=== PATIENT | male | born 1950 | race Two or more races ===

== ENCOUNTER 2022-11-24 09:21 | Outpatient (CLI) | payer MEDICARE, SELFPAY ==
[2022-11-24 10:07] VITALS: BP 159/60; PULSE 101; RESP 20; TEMP 37.3; O2SAT 94; BMI 27.4
[2022-11-24 10:33] VITALS: BP 98/50; PULSE 94; RESP 18; TEMP 37.6; O2SAT 93
[2022-11-24 11:40] VITALS: BP 132/57; PULSE 89; RESP 16; TEMP 37.8; O2SAT 100
[2022-11-24 12:33] VITALS: BP 145/78; PULSE 93; RESP 20; TEMP 36.8; O2SAT 92
[2022-11-24] MEDS: DiphenhydrAMINE 50 MG/ML Syringe 25 MG IV (12:33)
[2022-11-24] MEDS: Hydrocortisone Sod Succinate 100 MG/2 ML Vial IV (12:39)
[2022-11-24 13:12] VITALS: BP 145/78; PULSE 93; RESP 18; TEMP 36.8; O2SAT 92
[2022-11-24 13:35] VITALS: TEMP 38.8
[2022-11-24 20:39] LABS: Color, Urine- Transfusion RXN Yellow (Yellow)
[2022-11-24 20:40] LABS: Occult Blood-Urine Supernatant Negative (Negative)
[2022-11-24 21:31] LABS: TXN RXN Red Blood Cells-Urine 0-5 SEEN /hpf
== END 2022-11-24 09:22 | disposition home or self-care (01) ==
PROVIDERS: PCP Internal Medicine; Referring Provider Internal Medicine Hematology & Oncology; Visit Provider Internal Medicine Hematology & Oncology
DX: D64.81 Anemia due to antineoplastic chemotherapy (principal); T45.1X5A Adverse effect of antineoplastic and immunosuppressive drugs, initial encounter
CPT/HCPCS: 36430; 86644; 86850; 86900; 86901; 86920; 86922; P9040

== ENCOUNTER 2022-11-24 13:42 | Inpatient (IN) | payer MEDICARE, SELFPAY ==
[2022-11-24] VITALS (11 sets, daily range): BP systolic 116–136; BP diastolic 56–76; PULSE 78–92; RESP 20–32; TEMP 36.7–37.7; O2SAT 88–96; BMI 17.1; BMI 27.3
--- NOTE | 2022-11-24 14:50 | RAD_ITS ---
INDICATION: Neutropenic Fever EXAMINATION/TECHNIQUE: X-RAY - XR Chest 2 Views COMPARISON: No prior examinations are available for comparison. FINDINGS: LINES/DEVICES: None. LUNGS: Patchy infiltrate in the right lower lung and left perihilar region concerning for pneumonia. No evidence of pleural effusions. MEDIASTINUM AND CARDIOVASCULAR STRUCTURES: Normal cardiac silhouette. Tortuosity of the thoracic aorta. BONES AND SOFT TISSUES: Dextroscoliosis and degenerative changes of the thoracic spine. RAD/Chest PA and Lateral IMPRESSION: Patchy bilateral infiltrates concerning for pneumonia. Electronically Signed: Bulmaro Steinberg MD at 15:03 EDT ,
--- NOTE | 2022-11-24 15:01 | EDS_ITS ---
HPI History of Present Illness Chief Complaint: Fever Detail of Chief Complaint: For low-grade fever. Informant: patient and spouse/S.O. Onset/Context/Timing Onset: Today and Days Context: Gradual Onset Timing: Continuous Current Severity: Mild Maximum Severity: Mild Narrative Narrative: 72-year-old male history of lung CA for which she is undergoing chemotherapy and radiation. He gets once a week chemotherapy but was unable to get it his last treatment that was scheduled due to anemia. Today he received a blood transfusion. Prior to transfusion he has had a cough recently and has basally had it for months and low-grade fever around 100. He denies vomiting or diarrhea. He denies dysuria. He does not have a med port. Prior similar symptoms: Yes Recent Illness/Hospitalization: No PFSH PFSH Allergy/AdvReac Type Severity Reaction Status Date / Time acetaminophen [From Tylenol] Allergy Unknown increased Verified 11/24/22 13:44 white count Social History Smoking Status: Former smoker ROS ROS ED ROS Narrative Fever and cough of clear sputum. Review of Systems ROS Unobtainable: Denies due to encephalopathy Constitutional Constitutional ED: Reports fever(s); Denies chills Eyes Eyes: Denies blurry vision ENT ENT ED: Denies ear pain Cardiovascular Cardiovascular: Denies chest pain Respiratory/Chest Respiratory/Chest: Reports cough Gastrointestinal Gastrointestinal: Denies abdominal pain Genitourinary Genitourinary ED: Denies dysuria or hematuria Musculoskeletal Musculoskeletal: Denies arthralgias Integumentary Denies abscess Neurologic Neurologic: Denies headache(s) Psychiatric Psychiatric: Denies anxiety Endocrine Endocrinology: Denies cold intolerance Hematologic/Lymphatic Hematologic/Lymphatic: Reports anemia Allergic/Immunologic Allergic/Immunologic ED: Denies mouth swelling or tongue swelling EXAM Physical Exam Narrative Exam Narrative: 72-year-old male no acute distress. Vital signs are stable he has a temperature of 100 orally. He does not look septic or toxic. He is in no distress. at bedside. HEENT exam unremarkable. Neck nontender no lymphadenopathy. Lungs coarse breath sounds bilaterally. No rales or rhonchi. Heart regular rhythm rate about 90 no murmur. Chest wall nontender. Abdomen soft nontender. Moving all 4 extremities. Nontender no edema. Neurologically is awake alert. Answering questions following commands. Skin no rashes. Const Vital Signs: 11/24/22 13:44 11/24/22 13:55 11/24/22 13:55 Temperature 99.8 F H 100 F H Temperature Source Temporal Oral Pulse Rate 92 78 Respiratory Rate 24 H 20 H Respiratory Effort Normal Respiratory Depth Normal Respiratory Pattern Normal Blood Pressure 127/56 H 124/60 H Blood Pressure Mean 79 81 Pulse Ox 90 Oxygen Delivery Method Room Air Room Air Oxygen Flow Rate (L/min) 11/24/22 14:29 11/24/22 14:29 11/24/22 14:20 Temperature Temperature Source Pulse Rate 89 Respiratory Rate 32 H Respiratory Effort Normal Respiratory Depth Respiratory Pattern Tachypnea Blood Pressure 116/62 Blood Pressure Mean 80 Pulse Ox 93 88 Oxygen Delivery Method Nasal Cannula Room Air Oxygen Flow Rate (L/min) 3 11/24/22 14:41 11/24/22 15:04 Temperature 99 F Temperature Source Oral Pulse Rate 85 Respiratory Rate 24 H Respiratory Effort Respiratory Depth Respiratory Pattern Blood Pressure 125/76 H Blood Pressure Mean 92 Pulse Ox 92 Oxygen Delivery Method Nasal Cannula Nasal Cannula Oxygen Flow Rate (L/min) 3 3 Positive well nourished and well developed; Negative for obese, cachectic, contractures or unkempt General Appearance ED: well developed and NAD; Negative for unkempt, cachectic, contractures, cyanotic or diaphoretic Nutritional Appearance: Negative for cachectic or obese HEENT Reports moist mucous membranes; Denies dry mucous membranes Negative for trauma or tenderness Mouth ED: No dry mucous membranes Mouth: No dry mucous membranes Eyes PERRL and EOMs intact bilaterally General Eye ED: Negative for scleral icterus Neck no lymphadenopathy, supple and no JVD General: Negative for tenderness Lymph Lymphatic: Negative for other Chest Wall inspection of chest normal and palpation of chest normal Chest: Negative for other Resp normal respiratory effort and clear to auscultation bilaterally Effort and Inspection: Negative for retractions Auscultation: Negative for rales, rhonchi or wheezes Cardio regular rhythm, S1 normal heart sound, S2 normal heart sound and no murmurs GI normal to inspection, nondistended, normoactive bowel sounds, non-tender, non- distended and no masses Inspection: Negative for abdominal distention Auscultation: normoactive bowel sounds Palpation: soft; Negative for tender or guarding Bladder / Kidney Exam: other Back/Spine no CVA tenderness General Back: Negative for CVA tenderness Extremity normal to inspection General Extremety ED: Negative for edema or tenderness General Extremity: Negative for edema Neuro oriented x3 and CN's II-XII intact bilaterally Sensorium / Orientation: alert; Negative for orientation impaired, lethargic or stuporous Motor Exam: strength 5/5 throughout Psych mental status grossly normal Appearance: Negative for unkempt Attitude: No agitated Mood & Affect: Negative for depressed, anxious or tearful Skin no rashes or lesions noted, no wounds and skin turgor normal General Skin Exam: Negative for jaundice Lesions: No lesion noted Rashes: No rashes noted Trauma: Negative for abrasion Wounds: Negative for wounds noted MDM MDM MDM Narrative Medical decision making narrative: 72-year-old male undergoing treatment for lung cancer with chemotherapy and radiation. Today had a blood transfusion. Prior to that he has had a chronic cough for months. He has a prescription written for Levaquin which she will get filled today. He sees Dr. Tim Banks of oncology. He was sent in after his blood transfusion for evaluation for his fever. Of note placed on the septic protocol. Receive IV fluids and Tylenol. Repeat exam I discussed test results with patient and woman at bedside. Will be started on IV Levaquin. Explained to patient due to his age, lung cancer, being immunocompromise plus other medical history he should be admitted. I have his oncologist, Dr. Tim Banks on page. I have already spoken to the hospitalist. Patient be treated a liter normal saline. IV antibiotics being started. History & Record Review Discussion w/independent historian: Patient and Friend Lab Data Attestation: I reviewed the patient's lab results. Lab results narrative: CBC shows a white count 3.3. H&H is 7.7 and 22. He is on chemotherapy. Has had a history of anemia. Platelet counts are low he also is 64. Patient has a pancytopenia. PT/INR of 16 and 1. PTT 36. Electrolytes show sodium 131. Gap of 9. BUN 29 creatinine 0.8. Lactic acid is normal at 1.1. Liver enzymes are unremarkable. Chest x-ray portable shows bilateral lower lobe pneumonia. He also has a known history of right lower lobe lung cancer. Labs: Laboratory Results - last 24 hr 11/24/22 14:10 WBC 3.3 L RBC 2.52 L Hgb 7.7 L Hct 22.0 L MCV 87.3 MCH 30.6 MCHC 35.0 RDW Std Deviation 58.4 H RDW Coeff of Tone 20.3 H Plt Count 64 L MPV 11.2 Immature Gran % (Auto) 0.600 Neut % (Auto) 92.5 H Lymph % (Auto) 1.8 L [place] % (Auto) 5.1 Eos % (Auto) 0.0 Baso % (Auto) 0.0 Absolute Neuts (auto) 3.1 Absolute Lymphs (auto) 0.06 L Nucleated RBC % 0 Differential Comment SCANNED Diff Path Review May foll Anisocytosis 1+ PT 16.3 H INR 1.3 APTT 36.1 Sodium 131 L Potassium 3.6 Chloride 101 Carbon Dioxide 21.0 Anion Gap 9 BUN 29 H Creatinine 0.80 Estim Creat Clear Calc 55.05 Est GFR (MDRD) Af Amer 122 Est GFR (MDRD) Non-Af 101 BUN/Creatinine Ratio 36.2 H Glucose 181 H Lactic Acid 1.1 Calcium 8.4 L Total Bilirubin 5.60 H AST 40 H ALT 21 Alkaline Phosphatase 99 Total Protein 6.7 Albumin 2.8 L Globulin 3.9 Albumin/Globulin Ratio 0.7 L Radiography Chest X-Ray - ED: 1 View, Read by ED Physician, Read by Radiologist, Normal, Heart, Lungs, Mediastinum, Chronic Changes, Right Infiltrate and Left Infiltrate Diagnostic Testing: Clinical Impression(s) from Imaging Studies Chest X-Ray 11/24/22 14:50 IMPRESSION: Patchy bilateral infiltrates concerning for pneumonia. Electronically Signed: Bulmaro Steinberg MD at 15:03 EDT , Chest x-ray, portable, single view interpreted both by myself and the radiologist shows bilateral lower lobe pneumonia. He also has a known lung cancer I do not have an old chest x-ray available for comparison but I believe he is a right lower lobe known lung cancer. Discharge Plan Triage Chief Complaint: Fever Other Complaint: Cough ED Provider: John Shook Dx/Rx/DC Orders Primary Care Provider: Gera Camp Referrals: Gera Camp MD [Primary Care Provider] -
[2022-11-24 15:07] LABS: Absolute Lymphocyte Count 0.06 X10^3/uL (0.83-4.51); Absolute Neutrophil Count 3.1 X10^3/uL (2.0-7.7); Hemoglobin 7.7 g/dL (13.0-16.5); Lymphocyte # 0.06 X10^3/ul (0.83-4.51); Lymphocyte % 1.8 % (19-41); Mean Corpuscular Hgb 30.6 pg (27.0-32.0); Mean Corpuscular Volume 87.3 fL (80-94); Mean Platelet Vol. 11.2 fl (6.2-12.0); Monocyte# 0.17 X10^3/uL; Monocyte% 5.1 % (0-10); NRBC Flagged by Analyzer 0 % (0-5); Neutrophil # 3.06 X10^3/uL (2.7-7.7); Neutrophil % 92.5 % (47-70); POSITIVE COUNT YES; POSITIVE DIFFERENTIAL YES; POSITIVE MORPHOLOGY YES; Platelet Count 64 K/mm3 (150-450); RBC Distribution Width CV 20.3 % (11.6-14.6); RBC Distribution Width SD 58.4 fl (35.1-43.9); Red Blood Count 2.52 M/mm3 (4.6-6.2); White Blood Count 3.3 K/mm3 (4.4-11.0)
[2022-11-24 15:09] LABS: Lactic Acid 1.1 mmol/L (0.4-1.9)
[2022-11-24 15:18] LABS: ALB/GLOB Ratio 0.7 RATIO (0.9-2.4); AST(SGOT) 40 U/L (15-37); Alanine Aminotransfer ALT/SGPT 21 U/L (16-61); Albumin, Serum 2.8 g/dL (3.2-5.0); Alkaline Phosphatase 99 U/L (45-117); Anion Gap 9 (5-15); BUN 29 mg/dL (7-18); BUN/Creat Ratio 36.2 RATIO (10-20); Calcium,Total 8.4 mg/dL (8.5-10.1); Chloride 101 mmol/L (98-107); EST Glomerular Filtration Rate 101 mL/min (>60); Est Glom Filt Rate - Afr Amer 122 mL/min (>60); Estimated Creatinine Clearance 55.05 ml/min; Globulin 3.9 g/dL (2.2-4.2); Glucose 181 mg/dL (74-106); Potassium 3.6 mmol/L (3.5-5.1); Protein, Total 6.7 g/dL (6.4-8.2); Sodium Level 131 mmol/L (136-145)
[2022-11-24 15:22] LABS: International Normalized Ratio 1.3; Prothrombin Time (Protime)PT. 16.3 SECONDS (11.7-14.9)
[2022-11-24 15:23] LABS: Partial Thromboplast Time 36.1 Seconds (24.1-36.2)
[2022-11-24 15:29] LABS: Differential Indicated SCAN CRITERIA MET
[2022-11-24 15:42] LABS: Anisocytosis 1+; Differential Comment SCANNED
--- NOTE | 2022-11-24 16:53 | NURSING ---
HOSPITALIST PAGED DR RAHMAN PAGED
--- NOTE | 2022-11-24 17:00 | NURSING ---
DR BALDO MTZ
--- NOTE | 2022-11-24 17:08 | NURSING ---
MEDS SURG TERELETSKY BILOBAR ONEUMONIA, LUNG CA, IMMUNOCOMPRISED, CHEMO, PANCYTOPENIA
--- NOTE | 2022-11-24 17:10 | HP.PCM.HOS_ITS ---
HPI - General General Date of Admission: 11/24/22 Date of Service: 11/24/22 Chief Complaint: Shortness of breath, fever HPI Narrative LEAH KARIMI, is a 72 M who presents to the emergency room at [facility] with complaints of fever and shortness of breath which occurred today when he had a blood transfusion. 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 Patient denies is any fevers at home, he states that he has had chills over the past 2 weeks intermittently, he states he has been coughing up sputum which is clear and yellow at times. Workup in the emergency room included a CBC which showed white blood cell count of 3.3, hemoglobin was 7.7 and platelet count was 64,000. Chemistry profile was remarkable for sodium of 131, BUN of 29, glucose of 181, and the patient's calcium was 8.4, his bilirubin was 5.6, and his AST was 40. Patient's chest x- ray showed bilateral infiltrates suggestive of pneumonia. I talked with Dr. Banks by phone and he reviewed the patient's chest x-ray, he felt that the patient's right lung infiltrate was unchanged from his previous chest x-ray. Patient required 3 L via nasal cannula in the emergency room to maintain his pulse ox, patient's temperature in the ER was 99. Patient will be admitted to [facility] for pneumonia, he will be placed on IV Levaquin, Dr. Banks requested that I call the blood bank and make them aware that it could be a possible blood transfusion reaction, he asked me also to order an LDH and indirect and a direct bilirubin on the patient. Patient will be given IV fluids and aerosol treatments. [facility], [facility] Medical History (Updated 11/24/22 @ 18:[address] Cam Mcadams, ) COPD (chronic obstructive pulmonary disease) Former smoker GERD (gastroesophageal reflux disease) Home Medications albuterol sulfate 90 mcg/actuation aerosol inhaler 1 inh inhalation Q6H PRN shortness of breath 11/24/22 [History Last Taken 11/24/22] amlodipine 5 mg tablet 5 mg PO DAILY blood pressure 11/24/22 [History Last Taken 11/24/22] chlorthalidone 50 mg tablet 50 mg PO DAILY blood pressure 11/24/22 [History Last Taken 11/24/22] famotidine 20 mg tablet 20 mg PO QHS acid reflux 11/24/22 [History Last Taken 11/23/22] fluticasone 500 mcg-salmeterol 50 mcg/dose blistr powdr for inhalation 1 inh inhalation Q12H shortness of breath 11/24/22 [History Last Taken 11/24/22] levofloxacin 500 mg tablet 500 mg PO DAILY antibiotic 11/24/22 [History Last Taken Unknown] metoprolol succinate 25 mg tablet,extended release 24 hr 25 mg PO BID blood pressure 11/24/22 [History Last Taken 11/24/22] omeprazole 20 mg capsule,delayed release 20 mg PO DAILY acid reflux 11/24/22 [History Last Taken 11/24/22] potassium chloride 20 mEq tablet,extended release 20 meq PO BID supplement 11/24/22 [History Last Taken 11/24/22] Allergy/AdvReac Type Severity Reaction Status Date / Time acetaminophen [From Tylenol] Allergy Unknown increased Verified 11/24/22 13:44 white count Social History Smoking Status: Former smoker ROS Constitutional Constitutional: Reports chills and fever(s); Denies anorexia, change in weight, fatigue, malaise, night sweats or weakness Eyes Eyes: Denies blurry vision, change in vision, discharge from eye(s) or eye pain ENT HEENT: Denies dysphagia, epistaxis or headache(s) Cardiovascular Cardiovascular: Denies chest pain, claudication, dyspnea on exertion, edema, lightheadedness or palpitations Respiratory/Chest Respiratory/Chest: Reports cough and productive cough; Denies excessive phlegm production, hemoptysis, shortness of breath at rest or shortness of breath with exertion Gastrointestinal Gastrointestinal: Denies abdominal pain, coffee ground emesis, constipation, diarrhea, dyspepsia, hematemesis, hematochezia, melena, nausea or vomiting Genitourinary Genitourinary: Denies dysuria, hematuria, urinary frequency, urinary hesitancy, urinary incontinence or urinary urgency Musculoskeletal Musculoskeletal: Denies back pain, joint pain, joint stiffness, joint swelling, myalgias or neck pain Neurologic Neurologic: Denies abnormal gait, abnormal speech, dizziness, focal weakness, headache(s), loss of vision, numbness, other visual disturbances, paresthesias, syncope or tingling Psychiatric Psychiatric: Denies anxiety, cognitive impairment, depression, irritability, mood swings or suicidal ideation Endocrine Endocrinology: Denies change in body appearance, cold intolerance, excessive sweating, heat intolerance, polydipsia or polyuria Hematologic/Lymphatic Hematologic/Lymphatic: Denies none, anemia, easy bleeding, easy bruising or lymphadenopathy Allergic/Immunologic Allergic/Immunologic: Denies rhinitis, urticaria, eczemia or asthma Vital Signs Vital Signs Vital Signs: 11/24/22 13:44 11/24/22 13:55 11/24/22 13:55 Temperature 99.8 F H 100 F H Temperature Source Temporal Oral Pulse Rate 92 78 Respiratory Rate 24 H 20 H Respiratory Effort Normal Respiratory Depth Normal Respiratory Pattern Normal Blood Pressure 127/56 H 124/60 H Blood Pressure Mean 79 81 Pulse Ox 90 Oxygen Delivery Method Room Air Room Air Oxygen Flow Rate (L/min) 11/24/22 14:29 11/24/22 14:29 11/24/22 14:20 Temperature Temperature Source Pulse Rate 89 Respiratory Rate 32 H Respiratory Effort Normal Respiratory Depth Respiratory Pattern Tachypnea Blood Pressure 116/62 Blood Pressure Mean 80 Pulse Ox 93 88 Oxygen Delivery Method Nasal Cannula Room Air Oxygen Flow Rate (L/min) 3 11/24/22 14:41 11/24/22 15:04 Temperature 99 F Temperature Source Oral Pulse Rate 85 Respiratory Rate 24 H Respiratory Effort Respiratory Depth Respiratory Pattern Blood Pressure 125/76 H Blood Pressure Mean 92 Pulse Ox 92 Oxygen Delivery Method Nasal Cannula Nasal Cannula Oxygen Flow Rate (L/min) 3 3 Weight Weight: 45.3 kg Body Mass Index (BMI) 17.1 Physical Exam Const alert, oriented x3, no apparent distress and average body habitus General Appearance: cooperative, well kempt and well developed Orientation / Consciousness: awake, oriented to person, oriented to place and oriented to time HEENT normocephalic, head/scalp atraumatic, hearing grossly normal bilaterally and moist oral mucous membranes Eyes PERRL, EOMs intact bilaterally and conjunctivae normal Neck supple, no JVD, thyroid normal and no carotid bruits General: trachea midline Resp normal respiratory effort, no retractions and no use of accessory muscles Resp Narrative: Patient has inspiratory rales over both lower lung field Auscultation: rales bilateral lower; Negative for rhonchi or wheezes Cardio regular rate, regular rhythm, S1 normal heart sound, S2 normal heart sound, no murmurs, no rub and no gallops GI normal to inspection, nondistended, normoactive bowel sounds, soft to palpation, non-tender and non-distended Extremity no clubbing, cyanosis or edema Skin no rashes or lesions noted General Skin Exam: no breakdown Neuro oriented x3, CN's II-XII intact bilaterally, moves all extremities, no focal motor deficits and no sensory deficits noted Sensorium / Orientation: awake, alert, oriented to person, oriented to place and oriented to time Speech: speech normal Psych affect normal Results Lab / Micro Data 11/24/22 14:10 11/24/22 14:10 Labs: Laboratory Results - last 24 hr 11/24/22 14:10: WBC 3.3 L, RBC 2.52 L, Hgb 7.7 L, Hct 22.0 L, MCV 87.3, MCH 30.6, MCHC 35.0, RDW Std Deviation 58.4 H, RDW Coeff of Tone 20.3 H, Plt Count 64 L, MPV 11.2, Immature Gran % (Auto) 0.600, Neut % (Auto) 92.5 H, Lymph % (Auto) 1.8 L, [place] % (Auto) 5.1, Eos % (Auto) 0.0, Baso % (Auto) 0.0, Absolute Neuts (auto) 3.1, Absolute Lymphs (auto) 0.06 L, Nucleated RBC % 0, Differential Comment SCANNED, Diff Path Review August, Anisocytosis 1+, PT 16.3 H, INR 1.3, APTT 36.1, Sodium 131 L, Potassium 3.6, Chloride 101, Carbon Dioxide 21.0, Anion Gap 9, BUN 29 H, Creatinine 0.80, Estim Creat Clear Calc 55.05, Est GFR (MDRD) Af Amer 122, Est GFR (MDRD) Non-Af 101, BUN/Creatinine Ratio 36.2 H, Glucose 181 H, Lactic Acid 1.1, Calcium 8.4 L, Total Bilirubin 5.60 H, AST 40 H, ALT 21, Alkaline Phosphatase 99, Total Protein 6.7, Albumin 2.8 L, Globulin 3.9, Albumin/Globulin Ratio 0.7 L Micro: Microbiology 11/24/22 15:09 Nasal Secretion SARS-CoV-2 & FLU Antigen (Rapid) - Final Radiology Impression Chest X-Ray 11/24/22 14:50 IMPRESSION: Patchy bilateral infiltrates concerning for pneumonia. Electronically Signed: Bulmaro Steinberg MD at 15:03 EDT , Assessment & Plan Assessment/Plan (1) Hypoxia: PLAN: Plan 1. Bilateral infiltrates indicative of pneumonia-patient will be admitted to [facility], he will be placed on IV Levaquin, sputum culture will be obtained if possible, urine antigens for strep and Legionella will be ordered, patient will be placed on aerosol treatments, labs will be monitored #2 hypoxia secondary to presumed pneumonia-patient's pulse ox will be monitored, aerosol treatments will be administered #3 chronic obstructive pulmonary disease-again patient will be placed on aerosol treatments and pulse ox will be monitored #4 elevated bilirubin-according to the patient's oncologist, patient's bilirubin yesterday was 1.8, hepatitis panel was obtained as an outpatient according to oncology, the patient's hepatitis B core antibody was positive, the surface antibody was negative and the surface antigen was negative. I do not know the significance of this. Dr. Banks stated that the patient's PET scan did not show any liver involvement with his lung cancer. CMP will be rechecked tomorrow, Dr. Banks requested an LDH and bilirubin direct and indirect on the patient. #5 adenocarcinoma of the right lung-patient's last chemo was a few weeks ago, he has had 5 weeks of radiation so far and he is due to have 1 more week of radiation. Complicates care, medical course, recovery, and prognosis #6 anemia secondary to chemotherapy-CBC will be rechecked tomorrow, Dr. Banks does not feel patient needs to be transfused again at this time #7 essential hypertension-due to the patient's elevated BUN, I will hold his chlorthalidone, he will remain on his other medications for blood pressure #8 thrombocytopenia-secondary to chemotherapy, patient's CBC will be monitored #9 anemia-secondary to chemotherapy, CBC will be monitored Total clinical time spent by myself addressing the patient's medical issues, reviewing all of his data, and collaborating with patient's care team: 75-minute Charges/Coding Visit Charges Inpatient E&M: 47824 Init Hosp L3
[2022-11-24] MEDS: levoFLOXacin IV 750 MG/150 ML BAG 100 MG IV (17:24)
[2022-11-24] MEDS: 0.9% Normal Saline 1,000 ML 999 ML IV (17:25)
[2022-11-24] MEDS: 0.9% Normal Saline 1,000 ML 50 ML IV (17:25)
[2022-11-24] MEDS: Pantoprazole Sodium 40 MG Tablet PO (19:45)
[2022-11-24] MEDS: Budesonide Respules 0.5 MG/2 ML AMPUL.NEB. INHALATION (20:26)
[2022-11-24] MEDS: Ipratropium/Albuterol Sulfate 3 ML AMPUL.NEB INHALATION (20:26)
[2022-11-24 20:52] LABS: Bacteria 0 SEEN /hpf (None Seen); Mucous, Urine 0 SEEN /hpf (<or=2+); Red Blood Cells-Urine 0 SEEN /hpf (0-5); Squamous Epithelial Cells - UA 0 SEEN /hpf (0-5); White Blood Cells 0 SEEN /hpf (0-5)
[2022-11-24 20:53] LABS: Color, Urine Yellow (Yellow); Glucose, Dipstick Normal (Normal); Ketone-Dipstick Negative (Negative); Leukocyte Esterase-Dipstick 25 /ul (Negative); Nitrite-Dipstick Negative (Negative); Occult Blood-Urine 10 /ul (Negative); Protein-Dipstick 30 mg/dl (Negative); Specific Gravity, Urine 1.015 (1.002-1.030); Urine Bilirubin Dipstick Negative (Negative); Urine Clarity Clear (Clear); Urine Urobilinogen 4 mg/dl (Normal)
[2022-11-24 21:30] LABS: Bilirubin, Direct 1.17 mg/dL (0.00-0.30); LDH 255 U/L (87-241)
[2022-11-24] MEDS: Famotidine 20 MG Tablet PO (22:41)
[2022-11-24] MEDS: Metoprolol(XL)Succ 25 MG Tablet PO (22:41)
[2022-11-24] MEDS: 0.9% Normal Saline 1,000 ML 100 ML IV (22:42)
[2022-11-25] VITALS (12 sets, daily range): BP systolic 127–136; BP diastolic 60–79; PULSE 85–96; RESP 18–44; TEMP 37.2–37.6; O2SAT 83–94
[2022-11-25 06:13] LABS: Absolute Neutrophil Count 2.5 X10^3/uL (2.0-7.7); Eosinophil# 0.01 X10^3/uL; Eosinophils% 0.4 % (0-5); Hematocrit 21.2 % (40-54); Hemoglobin 7.5 g/dL (13.0-16.5); Lymphocyte % 3.6 % (19-41); Mean Corp Hgb Conc 35.4 g/dL (32-36); Mean Corpuscular Hgb 30.7 pg (27.0-32.0); Mean Corpuscular Volume 86.9 fL (80-94); Mean Platelet Vol. 10.9 fl (6.2-12.0); Monocyte# 0.15 X10^3/uL; Monocyte% 5.5 % (0-10); NRBC Flagged by Analyzer 0 % (0-5); Neutrophil # 2.45 X10^3/uL (2.7-7.7); Neutrophil % 89.4 % (47-70); POSITIVE COUNT YES; POSITIVE DIFFERENTIAL YES; POSITIVE MORPHOLOGY YES; Platelet Count 61 K/mm3 (150-450); RBC Distribution Width CV 20.8 % (11.6-14.6); RBC Distribution Width SD 58.5 fl (35.1-43.9); Red Blood Count 2.44 M/mm3 (4.6-6.2); White Blood Count 2.7 K/mm3 (4.4-11.0)
[2022-11-25 06:22] LABS: Differential Indicated SCAN CRITERIA MET
[2022-11-25 07:00] LABS: Anisocytosis 2+
[2022-11-25 07:01] LABS: Hypochromasia 1+
[2022-11-25 07:11] LABS: ALB/GLOB Ratio 0.7 RATIO (0.9-2.4); AST(SGOT) 19 U/L (15-37); Alanine Aminotransfer ALT/SGPT 17 U/L (16-61); Albumin, Serum 2.5 g/dL (3.2-5.0); Alkaline Phosphatase 92 U/L (45-117); Anion Gap 6 (5-15); BUN 23 mg/dL (7-18); BUN/Creat Ratio 32.1 RATIO (10-20); Calcium,Total 8.3 mg/dL (8.5-10.1); Chloride 103 mmol/L (98-107); Creatinine, Serum 0.72 mg/dL (0.70-1.30); EST Glomerular Filtration Rate 115 mL/min (>60); Est Glom Filt Rate - Afr Amer 139 mL/min (>60); Estimated Creatinine Clearance 57.56 ml/min; Globulin 3.7 g/dL (2.2-4.2); Glucose 130 mg/dL (74-106); Potassium 2.8 mmol/L (3.5-5.1); Protein, Total 6.2 g/dL (6.4-8.2); Sodium Level 133 mmol/L (136-145)
[2022-11-25] MEDS: Ipratropium/Albuterol Sulfate 3 ML AMPUL.NEB INHALATION ×3 (07:29→19:32)
[2022-11-25] MEDS: Budesonide Respules 0.5 MG/2 ML AMPUL.NEB. INHALATION ×2 (07:29→19:32)
[2022-11-25] MEDS: Ensure Clear 120 ML Liquid PO (08:12)
[2022-11-25] MEDS: Potassium Chloride 10mEq/100mL 10 MEQ/100 ML IV.SOLN. 100 MEQ IV BOLUS ×4 (08:12→12:46)
[2022-11-25] MEDS: 0.9% Normal Saline 1,000 ML 100 ML IV ×2 (08:13→20:36)
[2022-11-25] MEDS: Metoprolol(XL)Succ 25 MG Tablet PO ×2 (08:13→21:22)
[2022-11-25] MEDS: amLODIPine 5 MG Tablet PO (08:13)
[2022-11-25] MEDS: Pantoprazole Sodium 40 MG Tablet PO (08:13)
--- NOTE | 2022-11-25 09:01 | ECHOD_ITS ---
Reason For Study: SHORTNESS OF BREATH Procedure This was a 2D Doppler, Color Flow transthoracic echocardiogram. The study was technically difficult. Patient was scanned in sitting position during reflux assessment. Exam performed portable in patient room. Left Ventricle Normal LV size. The estimated ejection fraction is 65 %. No evidence for diastolic dysfunction. No regional wall motion abnormalities noted. Right Ventricle Normal RV size. Normal systolic function. Atria Normal left atrium. Normal right atrium. No doppler evidence for ASD. Mitral Valve There is no mitral valve stenosis. No mitral valve insufficiency. Tricuspid Valve There is no tricuspid stenosis. Unable to estimate RV systolic pressure due to inadequate jet, pulmonary artery pressure probably normal. Aortic Valve Trisinus/trileaflet aortic valve. There is no aortic stenosis. No aortic valve insufficiency. Pulmonic Valve There is no pulmonic valvular stenosis. No pulmonic valve insufficiency. Great Vessels Normal aortic root. Pericardium/Pleural No pericardial effusion. MMode/2D Measurements & Calculations LVIDd: 4.8 cm IVSd: 1.2 cm LVOT diam: 2.2 cm LVIDs: 3.6 cm LVPWd: 1.1 cm LVOT area: 3.7 cm2 RVDd: 3.5 cm FS: 25.1 % Ao root diam: 4.2 cm LAV(MOD-bp): 51.6 ml LVAd ap4: 28.1 cm2 LAV(MOD-bp) Indexed: 29.1 ml/m2 LVLd ap4: 7.8 cm LAV(MOD-sp2): 53.0 ml EDV(MOD-sp4): 84.0 ml LAV(MOD-sp4): 46.1 ml EDV(sp4-el): 86.2 ml LVAs ap4: 16.5 cm2 LVLs ap4: 6.9 cm ESV(MOD-sp4): 34.0 ml ESV(sp4-el): 33.2 ml EF(MOD-sp4): 59.5 % EF(sp4-el): 61.5 % LVAd ap2: 27.2 cm2 SV(MOD-sp4): 50.0 ml SV(MOD-sp2): 43.6 ml LVLd ap2: 8.2 cm EDV(MOD-sp2): 72.7 ml EDV(sp2-el): 76.4 ml LVAs ap2: 15.0 cm2 LVLs ap2: 6.8 cm ESV(MOD-sp2): 29.1 ml ESV(sp2-el): 28.2 ml EF(MOD-sp2): 60.0 % SV(sp4-el): 53.0 ml LA dimension(2D): 3.4 cm LA A4 area: 18.8 cm2 RA A4 area: 14.8 cm2 TAPSE: 1.6 cm Time Measurements MV dec time: 0.16 sec Doppler Measurements & Calculations MV E max chava: 132.0 cm/sec Lat Peak E' Chava: 14.9 cm/sec Med Peak E' Chava: 12.1 cm/sec MV A max chava: 107.7 cm/sec E/E' lat: 8.9 E/E' med: 10.9 MV E/A: 1.2 Ao V2 max: 154.7 cm/sec LV V1 max: 132.3 cm/sec MV dec slope: 823.9 cm/sec2 Ao max P.6 mmHg LV V1 max P.0 mmHg Ao V2 mean: 100.3 cm/sec LV V1 mean P.3 mmHg Ao mean P.7 mmHg LV V1 mean: 85.8 cm/sec Ao V2 VTI: 27.8 cm LV V1 VTI: 25.5 cm AV (velocity ratio): 0.92 JUJU(I,D): 3.4 cm2 JUJU(V,D): 3.2 cm2 SV(LVOT): 94.2 ml PA V2 max: 94.1 cm/sec PA max PG (full): 1.5 mmHg ECHO/Echo Complete Interpretation Summary The estimated ejection fraction is 65 %. No evidence for diastolic dysfunction. Ordering Physician: Alejandra Cabrera Referring Physician: Gera Camp M.D. Performed By: Leeann Cortez RDCS
--- NOTE | 2022-11-25 09:15 | RAD_ITS ---
INDICATION: pneumonia EXAMINATION/TECHNIQUE: X-RAY - XR Chest 2 Views COMPARISON: Chest radiograph previous day. Findings: Frontal and lateral views of the chest. LUNG PARENCHYMA: Significant diffuse bilateral patchy airspace disease. PLEURA: No pleural effusion. No pneumothorax. HEART/GREAT VESSELS: Cardiomediastinal silhouette is unremarkable. BONES: Osseous structures are unremarkable for age. RAD/Chest PA and Lateral IMPRESSION: Stable severe diffuse bilateral patchy airspace disease, to include pneumonia. Recommend follow-up to resolution as neoplastic process is not excluded. Electronically Signed: David Shepherd MD at 2:29 EDT ,
--- NOTE | 2022-11-25 10:10 | PN_ITS ---
Subjective Subjective Patient seen and examined. He still admits to occasional cough. He feels his breathing has improved a bit. He denies any chest pain, palpitations, dizziness, nausea, vomiting or diarrhea. Review of systems is otherwise negative. He is now requiring 5L of oxygen; was previously on 3L of oxygen. Objective Data Objective Data Vital Signs: Vital Signs Temp Pulse Resp BP Pulse Ox O2 Del Method O2 Flow Rate 99.5 F H 86 22 H 133/67 H 93 Nasal Cannula 5 11/25/22 08:10 11/25/22 08:13 11/25/22 08:10 11/25/22 08:10 11/25/22 08:10 11/25/22 08:10 11/25/22 08:10 Oxygen Flow Rate (L/min) 5 Oxygen Delivery Method Nasal Cannula Weight: 159 lb 2.78 oz Body Mass Index (BMI) 27.3 Intake & Output: Intake and Output for Last 24 Hours 11/23/22 11/24/22 11/25/22 23:59 23:59 23:59 Intake Total 2150 / 2200 1001.67 / 1001.67 Output Total 1225 / 1225 Balance 2150 / 1850 -223.33 / -223.33 Lab / Micro Data 11/25/22 05:30 11/25/22 05:30 Labs: Laboratory Results - last 24 hr 11/24/22 14:10: WBC 3.3 L, RBC 2.52 L, Hgb 7.7 L, Hct 22.0 L, MCV 87.3, MCH 30.6, MCHC 35.0, RDW Std Deviation 58.4 H, RDW Coeff of Tone 20.3 H, Plt Count 64 L, MPV 11.2, Immature Gran % (Auto) 0.600, Neut % (Auto) 92.5 H, Lymph % (Auto) 1.8 L, [place] % (Auto) 5.1, Eos % (Auto) 0.0, Baso % (Auto) 0.0, Absolute Neuts (auto) 3.1, Absolute Lymphs (auto) 0.06 L, Nucleated RBC % 0, Differential Comment SCANNED, Diff Path Review May foll, Anisocytosis 1+, PT 16.3 H, INR 1.3, APTT 36.1, Sodium 131 L, Potassium 3.6, Chloride 101, Carbon Dioxide 21.0, Anion Gap 9, BUN 29 H, Creatinine 0.80, Estim Creat Clear Calc 55.05, Est GFR (MDRD) Af Amer 122, Est GFR (MDRD) Non-Af 101, BUN/Creatinine Ratio 36.2 H, Glucose 181 H, Lactic Acid 1.1, Calcium 8.4 L, Total Bilirubin 5.60 H, AST 40 H, ALT 21, Alkaline Phosphatase 99, Total Protein 6.7, Albumin 2.8 L, Globulin 3.9, Albumin/Globulin Ratio 0.7 L 11/24/22 18:42: Total Bilirubin 4.20 H, Direct Bilirubin 1.17 H, Indirect Bilirubin 3.00 H, Lactate Dehydrogenase 255 H 11/24/22 20:20: Urine Color Yellow, Urine Clarity Clear, Urine pH 5.0, Ur Specific Ledbetter 1.015, Urine Protein 30 H, Urine Glucose (UA) Normal, Urine Ketones Negative, Urine Occult Blood 10 H, Urine Nitrite Negative, Urine Bilirubin Negative, Urine Urobilinogen 4 H, Ur Leukocyte Esterase 25 H, Urine RBC 0 SEEN, Urine WBC 0 SEEN, Ur Squamous Epith Cells 0 SEEN, Urine Bacteria 0 SEEN, Urine Mucus 0 SEEN 11/25/22 05:30: WBC 2.7 L, RBC 2.44 L, Hgb 7.5 L, Hct 21.2 L, MCV 86.9, MCH 30.7, MCHC 35.4, RDW Std Deviation 58.5 H, RDW Coeff of Tone 20.8 H, Plt Count 61 L, MPV 10.9, Immature Gran % (Auto) 1.100 H, Neut % (Auto) 89.4 H, Lymph % (Auto) 3.6 L, [place] % (Auto) 5.5, Eos % (Auto) 0.4, Baso % (Auto) 0.0, Absolute Neuts (auto) 2.5, Absolute Lymphs (auto) 0.10 L, Nucleated RBC % 0, Diff Path Review May foll, Hypochromasia 1+, Anisocytosis 2+, Sodium 133 L, Potassium 2.8 L, Chloride 103, Carbon Dioxide 24.0, Anion Gap 6, BUN 23 H, Creatinine 0.72, Estim Creat Clear Calc 57.56, Est GFR (MDRD) Af Amer 139, Est GFR (MDRD) Non-Af 115, BUN/Creatinine Ratio 32.1 H, Glucose 130 H, Calcium 8.3 L, Magnesium 2.0, Total Bilirubin 2.60 H, AST 19, ALT 17, Alkaline Phosphatase 92, Total Protein 6.2 L, Albumin 2.5 L, Globulin 3.7, Albumin/Globulin Ratio 0.7 L Micro: Microbiology 11/24/22 20:20 Urine, Clean Catch Legionella Antigen - Final 11/24/22 20:20 Urine, Clean Catch Streptococcus pneumoniae Antigen (M - Final 11/24/22 15:09 Nasal Secretion SARS-CoV-2 & FLU Antigen (Rapid) - Final Radiography Diagnostic Testing: Radiology Impression Chest X-Ray 11/24/22 14:50 IMPRESSION: Patchy bilateral infiltrates concerning for pneumonia. Electronically Signed: Bulmaro Steinberg MD at 15:03 EDT , Physical Exam Const alert, oriented x3 and no apparent distress General Appearance: cooperative HEENT normocephalic, head/scalp atraumatic, moist oral mucous membranes, oropharynx normal and gingiva normal Eyes PERRL and EOMs intact bilaterally Neck no lymphadenopathy, supple and no JVD Lymph Lymphatic: no lymphadenopathy noted and no lymphedema noted Resp Resp Narrative: diminished breath sounds bibasally, no wheezes or crackles. On 5L of oxygen by nasal canula. has increased AP diameter of chest likely due to hyperinflation Cardio regular rate, regular rhythm, S1 normal heart sound, S2 normal heart sound and no murmurs GI normal to inspection, nondistended, normoactive bowel sounds, soft to palpation, non-tender and non-distended Extremity normal capillary refill, no clubbing, cyanosis or edema and no calf tenderness Skin General Skin Exam: no breakdown Neuro CN's II-XII intact bilaterally, no focal motor deficits, no sensory deficits noted and deep tendon reflexes 2+ bilaterally Motor Exam: strength 5/5 throughout Psych thought process normal, cooperative and affect normal Assessment & Plan Assessment/Plan (1) Hypoxia: PLAN: Plan #HYpoxia likely due to community acquired pneumonia * admitted from his oncologist's office where he was getting blood transfusion. He subsequently developed fever and shortness of breath so was sent to the ED due to concerns for transfusion related reaction. * CXR showed bilateral infiltrates; right infiltrate was thought to be due to his lung cancer. * on IV levaquin * now requiring 5L. Doesnt wear oxygen at home * will check BNP and 2d echo to assess for fluid overload; BNP came back at 141. * give IV lasix 40mg daily to see if diuresis will help with hypoxia. * breathing treatment with bronchodilators * titrate oxygen to maintain sats >90% * # Right lung adenocarcinoma * Follows with oncology. Has had 5 weeks of radiation so far. Has also completed chemotherapy. * Follow-up with oncology on outpatient basis * #Hypokalemia: K is 2.8. Will replace and trend. Check magnesium. #Elevated liver enzymes * total bilirubin was 5.6 on admission. Now down to 2.6. May have been due to some hemolysed rbcs during transufsion * will trend, since it has started going down spontaneously * #COPD: Not in exacerbation. Breathing treatments bronchodilators. #Pancytopenia: * Likely due to cancer and chemotherapy. Did receive 1 unit of blood yesterday. * Hemoglobin is 7.5 today and wbc is 2.7 and platelets are 61. Platelets were 64 yesterday. * Transfuse if hemoglobin less than 7. #Benign essential hypertension. Chlorthalidone held due to elevated BUN. On amlodipine and metoprolol. DVT prophylaxis: SCDs. no anticoagulation o.a of thrombocytopenia Charges/Coding Visit Charges Inpatient E&M: 83440 Subs Hosp L3
[2022-11-25 10:24] LABS: BNP,B-Type NATRIURETIC PEPTIDE 141.3 pg/mL (0-100)
[2022-11-25] MEDS: Sodium Chloride 0.65% 1 SPRAY SPRAY.BTL 2 SPRAY NASAL (11:28)
[2022-11-25] MEDS: Furosemide 40 MG/4 ML Vial IV (11:28)
[2022-11-25] MEDS: guaiFENesin 1,200 MG Tablet 1200 MG PO ×2 (11:28→21:22)
[2022-11-25] MEDS: 0.9% Saline Lock 10 ML Syringe IV ×2 (11:29→21:22)
--- NOTE | 2022-11-25 12:59 | CASEMGMT ---
RN CM NOTE: RN CM to room to complete initial RN CM assessment. Pt resting in bed. Sister, Gaby, @ bedside. Introduced self and role of RN CM. Pt asked for RN CM to come back at a later time to complete assessment. William GARCIAN RN CM
[2022-11-25] MEDS: levoFLOXacin IV 750 MG/150 ML BAG 100 MG IV (13:50)
--- NOTE | 2022-11-25 16:14 | CASEMGMT ---
RN?CM?SYNTHETIC CHEMIST?CM?to room to meet with patient for initial transition planning/care coordination?assessment.?RN?CM?introduced self and role at [facility].? Pt voices understanding and consents to?assessment?at this time.? Pt sitting up in chair in room in no distress at this time.? Pt is A/O at this time and answers all questions appropriately.?? Care providers, pharmacy, and demographics verified/updated at this time. PCP: Dr Camp Specialists: Dr Banks-oncology. Pt sees a internet sales associate in [place], but considering switching to [place] [place] [facility] Insurance: [employer] Prescription Benefit:?Yes Living Will/HPOA:? Pt does not currently have LW/HCPOA and interested in completing. BRIDGER Pearce, made aware. LNOK: 2 sisters: Gaby and Delta. Niece, Geena. Living Arrangements: Lives alone in one-story apt @ [facility]. About 7 steps to go down to get into apt. Indep w/ADL's. Sister helps w/home mgnt tasks, assists w/laundry, going to grocery store, etc. Pt states often uses [employer] to cook meals. He has been more weak/fatiques past few weeks since starting chemo. Transportation:?Pt states drives self and states no transportation concerns at this time.?Sister also drives DME: States has the following DME:?quad cane and pulse ox. Pt states is interested in medical alert info, hospital bed, and nebulizer. He does not have a walker. Pt made aware, if he does d/c to a SNF, then DME cannot be set up/obtained until d/c from SNF. Pt voices understanding. HHC/SNF: No hx of either. Discussed options of SNF and HHC. Pt states thinks SNF would be best choice and would like a list of SNF's to review. PLAN:??SNF William GARCIAN?RN?CM
[2022-11-25] MEDS: Famotidine 20 MG Tablet PO (21:22)
[2022-11-26] VITALS (24 sets, daily range): BP systolic 103–131; BP diastolic 50–72; PULSE 70–97; RESP 18–44; TEMP 36.8–38.6; O2SAT 88–99
[2022-11-26] MEDS: Sodium Chloride 0.65% 1 SPRAY SPRAY.BTL 2 SPRAY NASAL (01:58)
[2022-11-26] MEDS: Albuterol 2.5 MG/3 ML VIAL.NEB. INHALATION ×2 (02:41→07:32)
[2022-11-26 03:11] LABS: Allen Test Positive; Base Excess -3 mmol/L (-2 to +2); Blood Gas Specimen Type ART; O2 Delivery Device Cannula; PO2 53 mmHG (75-100); SITE R Radial; SO2 91 % (95-99); Total Carbon Dioxide 21 mmol/L; pH 7.53 (7.35-7.45)
[2022-11-26] MEDS: Budesonide Respules 0.5 MG/2 ML AMPUL.NEB. INHALATION ×2 (07:32→18:39)
[2022-11-26 07:56] LABS: Absolute Lymphocyte Count 0.08 X10^3/uL (0.83-4.51); Absolute Neutrophil Count 1.7 X10^3/uL (2.0-7.7); Basophil# 0.01 X10^3/uL; Basophil% 0.5 % (0-1); Eosinophil# 0.02 X10^3/uL; Eosinophils% 1.1 % (0-5); Hematocrit 20.6 % (40-54); Hemoglobin 6.9 g/dL (13.0-16.5); Lymphocyte # 0.08 X10^3/ul (0.83-4.51); Lymphocyte % 4.3 % (19-41); Mean Corp Hgb Conc 33.5 g/dL (32-36); Mean Corpuscular Hgb 30.3 pg (27.0-32.0); Mean Corpuscular Volume 90.4 fL (80-94); Mean Platelet Vol. 11.1 fl (6.2-12.0); Monocyte% 5.3 % (0-10); NRBC Flagged by Analyzer 0 % (0-5); Neutrophil # 1.65 X10^3/uL (2.7-7.7); Neutrophil % 88.3 % (47-70); POSITIVE COUNT YES; POSITIVE DIFFERENTIAL YES; POSITIVE MORPHOLOGY YES; Platelet Count 61 K/mm3 (150-450); RBC Distribution Width CV 21.4 % (11.6-14.6); RBC Distribution Width SD 66.4 fl (35.1-43.9); Red Blood Count 2.28 M/mm3 (4.6-6.2); White Blood Count 1.9 K/mm3 (4.4-11.0)
[2022-11-26 07:59] LABS: Differential Indicated SCAN CRITERIA MET
[2022-11-26 08:19] LABS: Anion Gap 7 (5-15); BUN 21 mg/dL (7-18); BUN/Creat Ratio 29.4 RATIO (10-20); Calcium,Total 8.4 mg/dL (8.5-10.1); Chloride 102 mmol/L (98-107); Creatinine, Serum 0.71 mg/dL (0.70-1.30); EST Glomerular Filtration Rate 116 mL/min (>60); Est Glom Filt Rate - Afr Amer 140 mL/min (>60); Estimated Creatinine Clearance 57.56 ml/min; Glucose 130 mg/dL (74-106); Potassium 2.5 mmol/L (3.5-5.1); Sodium Level 134 mmol/L (136-145)
[2022-11-26] MEDS: guaiFENesin 1,200 MG Tablet 1200 MG PO ×2 (08:26→21:34)
[2022-11-26] MEDS: Metoprolol(XL)Succ 25 MG Tablet PO ×2 (08:26→21:34)
[2022-11-26] MEDS: amLODIPine 5 MG Tablet PO (08:26)
[2022-11-26] MEDS: Pantoprazole Sodium 40 MG Tablet PO (08:26)
[2022-11-26] MEDS: levoFLOXacin IV 750 MG/150 ML BAG 100 MG IV (08:27)
[2022-11-26] MEDS: 0.9% Saline Lock 10 ML Syringe IV (08:27)
[2022-11-26] MEDS: Ensure Clear 120 ML Liquid PO (08:27)
[2022-11-26 08:57] LABS: Anisocytosis 1+; Platelet Estimate MOD DEC (ADEQ)
--- NOTE | 2022-11-26 09:07 | EX.PCM.CONCC ---
Assessment & Plan Assessment/Plan (1) Hypoxia: PLAN: Plan RECOMMENDATIONS: 1. Wean FiO2 to maintain oxygen saturations at or above 90%. 2. Agree with broadening antimicrobials at this time. 3. Check MRSA screen. If positive, initiate vancomycin as well. 4. Continue bronchodilator therapy. 5. Encourage incentive spirometer use and mobilize patient as tolerated. IMPRESSIONS: 1. Acute hypoxemic respiratory failure The patient was initially admitted to the hospital after he developed a fever and shortness of breath while receiving transfusion of blood products. The patient's chest imaging demonstrated bilateral patchy pulmonary infiltrates, which could represent an underlying pneumonia versus transfusion related acute lung injury. I agree with broadening the patient's antimicrobials, given the interval worsening in his infiltrates. Sputum culture has not demonstrated any growth to date. Plan to check MRSA screen and initiate vancomycin as well if positive. Continue bronchodilators as tolerated and wean FiO2 to maintain oxygen saturations at or above 90%. Given the patient's preserved ejection fraction and limited volume that was transfused, TACO seems unlikely. Please ensure that the blood laboratory has performed appropriate testing for potential transfusion related reaction, given the patient's need for potential packed red blood cell transfusion in the near future. 2. Self-reported history of asthma/pulmonary non-small cell carcinoma Continue supportive measures as noted above along with scheduled bronchodilator therapy. 3. Anemia Continue to monitor blood counts and transfuse if hemoglobin drops below 7 g/dL. This note was generated with [employer] dictation software. It may contain incorrect words, spelling, and punctuation that were not noted in checking the note before signing. HPI Consult Data Date of Consult: 11/26/22 HPI Narrative Reason for Consultation: Pneumonia HPI Narrative: The patient is a 72-year-old male, with a history as outlined below, who presented to the emergency department on November 24 from the transfusion center after he developed a fever shortness of breath while receiving packed red blood cells. The patient is currently being followed by Dr. Banks of oncology secondary to a history of non-small cell carcinoma. The patient denied feeling ill or having any fevers prior to his blood transfusion. He does have reported history of asthma and is currently followed by a dough molder hand through [facility]. He does not utilize supplemental oxygen at his baseline. The patient does currently report the presence of a cough which has been intermittently productive of sputum. On presentation to the emergency department, the patient was noted to have a fever and tachypnea, but was otherwise hemodynamically stable. The patient was documented to be saturating 90% on room air. Initial laboratory evaluation demonstrated evidence of pancytopenia with a hemoglobin of 7.7 g/dL and platelet count of 64,000. Initial chemistry profile was notable for a sodium of 131 and BUN of 29. Lactate was within normal limits. Total bili was increased at 5.6. Urine analysis was unrevealing. Chest x-ray demonstrated bilateral patchy infiltrates. According to documentation, the blood bank was made aware of a potential blood transfusion reaction. The patient was placed on antibiotics and admitted to the hospital for further management. Surface echocardiogram demonstrated normal LV size and function with an ejection fraction of 65%. The patient was admitted to the hospital and placed on bronchodilators and Levaquin. Over the course of his hospitalization, to date, the patient's oxygenation status has slowly worsened. [facility] Medical History (Updated 11/24/22 @ 18:[address] Cam Mcadams, ) COPD (chronic obstructive pulmonary disease) Former smoker GERD (gastroesophageal reflux disease) Home Medications albuterol sulfate 90 mcg/actuation aerosol inhaler 1 inh inhalation Q6H PRN shortness of breath 11/24/22 [History Last Taken 11/24/22] amlodipine 5 mg tablet 5 mg PO DAILY blood pressure 11/24/22 [History Last Taken 11/24/22] chlorthalidone 50 mg tablet 50 mg PO DAILY blood pressure 11/24/22 [History Last Taken 11/24/22] famotidine 20 mg tablet 20 mg PO QHS acid reflux 11/24/22 [History Last Taken 11/23/22] fluticasone 500 mcg-salmeterol 50 mcg/dose blistr powdr for inhalation 1 inh inhalation Q12H shortness of breath 11/24/22 [History Last Taken 11/24/22] levofloxacin 500 mg tablet 500 mg PO DAILY antibiotic 11/24/22 [History Last Taken Unknown] metoprolol succinate 25 mg tablet,extended release 24 hr 25 mg PO BID blood pressure 11/24/22 [History Last Taken 11/24/22] omeprazole 20 mg capsule,delayed release 20 mg PO DAILY acid reflux 11/24/22 [History Last Taken 11/24/22] potassium chloride 20 mEq tablet,extended release 20 meq PO BID supplement 11/24/22 [History Last Taken 11/24/22] Allergy/AdvReac Type Severity Reaction Status Date / Time acetaminophen [From Tylenol] Allergy Unknown increased Verified 11/24/22 13:44 white count Social History Smoking Status: Former smoker ROS ROS Narrative 10 systems were reviewed with pertinent positives as noted in the HPI above. Physical Exam Const alert, oriented x3 and no apparent distress General Appearance: cooperative HEENT normocephalic, head/scalp atraumatic and moist oral mucous membranes Eyes PERRL, EOMs intact bilaterally and conjunctivae normal Neck supple General: trachea midline Chest inspection of chest normal Resp normal respiratory effort Auscultation: rales Cardio regular rate and regular rhythm GI normal to inspection, nondistended, normoactive bowel sounds Extremity no clubbing, cyanosis or edema Skin no rashes or lesions noted Neuro oriented x3, CN's II-XII intact bilaterally and moves all extremities Psych cooperative and affect normal Medical Records Data Medical Nutrition Assessment Dietitian: Malnutrition Criteria Met Start: 11/25/22 15:16 Freq: Status: Active Protocol: Document 11/25/22 15:17 RMA (Rec: 11/25/22 15:17 RMA [id number]) Nutrition Malnutrition Evidence of Malnutrition Exists Yes Malnutrition (moderate): Acute Illness/Injury Evidenced By Suboptimal Energy Intake ( Moderate),Weight Loss ( Moderate) Clinical Problem Acute Disease or Injury Related Malnutrition Etiology Moderate pro-mini malnutrition in the context of acute illness related to inadequate oral intake Signs/Symptoms as evidenced by PO meeting less than 75% estimated nutrition needs and weight loss~4% x past 1 month Status Active Problem Recommendation Dietitian Recommendations/Changes Will continue liberalized regular diet as ordered. Will continue 120mL ensure clear TID w/ medpass. Will add 120mL ensure plus high protein TID w/ meals. Adjust ONS as needed to optimize oral intake and prevent weight loss. Lab / Micro Data 11/26/22 07:47 11/26/22 07:47 Labs: Laboratory Results - last 24 hr 11/25/22 05:30: B-Natriuretic Peptide 141.3 H 11/26/22 07:47: WBC 1.9 L, RBC 2.28 L, Hgb 6.9 L, Hct 20.6 L, MCV 90.4, MCH 30.3, MCHC 33.5 D, RDW Std Deviation 66.4 H, RDW Coeff of Tone 21.4 H, Plt Count 61 L, MPV 11.1, Immature Gran % (Auto) 0.500, Neut % (Auto) 88.3 H, Lymph % (Auto) 4.3 L, [place] % (Auto) 5.3, Eos % (Auto) 1.1, Baso % (Auto) 0.5, Absolute Neuts (auto) 1.7 L, Absolute Lymphs (auto) 0.08 L, Nucleated RBC % 0, Differential Comment COMMENT, Diff Path Review May foll, Platelet Estimate MOD DEC, Anisocytosis 1+, Sodium 134 L, Potassium 2.5 L*, Chloride 102, Carbon Dioxide 25.0, Anion Gap 7, BUN 21 H, Creatinine 0.71, Estim Creat Clear Calc 57.56, Est GFR (MDRD) Af Amer 140, Est GFR (MDRD) Non-Af 116, BUN/Creatinine Ratio 29.4 H, Glucose 130 H, Calcium 8.4 L Micro: Microbiology 11/24/22 14:10 Blood Culture (Wb) - Left Hand Blood Culture - Preliminary No growth in 48 hours. 11/24/22 20:00 Sputum, Expectorated/Coughed Gram Stain - Final 11/24/22 20:00 Sputum, Expectorated/Coughed Respiratory Culture - Preliminary Appears to be normal respiratory danny. Further studies to follow. 11/24/22 20:20 Urine, Clean Catch Urine Culture - Preliminary Culture exhibits no growth. ABG Data ABG results: ABG 11/26/22 03:06 Specimen Type ART Sample Site R Radial pH 7.53 H Bicarbonate Actual 20.0 L Total CO2 21 Base Excess -3 L O2 Saturation 91 L ABG pCO2 24.0 L ABG pO2 53 L Jonatan Test Positive O2 Delivery Device Cannula Liter Flow 7.0 Radiology Impression Echocardiogram 11/25/22 09:01 Interpretation Summary The estimated ejection fraction is 65 %. No evidence for diastolic dysfunction. Ordering Physician: Alejandra Cabrera Referring Physician: Gera Camp M.D. Performed By: Leeann Cortez RDCS Chest X-Ray 11/25/22 09:15 IMPRESSION: Stable severe diffuse bilateral patchy airspace disease, to include pneumonia. Recommend follow-up to resolution as neoplastic process is not excluded. Electronically Signed: David Shepherd MD at 2:29 EDT , Charges/Coding Visit Charges Inpatient E&M: 20605 Init Hosp L3
[2022-11-26] MEDS: Potassium Chloride 10mEq/100mL 10 MEQ/100 ML IV.SOLN. 100 MEQ IV BOLUS ×4 (09:33→12:58)
--- NOTE | 2022-11-26 09:48 | PN_ITS ---
Subjective Subjective Patient seen and examined. He felt more short of breath and his oxygen requirements had increased. He denied any fever, chills, nausea, vomiting or any other symptoms. Review of systems is otherwise negative. Objective Data Objective Data Vital Signs: Vital Signs Temp Pulse Resp BP Pulse Ox O2 Del Method O2 Flow Rate 99.3 F H 80 20 H 131/68 H 95 Airvo 40 11/26/22 08:15 11/26/22 08:26 11/26/22 08:15 11/26/22 08:15 11/26/22 08:15 11/26/22 08:15 11/26/22 08:15 FiO2 69 11/26/22 08:15 Oxygen Flow Rate (L/min) 40 Oxygen Delivery Method Airvo Weight: 159 lb 2.78 oz Body Mass Index (BMI) 27.3 Intake & Output: Intake and Output for Last 24 Hours 11/24/22 11/25/22 11/26/22 23:59 23:59 23:59 Intake Total 2150 / 2200 2551.67 / 2651.67 723.34 / 723.34 Output Total 1375 / 1375 Balance 2150 / 1850 1176.67 / 1276.67 723.34 / 723.34 Medical Nutrition Assessment Dietitian: Malnutrition Criteria Met Start: 11/25/22 15:16 Freq: Status: Active Protocol: Document 11/25/22 15:17 RMA (Rec: 11/25/22 15:17 RMA [id number]) Nutrition Malnutrition Evidence of Malnutrition Exists Yes Malnutrition (moderate): Acute Illness/Injury Evidenced By Suboptimal Energy Intake ( Moderate),Weight Loss ( Moderate) Clinical Problem Acute Disease or Injury Related Malnutrition Etiology Moderate pro-mini malnutrition in the context of acute illness related to inadequate oral intake Signs/Symptoms as evidenced by PO meeting less than 75% estimated nutrition needs and weight loss~4% x past 1 month Status Active Problem Recommendation Dietitian Recommendations/Changes Will continue liberalized regular diet as ordered. Will continue 120mL ensure clear TID w/ medpass. Will add 120mL ensure plus high protein TID w/ meals. Adjust ONS as needed to optimize oral intake and prevent weight loss. Lab / Micro Data 11/26/22 07:47 11/26/22 07:47 Labs: Laboratory Results - last 24 hr 11/25/22 05:30: B-Natriuretic Peptide 141.3 H 11/26/22 07:47: WBC 1.9 L, RBC 2.28 L, Hgb 6.9 L, Hct 20.6 L, MCV 90.4, MCH 30.3, MCHC 33.5 D, RDW Std Deviation 66.4 H, RDW Coeff of Tone 21.4 H, Plt Count 61 L, MPV 11.1, Immature Gran % (Auto) 0.500, Neut % (Auto) 88.3 H, Lymph % (A uto) 4.3 L, [place] % (Auto) 5.3, Eos % (Auto) 1.1, Baso % (Auto) 0.5, Absolute Neuts (auto) 1.7 L, Absolute Lymphs (auto) 0.08 L, Nucleated RBC % 0, Differential Comment COMMENT, Diff Path Review May foll, Platelet Estimate MOD DEC, Anisocytosis 1+, Sodium 134 L, Potassium 2.5 L*, Chloride 102, Carbon Dioxide 25.0, Anion Gap 7, BUN 21 H, Creatinine 0.71, Estim Creat Clear Calc 57.56, Est GFR (MDRD) Af Amer 140, Est GFR (MDRD) Non-Af 116, BUN/Creatinine Ratio 29.4 H, Glucose 130 H, Calcium 8.4 L Micro: Microbiology 11/24/22 14:10 Blood Culture (Wb) - Left Hand Blood Culture - Preliminary No growth in 48 hours. 11/24/22 20:00 Sputum, Expectorated/Coughed Gram Stain - Final 11/24/22 20:00 Sputum, Expectorated/Coughed Respiratory Culture - Preliminary Appears to be normal respiratory danny. Further studies to follow. 11/24/22 20:20 Urine, Clean Catch Urine Culture - Preliminary Culture exhibits no growth. 11/24/22 20:20 Urine, Clean Catch Legionella Antigen - Final 11/24/22 20:20 Urine, Clean Catch Streptococcus pneumoniae Antigen (M - Final 11/24/22 15:09 Nasal Secretion SARS-CoV-2 & FLU Antigen (Rapid) - Final ABG Data ABG results: ABG 11/26/22 03:06 Specimen Type ART Sample Site R Radial pH 7.53 H Bicarbonate Actual 20.0 L Total CO2 21 Base Excess -3 L O2 Saturation 91 L ABG pCO2 24.0 L ABG pO2 53 L Jonatan Test Positive O2 Delivery Device Cannula Liter Flow 7.0 Radiography Diagnostic Testing: Radiology Impression Echocardiogram 11/25/22 09:01 Interpretation Summary The estimated ejection fraction is 65 %. No evidence for diastolic dysfunction. Ordering Physician: Alejandra Cabrera Referring Physician: Gera Camp M.D. Performed By: Leeann Cortez RDCS Chest X-Ray 11/25/22 09:15 IMPRESSION: Stable severe diffuse bilateral patchy airspace disease, to include pneumonia. Recommend follow-up to resolution as neoplastic process is not excluded. Electronically Signed: David Shepherd MD at 2:29 EDT , Physical Exam Const alert, oriented x3, no apparent distress and average body habitus General Appearance: cooperative, well kempt and well developed Orientation / Consciousness: awake, oriented to person, oriented to place and oriented to time HEENT normocephalic, head/scalp atraumatic, hearing grossly normal bilaterally, moist oral mucous membranes, oropharynx normal and gingiva normal Eyes PERRL, EOMs intact bilaterally and conjunctivae normal Neck no lymphadenopathy, supple, no JVD, thyroid normal and no carotid bruits General: trachea midline Lymph Lymphatic: no lymphadenopathy noted and no lymphedema noted Resp normal respiratory effort, no retractions and no use of accessory muscles Resp Narrative: diminished breath sounds bibasally, no wheezes or crackles. now on AirVo Auscultation: rales bilateral lower; Negative for rhonchi or wheezes Cardio regular rate, regular rhythm, S1 normal heart sound, S2 normal heart sound, no murmurs, no rub and no gallops GI normal to inspection, nondistended, normoactive bowel sounds, soft to palpation, non-tender and non-distended Extremity normal capillary refill, no clubbing, cyanosis or edema and no calf tenderness Skin no rashes or lesions noted General Skin Exam: no breakdown Neuro oriented x3, CN's II-XII intact bilaterally, moves all extremities, no focal motor deficits, no sensory deficits noted and deep tendon reflexes 2+ bilaterally Sensorium / Orientation: awake, alert, oriented to person, oriented to place and oriented to time Speech: speech normal Motor Exam: strength 5/5 throughout Psych thought process normal, cooperative and affect normal Appearance: appropriate Assessment & Plan Assessment/Plan (1) Hypoxia: PLAN: Plan #Acute hypoxic respiratory failure likely due to community acquired pneumonia * admitted from his oncologist's office where he was getting blood transfusion. He subsequently developed fever and shortness of breath so was sent to the ED due to concerns for transfusion related reaction. * CXR showed bilateral infiltrates; right infiltrate was thought to be due to his lung cancer. * now on AirVo * spoke to blood bank, and per their workup per pathologist, no evidence of a hemolytic reaction. NO clear testing done for TRALI. Zoë (direct and direct) were done and showed no evidence of hemolysis. * BNP was slightly elevated. * will broaden antibiotics to IV zosyn. * pulmonology consulted. * on IV lasix. Breathing treatment with bronchodilators * titrate oxygen to maintain sats >90% * #Pancytopenia with acute on chronic anemia * Likely due to cancer and chemotherapy. D * Hb today is 6.9; wbc is 1.9 and platelets are 61. * transfuse 1 unit of PRBC. BLood bank and pathologist reviewed previous unit transfused and saw no evidence of hemolytic reaction. NO specific tests for TRALI sent per my understanding * will premedicate with benadryl and tylenol. * # Right lung adenocarcinoma * Follows with oncology. Has had 5 weeks of radiation so far. Has also completed chemotherapy. * Follow-up with oncology on outpatient basis * #Hypokalemia: K is 2.5. Will replace and trend. #Elevated liver enzymes * total bilirubin was 5.6 on admission. trended downwards. May have been due to some hemolysed rbcs during transufsion * will trend, since it has started going down spontaneously * #COPD: Not in exacerbation. Breathing treatments bronchodilators. #Benign essential hypertension. Chlorthalidone held due to elevated BUN. On amlodipine and metoprolol. DVT prophylaxis: SCDs. no anticoagulation o.a of thrombocytopenia Charges/Coding Visit Charges Inpatient E&M: 97757 Subs Hosp L3
--- NOTE | 2022-11-26 09:50 | CASEMGMT ---
RN CM NOTE: Pt provided w/Medical Alert info per his request. William GARCIAN LYNDON CM
[2022-11-26 10:11] LABS: Pathologist Review Reviewed
[2022-11-26 10:11] LABS: Pathologist Review Reviewed
[2022-11-26 11:00] LABS: Procalcitonin 0.48 ng/mL (0.00-0.09)
--- NOTE | 2022-11-26 11:16 | CASEMGMT ---
Social Work SW met w/pt and his sister, gave him a list of halfway facilities in network w/pt's insurance, preferred geographic area and complete with quality and resource use data from [facility]. Pt had already chosen TCU, TCU can take pt and will start precert when appropriate. SW let pt and pt's sister know this information. SW then assisted pt in completing POA for healthcare and living will. Pt's sister present while completing the documents. SW gave pt original and copies, and placed a copy on the chart. SW also provided information to pt and his sister regarding transferring a car title. CIARA Escobar
--- NOTE | 2022-11-26 12:23 | CASEMGMT ---
Social work Pt completed living will and HCPOA naming niece Geena Khan. Documents on file. CLAIRE Stubbs
[2022-11-26 12:53] LABS: M R Staph aureus DNA By PCR Negative (Negative); Probe Check PASS; Specimen Processing Control PASS
[2022-11-26] MEDS: DiphenhydrAMINE 25 MG Capsule PO (14:12)
[2022-11-26] MEDS: Ipratropium/Albuterol Sulfate 3 ML AMPUL.NEB INHALATION ×2 (15:17→18:39)
[2022-11-26] MEDS: Acetaminophen 325 MG Tablet 650 MG PO (15:45)
--- NOTE | 2022-11-26 15:57 | NURSING ---
This RN administered x1 dose of oral benadryl to pt prior to giving 1 unit of PRBCs, per Dr horan. Upon getting vital signs when beginning blood admin, pt's oral temperature was 101.5. Dr Cabrera was contacted. Per Dr Cabrera, give pt x1 dose of tylenol for fever, then begin blood admin. Keep a close watch on pt. Before giving tylenol, this RN asked pt what his reaction was to tylenol, since it was listed as allergy. Pt said it makes my white blood cells go out of whack. Pt said he was acceptable to getting a one time dose of tylenol. Began blood admin at 1555. Pt aware of reactions to notify RN of. Monitoring pt
[2022-11-26] MEDS: Famotidine 20 MG Tablet PO (21:34)
[2022-11-27] VITALS (20 sets, daily range): BP systolic 102–128; BP diastolic 51–70; PULSE 76–95; RESP 18–46; TEMP 37.3–38.3; O2SAT 47–97
--- NOTE | 2022-11-27 06:03 | PCM.HOSP.N ---
Hospitalist Note Patient maintained currently on airvo, admitted with PNA, pulmonary consulted and following. RR has increased otherwise remains stable on airvo. Patient with low grade T but noted tylenol allergy. Will obtain ABG to assure not retaining/BIPAP needs.
[2022-11-27 06:40] LABS: Absolute Neutrophil Count 1.2 X10^3/uL (2.0-7.7); Eosinophil# 0.04 X10^3/uL; Eosinophils% 2.8 % (0-5); Hematocrit 21.7 % (40-54); Hemoglobin 7.3 g/dL (13.0-16.5); Mean Corp Hgb Conc 33.6 g/dL (32-36); Mean Corpuscular Hgb 29.6 pg (27.0-32.0); Mean Corpuscular Volume 87.9 fL (80-94); Mean Platelet Vol. 11.2 fl (6.2-12.0); Monocyte# 0.09 X10^3/uL; Monocyte% 6.3 % (0-10); NRBC Flagged by Analyzer 0 % (0-5); Neutrophil # 1.19 X10^3/uL (2.7-7.7); Neutrophil % 83.9 % (47-70); POSITIVE COUNT YES; POSITIVE DIFFERENTIAL YES; POSITIVE MORPHOLOGY YES; Platelet Count 65 K/mm3 (150-450); RBC Distribution Width CV 21.2 % (11.6-14.6); RBC Distribution Width SD 63.8 fl (35.1-43.9); Red Blood Count 2.47 M/mm3 (4.6-6.2); White Blood Count 1.4 K/mm3 (4.4-11.0)
[2022-11-27 06:45] LABS: Differential Indicated SCAN CRITERIA MET
[2022-11-27 07:04] LABS: Anisocytosis 2+; Hypochromasia 1+; Platelet Estimate MOD DEC (ADEQ)
[2022-11-27] MEDS: Budesonide Respules 0.5 MG/2 ML AMPUL.NEB. INHALATION ×2 (07:24→19:00)
[2022-11-27] MEDS: Ipratropium/Albuterol Sulfate 3 ML AMPUL.NEB INHALATION ×3 (07:24→19:00)
[2022-11-27 07:31] LABS: Anion Gap 6 (5-15); BUN 23 mg/dL (7-18); Calcium,Total 8.1 mg/dL (8.5-10.1); Chloride 103 mmol/L (98-107); Creatinine, Serum 0.66 mg/dL (0.70-1.30); EST Glomerular Filtration Rate 127 mL/min (>60); Est Glom Filt Rate - Afr Amer 154 mL/min (>60); Estimated Creatinine Clearance 57.56 ml/min; Glucose 119 mg/dL (74-106); Potassium 2.7 mmol/L (3.5-5.1); Sodium Level 132 mmol/L (136-145)
--- NOTE | 2022-11-27 07:39 | PCM.PN.INT ---
Assessment & Plan Assessment/Plan (1) Hypoxia: PLAN: Plan RECOMMENDATIONS: 1. Wean FiO2 to maintain oxygen saturations at or above 90%. 2. Continue empiric broad-spectrum antimicrobials. 3. Gentle diuresis today as tolerated by hemodynamics and renal function. 4. Continue bronchodilator therapy. 5. Aggressive electrolyte repletion. Check magnesium and phosphorus levels as well. 6. Encourage incentive spirometer use and mobilize patient as tolerated. IMPRESSIONS: 1. Acute hypoxemic respiratory failure The patient was initially admitted to the hospital after he developed a fever and shortness of breath while receiving transfusion of blood products. The patient's chest imaging demonstrated bilateral patchy pulmonary infiltrates, which could represent an underlying pneumonia versus transfusion related acute lung injury. I agree with continuing empiric broad-spectrum antimicrobials. Infectious workup has been unrevealing today. Continue bronchodilators as tolerated and wean FiO2 to maintain oxygen saturations at or above 90%. Given the patient's preserved ejection fraction and limited volume that was transfused, TACO seems unlikely. In light of the fact that the patient is overall net +5 L for the hospitalization, will provide gentle diuresis today. 2. Self-reported history of asthma/pulmonary non-small cell carcinoma Continue supportive measures as noted above along with scheduled bronchodilator therapy. 3. Anemia Continue to monitor blood counts and transfuse if hemoglobin drops below 7 g/dL. This note was generated with [employer] dictation software. It may contain incorrect words, spelling, and punctuation that were not noted in checking the note before signing. Subjective Subjective The patient was seen and examined at the bedside this morning. Events from the last 24 hours have been reviewed. The patient currently has a low-grade fever with a Tmax overnight of 101 ?F. He is otherwise hemodynamically stable and maintaining appropriate oxygen saturations on heated high flow with an FiO2 requirement of 60%. The patient is currently documented to be overall net +5.3 L for the hospitalization. The patient remains pancytopenic with a hemoglobin of 7.3 g/dL. Potassium is low this morning at 2.7. The patient was transfused 1 unit of packed red blood cells yesterday. Objective Data Objective Data The patient's most recent lab work, culture data and imaging studies have all been personally reviewed. Surface echocardiogram demonstrated normal LV size and function with an ejection fraction of 65%. Infectious workup has been unrevealing to date. MRSA screen was negative. Vital Signs: Vital Signs Temp Pulse Resp BP Pulse Ox O2 Del Method O2 Flow Rate 99.9 F H 76 45 H 128/60 H 95 Airvo 40 11/27/22 05:16 11/27/22 05:16 11/27/22 05:16 11/27/22 02:30 11/27/22 05:16 11/27/22 05:16 11/27/22 02:30 FiO2 60 11/27/22 05:02 Oxygen Flow Rate (L/min) 40 Oxygen Delivery Method Airvo Weight: 159 lb 2.78 oz Body Mass Index (BMI) 27.3 Intake & Output: Intake and Output for Last 24 Hours 11/25/22 11/26/22 11/27/22 23:59 23:59 23:59 Intake Total 2551.67 / 2651.67 1568.34 / 1768.34 450 / 450 Output Total 1375 / 1375 Balance 1176.67 / 1276.67 1568.34 / 1768.34 450 / 450 Medical Nutrition Assessment Dietitian: Malnutrition Criteria Met Start: 11/25/22 15:16 Freq: Status: Active Protocol: Document 11/25/22 15:17 RMA (Rec: 11/25/22 15:17 RMA [id number]) Nutrition Malnutrition Evidence of Malnutrition Exists Yes Malnutrition (moderate): Acute Illness/Injury Evidenced By Suboptimal Energy Intake ( Moderate),Weight Loss ( Moderate) Clinical Problem Acute Disease or Injury Related Malnutrition Etiology Moderate pro-mini malnutrition in the context of acute illness related to inadequate oral intake Signs/Symptoms as evidenced by PO meeting less than 75% estimated nutrition needs and weight loss~4% x past 1 month Status Active Problem Recommendation Dietitian Recommendations/Changes Will continue liberalized regular diet as ordered. Will continue 120mL ensure clear TID w/ medpass. Will add 120mL ensure plus high protein TID w/ meals. Adjust ONS as needed to optimize oral intake and prevent weight loss. Lab / Micro Data Attestation: I reviewed the patient's lab results. 11/27/22 05:35 11/27/22 05:35 Labs: Laboratory Results - last 24 hr 11/24/22 14:10: Diff Path Review Reviewed 11/25/22 05:30: Diff Path Review Reviewed 11/26/22 07:47: WBC 1.9 L, RBC 2.28 L, Hgb 6.9 L, Hct 20.6 L, MCV 90.4, MCH 30.3, MCHC 33.5 D, RDW Std Deviation 66.4 H, RDW Coeff of Tone 21.4 H, Plt Count 61 L, MPV 11.1, Immature Gran % (Auto) 0.500, Neut % (Auto) 88.3 H, Lymph % (Auto) 4.3 L, [place] % (Auto) 5.3, Eos % (Auto) 1.1, Baso % (Auto) 0.5, Absolute Neuts (auto) 1.7 L, Absolute Lymphs (auto) 0.08 L, Nucleated RBC % 0, Differential Comment COMMENT, Diff Path Review August trace, Platelet Estimate MOD DEC, Anisocytosis 1+, Sodium 134 L, Potassium 2.5 L*, Chloride 102, Carbon Dioxide 25.0, Anion Gap 7, BUN 21 H, Creatinine 0.71, Estim Creat Clear Calc 57.56, Est GFR (MDRD) Af Amer 140, Est GFR (MDRD) Non-Af 116, BUN/Creatinine Ratio 29.4 H, Glucose 130 H, Calcium 8.4 L 11/26/22 10:10: Procalcitonin 0.48 H, Blood Type A POSITIVE, Antibody Screen NEGATIVE, Crossmatch See Detail 11/26/22 10:30: MRSA (PCR) Negative 11/27/22 05:35: WBC 1.4 L*, RBC 2.47 L, Hgb 7.3 L, Hct 21.7 L, MCV 87.9, MCH 29.6, MCHC 33.6, RDW Std Deviation 63.8 H, RDW Coeff of Tone 21.2 H, Plt Count 65 L, MPV 11.2, Immature Gran % (Auto) 0.000, Neut % (Auto) 83.9 H, Lymph % (Auto) 7.0 L, Baldwin % (Auto) 6.3, Eos % (Auto) 2.8, Baso % (Auto) 0.0, Absolute Neuts (auto) 1.2 L, Absolute Lymphs (auto) 0.10 L, Nucleated RBC % 0, Diff Path Review August trace, Platelet Estimate MOD DEC, Hypochromasia 1+, Anisocytosis 2+, Sodium 132 L, Potassium 2.7 L*, Chloride 103, Carbon Dioxide 23.0, Anion Gap 6, BUN 23 H, Creatinine 0.66 L, Estim Creat Clear Calc 57.56, Est GFR (MDRD) Af Amer 154, Est GFR (MDRD) Non-Af 127, BUN/Creatinine Ratio 35.0 H, Glucose 119 H, Calcium 8.1 L Micro: Microbiology 11/24/22 20:00 Sputum, Expectorated/Coughed Gram Stain - Final 11/24/22 20:00 Sputum, Expectorated/Coughed Respiratory Culture - Final Mixed normal respiratory danny. No Streptococcus pneumoniae, beta-hemolytic Streptococcus or Staphylococcus aureus isolated. 11/24/22 20:20 Urine, Clean Catch Urine Culture - Final Culture exhibits no growth. 11/24/22 14:10 Blood Culture (Wb) - Left Hand Blood Culture - Preliminary No growth in 48 hours. 11/24/22 20:20 Urine, Clean Catch Legionella Antigen - Final 11/24/22 20:20 Urine, Clean Catch Streptococcus pneumoniae Antigen (M - Final 11/24/22 15:09 Nasal Secretion SARS-CoV-2 & FLU Antigen (Rapid) - Final Physical Exam Const alert, oriented x3 and no apparent distress General Appearance: cooperative HEENT normocephalic, head/scalp atraumatic and moist oral mucous membranes Eyes PERRL, EOMs intact bilaterally and conjunctivae normal Neck supple General: trachea midline Chest inspection of chest normal Resp Resp Narrative: Faint basilar rales. Effort and Inspection: tachypneic Cardio regular rate and regular rhythm GI normal to inspection, nondistended, normoactive bowel sounds Extremity no clubbing, cyanosis or edema Skin no rashes or lesions noted Neuro oriented x3, CN's II-XII intact bilaterally and moves all extremities Psych cooperative and affect normal Charges/Coding Visit Charges Inpatient E&M: 91159 Subs Hosp L3
[2022-11-27 08:10] LABS: Magnesium 2.2 mg/dL (1.6-2.6); Phosphorus 2.4 mg/dL (2.5-4.9)
[2022-11-27] MEDS: Potassium Chloride Oral Tablet 20 MEQ 40 MEQ PO (08:20)
[2022-11-27] MEDS: 0.9% Saline Lock 10 ML Syringe IV ×2 (08:21→09:26)
[2022-11-27] MEDS: Furosemide 40 MG/4 ML Vial IV (08:21)
[2022-11-27] MEDS: amLODIPine 5 MG Tablet PO (08:21)
[2022-11-27] MEDS: Ensure Plus High Protein 120 ML LIQUID PO ×2 (08:21→17:10)
[2022-11-27] MEDS: guaiFENesin 1,200 MG Tablet 1200 MG PO ×2 (08:21→22:49)
[2022-11-27] MEDS: Metoprolol(XL)Succ 25 MG Tablet PO ×2 (08:21→22:49)
[2022-11-27] MEDS: Pantoprazole Sodium 40 MG Tablet PO (08:21)
--- NOTE | 2022-11-27 09:06 | PN_ITS ---
Subjective Subjective Patient seen and examined. He still remains short of breath and remains on airvo. He denies any chest pain, palpitations, dizzinss, nausea, vomiting or any other symptoms. Review of systems is otherwise negative. Potassium remains low at 2.7 today. Objective Data Objective Data Vital Signs: Vital Signs Temp Pulse Resp BP Pulse Ox O2 Del Method O2 Flow Rate 99.4 F H 78 42 H 119/67 97 Airvo 40 11/27/22 08:00 11/27/22 08:21 11/27/22 08:00 11/27/22 08:00 11/27/22 08:11 11/27/22 08:11 11/27/22 08:11 FiO2 59 11/27/22 08:11 Oxygen Flow Rate (L/min) 40 Oxygen Delivery Method Airvo Weight: 159 lb 2.78 oz Body Mass Index (BMI) 27.3 Intake & Output: Intake and Output for Last 24 Hours 11/25/22 11/26/22 11/27/22 23:59 23:59 23:59 Intake Total 2551.67 / 2651.67 1568.34 / 1768.34 450 / 450 Output Total 1375 / 1375 Balance 1176.67 / 1276.67 1568.34 / 1768.34 450 / 450 Medical Nutrition Assessment Dietitian: Malnutrition Criteria Met Start: 11/25/22 15:16 Freq: Status: Active Protocol: Document 11/25/22 15:17 RMA (Rec: 11/25/22 15:17 RMA [id number]) Nutrition Malnutrition Evidence of Malnutrition Exists Yes Malnutrition (moderate): Acute Illness/Injury Evidenced By Suboptimal Energy Intake ( Moderate),Weight Loss ( Moderate) Clinical Problem Acute Disease or Injury Related Malnutrition Etiology Moderate pro-mini malnutrition in the context of acute illness related to inadequate oral intake Signs/Symptoms as evidenced by PO meeting less than 75% estimated nutrition needs and weight loss~4% x past 1 month Status Active Problem Recommendation Dietitian Recommendations/Changes Will continue liberalized regular diet as ordered. Will continue 120mL ensure clear TID w/ medpass. Will add 120mL ensure plus high protein TID w/ meals. Adjust ONS as needed to optimize oral intake and prevent weight loss. Lab / Micro Data 11/27/22 05:35 11/27/22 05:35 Labs: Laboratory Results - last 24 hr 11/24/22 14:10: Diff Path Review Reviewed 11/25/22 05:30: Diff Path Review Reviewed 11/26/22 10:10: Procalcitonin 0.48 H, Blood Type A POSITIVE, Antibody Screen NEGATIVE, Crossmatch See Detail 11/26/22 10:30: MRSA (PCR) Negative 11/27/22 05:35: WBC 1.4 L*, RBC 2.47 L, Hgb 7.3 L, Hct 21.7 L, MCV 87.9, MCH 29.6, MCHC 33.6, RDW Std Deviation 63.8 H, RDW Coeff of Tone 21.2 H, Plt Count 65 L, MPV 11.2, Immature Gran % (Auto) 0.000, Neut % (Auto) 83.9 H, Lymph % (Auto) 7.0 L, [place] % (Auto) 6.3, Eos % (Auto) 2.8, Baso % (Auto) 0.0, Absolute Neuts (auto) 1.2 L, Absolute Lymphs (auto) 0.10 L, Nucleated RBC % 0, Diff Path Review May foll, Platelet Estimate MOD DEC, Hypochromasia 1+, Anisocytosis 2+, Sodium 132 L, Potassium 2.7 L*, Chloride 103, Carbon Dioxide 23.0, Anion Gap 6, BUN 23 H, Creatinine 0.66 L, Estim Creat Clear Calc 57.56, Est GFR (MDRD) Af Amer 154, Est GFR (MDRD) Non-Af 127, BUN/Creatinine Ratio 35.0 H, Glucose 119 H, Calcium 8.1 L, Phosphorus 2.4 L, Magnesium 2.2 Micro: Microbiology 11/24/22 16:20 Blood Culture (Wb) - Other Blood Culture - Preliminary No growth in 48 hours. 11/24/22 20:00 Sputum, Expectorated/Coughed Gram Stain - Final 11/24/22 20:00 Sputum, Expectorated/Coughed Respiratory Culture - Final Mixed normal respiratory danny. No Streptococcus pneumoniae, beta-hemolytic Streptococcus or Staphylococcus aureus isolated. 11/24/22 20:20 Urine, Clean Catch Urine Culture - Final Culture exhibits no growth. 11/24/22 14:10 Blood Culture (Wb) - Left Hand Blood Culture - Preliminary No growth in 48 hours. 11/24/22 20:20 Urine, Clean Catch Legionella Antigen - Final 11/24/22 20:20 Urine, Clean Catch Streptococcus pneumoniae Antigen (M - Final 11/24/22 15:09 Nasal Secretion SARS-CoV-2 & FLU Antigen (Rapid) - Final Physical Exam Const alert, oriented x3, no apparent distress and average body habitus General Appearance: cooperative, well kempt and well developed Orientation / Consciousness: awake, oriented to person, oriented to place and oriented to time HEENT normocephalic, head/scalp atraumatic, hearing grossly normal bilaterally, moist oral mucous membranes, oropharynx normal and gingiva normal Eyes PERRL, EOMs intact bilaterally and conjunctivae normal Neck no lymphadenopathy, supple, no JVD, thyroid normal and no carotid bruits General: trachea midline Lymph Lymphatic: no lymphadenopathy noted and no lymphedema noted Resp no retractions and no use of accessory muscles Resp Narrative: diminished breath sounds bibasally, no wheezes or crackles. remains on AirVo. tachypneic Auscultation: rales bilateral lower; Negative for rhonchi or wheezes Cardio regular rate, regular rhythm, S1 normal heart sound, S2 normal heart sound, no murmurs, no rub and no gallops GI normal to inspection, nondistended, normoactive bowel sounds, soft to palpation, non-tender and non-distended Extremity normal capillary refill, no clubbing, cyanosis or edema and no calf tenderness Skin no rashes or lesions noted General Skin Exam: no breakdown Neuro oriented x3, CN's II-XII intact bilaterally, moves all extremities, no focal motor deficits, no sensory deficits noted and deep tendon reflexes 2+ bilaterally Sensorium / Orientation: awake, alert, oriented to person, oriented to place and oriented to time Speech: speech normal Motor Exam: strength 5/5 throughout Psych thought process normal, cooperative and affect normal Appearance: appropriate Assessment & Plan Assessment/Plan (1) Hypoxia: PLAN: Plan #Acute hypoxic respiratory failure likely due to community acquired pneumonia * admitted from his oncologist's office where he was getting blood transfusion. He subsequently developed fever and shortness of breath so was sent to the ED due to concerns for transfusion related reaction. * CXR showed bilateral infiltrates; right infiltrate was thought to be due to his lung cancer. * remains on AirVo * spoke to blood bank, and per their workup per pathologist, no evidence of a hemolytic reaction. NO clear testing done for TRALI. Zoë (direct and direct) were done and showed no evidence of hemolysis. * BNP was slightly elevated. * antibiotics broadened to IV zosyn. Pulmonology on board * continue IV lasix to diurese. * MRSA screen negative so vancomycin not added on * titrate oxygen to maintain sats >90% * * * #Pancytopenia with acute on chronic anemia * Likely due to cancer and chemotherapy. D * Hb today is 7.3 today; wbc is 1.4 today and platelets are 65. * received a unit of blood yesterday * will speak to oncologist about starting granix in light of wbc continuing to fall, being 1.4 today. Absolute neutrophil count is 1.2 * * # Right lung adenocarcinoma * Follows with oncology. Has had 5 weeks of radiation so far. Has also completed chemotherapy. * Follow-up with oncology on outpatient basis * #Hypokalemia: K is 2.7. Will replace aggressively and trend. Magnesium is 2.2. #Elevated liver enzymes * total bilirubin was 5.6 on admission. trended downwards. May have been due to some hemolysed rbcs during transufsion * will monitor * #COPD: Breathing treatments bronchodilators. #Benign essential hypertension. Chlorthalidone held due to elevated BUN. On amlodipine and metoprolol. DVT prophylaxis: SCDs. no anticoagulation o.a of thrombocytopenia Charges/Coding Visit Charges Inpatient E&M: 46304 Subs Hosp L3
[2022-11-27] MEDS: Potassium Chloride 10mEq/100mL 10 MEQ/100 ML IV.SOLN. 100 MEQ IV BOLUS ×4 (09:19→12:36)
[2022-11-27 14:11] LABS: Pathologist Review Reviewed
[2022-11-27 14:12] LABS: Pathologist Review Reviewed
[2022-11-27] MEDS: Famotidine 20 MG Tablet PO (22:49)
[2022-11-28] VITALS (17 sets, daily range): BP systolic 104–133; BP diastolic 55–68; PULSE 72–88; RESP 20–45; TEMP 36.7–37.7; O2SAT 91–96
[2022-11-28 05:47] LABS: Absolute Neutrophil Count 0.8 X10^3/uL (2.0-7.7); Basophil# 0.01 X10^3/uL; Basophil% 0.9 % (0-1); Eosinophil# 0.05 X10^3/uL; Eosinophils% 4.5 % (0-5); Hematocrit 20.8 % (40-54); Hemoglobin 7.1 g/dL (13.0-16.5); Mean Corp Hgb Conc 34.1 g/dL (32-36); Mean Corpuscular Hgb 30.1 pg (27.0-32.0); Mean Corpuscular Volume 88.1 fL (80-94); Mean Platelet Vol. 10.8 fl (6.2-12.0); Monocyte# 0.11 X10^3/uL; Monocyte% 9.9 % (0-10); NRBC Flagged by Analyzer 0 % (0-5); Neutrophil # 0.83 X10^3/uL (2.7-7.7); Neutrophil % 74.8 % (47-70); POSITIVE COUNT YES; POSITIVE DIFFERENTIAL YES; POSITIVE MORPHOLOGY YES; Platelet Count 74 K/mm3 (150-450); RBC Distribution Width CV 20.9 % (11.6-14.6); RBC Distribution Width SD 64.1 fl (35.1-43.9); Red Blood Count 2.36 M/mm3 (4.6-6.2)
[2022-11-28 06:06] LABS: Differential Indicated SCAN CRITERIA MET; White Blood Count 1.1 K/mm3 (4.4-11.0)
[2022-11-28] MEDS: Budesonide Respules 0.5 MG/2 ML AMPUL.NEB. INHALATION ×2 (06:54→19:18)
[2022-11-28] MEDS: Ipratropium/Albuterol Sulfate 3 ML AMPUL.NEB INHALATION ×3 (06:54→19:19)
[2022-11-28 07:01] LABS: Anion Gap 7 (5-15); BUN 23 mg/dL (7-18); BUN/Creat Ratio 38.8 RATIO (10-20); Chloride 103 mmol/L (98-107); Creatinine, Serum 0.59 mg/dL (0.70-1.30); EST Glomerular Filtration Rate 143 mL/min (>60); Est Glom Filt Rate - Afr Amer 173 mL/min (>60); Estimated Creatinine Clearance 57.56 ml/min; Glucose 114 mg/dL (74-106); Potassium 2.7 mmol/L (3.5-5.1); Sodium Level 134 mmol/L (136-145)
[2022-11-28 07:04] LABS: Anisocytosis 2+; Differential Comment SCANNED; Platelet Estimate MOD DEC (ADEQ)
[2022-11-28] MEDS: Potassium Chloride 10mEq/100mL 10 MEQ/100 ML IV.SOLN. 100 MEQ IV BOLUS ×2 (08:13→09:55)
[2022-11-28] MEDS: 0.9% Saline Lock 10 ML Syringe IV (08:13)
[2022-11-28] MEDS: Potassium Chloride Oral Tablet 20 MEQ 40 MEQ PO (08:21)
[2022-11-28] MEDS: Pantoprazole Sodium 40 MG Tablet PO (10:00)
[2022-11-28] MEDS: amLODIPine 5 MG Tablet PO (10:00)
[2022-11-28] MEDS: guaiFENesin 1,200 MG Tablet 1200 MG PO ×2 (10:00→22:42)
--- NOTE | 2022-11-28 10:20 | PCM.PROGNOTE ---
Subjective Subjective Patient seen and examined. He still remains on AirVo. He denies any cough, chest pain, palpitations, dizziness, nausea, vomiting or any other symptoms. Review of systems is otherwise negative. Objective Data Objective Data Vital Signs: Vital Signs Temp Pulse Resp BP Pulse Ox O2 Del Method O2 Flow Rate 98.1 F 74 28 H 104/55 L 93 Airvo 40 11/28/22 08:24 11/28/22 08:24 11/28/22 08:24 11/28/22 08:24 11/28/22 08:24 11/28/22 08:32 11/28/22 08:32 FiO2 50 11/28/22 08:32 Oxygen Flow Rate (L/min) 40 Oxygen Delivery Method Airvo Weight: 159 lb 2.78 oz Body Mass Index (BMI) 27.3 Intake & Output: Intake and Output for Last 24 Hours 11/26/22 11/27/22 11/28/22 23:59 23:59 23:59 Intake Total 1568.34 / 1768.34 950 / 1150 550 / 550 Output Total 600 / 750 350 / 350 Balance 1568.34 / 1768.34 350 / 400 200 / 200 Medical Nutrition Assessment Dietitian: Malnutrition Criteria Met Start: 11/25/22 15:16 Freq: Status: Active Protocol: Document 11/25/22 15:17 RMA (Rec: 11/25/22 15:17 RMA [id number]) Nutrition Malnutrition Evidence of Malnutrition Exists Yes Malnutrition (moderate): Acute Illness/Injury Evidenced By Suboptimal Energy Intake ( Moderate),Weight Loss ( Moderate) Clinical Problem Acute Disease or Injury Related Malnutrition Etiology Moderate pro-mini malnutrition in the context of acute illness related to inadequate oral intake Signs/Symptoms as evidenced by PO meeting less than 75% estimated nutrition needs and weight loss~4% x past 1 month Status Active Problem Recommendation Dietitian Recommendations/Changes Will continue liberalized regular diet as ordered. Will continue 120mL ensure clear TID w/ medpass. Will add 120mL ensure plus high protein TID w/ meals. Adjust ONS as needed to optimize oral intake and prevent weight loss. Lab / Micro Data 11/28/22 05:00 11/28/22 05:00 Labs: Laboratory Results - last 24 hr 11/26/22 07:47: Diff Path Review Reviewed 11/27/22 05:35: Diff Path Review Reviewed 11/28/22 05:00: WBC 1.1 L*, RBC 2.36 L, Hgb 7.1 L, Hct 20.8 L, MCV 88.1, MCH 30.1, MCHC 34.1, RDW Std Deviation 64.1 H, RDW Coeff of Tone 20.9 H, Plt Count 74 L, MPV 10.8, Immature Gran % (Auto) 0.900, Neut % (Auto) 74.8 H, Lymph % (Auto) 9.0 L, [place] % (Auto) 9.9, Eos % (Auto) 4.5, Baso % (Auto) 0.9, Absolute Neuts (auto) 0.8 L, Absolute Lymphs (auto) 0.10 L, Nucleated RBC % 0, Differential Comment SCANNED, Diff Path Review August foll, Platelet Estimate MOD DEC, Anisocytosis 2+, Sodium 134 L, Potassium 2.7 L*, Chloride 103, Carbon Dioxide 24.0, Anion Gap 7, BUN 23 H, Creatinine 0.59 L, Estim Creat Clear Calc 57.56, Est GFR (MDRD) Af Amer 173, Est GFR (MDRD) Non-Af 143, BUN/Creatinine Ratio 38.8 H, Glucose 114 H, Calcium 8.0 L Micro: Microbiology 11/24/22 16:20 Blood Culture (Wb) - Other Blood Culture - Preliminary No growth in 48 hours. 11/24/22 20:00 Sputum, Expectorated/Coughed Gram Stain - Final 11/24/22 20:00 Sputum, Expectorated/Coughed Respiratory Culture - Final Mixed normal respiratory danny. No Streptococcus pneumoniae, beta-hemolytic Streptococcus or Staphylococcus aureus isolated. 11/24/22 20:20 Urine, Clean Catch Urine Culture - Final Culture exhibits no growth. 11/24/22 14:10 Blood Culture (Wb) - Left Hand Blood Culture - Preliminary No growth in 48 hours. 11/24/22 20:20 Urine, Clean Catch Legionella Antigen - Final 11/24/22 20:20 Urine, Clean Catch Streptococcus pneumoniae Antigen (M - Final 11/24/22 15:09 Nasal Secretion SARS-CoV-2 & FLU Antigen (Rapid) - Final Physical Exam Const alert, oriented x3, no apparent distress and average body habitus Constitutional Narrative: frail General Appearance: cooperative, well kempt and well developed Orientation / Consciousness: awake, oriented to person, oriented to place and oriented to time HEENT normocephalic, head/scalp atraumatic, hearing grossly normal bilaterally, moist oral mucous membranes, oropharynx normal and gingiva normal Eyes PERRL, EOMs intact bilaterally and conjunctivae normal Neck no lymphadenopathy, supple, no JVD, thyroid normal and no carotid bruits General: trachea midline Lymph Lymphatic: no lymphadenopathy noted and no lymphedema noted Resp normal respiratory effort, no retractions and no use of accessory muscles Resp Narrative: diminished breath sounds bibasally, no wheezes or crackles. remains on AirVo. Auscultation: rales bilateral lower; Negative for rhonchi or wheezes Cardio regular rate, regular rhythm, S1 normal heart sound, S2 normal heart sound, no murmurs, no rub and no gallops GI normal to inspection, nondistended, normoactive bowel sounds, soft to palpation, non-tender and non-distended Extremity normal capillary refill, no clubbing, cyanosis or edema and no calf tenderness Skin no rashes or lesions noted General Skin Exam: no breakdown Neuro oriented x3, CN's II-XII intact bilaterally, moves all extremities, no focal motor deficits, no sensory deficits noted and deep tendon reflexes 2+ bilaterally Sensorium / Orientation: awake, alert, oriented to person, oriented to place and oriented to time Speech: speech normal Motor Exam: strength 5/5 throughout Psych thought process normal, cooperative and affect normal Appearance: appropriate Assessment & Plan Assessment/Plan (1) Hypoxia: PLAN: Plan #Acute hypoxic respiratory failure likely due to community acquired pneumonia admitted from his oncologist's office where he was getting blood transfusion. He subsequently developed fever and shortness of breath so was sent to the ED due to concerns for transfusion related reaction. CXR showed bilateral infiltrates; right infiltrate was thought to be due to his lung cancer. remains on AirVo spoke to blood bank, and per their workup per pathologist, no evidence of a hemolytic reaction. NO clear testing done for TRALI. Zoë (direct and direct) were done and showed no evidence of hemolysis. BNP was slightly elevated. antibiotics broadened to IV zosyn. Pulmonology on board continue IV lasix to diurese. MRSA screen negative so vancomycin not added on titrate oxygen to maintain sats >90% still remains on AirVo TRALI was also a consideration, especially since he still cant be weaned off oxygen. #Pancytopenia with acute on chronic anemia Likely due to cancer and chemotherapy. D Hb today is 7.1 today; wbc is 1.1 today and platelets are 74. is s/p transfusion of 1 unit of PRBC during this admission abdolute neutrophil count is 1000. discussed with Dr Bass, the oncologist covering for Dr Banks today, to hold off on starting granix unless absolute neutrophil count falls to <500 # Right lung adenocarcinoma Follows with oncology. Has had 5 weeks of radiation so far. Has also completed chemotherapy. Follow-up with oncology on outpatient basis #Hypokalemia: K is still 2.7. Will replace aggressively and trend. #Elevated liver enzymes total bilirubin was 5.6 on admission. trended downwards. May have been due to some hemolysed rbcs during transufsion will monitor #COPD: Breathing treatments bronchodilators. #Benign essential hypertension. Chlorthalidone held due to elevated BUN. On amlodipine and metoprolol. DVT prophylaxis: SCDs. no anticoagulation o.a of thrombocytopenia Charges/Coding Visit Charges Inpatient E&M: 65982 Subs Hosp L2
[2022-11-28] MEDS: Metoprolol(XL)Succ 25 MG Tablet PO ×2 (11:29→22:41)
[2022-11-28] MEDS: Potassium Chloride 10mEq/100mL 10 MEQ/100 ML IV.SOLN. 75 MEQ IV BOLUS ×2 (12:01→13:27)
[2022-11-28] MEDS: Famotidine 20 MG Tablet PO (22:41)
[2022-11-29] VITALS (19 sets, daily range): BP systolic 110–133; BP diastolic 52–66; PULSE 70–88; RESP 21–40; TEMP 36.4–37.2; O2SAT 85–94
[2022-11-29 05:33] LABS: Absolute Lymphocyte Count 0.12 X10^3/uL (0.83-4.51); Absolute Neutrophil Count 0.7 X10^3/uL (2.0-7.7); Basophil# 0.01 X10^3/uL; Eosinophil# 0.03 X10^3/uL; Eosinophils% 2.9 % (0-5); Hematocrit 21.1 % (40-54); Lymphocyte # 0.12 X10^3/ul (0.83-4.51); Lymphocyte % 11.7 % (19-41); Mean Corp Hgb Conc 33.2 g/dL (32-36); Mean Corpuscular Hgb 29.8 pg (27.0-32.0); Mean Corpuscular Volume 89.8 fL (80-94); Mean Platelet Vol. 11.8 fl (6.2-12.0); Monocyte# 0.14 X10^3/uL; Monocyte% 13.6 % (0-10); NRBC Flagged by Analyzer 0 % (0-5); Neutrophil # 0.72 X10^3/uL (2.7-7.7); Neutrophil % 69.8 % (47-70); POSITIVE COUNT YES; POSITIVE DIFFERENTIAL YES; POSITIVE MORPHOLOGY YES; Platelet Count 92 K/mm3 (150-450); RBC Distribution Width CV 20.9 % (11.6-14.6); RBC Distribution Width SD 66.5 fl (35.1-43.9); Red Blood Count 2.35 M/mm3 (4.6-6.2)
[2022-11-29 06:02] LABS: Anion Gap 6 (5-15); BUN 20 mg/dL (7-18); BUN/Creat Ratio 34.7 RATIO (10-20); Calcium,Total 8.2 mg/dL (8.5-10.1); Chloride 105 mmol/L (98-107); Creatinine, Serum 0.58 mg/dL (0.70-1.30); EST Glomerular Filtration Rate 148 mL/min (>60); Est Glom Filt Rate - Afr Amer 179 mL/min (>60); Estimated Creatinine Clearance 57.56 ml/min; Glucose 108 mg/dL (74-106); Potassium 3.3 mmol/L (3.5-5.1); Sodium Level 134 mmol/L (136-145)
--- NOTE | 2022-11-29 06:08 | PCM.PN.INT ---
Assessment & Plan Assessment/Plan (1) Hypoxia: PLAN: Plan RECOMMENDATIONS: 1. Wean FiO2 to maintain oxygen saturations at or above 90%. Attempt to transition to conventional nasal cannula oxygen today. 2. Continue empiric broad-spectrum antimicrobials. 3. Challenge with diuretics once again today. 4. Continue bronchodilator therapy. 5. Aggressive electrolyte repletion. 6. Encourage incentive spirometer use and mobilize patient as tolerated. IMPRESSIONS: 1. Acute hypoxemic respiratory failure The patient was initially admitted to the hospital after he developed a fever and shortness of breath while receiving transfusion of blood products. The patient's chest imaging demonstrated bilateral patchy pulmonary infiltrates, which could represent an underlying pneumonia versus transfusion related acute lung injury. I agree with continuing empiric broad-spectrum antimicrobials. Infectious workup has been unrevealing to date. Continue bronchodilators as tolerated and wean FiO2 to maintain oxygen saturations at or above 90%. Given the patient's preserved ejection fraction and limited volume that was transfused, TACO seems unlikely. In light of the fact that the patient is overall net positive for the hospitalization, will again challenge with diuretics today. 2. Self-reported history of asthma/pulmonary non-small cell carcinoma Continue supportive measures as noted above along with scheduled bronchodilator therapy. 3. Anemia Continue to monitor blood counts and transfuse if hemoglobin drops below 7 g/dL. This note was generated with [employer] dictation software. It may contain incorrect words, spelling, and punctuation that were not noted in checking the note before signing. Subjective Subjective The patient was seen and examined at the bedside this morning. Events from the last 24 hours have been reviewed. The patient is currently afebrile, hemodynamically stable and maintaining appropriate oxygen saturations on heated high flow oxygen with an FiO2 requirement of 50%. The patient is documented to be overall net +6.2 L for the hospitalization. He does report that he feels as if he is slowly getting better. Morning labs are pending. Objective Data Objective Data The patient's most recent lab work, culture data and imaging studies have all been personally reviewed. Surface echocardiogram demonstrated normal LV size and function with an ejection fraction of 65%. Infectious workup has been unrevealing to date. MRSA screen was negative. Vital Signs: Vital Signs Temp Pulse Resp BP Pulse Ox O2 Del Method O2 Flow Rate 98.5 F 72 40 H 122/66 H 93 Airvo 40 11/29/22 04:05 11/29/22 04:05 11/29/22 04:05 11/29/22 04:05 11/29/22 04:05 11/29/22 04:05 11/29/22 04:05 FiO2 50 11/29/22 04:05 Oxygen Flow Rate (L/min) 40 Oxygen Delivery Method Airvo Weight: 159 lb 2.78 oz Body Mass Index (BMI) 27.3 Intake & Output: Intake and Output for Last 24 Hours 11/27/22 11/28/22 11/29/22 23:59 23:59 23:59 Intake Total 950 / 1150 2150 / 2150 50 / 50 Output Total 600 / 750 1205 / 1205 Balance 350 / 400 945 / 945 50 / 50 Medical Nutrition Assessment Dietitian: Malnutrition Criteria Met Start: 11/25/22 15:16 Freq: Status: Active Protocol: Document 11/25/22 15:17 RMA (Rec: 11/25/22 15:17 RMA [id number]) Nutrition Malnutrition Evidence of Malnutrition Exists Yes Malnutrition (moderate): Acute Illness/Injury Evidenced By Suboptimal Energy Intake ( Moderate),Weight Loss ( Moderate) Clinical Problem Acute Disease or Injury Related Malnutrition Etiology Moderate pro-mini malnutrition in the context of acute illness related to inadequate oral intake Signs/Symptoms as evidenced by PO meeting less than 75% estimated nutrition needs and weight loss~4% x past 1 month Status Active Problem Recommendation Dietitian Recommendations/Changes Will continue liberalized regular diet as ordered. Will continue 120mL ensure clear TID w/ medpass. Will add 120mL ensure plus high protein TID w/ meals. Adjust ONS as needed to optimize oral intake and prevent weight loss. Lab / Micro Data Attestation: I reviewed the patient's lab results. 11/28/22 05:00 11/29/22 04:56 Labs: Laboratory Results - last 24 hr 11/28/22 05:00: Differential Comment SCANNED, Diff Path Review May foll, Platelet Estimate MOD DEC, Anisocytosis 2+, Sodium 134 L, Potassium 2.7 L*, Chloride 103, Carbon Dioxide 24.0, Anion Gap 7, BUN 23 H, Creatinine 0.59 L, Estim Creat Clear Calc 57.56, Est GFR (MDRD) Af Amer 173, Est GFR (MDRD) Non-Af 143, BUN/Creatinine Ratio 38.8 H, Glucose 114 H, Calcium 8.0 L 11/29/22 04:56: Sodium 134 L, Potassium 3.3 L, Chloride 105, Carbon Dioxide 23.0, Anion Gap 6, BUN 20 H, Creatinine 0.58 L, Estim Creat Clear Calc 57.56, Est GFR (MDRD) Af Amer 179, Est GFR (MDRD) Non-Af 148, BUN/Creatinine Ratio 34.7 H, Glucose 108 H, Calcium 8.2 L Micro: Microbiology 11/24/22 16:20 Blood Culture (Wb) - Other Blood Culture - Preliminary No growth in 48 hours. 11/24/22 20:00 Sputum, Expectorated/Coughed Gram Stain - Final 11/24/22 20:00 Sputum, Expectorated/Coughed Respiratory Culture - Final Mixed normal respiratory danny. No Streptococcus pneumoniae, beta-hemolytic Streptococcus or Staphylococcus aureus isolated. 11/24/22 20:20 Urine, Clean Catch Urine Culture - Final Culture exhibits no growth. 11/24/22 14:10 Blood Culture (Wb) - Left Hand Blood Culture - Preliminary No growth in 48 hours. 11/24/22 20:20 Urine, Clean Catch Legionella Antigen - Final 11/24/22 20:20 Urine, Clean Catch Streptococcus pneumoniae Antigen (M - Final 11/24/22 15:09 Nasal Secretion SARS-CoV-2 & FLU Antigen (Rapid) - Final Physical Exam Const alert, oriented x3 and no apparent distress Constitutional Narrative: Sitting in bedside recliner. General Appearance: cooperative HEENT normocephalic, head/scalp atraumatic and moist oral mucous membranes Eyes PERRL, EOMs intact bilaterally and conjunctivae normal Neck supple General: trachea midline Chest inspection of chest normal Resp Resp Narrative: Faint basilar rales. Effort and Inspection: tachypneic Cardio regular rate and regular rhythm GI normal to inspection, nondistended, normoactive bowel sounds Extremity no clubbing, cyanosis or edema Skin no rashes or lesions noted Neuro oriented x3, CN's II-XII intact bilaterally and moves all extremities Psych cooperative and affect normal Charges/Coding Visit Charges Inpatient E&M: 55493 Subs Hosp L2
[2022-11-29 06:44] LABS: Differential Indicated SCAN CRITERIA MET
[2022-11-29 06:58] LABS: Anisocytosis 2+; Platelet Estimate MOD DEC (ADEQ)
[2022-11-29 06:59] LABS: Hypochromasia 1+
[2022-11-29] MEDS: Ipratropium/Albuterol Sulfate 3 ML AMPUL.NEB INHALATION ×3 (07:09→18:54)
[2022-11-29] MEDS: Budesonide Respules 0.5 MG/2 ML AMPUL.NEB. INHALATION ×2 (07:09→18:54)
[2022-11-29] MEDS: Furosemide 40 MG/4 ML Vial IV (09:35)
[2022-11-29] MEDS: Metoprolol(XL)Succ 25 MG Tablet PO (09:46)
[2022-11-29] MEDS: Pantoprazole Sodium 40 MG Tablet PO (09:46)
[2022-11-29] MEDS: amLODIPine 5 MG Tablet PO (09:46)
[2022-11-29] MEDS: guaiFENesin 1,200 MG Tablet 1200 MG PO ×2 (09:46→22:40)
[2022-11-29 10:18] LABS: Hemoglobin 7.7 g/dL (13.0-16.5)
--- NOTE | 2022-11-29 10:52 | PN_ITS ---
Subjective Subjective Patient seen and examined. He has no complaints. He had an uneventful night and review of systems is otherwise negative. He has remained hemodynamically stable and is on 6L of oxygen. Objective Data Objective Data Vital Signs: Vital Signs Temp Pulse Resp BP Pulse Ox O2 Del Method O2 Flow Rate 97.9 F 83 32 H 112/66 92 Nasal Cannula 6 11/29/22 09:29 11/29/22 09:46 11/29/22 09:29 11/29/22 09:46 11/29/22 09:29 11/29/22 09:30 11/29/22 09:30 FiO2 50 11/29/22 04:05 Oxygen Flow Rate (L/min) 6 Oxygen Delivery Method Nasal Cannula Weight: 159 lb 2.78 oz Body Mass Index (BMI) 27.3 Intake & Output: Intake and Output for Last 24 Hours 11/27/22 11/28/22 11/29/22 23:59 23:59 23:59 Intake Total 950 / 1150 2150 / 2150 300 / 300 Output Total 600 / 750 1205 / 1205 225 / 225 Balance 350 / 400 945 / 945 75 / 75 Medical Nutrition Assessment Dietitian: Malnutrition Criteria Met Start: 11/25/22 15:16 Freq: Status: Active Protocol: Document 11/25/22 15:17 RMA (Rec: 11/25/22 15:17 RMA [id number]) Nutrition Malnutrition Evidence of Malnutrition Exists Yes Malnutrition (moderate): Acute Illness/Injury Evidenced By Suboptimal Energy Intake ( Moderate),Weight Loss ( Moderate) Clinical Problem Acute Disease or Injury Related Malnutrition Etiology Moderate pro-mini malnutrition in the context of acute illness related to inadequate oral intake Signs/Symptoms as evidenced by PO meeting less than 75% estimated nutrition needs and weight loss~4% x past 1 month Status Active Problem Recommendation Dietitian Recommendations/Changes Will continue liberalized regular diet as ordered. Will continue 120mL ensure clear TID w/ medpass. Will add 120mL ensure plus high protein TID w/ meals. Adjust ONS as needed to optimize oral intake and prevent weight loss. Lab / Micro Data 11/29/22 10:08 11/29/22 04:56 Labs: Laboratory Results - last 24 hr 11/29/22 04:56: WBC 1.0 L*, RBC 2.35 L, Hgb 7.0 L, Hct 21.1 L, MCV 89.8, MCH 29.8, MCHC 33.2, RDW Std Deviation 66.5 H, RDW Coeff of Tone 20.9 H, Plt Count 92 L, MPV 11.8, Immature Gran % (Auto) 1.000 H, Neut % (Auto) 69.8, Lymph % (Auto) 11.7 L, [place] % (Auto) 13.6 H, Eos % (Auto) 2.9, Baso % (Auto) 1.0, Absolute Neuts (auto) 0.7 L, Absolute Lymphs (auto) 0.12 L, Nucleated RBC % 0, Diff Path Review August, Platelet Estimate MOD DEC, Hypochromasia 1+, Anisocytosis 2+, Sodium 134 L, Potassium 3.3 L, Chloride 105, Carbon Dioxide 23.0, Anion Gap 6, BUN 20 H, Creatinine 0.58 L, Estim Creat Clear Calc 57.56, Est GFR (MDRD) Af Amer 179, Est GFR (MDRD) Non-Af 148, BUN/Creatinine Ratio 34.7 H, Glucose 108 H, Calcium 8.2 L 11/29/22 10:08: Hgb 7.7 L, Hct 24.0 L Micro: Microbiology 11/24/22 16:20 Blood Culture (Wb) - Other Blood Culture - Preliminary No growth in 48 hours. 11/24/22 20:00 Sputum, Expectorated/Coughed Gram Stain - Final 11/24/22 20:00 Sputum, Expectorated/Coughed Respiratory Culture - Final Mixed normal respiratory danny. No Streptococcus pneumoniae, beta-hemolytic Streptococcus or Staphylococcus aureus isolated. 11/24/22 20:20 Urine, Clean Catch Urine Culture - Final Culture exhibits no growth. 11/24/22 14:10 Blood Culture (Wb) - Left Hand Blood Culture - Preliminary No growth in 48 hours. 11/24/22 20:20 Urine, Clean Catch Legionella Antigen - Final 11/24/22 20:20 Urine, Clean Catch Streptococcus pneumoniae Antigen (M - Final 11/24/22 15:09 Nasal Secretion SARS-CoV-2 & FLU Antigen (Rapid) - Final Physical Exam Const alert, oriented x3, no apparent distress and average body habitus Constitutional Narrative: frail General Appearance: cooperative, well kempt and well developed Orientation / Consciousness: awake, oriented to person, oriented to place and oriented to time HEENT normocephalic, head/scalp atraumatic, hearing grossly normal bilaterally, moist oral mucous membranes, oropharynx normal and gingiva normal Eyes PERRL, EOMs intact bilaterally and conjunctivae normal Neck no lymphadenopathy, supple, no JVD, thyroid normal and no carotid bruits General: trachea midline Lymph Lymphatic: no lymphadenopathy noted and no lymphedema noted Resp normal respiratory effort, no retractions and no use of accessory muscles Resp Narrative: diminished breath sounds bibasally, no wheezes or crackles. now on 6L of oxygen by nasal canula Auscultation: rales bilateral lower; Negative for rhonchi or wheezes Cardio regular rate, regular rhythm, S1 normal heart sound, S2 normal heart sound, no murmurs, no rub and no gallops GI normal to inspection, nondistended, normoactive bowel sounds, soft to palpation, non-tender and non-distended Extremity normal capillary refill, no clubbing, cyanosis or edema and no calf tenderness Skin no rashes or lesions noted General Skin Exam: no breakdown Neuro oriented x3, CN's II-XII intact bilaterally, moves all extremities, no focal motor deficits, no sensory deficits noted and deep tendon reflexes 2+ bilaterally Sensorium / Orientation: awake, alert, oriented to person, oriented to place and oriented to time Speech: speech normal Motor Exam: strength 5/5 throughout Psych thought process normal, cooperative and affect normal Appearance: appropriate Assessment & Plan Assessment/Plan (1) Hypoxia: PLAN: Plan #Acute hypoxic respiratory failure likely due to community acquired pneumonia * admitted from his oncologist's office where he was getting blood transfusion. He subsequently developed fever and shortness of breath so was sent to the ED due to concerns for transfusion related reaction. * CXR showed bilateral infiltrates; right infiltrate was thought to be due to his lung cancer. * remains on AirVo * spoke to blood bank, and per their workup per pathologist, no evidence of a hemolytic reaction. NO clear testing done for TRALI. Zoë (direct and direc t) were done and showed no evidence of hemolysis. * BNP was slightly elevated. * antibiotics broadened to IV zosyn. Pulmonology on board * continue IV lasix to diurese. * MRSA screen negative so vancomycin not added on * titrate oxygen to maintain sats >90% * now down to 6L of oxygen. continue to wean down oxygen as tolerated. * TRALI was also a consideration, especially since he still cant be weaned off oxygen. * #Pancytopenia with acute on chronic anemia * Likely due to cancer and chemotherapy. * Hb today was 7; on recheck was 7.7. Wbc is 1, but absolute neutrophil count is 700. Platelets are 92. * is s/p transfusion of 1 unit of PRBC during this admission * abdolute neutrophil count is 1000. * per hematology, to give granix only if absolute neutrophil count is <500 * # Right lung adenocarcinoma * Follows with oncology. Has had 5 weeks of radiation so far. Has also completed chemotherapy. * Follow-up with oncology on outpatient basis * #Hypokalemia: K is still 3.3. Will replace aggressively and trend. #Elevated liver enzymes * improved and trended down. Will monitor * #COPD: Breathing treatments bronchodilators. #Benign essential hypertension. Chlorthalidone held due to elevated BUN. On amlodipine and metoprolol. Resume chlorthalidone DVT prophylaxis: SCDs. no anticoagulation o.a of thrombocytopenia Charges/Coding Visit Charges Inpatient E&M: 70799 Subs Hosp L2
[2022-11-29] MEDS: Famotidine 20 MG Tablet PO (22:40)
[2022-11-30] VITALS (17 sets, daily range): BP systolic 112–125; BP diastolic 67–76; PULSE 77–90; RESP 17–38; TEMP 36.3–37.5; O2SAT 92–97
[2022-11-30 07:11] LABS: Absolute Neutrophil Count 0.9 X10^3/uL (2.0-7.7); Eosinophil# 0.05 X10^3/uL; Eosinophils% 3.9 % (0-5); Hematocrit 21.6 % (40-54); Hemoglobin 7.2 g/dL (13.0-16.5); Lymphocyte % 15.5 % (19-41); Mean Corp Hgb Conc 33.3 g/dL (32-36); Mean Corpuscular Hgb 30.1 pg (27.0-32.0); Mean Corpuscular Volume 90.4 fL (80-94); Mean Platelet Vol. 11.5 fl (6.2-12.0); Monocyte# 0.14 X10^3/uL; Monocyte% 10.9 % (0-10); NRBC Flagged by Analyzer 0 % (0-5); Neutrophil # 0.89 X10^3/uL (2.7-7.7); Neutrophil % 68.9 % (47-70); POSITIVE COUNT YES; POSITIVE DIFFERENTIAL YES; POSITIVE MORPHOLOGY YES; Platelet Count 137 K/mm3 (150-450); RBC Distribution Width CV 20.6 % (11.6-14.6); Red Blood Count 2.39 M/mm3 (4.6-6.2)
[2022-11-30 07:15] LABS: Differential Indicated SCAN CRITERIA MET; White Blood Count 1.3 K/mm3 (4.4-11.0)
[2022-11-30 07:31] LABS: Anion Gap 9 (5-15); BUN 22 mg/dL (7-18); Calcium,Total 8.4 mg/dL (8.5-10.1); Chloride 103 mmol/L (98-107); Creatinine, Serum 0.56 mg/dL (0.70-1.30); EST Glomerular Filtration Rate 152 mL/min (>60); Est Glom Filt Rate - Afr Amer 184 mL/min (>60); Estimated Creatinine Clearance 57.56 ml/min; Glucose 111 mg/dL (74-106); Potassium 3.2 mmol/L (3.5-5.1); Sodium Level 136 mmol/L (136-145)
[2022-11-30] MEDS: Ipratropium/Albuterol Sulfate 3 ML AMPUL.NEB INHALATION ×3 (07:37→21:03)
[2022-11-30] MEDS: Budesonide Respules 0.5 MG/2 ML AMPUL.NEB. INHALATION ×2 (07:37→21:03)
[2022-11-30 07:44] LABS: Anisocytosis 1+
--- NOTE | 2022-11-30 10:17 | PCM.PN.INT ---
Assessment & Plan Assessment/Plan (1) Hypoxia: PLAN: Plan RECOMMENDATIONS: 1. Wean supplemental oxygen to maintain saturations at or above 90%. 2. Continue empiric broad-spectrum antimicrobials. 3. Challenge with diuretics once again today. 4. Continue bronchodilator therapy. 5. Aggressive electrolyte repletion. 6. Encourage incentive spirometer use and mobilize patient as tolerated. IMPRESSIONS: 1. Acute hypoxemic respiratory failure The patient was initially admitted to the hospital after he developed a fever and shortness of breath while receiving transfusion of blood products. The patient's chest imaging demonstrated bilateral patchy pulmonary infiltrates, which could represent an underlying pneumonia versus transfusion related acute lung injury. I agree with continuing empiric broad-spectrum antimicrobials. Infectious workup has been unrevealing to date. Continue bronchodilators as tolerated and wean FiO2 to maintain oxygen saturations at or above 90%. Given the patient's preserved ejection fraction and limited volume that was transfused, TACO seems unlikely. In light of the fact that the patient is overall net positive for the hospitalization, will again challenge with diuretics today. 2. Self-reported history of asthma/pulmonary non-small cell carcinoma Continue supportive measures as noted above along with scheduled bronchodilator therapy. 3. Anemia Continue to monitor blood counts and transfuse if hemoglobin drops below 7 g/dL. This note was generated with [employer] dictation software. It may contain incorrect words, spelling, and punctuation that were not noted in checking the note before signing. Subjective Subjective The patient was seen and examined at the bedside this morning. Events from the last 24 hours have been reviewed. The patient is currently afebrile, hemodynamically stable and maintaining appropriate oxygen saturations on 6 L/min via nasal cannula. The patient is documented to be overall net +6.2 L for the hospitalization. The patient remains pancytopenic. Potassium is low at 3.2 with a creatinine of 0.56. He appears to be slowly improving from an oxygenation perspective. Objective Data Objective Data The patient's most recent lab work, culture data and imaging studies have all been personally reviewed. Surface echocardiogram demonstrated normal LV size and function with an ejection fraction of 65%. Infectious workup has been unrevealing to date. MRSA screen was negative. Vital Signs: Vital Signs Temp Pulse Resp BP Pulse Ox O2 Del Method O2 Flow Rate 98.2 F 78 30 H 117/67 92 Nasal Cannula 6 11/30/22 08:00 11/30/22 08:00 11/30/22 08:00 11/30/22 08:00 11/30/22 10:02 11/30/22 10:02 11/30/22 10:02 FiO2 45 11/30/22 05:11 Oxygen Flow Rate (L/min) 6 Oxygen Delivery Method Nasal Cannula Weight: 159 lb 2.78 oz Body Mass Index (BMI) 27.3 Intake & Output: Intake and Output for Last 24 Hours 11/28/22 11/29/22 11/30/22 23:59 23:59 23:59 Intake Total 2150 / 2150 1500 / 1500 150 / 150 Output Total 1205 / 1205 1425 / 1425 150 / 150 Balance 945 / 945 75 / 75 0 / 0 Medical Nutrition Assessment Dietitian: Malnutrition Criteria Met Start: 11/25/22 15:16 Freq: Status: Active Protocol: Document 11/25/22 15:17 RMA (Rec: 11/25/22 15:17 RMA [id number]) Nutrition Malnutrition Evidence of Malnutrition Exists Yes Malnutrition (moderate): Acute Illness/Injury Evidenced By Suboptimal Energy Intake ( Moderate),Weight Loss ( Moderate) Clinical Problem Acute Disease or Injury Related Malnutrition Etiology Moderate pro-mini malnutrition in the context of acute illness related to inadequate oral intake Signs/Symptoms as evidenced by PO meeting less than 75% estimated nutrition needs and weight loss~4% x past 1 month Status Active Problem Recommendation Dietitian Recommendations/Changes Will continue liberalized regular diet as ordered. Will continue 120mL ensure clear TID w/ medpass. Will add 120mL ensure plus high protein TID w/ meals. Adjust ONS as needed to optimize oral intake and prevent weight loss. Lab / Micro Data Attestation: I reviewed the patient's lab results. 11/30/22 06:21 11/30/22 06:21 Labs: Laboratory Results - last 24 hr 11/29/22 10:08: Hgb 7.7 L, Hct 24.0 L 11/30/22 06:21: WBC 1.3 L*, RBC 2.39 L, Hgb 7.2 L, Hct 21.6 L, MCV 90.4, MCH 30.1, MCHC 33.3, RDW Std Deviation 66.0 H, RDW Coeff of Tone 20.6 H, Plt Count 137 L, MPV 11.5, Immature Gran % (Auto) 0.800, Neut % (Auto) 68.9, Lymph % (Auto) 15.5 L, [place] % (Auto) 10.9 H, Eos % (Auto) 3.9, Baso % (Auto) 0.0, Absolute Neuts (auto) 0.9 L, Absolute Lymphs (auto) 0.20 L, Nucleated RBC % 0, Diff Path Review May , Anisocytosis 1+, Sodium 136, Potassium 3.2 L, Chloride 103, Carbon Dioxide 24.0, Anion Gap 9, BUN 22 H, Creatinine 0.56 L, Estim Creat Clear Calc 57.56, Est GFR (MDRD) Af Amer 184, Est GFR (MDRD) Non-Af 152, BUN/Creatinine Ratio 39.0 H, Glucose 111 H, Calcium 8.4 L Micro: Microbiology 11/24/22 16:20 Blood Culture (Wb) - Other Blood Culture - Final No growth in 5 days. 11/24/22 14:10 Blood Culture (Wb) - Left Hand Blood Culture - Final No growth in 5 days. 11/24/22 20:00 Sputum, Expectorated/Coughed Gram Stain - Final 11/24/22 20:00 Sputum, Expectorated/Coughed Respiratory Culture - Final Mixed normal respiratory danny. No Streptococcus pneumoniae, beta-hemolytic Streptococcus or Staphylococcus aureus isolated. 11/24/22 20:20 Urine, Clean Catch Urine Culture - Final Culture exhibits no growth. 11/24/22 20:20 Urine, Clean Catch Legionella Antigen - Final 11/24/22 20:20 Urine, Clean Catch Streptococcus pneumoniae Antigen (M - Final 11/24/22 15:09 Nasal Secretion SARS-CoV-2 & FLU Antigen (Rapid) - Final Physical Exam Const alert, oriented x3 and no apparent distress Constitutional Narrative: Sitting in bedside recliner. is present at the bedside. General Appearance: cooperative HEENT normocephalic, head/scalp atraumatic and moist oral mucous membranes Eyes PERRL, EOMs intact bilaterally and conjunctivae normal Neck supple General: trachea midline Chest inspection of chest normal Resp Resp Narrative: Faint basilar rales. Effort and Inspection: tachypneic Cardio regular rate and regular rhythm GI normal to inspection, nondistended, normoactive bowel sounds Extremity no clubbing, cyanosis or edema Skin no rashes or lesions noted Neuro oriented x3, CN's II-XII intact bilaterally and moves all extremities Psych cooperative and affect normal Charges/Coding Visit Charges Inpatient E&M: 02793 Subs Hosp L2
[2022-11-30] MEDS: Chlorthalidone 50 MG Tablet PO (10:32)
[2022-11-30] MEDS: Furosemide 40 MG/4 ML Vial IV ×2 (10:32→17:13)
[2022-11-30] MEDS: Metoprolol(XL)Succ 25 MG Tablet PO ×2 (10:33→23:00)
[2022-11-30] MEDS: Pantoprazole Sodium 40 MG Tablet PO (10:33)
[2022-11-30] MEDS: amLODIPine 5 MG Tablet PO (10:33)
[2022-11-30] MEDS: guaiFENesin 1,200 MG Tablet 1200 MG PO ×2 (10:33→23:00)
[2022-11-30] MEDS: Potassium Chloride Oral Tablet 20 MEQ 40 MEQ PO ×2 (10:44→17:13)
[2022-11-30 12:27] LABS: Pathologist Review Reviewed
[2022-11-30 12:41] LABS: Pathologist Review Reviewed
--- NOTE | 2022-11-30 12:43 | CASEMGMT ---
Social Work SW notified that patient is off Airvo and on six liters o2 and can be precerted for TCU. TCU notified and reports patient must be off airvo for 24 hours prior to precert being started. Brandee Soto MANAGER CARE, [employer] SET UP OPERATOR
--- NOTE | 2022-11-30 16:05 | PN.HOSP_ITS ---
Reason for Visit Reason for Visit: Diagnoses Hypoxemia (11/24/22) Subjective Subjective Patient was seen and examined today, he is currently on 6 L of nasal cannula at rest, patient's white blood cell count (total) was 1300 today, patient's hemogl obin was 7.2. Platelet count was 137. I briefly talked with his oncologist by phone today concerning his absolute neutrophil count of 900, he did not recommend giving Granix at this time unless his white count continued to be low tomorrow. We also discussed giving the patient a unit of blood but because of a possible recent transfusion reaction, we have decided not to transfuse the patient at this time. We are currently awaiting approval for the patient to go to TCU for inpatient rehab services. Patient denies any fevers or chills to this examiner, he does not complain of any shortness of breath at rest. Objective Data Objective Data Vital Signs: Vital Signs Temp Pulse Resp BP Pulse Ox O2 Del Method O2 Flow Rate 97.3 F L 82 20 H 116/68 94 Nasal Cannula 6 11/30/22 14:47 11/30/22 14:47 11/30/22 14:47 11/30/22 14:47 11/30/22 14:47 11/30/22 15:06 11/30/22 15:06 FiO2 45 11/30/22 05:11 Oxygen Flow Rate (L/min) 6 Oxygen Delivery Method Nasal Cannula Weight: 72.2 kg Body Mass Index (BMI) 27.3 Intake & Output: Intake and Output for Last 24 Hours 11/28/22 11/29/22 11/30/22 23:59 23:59 23:59 Intake Total 2150 / 2150 1500 / 1500 450 / 450 Output Total 1205 / 1205 1425 / 1425 150 / 150 Balance 945 / 945 75 / 75 300 / 300 Medical Nutrition Assessment Dietitian: Malnutrition Criteria Met Start: 11/25/22 15:16 Freq: Status: Active Protocol: Document 11/30/22 15:03 JASMYN (Rec: 11/30/22 15:04 [email or web address] [id number]) Nutrition Malnutrition Evidence of Malnutrition Exists Yes Malnutrition (moderate): Acute Illness/Injury Evidenced By Suboptimal Energy Intake ( Moderate),Weight Loss ( Moderate) Clinical Problem Acute Disease or Injury Related Malnutrition Etiology Moderate pro-mini malnutrition in the context of acute illness related to inadequate oral intake Signs/Symptoms as evidenced by PO meeting less than 75% estimated nutrition needs and weight loss~4% x past 1 month Status Active Problem Recommendation Dietitian Recommendations/Changes Will continue liberalized regular diet as ordered. Will continue 120mL ensure plus high protein TID w/ medpass. Adjust ONS as needed to optimize oral intake and prevent weight loss. Lab / Micro Data 11/30/22 06:21 11/30/22 06:21 Labs: Laboratory Results - last 24 hr 11/28/22 05:00: Diff Path Review Reviewed 11/29/22 04:56: Diff Path Review Reviewed 11/30/22 06:21: WBC 1.3 L*, RBC 2.39 L, Hgb 7.2 L, Hct 21.6 L, MCV 90.4, MCH 30.1, MCHC 33.3, RDW Std Deviation 66.0 H, RDW Coeff of Tone 20.6 H, Plt Count 137 L, MPV 11.5, Immature Gran % (Auto) 0.800, Neut % (Auto) 68.9, Lymph % (Auto) 15.5 L, [place] % (Auto) 10.9 H, Eos % (Auto) 3.9, Baso % (Auto) 0.0, Absolute Neuts (auto) 0.9 L, Absolute Lymphs (auto) 0.20 L, Nucleated RBC % 0, Diff Path Review May foll, Anisocytosis 1+, Sodium 136, Potassium 3.2 L, Chloride 103, Carbon Dioxide 24.0, Anion Gap 9, BUN 22 H, Creatinine 0.56 L, Estim Creat Clear Calc 57.56, Est GFR (MDRD) Af Amer 184, Est GFR (MDRD) Non-Af 152, BUN/Creatinine Ratio 39.0 H, Glucose 111 H, Calcium 8.4 L Micro: Microbiology 11/24/22 16:20 Blood Culture (Wb) - Other Blood Culture - Final No growth in 5 days. 11/24/22 14:10 Blood Culture (Wb) - Left Hand Blood Culture - Final No growth in 5 days. 11/24/22 20:00 Sputum, Expectorated/Coughed Gram Stain - Final 11/24/22 20:00 Sputum, Expectorated/Coughed Respiratory Culture - Final Mixed normal respiratory danny. No Streptococcus pneumoniae, beta-hemolytic Streptococcus or Staphylococcus aureus isolated. 11/24/22 20:20 Urine, Clean Catch Urine Culture - Final Culture exhibits no growth. 11/24/22 20:20 Urine, Clean Catch Legionella Antigen - Final 11/24/22 20:20 Urine, Clean Catch Streptococcus pneumoniae Antigen (M - Fi nal 11/24/22 15:09 Nasal Secretion SARS-CoV-2 & FLU Antigen (Rapid) - Final Physical Exam Const alert, oriented x3, no apparent distress and average body habitus General Appearance: cooperative, well kempt and well developed Orientation / Consciousness: awake, oriented to person, oriented to place and oriented to time HEENT normocephalic, head/scalp atraumatic and moist oral mucous membranes Eyes PERRL, EOMs intact bilaterally and conjunctivae normal Neck supple, no JVD, thyroid normal and no carotid bruits General: trachea midline Resp normal respiratory effort, no retractions and no use of accessory muscles Resp Narrative: Decreased breath sounds bilaterally Auscultation: Negative for rales, rhonchi or wheezes Cardio regular rate, regular rhythm, S1 normal heart sound, S2 normal heart sound, no murmurs, no rub and no gallops GI normal to inspection, nondistended, normoactive bowel sounds, soft to palpation, non-tender and non-distended Extremity no clubbing, cyanosis or edema Skin no rashes or lesions noted General Skin Exam: no breakdown Neuro oriented x3, CN's II-XII intact bilaterally, moves all extremities, no focal motor deficits and no sensory deficits noted Sensorium / Orientation: awake, alert, oriented to person, oriented to place and oriented to time Speech: speech normal Psych affect normal Assessment & Plan Assessment/Plan (1) Hypoxia: PLAN: Plan 1. Acute hypoxic respiratory failure secondary to suspected pneumonia-continue present treatment, pulmonary medicine is participating in his care #2 adenocarcinoma of the lung, complicates care, medical course, recovery, and prognosis #3 leukopenia secondary to chemotherapy-patient's absolute white blood cell count today was 900, labs will be rechecked tomorrow #4 anemia secondary to chemotherapy-patient's hemoglobin today was 7.2, hemoglobin will be monitored #5 hypokalemia-patient will be given oral potassium today, BMP will be rechecked #6 adenocarcinoma of the right lung-complicates care, medical course, recovery, and prognosis #7 chronic obstructive pulmonary disease #8 thrombocytopenia secondary to chemotherapy-patient's CBC will be monitored Total clinical time spent by myself addressing the patient's medical issues, reviewing all of his data, and collaborating with patient's care team: 35 minutes Charges/Coding Visit Charges Inpatient E&M: 61434 Subs Hosp L2
--- NOTE | 2022-11-30 21:03 | CPS ---
Pt requested just to wear the 6 LPM nasal cannula instead of the AirVo for tonight.
[2022-11-30] MEDS: Famotidine 20 MG Tablet PO (23:00)
[2022-12-01] VITALS (13 sets, daily range): BP systolic 105–119; BP diastolic 58–67; PULSE 73–86; RESP 18–34; TEMP 36.3–36.8; O2SAT 92–97
[2022-12-01 06:44] LABS: Absolute Lymphocyte Count 0.28 X10^3/uL (0.83-4.51); Basophil# 0.01 X10^3/uL; Basophil% 0.7 % (0-1); Eosinophil# 0.07 X10^3/uL; Eosinophils% 4.6 % (0-5); Hematocrit 22.8 % (40-54); Hemoglobin 7.6 g/dL (13.0-16.5); Lymphocyte # 0.28 X10^3/ul (0.83-4.51); Lymphocyte % 18.3 % (19-41); Mean Corp Hgb Conc 33.3 g/dL (32-36); Mean Corpuscular Hgb 29.8 pg (27.0-32.0); Mean Corpuscular Volume 89.4 fL (80-94); Mean Platelet Vol. 10.8 fl (6.2-12.0); Monocyte# 0.16 X10^3/uL; Monocyte% 10.5 % (0-10); NRBC Flagged by Analyzer 0 % (0-5); Neutrophil % 65.2 % (47-70); POSITIVE DIFFERENTIAL YES; POSITIVE MORPHOLOGY YES; Platelet Count 158 K/mm3 (150-450); RBC Distribution Width CV 20.6 % (11.6-14.6); RBC Distribution Width SD 65.5 fl (35.1-43.9); Red Blood Count 2.55 M/mm3 (4.6-6.2)
[2022-12-01 06:53] LABS: Differential Indicated SCAN CRITERIA MET; White Blood Count 1.5 K/mm3 (4.4-11.0)
[2022-12-01] MEDS: Ipratropium/Albuterol Sulfate 3 ML AMPUL.NEB INHALATION ×3 (07:07→19:22)
[2022-12-01] MEDS: Budesonide Respules 0.5 MG/2 ML AMPUL.NEB. INHALATION ×2 (07:07→19:22)
[2022-12-01 07:13] LABS: Anisocytosis 1+; Differential Comment SCANNED
[2022-12-01 07:18] LABS: Anion Gap 8 (5-15); BUN 25 mg/dL (7-18); BUN/Creat Ratio 32.9 RATIO (10-20); Calcium,Total 8.8 mg/dL (8.5-10.1); Chloride 104 mmol/L (98-107); Creatinine, Serum 0.76 mg/dL (0.70-1.30); EST Glomerular Filtration Rate 108 mL/min (>60); Est Glom Filt Rate - Afr Amer 130 mL/min (>60); Estimated Creatinine Clearance 57.56 ml/min; Glucose 120 mg/dL (74-106); Potassium 3.2 mmol/L (3.5-5.1); Sodium Level 137 mmol/L (136-145)
[2022-12-01] MEDS: Chlorthalidone 50 MG Tablet PO (08:28)
[2022-12-01] MEDS: amLODIPine 5 MG Tablet PO (08:28)
[2022-12-01] MEDS: Metoprolol(XL)Succ 25 MG Tablet PO ×2 (08:28→22:04)
[2022-12-01] MEDS: guaiFENesin 1,200 MG Tablet 1200 MG PO ×2 (08:28→22:04)
[2022-12-01] MEDS: Potassium Chloride Oral Tablet 20 MEQ 60 MEQ PO (08:28)
[2022-12-01] MEDS: Pantoprazole Sodium 40 MG Tablet PO (08:29)
--- NOTE | 2022-12-01 13:05 | CT_ITS ---
STUDY: CTA CHEST REASON FOR EXAM: Male, 72 years old. Hypoxia, R/O PE. RIGHT ADENOCARCINOMA OF RIGHT LUNG RADIATION DOSAGE (If Supplied By Facility): CTDIvol = ( 8.89 ) mGy, DLP = ( 292.33 ) mGycm TECHNIQUE: The examination was performed with the intravenous administration of IV 100mL Isovue-370. Post-processing of the angiographic images was performed, with multiplanar reformation and 3D reconstruction. Individualized dose optimization techniques were used for this CT. COMPARISON: Comparison is made with prior chest radiograph dated November 25, 2022. FINDINGS: Normal enhancement of the main pulmonary artery and right and left pulmonary arteries. Normal enhancement of the bilateral peripheral pulmonary arteries. There is no demonstrated pulmonary embolism. There is atherosclerotic calcification of the aortic arch with tortuosity. There is no demonstrated aortic dissection. There are calcifications of the coronary arteries. Normal mediastinum. Normal hilar regions. Normal visualized trachea and bronchi. Hyperinflation. Emphysematous changes. Infiltration in the right lower lobe as well as in the posterior aspect of the right middle lobe. Focal infiltrate also seen in the left upper lobe. There is a 3.1 cm x 2.5 cm irregular nodule in the peripheral lateral aspect of the left upper lobe. Small bilateral pleural effusions. Normal chest wall structures. There are degenerative changes of thoracic spine. Heterogeneous sclerosis of the lower cervical and upper thoracic vertebrae. Normal visualized upper abdomen. CT/CTA Chest W/WO Contrast IMPRESSION: No evidence of pulmonary embolism. Right lower lobe and right middle lobe infiltrates as well as left upper lobe. There is evidence of a 3.17 x 2.5 cm irregular nodule in the peripheral lateral aspect of the left upper lobe. Small bilateral pleural effusions. Heterogeneous appearance of the vertebrae of the lower cervical and upper thoracic vertebrae. Electronically Signed: Fidel Morales MD at 14:30 EDT ,
[2022-12-01 13:12] LABS: Pathologist Review Reviewed
--- NOTE | 2022-12-01 15:43 | PN.HOSP_ITS ---
Reason for Visit Reason for Visit: Diagnoses Hypoxemia (11/24/22) Subjective Subjective Patient was seen and examined today, initially today he was on 6 L via nasal cannula, TCU declined to go ahead with his [id number] felt that the patient was not medically stable at this time and would reevaluate him tomorrow. In the meantime this afternoon, patient's oxygen requirement is at 4 L. I repeated the patient's CT scan of his chest with contrast to rule out any possibility of PE, there is no PE noted, he had some diffuse infiltrates noted however. I talked briefly with pulmonary medicine about his care. Patient has no complaints of any shortness of breath at rest at this time, he denies any fevers or chills. Objective Data Objective Data Vital Signs: Vital Signs Temp Pulse Resp BP Pulse Ox O2 Del Method O2 Flow Rate 97.9 F 78 20 H 114/58 L 93 Nasal Cannula 4 12/01/22 14:22 12/01/22 14:22 12/01/22 14:22 12/01/22 14:22 12/01/22 14:22 12/01/22 14:22 12/01/22 14:22 FiO2 45 11/30/22 05:11 Oxygen Flow Rate (L/min) 4 Oxygen Delivery Method Nasal Cannula Weight: 72.2 kg Body Mass Index (BMI) 27.3 Intake & Output: Intake and Output for Last 24 Hours 11/29/22 11/30/22 12/01/22 23:59 23:59 23:59 Intake Total 1500 / 1500 800 / 1100 900 / 900 Output Total 1425 / 1425 1450 / 2300 1600 / 1600 Balance 75 / 75 -650 / -1200 -700 / -700 Medical Nutrition Assessment Dietitian: Malnutrition Criteria Met Start: 11/25/22 15:16 Freq: Status: Active Protocol: Document 11/30/22 15:03 JASMYN (Rec: 11/30/22 15:04 [id number]) Nutrition Malnutrition Evidence of Malnutrition Exists Yes Malnutrition (moderate): Acute Illness/Injury Evidenced By Suboptimal Energy Intake ( Moderate),Weight Loss ( Moderate) Clinical Problem Acute Disease or Injury Related Malnutrition Etiology Moderate pro-mini malnutrition in the context of acute illness related to inadequate oral intake Signs/Symptoms as evidenced by PO meeting less than 75% estimated nutrition needs and weight loss~4% x past 1 month Status Active Problem Recommendation Dietitian Recommendations/Changes Will continue liberalized regular diet as ordered. Will continue 120mL ensure plus high protein TID w/ medpass. Adjust ONS as needed to optimize oral intake and prevent weight loss. Lab / Micro Data 12/01/22 06:20 12/01/22 06:20 Labs: Laboratory Results - last 24 hr 11/30/22 06:21: Diff Path Review Reviewed 12/01/22 06:20: WBC 1.5 L*, RBC 2.55 L, Hgb 7.6 L, Hct 22.8 L, MCV 89.4, MCH 29.8, MCHC 33.3, RDW Std Deviation 65.5 H, RDW Coeff of Tone 20.6 H, Plt Count 158, MPV 10.8, Immature Gran % (Auto) 0.700, Neut % (Auto) 65.2, Lymph % (Auto) 18.3 L, [place] % (Auto) 10.5 H, Eos % (Auto) 4.6, Baso % (Auto) 0.7, Absolute Neuts (auto) 1.0 L, Absolute Lymphs (auto) 0.28 L, Nucleated RBC % 0, Differential Comment SCANNED, Diff Path Review May foll, Anisocytosis 1+, Sodium 137, Potassium 3.2 L, Chloride 104, Carbon Dioxide 25.0, Anion Gap 8, BUN 25 H, Creatinine 0.76, Estim Creat Clear Calc 57.56, Est GFR (MDRD) Af Amer 130, Est GFR (MDRD) Non-Af 108, BUN/Creatinine Ratio 32.9 H, Glucose 120 H, Calcium 8.8 Micro: Microbiology 11/24/22 16:20 Blood Culture (Wb) - Other Blood Culture - Final No growth in 5 days. 11/24/22 14:10 Blood Culture (Wb) - Left Hand Blood Culture - Final No growth in 5 days. 11/24/22 20:00 Sputum, Expectorated/Coughed Gram Stain - Final 11/24/22 20:00 Sputum, Expectorated/Coughed Respiratory Culture - Final Mixed normal respiratory danny. No Streptococcus pneumoniae, beta-hemolytic Streptococcus or Staphylococcus aureus isolated. 11/24/22 20:20 Urine, Clean Catch Urine Culture - Final Culture exhibits no growth. 11/24/22 20:20 Urine, Clean Catch Legionella Antigen - Final 11/24/22 20:20 Urine, Clean Catch Streptococcus pneumoniae Antigen (M - Final 11/24/22 15:09 Nasal Secretion SARS-CoV-2 & FLU Antigen (Rapid) - Final Radiography Diagnostic Testing: Radiology Impression Chest CTA 12/01/22 13:05 IMPRESSION: No evidence of pulmonary embolism. Right lower lobe and right middle lobe infiltrates as well as left upper lobe. There is evidence of a 3.17 x 2.5 cm irregular nodule in the peripheral lateral aspect of the left upper lobe. Small bilateral pleural effusions. Heterogeneous appearance of the vertebrae of the lower cervical and upper thoracic vertebrae. Electronically Signed: Fidel Morales MD at 14:30 EDT , Physical Exam Narrative alert, oriented x3, no apparent distress and average body habitus General Appearance: cooperative, well kempt and well developed Orientation / Consciousness: awake, oriented to person, oriented to place and oriented to time HEENT normocephalic, head/scalp atraumatic and moist oral mucous membranes Eyes PERRL, EOMs intact bilaterally and conjunctivae normal Neck supple, no JVD, thyroid normal and no carotid bruits General: trachea midline Resp normal respiratory effort, no retractions and no use of accessory muscles Resp Narrative: Decreased breath sounds bilaterally Auscultation: Negative for rales, rhonchi or wheezes Cardio regular rate, regular rhythm, S1 normal heart sound, S2 normal heart sound, no murmurs, no rub and no gallops GI normal to inspection, nondistended, normoactive bowel sounds, soft to palpation, non-tender and non-distended Extremity no clubbing, cyanosis or edema Skin no rashes or lesions noted General Skin Exam: no breakdown Neuro oriented x3, CN's II-XII intact bilaterally, moves all extremities, no focal motor deficits and no sensory deficits noted Sensorium / Orientation: awake, alert, oriented to person, oriented to place and oriented to time Speech: speech normal Psych affect normal Assessment & Plan Assessment/Plan (1) Hypoxia: PLAN: Plan 1. Acute hypoxic respiratory failure secondary to suspected pneumonia versus lung injury from blood transfusion-continue present treatment, pulmonary medicine is participating in his care, patient's oxygen requirement this afternoon has improved. #2 adenocarcinoma of the lung, complicates care, medical course, recovery, and prognosis #3 leukopenia secondary to chemotherapy-patient's absolute white blood cell count today was 1000, labs will be rechecked tomorrow #4 anemia secondary to chemotherapy-patient's hemoglobin today was 7.6, hemoglobin will be monitored #5 hypokalemia-patient will be given oral potassium today, BMP will be rechecked #6 chronic obstructive pulmonary disease-complicates care, medical course, recovery, and prognosis #7 thrombocytopenia secondary to chemotherapy-patient's CBC will be monitored #8 acute moderate protein and caloric malnutrition as evidenced by p.o. intake m eeting less than 75% of estimated nutritional needs and weight loss of approximately 4% over the past month-liberalized regular diet will be continued, 120 cc of Ensure plus high-protein 3 times daily with med Pass is being given to the patient, nutritional services is participating in his care. Total clinical time spent by myself addressing the patient's medical issues, reviewing all of his data, and collaborating with patient's care team: 35 minutes Charges/Coding Visit Charges Inpatient E&M: 26375 Subs Hosp L2
[2022-12-01] MEDS: Famotidine 20 MG Tablet PO (22:04)
[2022-12-02] VITALS (9 sets, daily range): BP systolic 107–131; BP diastolic 64–79; PULSE 74–80; RESP 16–20; TEMP 36.3–36.8; O2SAT 93–96
[2022-12-02] MEDS: Ipratropium/Albuterol Sulfate 3 ML AMPUL.NEB INHALATION ×2 (06:57→13:31)
[2022-12-02] MEDS: Budesonide Respules 0.5 MG/2 ML AMPUL.NEB. INHALATION (06:57)
[2022-12-02 06:59] LABS: Absolute Lymphocyte Count 0.26 X10^3/uL (0.83-4.51); Absolute Neutrophil Count 1.1 X10^3/uL (2.0-7.7); Basophil# 0.02 X10^3/uL; Basophil% 1.2 % (0-1); Eosinophil# 0.09 X10^3/uL; Eosinophils% 5.2 % (0-5); Hematocrit 23.9 % (40-54); Hemoglobin 7.8 g/dL (13.0-16.5); Lymphocyte # 0.26 X10^3/ul (0.83-4.51); Mean Corp Hgb Conc 32.6 g/dL (32-36); Mean Corpuscular Hgb 29.7 pg (27.0-32.0); Mean Corpuscular Volume 90.9 fL (80-94); Mean Platelet Vol. 11.1 fl (6.2-12.0); Monocyte# 0.18 X10^3/uL; Monocyte% 10.4 % (0-10); NRBC Flagged by Analyzer 0 % (0-5); Neutrophil # 1.14 X10^3/uL (2.7-7.7); Neutrophil % 65.9 % (47-70); POSITIVE DIFFERENTIAL YES; POSITIVE MORPHOLOGY YES; Platelet Count 195 K/mm3 (150-450); RBC Distribution Width CV 20.9 % (11.6-14.6); RBC Distribution Width SD 67.2 fl (35.1-43.9); Red Blood Count 2.63 M/mm3 (4.6-6.2); White Blood Count 1.7 K/mm3 (4.4-11.0)
[2022-12-02 07:00] LABS: Differential Indicated SCAN CRITERIA MET
[2022-12-02 07:15] LABS: Differential Comment SCANNED
[2022-12-02 07:16] LABS: Anisocytosis 1+; Microcytosis 1+
[2022-12-02 07:32] LABS: Anion Gap 6 (5-15); BUN 19 mg/dL (7-18); BUN/Creat Ratio 28.6 RATIO (10-20); Calcium,Total 8.7 mg/dL (8.5-10.1); Chloride 105 mmol/L (98-107); Creatinine, Serum 0.66 mg/dL (0.70-1.30); EST Glomerular Filtration Rate 126 mL/min (>60); Est Glom Filt Rate - Afr Amer 152 mL/min (>60); Estimated Creatinine Clearance 57.56 ml/min; Glucose 112 mg/dL (74-106); Potassium 3.6 mmol/L (3.5-5.1); Sodium Level 136 mmol/L (136-145)
--- NOTE | 2022-12-02 07:42 | PCM.PN.INT ---
Assessment & Plan Assessment/Plan (1) Hypoxia: PLAN: Plan RECOMMENDATIONS: 1. Wean supplemental oxygen to maintain saturations at or above 90%. 2. Continue empiric broad-spectrum antimicrobials. Plan to complete 7 days of therapy. 3. Continue bronchodilator therapy. 4. Encourage incentive spirometer use and mobilize patient as tolerated. IMPRESSIONS: 1. Acute hypoxemic respiratory failure The patient was initially admitted to the hospital after he developed a fever and shortness of breath while receiving transfusion of blood products. The patient's chest imaging demonstrated bilateral patchy pulmonary infiltrates, which could represent an underlying pneumonia versus transfusion related acute lung injury. I agree with continuing empiric broad-spectrum antimicrobials to complete 7 days of therapy. Infectious workup has been unrevealing to date. Continue bronchodilators as tolerated and wean FiO2 to maintain oxygen saturations at or above 90%. Given the patient's preserved ejection fraction and limited volume that was transfused, TACO seems unlikely. The patient appears to be slowly improving from a clinical perspective. 2. Self-reported history of asthma/pulmonary non-small cell carcinoma Continue supportive measures as noted above along with scheduled bronchodilator therapy. 3. Anemia Continue to monitor blood counts and transfuse if hemoglobin drops below 7 g/dL. This note was generated with [employer] dictation software. It may contain incorrect words, spelling, and punctuation that were not noted in checking the note before signing. Subjective Subjective The patient was seen and examined at the bedside this morning. Events from the last 24 hours have been reviewed. The patient is currently afebrile, hemodynamically stable and maintaining appropriate oxygen saturations on 4 L/min via nasal cannula. The patient remains pancytopenic. Chemistry profile was unremarkable. Objective Data Objective Data The patient's most recent lab work, culture data and imaging studies have all been personally reviewed. Surface echocardiogram demonstrated normal LV size and function with an ejection fraction of 65%. Infectious workup has been unrevealing to date. MRSA screen was negative. CTA chest showed no evidence for pulmonary embolism, but did demonstrate multilobar infiltrates along with a nodule in the left upper lobe and small bilateral pleural effusions. Vital Signs: Vital Signs Temp Pulse Resp BP Pulse Ox O2 Del Method O2 Flow Rate 97.3 F L 75 16 131/70 H 93 Nasal Cannula 4 12/02/22 03:28 12/02/22 06:58 12/02/22 06:58 12/02/22 03:28 12/02/22 06:58 12/02/22 06:58 12/02/22 06:58 FiO2 45 11/30/22 05:11 Oxygen Flow Rate (L/min) 4 Oxygen Delivery Method Nasal Cannula Weight: 159 lb 2.78 oz Body Mass Index (BMI) 27.3 Intake & Output: Intake and Output for Last 24 Hours 11/30/22 12/01/22 12/02/22 23:59 23:59 23:59 Intake Total 800 / 1100 1200 / 1200 550 / 550 Output Total 1450 / 2300 2450 / 2450 700 / 700 Balance -650 / -1200 -1250 / -1250 -150 / -150 Medical Nutrition Assessment Dietitian: Malnutrition Criteria Met Start: 11/25/22 15:16 Freq: Status: Active Protocol: Document 11/30/22 15:03 JASMYN (Rec: 11/30/22 15:04 SLA [id number]) Nutrition Malnutrition Evidence of Malnutrition Exists Yes Malnutrition (moderate): Acute Illness/Injury Evidenced By Suboptimal Energy Intake ( Moderate),Weight Loss ( Moderate) Clinical Problem Acute Disease or Injury Related Malnutrition Etiology Moderate pro-mini malnutrition in the context of acute illness related to inadequate oral intake Signs/Symptoms as evidenced by PO meeting less than 75% estimated nutrition needs and weight loss~4% x past 1 month Status Active Problem Recommendation Dietitian Recommendations/Changes Will continue liberalized regular diet as ordered. Will continue 120mL ensure plus high protein TID w/ medpass. Adjust ONS as needed to optimize oral intake and prevent weight loss. Lab / Micro Data Attestation: I reviewed the patient's lab results. 12/02/22 06:05 12/02/22 06:05 Labs: Laboratory Results - last 24 hr 11/30/22 06:21: Diff Path Review Reviewed 12/02/22 06:05: WBC 1.7 L, RBC 2.63 L, Hgb 7.8 L, Hct 23.9 L, MCV 90.9, MCH 29.7, MCHC 32.6, RDW Std Deviation 67.2 H, RDW Coeff of Tone 20.9 H, Plt Count 195, MPV 11.1, Immature Gran % (Auto) 2.300 H, Neut % (Auto) 65.9, Lymph % (Auto) 15.0 L, [place] % (Auto) 10.4 H, Eos % (Auto) 5.2 H, Baso % (Auto) 1.2 H, Absolute Neuts (auto) 1.1 L, Absolute Lymphs (auto) 0.26 L, Nucleated RBC % 0, Differential Comment SCANNED, Diff Path Review May foll, Anisocytosis 1+, Microcytosis 1+, Sodium 136, Potassium 3.6, Chloride 105, Carbon Dioxide 25.0, Anion Gap 6, BUN 19 H, Creatinine 0.66 L, Estim Creat Clear Calc 57.56, Est GFR (MDRD) Af Amer 152, Est GFR (MDRD) Non-Af 126, BUN/Creatinine Ratio 28.6 H, Glucose 112 H, Calcium 8.7 Micro: Microbiology 11/24/22 16:20 Blood Culture (Wb) - Other Blood Culture - Final No growth in 5 days. 11/24/22 14:10 Blood Culture (Wb) - Left Hand Blood Culture - Final No growth in 5 days. 11/24/22 20:00 Sputum, Expectorated/Coughed Gram Stain - Final 11/24/22 20:00 Sputum, Expectorated/Coughed Respiratory Culture - Final Mixed normal respiratory danny. No Streptococcus pneumoniae, beta-hemolytic Streptococcus or Staphylococcus aureus isolated. 11/24/22 20:20 Urine, Clean Catch Urine Culture - Final Culture exhibits no growth. 11/24/22 20:20 Urine, Clean Catch Legionella Antigen - Final 11/24/22 20:20 Urine, Clean Catch Streptococcus pneumoniae Antigen (M - Final 11/24/22 15:09 Nasal Secretion SARS-CoV-2 & FLU Antigen (Rapid) - Final Radiography Diagnostic Testing: Radiology Impression Chest CTA 12/01/22 13:05 IMPRESSION: No evidence of pulmonary embolism. Right lower lobe and right middle lobe infiltrates as well as left upper lobe. There is evidence of a 3.17 x 2.5 cm irregular nodule in the peripheral lateral aspect of the left upper lobe. Small bilateral pleural effusions. Heterogeneous appearance of the vertebrae of the lower cervical and upper thoracic vertebrae. Electronically Signed: Fidel Morales MD at 14:30 EDT , Physical Exam Const alert, oriented x3 and no apparent distress Constitutional Narrative: Sitting in bedside recliner. General Appearance: cooperative HEENT normocephalic, head/scalp atraumatic and moist oral mucous membranes Eyes PERRL, EOMs intact bilaterally and conjunctivae normal Neck supple General: trachea midline Chest inspection of chest normal Resp normal respiratory effort Auscultation: Negative for rales, rhonchi or wheezes Cardio regular rate and regular rhythm GI normal to inspection, nondistended, normoactive bowel sounds Extremity no clubbing, cyanosis or edema Skin no rashes or lesions noted Neuro oriented x3, CN's II-XII intact bilaterally and moves all extremities Psych cooperative and affect normal Charges/Coding Visit Charges Inpatient E&M: 98278 Subs Hosp L2
[2022-12-02] MEDS: guaiFENesin 1,200 MG Tablet 1200 MG PO (09:54)
[2022-12-02] MEDS: Pantoprazole Sodium 40 MG Tablet PO (09:54)
[2022-12-02] MEDS: Chlorthalidone 50 MG Tablet PO (09:54)
[2022-12-02] MEDS: Metoprolol(XL)Succ 25 MG Tablet PO (09:54)
[2022-12-02] MEDS: amLODIPine 5 MG Tablet PO (09:54)
--- NOTE | 2022-12-02 10:13 | CASEMGMT ---
Social Work As per Merlene in TCU, precert was started. SW let her know to call lars Marroquin/[employer], once precert attained as pt is ready to go today. SW let pt know as well. SW will continue to follow. CIARA Escobar
[2022-12-02 12:28] LABS: Pathologist Review Reviewed
[2022-12-02 12:33] LABS: Pathologist Review Reviewed
[2022-12-02] MEDS: 0.9% Saline Lock 10 ML Syringe IV (14:32)
--- NOTE | 2022-12-02 15:14 | TREXTCAR_ITS ---
Diet Diet Order/Speech Therapy: 11/24/22 18:43 Diet: Regular - General Food consistency:: Regular Liquid Consistency:: Regular/Thin Type of Dietary Supplement:: Ensure Plus High Protein Diet Comments: 120mL ensure plus high protein TID w/ meals Routine Orders/Code Status O2 Liters per Minute: 2 O2 Frequency: Continuous Keep PO Greater than or Equal to (%): 90 Therapies Weight Bearing: Full weight bearing Physical Therapy: Eval and Treat Occupational Therapy: Eval and Treat Problem/Diagnosis (1) Hypoxia: Status: Acute Code(s): R09.02 - Hypoxemia Plan 1. Acute hypoxic respiratory failure secondary to suspected pneumonia versus lung injury from blood transfusion-continue present treatment, pulmonary medicine is participating in his care, patient's oxygen requirement this afternoon has improved. #2 adenocarcinoma of the lung, complicates care, medical course, recovery, and prognosis #3 leukopenia secondary to chemotherapy-patient's absolute white blood cell count today was 1000, labs will be rechecked tomorrow #4 anemia secondary to chemotherapy-patient's hemoglobin today was 7.6, hemoglobin will be monitored #5 hypokalemia-patient will be given oral potassium today, BMP will be rechecked #6 chronic obstructive pulmonary disease-complicates care, medical course, recovery, and prognosis #7 thrombocytopenia secondary to chemotherapy-patient's CBC will be monitored #8 acute moderate protein and caloric malnutrition as evidenced by p.o. intake meeting less than 75% of estimated nutritional needs and weight loss of approximately 4% over the past month-liberalized regular diet will be continued, 120 cc of Ensure plus high-protein 3 times daily with med Pass is being given to the patient, nutritional services is participating in his care. Total clinical time spent by myself addressing the patient's medical issues, reviewing all of his data, and collaborating with patient's care team: 35 minutes Allergies/Procedures Done in Hospital Allergies acetaminophen [From Tylenol] Allergy (Unknown, Verified 11/24/22 13:44) increased white count Procedures: None Type of Care/Length of Stay Estimated LOS: Convalescent Care Less Than 30 days Type of Care Needed: Skilled Rehab Potential: Good Prognosis: Good Additional Orders/Day of Discharge H&P will serve as current which was dated: 11/24/22 Day of Discharge: 12/02/22 Dietary and Speech Recommendations Dietitian Recommendations/Changes: Will continue liberalized regular diet as ordered. Will continue 120mL ensure plus high protein TID w/ medpass. Adjust ONS as needed to optimize oral intake and prevent weight loss. Discharge Plan Admission Admit Date/Time: 11/24/22 17:34 Primary Reason for Your Visit: hypoxia Attending Provider: Cam Mcadams Primary Care Provider: Gera Camp Consulting Providers: Cam Mcadams; Ck Mcbride; Darrell Webb; Nitin Matos; Mason Orourke; Rajwinder Lee NP; Alejandra Cabrera Discharge Orders/Prescriptions Prescriptions: New ipratropium-albuterol 0.5 mg-3 mg(2.5 mg base)/3 mL Solution For Nebulization 3 ml inhalation Q6HWA.RT Qty: 0 0RF albuterol sulfate 2.5 mg /3 mL (0.083 %) Solution For Nebulization 2.5 mg inhalation Q2H PRN PRN (Reason: Shortness of Breath/Wheezing) Qty: 0 0RF pantoprazole 40 mg Tablet,Delayed Release (Dr/Ec) 40 mg PO DAILY Qty: 0 0RF budesonide 0.5 mg/2 mL Suspension For Nebulization 0.5 mg inhalation BID.RT Qty: 0 0RF [place] Nasal 0.65 % Aerosol,Pratts 2 spray NASAL TID PRN PRN (Reason: NASAL DRYNESS) Qty: 0 0RF Mucus Relief ER 1,200 mg Tablet Extended Release 12hr 1,200 mg PO BID Qty: 0 0RF Ensure Plus High Protein 0.08 gram-1.5 kcal/mL Liquid 120 ml PO TIDCM Qty: 0 0RF Continued amlodipine 5 mg tablet 5 mg PO DAILY chlorthalidone 50 mg tablet 50 mg PO DAILY metoprolol succinate 25 mg tablet extended release 24 hr 25 mg PO BID famotidine 20 mg tablet 20 mg PO QHS potassium chloride 20 mEq tablet extended release 20 meq PO BID Discontinued albuterol sulfate 90 mcg/actuation HFA aerosol inhaler 1 inh INHALATION Q6H PRN (Reason: shortness of breath) fluticasone propion-salmeterol 500-50 mcg/dose blister with device 1 inh INHALATION Q12H omeprazole 20 mg capsule,delayed release(DR/EC) 20 mg PO DAILY levofloxacin 500 mg tablet 500 mg PO DAILY Rx Instructions: take one tablet by mouth once daily for 7 days. new rx filled 11-24-22 but has not been started. Referrals / Follow Up: Gera Camp MD [Primary Care Provider] - Disposition Disposition (needs filled in before D/C Order can be placed): [facility]
--- NOTE | 2022-12-02 15:29 | DS.PCM_ITS ---
Providers Date of Admission: 11/24/22 Date of Discharge: 12/02/22 Primary Care Physician: Dr. Gera Camp MD Consultations 11/26/22 07:27 Consult: Instrumentation Chemist / Pulmonary Medicine Routine Consulting Provider: Pulmonary Medicine pedro Strange Reason for Consult: acute hypoxic respiratory failure EMERGENT Consult: No MD Notified: Yes Date Notified: 11/26/22 Time Notified: 07:27 Method of Notification: Text Reason For Visit: PNEUMONIA, HYPOXIA Diagnosis Discharge Diagnosis (1) Hypoxia: Status: Acute Code(s): R09.02 - Hypoxemia Plan 1. Acute hypoxic respiratory failure secondary to suspected pneumonia versus lung injury from blood transfusion-continue present treatment, pulmonary medicine is participating in his care, patient's oxygen requirement this afternoon has improved. #2 adenocarcinoma of the lung, complicates care, medical course, recovery, and prognosis #3 leukopenia secondary to chemotherapy-patient's absolute white blood cell c ount today was 1000, labs will be rechecked tomorrow #4 anemia secondary to chemotherapy-patient's hemoglobin today was 7.6, hemoglobin will be monitored #5 hypokalemia-patient will be given oral potassium today, BMP will be rechecked #6 chronic obstructive pulmonary disease-complicates care, medical course, recovery, and prognosis #7 thrombocytopenia secondary to chemotherapy-patient's CBC will be monitored #8 acute moderate protein and caloric malnutrition as evidenced by p.o. intake meeting less than 75% of estimated nutritional needs and weight loss of approximately 4% over the past month-liberalized regular diet will be continued, 120 cc of Ensure plus high-protein 3 times daily with med Pass is being given to the patient, nutritional services is participating in his care. Total clinical time spent by myself addressing the patient's medical issues, reviewing all of his data, and collaborating with patient's care team: 35 minutes Medications at Discharge Home Medications amlodipine 5 mg tablet 5 mg PO DAILY blood pressure 11/24/22 chlorthalidone 50 mg tablet 50 mg PO DAILY blood pressure 11/24/22 famotidine 20 mg tablet 20 mg PO QHS acid reflux 11/24/22 metoprolol succinate 25 mg tablet,extended release 24 hr 25 mg PO BID blood pressure 11/24/22 potassium chloride 20 mEq tablet,extended release 20 meq PO BID supplement 11/24/22 albuterol sulfate 2.5 mg/3 mL (0.083 %) solution for nebulization 2.5 mg (3 mL) inhalation Q2H PRN PRN Shortness of Breath/Wheezing #0 mL 12/02/22 budesonide 0.5 mg/2 mL suspension for nebulization 0.5 mg (2 mL) inhalation BID.RT SOB #0 mL 12/02/22 food supplemt, lactose-reduced 0.08 gram-1.5 kcal/mL oral liquid (Ensure Plus High Protein) 120 ml PO TIDCM Supplement #0 mL 12/02/22 guaifenesin 1,200 mg tablet, extended release 12 hr (Mucus Relief ER) 1,200 mg PO BID Mucus Relief #0 tabs 12/02/22 ipratropium 0.5 mg-albuterol 3 mg (2.5 mg base)/3 mL nebulization soln 3 ml inhalation Q6HWA.RT SOB #0 mL 12/02/22 pantoprazole 40 mg tablet,delayed release 40 mg PO DAILY GERD #0 tabs 12/02/22 sodium chloride 0.65 % nasal spray aerosol (Deep Sea Nasal) 2 spray NASAL TID PRN PRN NASAL DRYNESS #0 mL 12/02/22 Hospital Course Operations None Procedures 2-D Echocardiogram Summary of Care Provided Minutes Spent on Discharge: 31 Hospital Course: This 72-year-old white male was seen in the emergency room at [facility] with a chief complaint of shortness of breath and temperature elevation which was noted to take place after he received a blood transfusion for anemia. Work-up in the emergency room included a CBC which showed a white blood cell count of 3.3, hemoglobin was 7.7 platelet count 64,000. Patient's chest x-ray showed bilateral infiltrates suggestive of pneumonia, patient required 3 L of oxygen via nasal cannula in the emergency room to maintain his pulse ox above 90 %. Patient was admitted to [place] [address] for pneumonia and placed on IV antibiotics, he was seen in consultation by pulmonary medicine, it was theorized that the patient may have had a reaction to his blood transfusion which caused an inflammatory response. Supportive care was given to the patient he was maintained on IV antibiotics and his CBC was monitored. Patient improved slowly during his hospital stay he was seen in consultation by PT and OT, it was felt beneficial if the patient would go to an extended care facility for short-term rehab services and the patient agreed to this. On 12/02/2022, patient was seen and examined: On examination he appeared in good health and spirits. Vital signs as documented. Skin warm and dry and without overt rashes. Neck without JVD, neck was supple, trachea midline, thyroid was normal. Lungs clear bilaterally, normal air movement was noted. Heart exam notable for regular rhythm, normal sounds and absence of murmurs, rubs or gallops. Abdomen unremarkable and without evidence of organomegaly, masses, or abdominal aortic enlargement. Bowel sounds are present, abdomen is not distended. Extremities nonedematous, no cyanosis was noted, no clubbing was noted. Neuro: Cranial nerves II through XII are grossly intact, no focal motor deficits were noted, sensation to light touch and pinprick intact, motor exam 5/5 throughout. Psych: Patient is alert and oriented x3, he does not appear anxious or depressed, he does not appear agitated. Patient was felt to be stable for discharge to an extended care facility for inpatient skilled services on 12/02/2022, I talked with his oncologist prior to the patient's discharge, patient's oxygen requirement improved prior to his discharge to the extended care facility. Medical Records Data Medical Nutrition Assessment Dietitian: Malnutrition Criteria Met Start: 11/25/22 15:16 Freq: Status: Active Protocol: Document 11/30/22 15:03 JASMYN (Rec: 11/30/22 15:04 [facility] [id number]) Nutrition Malnutrition Evidence of Malnutrition Exists Yes Malnutrition (moderate): Acute Illness/Injury Evidenced By Suboptimal Energy Intake ( Moderate),Weight Loss ( Moderate) Clinical Problem Acute Disease or Injury Related Malnutrition Etiology Moderate pro-mini malnutrition in the context of acute illness related to inadequate oral intake Signs/Symptoms as evidenced by PO meeting less than 75% estimated nutrition needs and weight loss~4% x past 1 month Status Active Problem Recommendation Dietitian Recommendations/Changes Will continue liberalized regular diet as ordered. Will continue 120mL ensure plus high protein TID w/ medpass. Adjust ONS as needed to optimize oral intake and prevent weight loss. Weight / BMI Weight Weight: 72.2 kg Body Mass Index (BMI) 27.3 ABG / Lab / Microbiology Data 12/02/22 06:05 12/02/22 06:05 Laboratory: Laboratory Results - last 24 hr 12/01/22 06:20: Diff Path Review Reviewed 12/02/22 06:05: WBC 1.7 L, RBC 2.63 L, Hgb 7.8 L, Hct 23.9 L, MCV 90.9, MCH 29.7, MCHC 32.6, RDW Std Deviation 67.2 H, RDW Coeff of Tone 20.9 H, Plt Count 195, MPV 11.1, Immature Gran % (Auto) 2.300 H, Neut % (Auto) 65.9, Lymph % (Auto) 15.0 L, Andrews % (Auto) 10.4 H, Eos % (Auto) 5.2 H, Baso % (Auto) 1.2 H, Absolute Neuts (auto) 1.1 L, Absolute Lymphs (auto) 0.26 L, Nucleated RBC % 0, Differential Comment SCANNED, Diff Path Review Reviewed, Anisocytosis 1+, Micro cytosis 1+, Sodium 136, Potassium 3.6, Chloride 105, Carbon Dioxide 25.0, Anion Gap 6, BUN 19 H, Creatinine 0.66 L, Estim Creat Clear Calc 57.56, Est GFR (MDRD) Af Amer 152, Est GFR (MDRD) Non-Af 126, BUN/Creatinine Ratio 28.6 H, Glucose 112 H, Calcium 8.7 Microbiology: Microbiology 11/24/22 16:20 Blood Culture (Wb) - Other Blood Culture - Final No growth in 5 days. 11/24/22 14:10 Blood Culture (Wb) - Left Hand Blood Culture - Final No growth in 5 days. 11/24/22 20:00 Sputum, Expectorated/Coughed Gram Stain - Final 11/24/22 20:00 Sputum, Expectorated/Coughed Respiratory Culture - Final Mixed normal respiratory danny. No Streptococcus pneumoniae, beta-hemolytic Streptococcus or Staphylococcus aureus isolated. 11/24/22 20:20 Urine, Clean Catch Urine Culture - Final Culture exhibits no growth. 11/24/22 20:20 Urine, Clean Catch Legionella Antigen - Final 11/24/22 20:20 Urine, Clean Catch Streptococcus pneumoniae Antigen (M - Final 11/24/22 15:09 Nasal Secretion SARS-CoV-2 & FLU Antigen (Rapid) - Final Meaningful Use Info Meaningful Use Diagnoses (Choose all that apply): None applicable Discharge Plan Admission Admit Date/Time: 11/24/22 17:34 Primary Reason for Your Visit: hypoxia Attending Provider: Cam Mcadams Primary Care Provider: Gera Camp Consulting Providers: Cam Mcadams; Ck Mcbride; Darrell Webb; Nitin Matos; Mason Orourke; Rajwinder Lee NP; Alejandra Cabrera Discharge Orders/Prescriptions Prescriptions: New ipratropium-albuterol 0.5 mg-3 mg(2.5 mg base)/3 mL Solution For Nebulization 3 ml inhalation Q6HWA.RT Qty: 0 0RF albuterol sulfate 2.5 mg /3 mL (0.083 %) Solution For Nebulization 2.5 mg inhalation Q2H PRN PRN (Reason: Shortness of Breath/Wheezing) Qty: 0 0RF pantoprazole 40 mg Tablet,Delayed Release (Dr/Ec) 40 mg PO DAILY Qty: 0 0RF budesonide 0.5 mg/2 mL Suspension For Nebulization 0.5 mg inhalation BID.RT Qty: 0 0RF Deep Sea Nasal 0.65 % Aerosol,[place] 2 spray NASAL TID PRN PRN (Reason: NASAL DRYNESS) Qty: 0 0RF Mucus Relief ER 1,200 mg Tablet Extended Release 12hr 1,200 mg PO BID Qty: 0 0RF Ensure Plus High Protein 0.08 gram-1.5 kcal/mL Liquid 120 ml PO TIDCM Qty: 0 0RF Continued amlodipine 5 mg tablet 5 mg PO DAILY chlorthalidone 50 mg tablet 50 mg PO DAILY metoprolol succinate 25 mg tablet extended release 24 hr 25 mg PO BID famotidine 20 mg tablet 20 mg PO QHS potassium chloride 20 mEq tablet extended release 20 meq PO BID Discontinued albuterol sulfate 90 mcg/actuation HFA aerosol inhaler 1 inh INHALATION Q6H PRN (Reason: shortness of breath) fluticasone propion-salmeterol 500-50 mcg/dose blister with device 1 inh INHALATION Q12H omeprazole 20 mg capsule,delayed release(DR/EC) 20 mg PO DAILY levofloxacin 500 mg tablet 500 mg PO DAILY Rx Instructions: take one tablet by mouth once daily for 7 days. new rx filled 11-24-22 but has not been started. Referrals / Follow Up: Gera Camp MD [Primary Care Provider] - Disposition Disposition (needs filled in before D/C Order can be placed): [facility] Charges/Coding Visit Charges Inpatient E&M: 92287 Disch Hosp >30min
--- NOTE | 2022-12-02 15:36 | CASEMGMT ---
Discharge Planning Auth has been received by TCU. Patient and updated. Cara Virk, Discharge Planning Asst.
--- NOTE | 2022-12-02 16:43 | PHA.DC_ITS ---
Pharmacy [facility] Reconciliation Pharmacy Service has performed discharge medication reconciliation for this patient. The patient's discharge medication list was reviewed for discrepancies and discrepancies were resolved. Medications at Discharge Home Medications amlodipine 5 mg tablet 5 mg PO DAILY blood pressure 11/24/22 chlorthalidone 50 mg tablet 50 mg PO DAILY blood pressure 11/24/22 famotidine 20 mg tablet 20 mg PO QHS acid reflux 11/24/22 metoprolol succinate 25 mg tablet,extended release 24 hr 25 mg PO BID blood pressure 11/24/22 potassium chloride 20 mEq tablet,extended release 20 meq PO BID supplement 11/24/22 albuterol sulfate 2.5 mg/3 mL (0.083 %) solution for nebulization 2.5 mg (3 mL) inhalation Q2H PRN PRN Shortness of Breath/Wheezing #0 mL 12/02/22 budesonide 0.5 mg/2 mL suspension for nebulization 0.5 mg (2 mL) inhalation BID.RT #0 mL 12/02/22 food supplemt, lactose-reduced 0.08 gram-1.5 kcal/mL oral liquid (Ensure Plus High Protein) 120 ml PO TIDCM #0 mL 12/02/22 guaifenesin 1,200 mg tablet, extended release 12 hr (Mucus Relief ER) 1,200 mg PO BID #0 tabs 12/02/22 ipratropium 0.5 mg-albuterol 3 mg (2.5 mg base)/3 mL nebulization soln 3 ml inhalation Q6HWA.RT #0 mL 12/02/22 pantoprazole 40 mg tablet,delayed release 40 mg PO DAILY #0 tabs 12/02/22 sodium chloride 0.65 % nasal spray aerosol (Deep Sea Nasal) 2 spray NASAL TID PRN PRN NASAL DRYNESS #0 mL 12/02/22
== END 2022-12-02 18:02 | disposition skilled nursing facility (03) | DRG 193 ==
LOC: ED 15:18 → MS3 17:45
PROVIDERS: Internal Medicine Critical Care Medicine; Student in an Organized Health Care Education/Training Program; Admitting Provider Internal Medicine; Emergency Provider Emergency Medicine; PCP Internal Medicine; Visit Provider Internal Medicine
DX: J18.9 Pneumonia, unspecified organism (principal); D61.810 Antineoplastic chemotherapy induced pancytopenia; J96.01 Acute respiratory failure with hypoxia; E44.0 Moderate protein-calorie malnutrition; J44.0 Chronic obstructive pulmonary disease with (acute) lower respiratory infection; C34.91 Malignant neoplasm of unspecified part of right bronchus or lung; D63.0 Anemia in neoplastic disease; B95.5 Unspecified streptococcus as the cause of diseases classified elsewhere; D69.59 Other secondary thrombocytopenia; I10 Essential (primary) hypertension; D64.81 Anemia due to antineoplastic chemotherapy; E87.6 Hypokalemia; Z87.891 Personal history of nicotine dependence; Z79.51 Long term (current) use of inhaled steroids; T45.1X5A Adverse effect of antineoplastic and immunosuppressive drugs, initial encounter; T50.995A Adverse effect of other drugs, medicaments and biological substances, initial encounter; Z68.27 Body mass index [BMI] 27.0-27.9, adult
CPT/HCPCS: 36415; 36430; 36600; 71046; 71275; 80048; 80053; 81001; 82247; 82248; 82803; 83605; 83615; 83735; 83880; 84100; 84145; 85014; 85018; 85025; 85610; 85730; 86644; 86850; 86900; 86901; 86920; 86922; 87040; 87070; 87086; 87205; 87428; 87449; 87641; 93306; 94640; 94660; 94762; 97110; 97162; 97166; 97530; 97535; 99252; 99284; J7030; J7040; P9016; P9040; Q9967; A4216; G0463; J1940

== ENCOUNTER 2022-12-02 18:00 | Inpatient (IN) | payer MEDICARE, SELFPAY ==
[2022-12-02 18:45] VITALS: BP 113/63; PULSE 81; RESP 16; TEMP 36.6; O2SAT 96
[2022-12-02 19:48] VITALS: BMI 24.5
[2022-12-02 20:10] VITALS: BMI 24.5
--- NOTE | 2022-12-02 21:10 | HP.PCM_ITS ---
HPI - General General Date of Admission: 12/02/22 Date of Service: 12/03/22 Chief Complaint: Here for rehabilitation. HPI Narrative 11/24/2022 LEAH KARIMI, is a 72 Male who presents to [facility] Emergency Department with fever. Lung cancer, on chemotherapy, radiation. Chemotherapy once weekly, unable last week due to anemia. Blood transfusion today, cough prior to transfusion, had cough for months. Fever 100. IV fluids, Tylenol given. Chest X-ray shows bilateral pneumonia, Levaquin IV given. Hemoglobin 7.7. 11/24/2022 Admit to Hospital. Levaquin IV for bilateral pneumonia. Aerosols for COPD exacerbation. Monitor elevated liver enzymes. Dr. Banks recommended no further transfusion. Hold chlorthalidone for low blood pressure. 11/25/2022 Echo EF 65%. 11/25/2022 Occasional cough, breathing improved. Oxygen 5 liters, previously 3 liters. Lasix 40mg IV given for BNP 141. Replace potassium 2.8, check magnesium. Hemoglobin 7.5, Transfuse if less than 7.0. 11/26/2022 More short of breath, oxygen requirements increased, now on Airvo. Zosyn IV for bilateral pneumonia. Lasix IV for congestive heart failure. Hemoglobin 6.7, Transfuse 1 unit PRBC. Replace potassium 2.5. 11/27/2022 Short of breath on Airvo, K 2.7. MRSA screen negative. Ask Dr. Banks about granis for WBC 1.4. Aggressively replace K 2.7, Magnesium 2.2. 11/28/2022 Airvo, consider Trilogy. Hold granix unless ANC < 500. Liver enzymes trending down. 11/29/2022 Oxygen 6 liters. 11/30/2022 Oxygen 6 liters. Hematology recommended monitoring ANC 500. Hemoglobin 7.5. 12/01/2022 Oxygen 6 liters down to [address] chest negative pulmonary embolism, but diffuse infiltrates. Hemoglobin 7.6. 12/02/2022 Admit to TCU with debility, here for rehabilitation, strengthening, prior to discharge home with sister. [facility] Medical History (Updated 12/02/22 @ 21:[address] Alex Nation MD) COPD (chronic obstructive pulmonary disease) Former smoker GERD (gastroesophageal reflux disease) Home Medications amlodipine 5 mg tablet 5 mg PO DAILY blood pressure 08/08/23 [History Last Taken 12/02/22 09:55] chlorthalidone 50 mg tablet 50 mg PO DAILY blood pressure 11/24/22 [History Last Taken 12/02/22 10:00] famotidine 20 mg tablet 20 mg PO QHS acid reflux 11/24/22 [History Last Taken 12/01/22 22:04] metoprolol succinate 25 mg tablet,extended release 24 hr 25 mg PO BID blood pressure 11/24/22 [History Last Taken 12/02/22 09:55] potassium chloride 20 mEq tablet,extended release 20 meq PO BID supplement 11/24/22 [History Last Taken 11/24/22] albuterol sulfate 2.5 mg/3 mL (0.083 %) solution for nebulization 2.5 mg (3 mL) inhalation Q2H PRN PRN Shortness of Breath/Wheezing #0 mL 12/02/22 [Rx Last Taken 11/26/22] budesonide 0.5 mg/2 mL suspension for nebulization 0.5 mg (2 mL) inhalation BID.RT SOB #0 mL 12/02/22 [Rx Last Taken 12/02/22 07:00] food supplemt, lactose-reduced 0.08 gram-1.5 kcal/mL oral liquid (Ensure Plus High Protein) 120 ml PO TIDCM Supplement #0 mL 12/02/22 [Rx Last Taken 12/02/22 17:10] guaifenesin 1,200 mg tablet, extended release 12 hr (Mucus Relief ER) 1,200 mg PO BID Mucus Relief #0 tabs 12/02/22 [Rx Last Taken 12/02/22 09:55] ipratropium 0.5 mg-albuterol 3 mg (2.5 mg base)/3 mL nebulization soln 3 ml inha lation Q6HWA.RT SOB #0 mL 12/02/22 [Rx Last Taken 12/02/22 13:35] pantoprazole 40 mg tablet,delayed release 40 mg PO DAILY GERD #0 tabs 12/02/22 [Rx Last Taken 12/02/22 09:55] sodium chloride 0.65 % nasal spray aerosol (Deep Sea Nasal) 2 spray NASAL TID PRN PRN NASAL DRYNESS #0 mL 12/02/22 [Rx Last Taken 11/26/22] Allergy/AdvReac Type Severity Reaction Status Date / Time acetaminophen [From Tylenol] Allergy Unknown increased Verified 11/24/22 13:44 white count Family History (Updated 12/02/22 @ 21:[address] Alex Nation MD) Father Cancer Mother Cancer Social History (Updated 12/02/22 @ 21:[address] Alex Nation MD) household members: other details: Sister. Smoking Status: Former smoker alcohol intake: never substance use type: does not use ROS Constitutional Constitutional: Reports weakness; Denies chills, fever(s) or weight gain ENT HEENT: Denies headache(s), nasal congestion or nasal discharge Cardiovascular Cardiovascular: Denies chest pain or palpitations Respiratory/Chest Respiratory/Chest: Denies cough, excessive phlegm production or shortness of breath with exertion Gastrointestinal Gastrointestinal: Denies abdominal pain, nausea or vomiting Genitourinary Genitourinary: Denies dysuria Musculoskeletal Musculoskeletal: Denies joint pain or joint swelling Integumentary Integumentary: Denies rash or wounds Neurologic Neurologic: Denies focal weakness, numbness or tingling Psychiatric Psychiatric: Denies anxiety, auditory hallucinations, depression, homicidal ideation or suicidal ideation Vital Signs Vital Signs Vital Signs: 12/02/22 18:45 Temperature 97.9 F Temperature Source Temporal Pulse Rate 81 Respiratory Rate 16 Blood Pressure 113/63 Blood Pressure Mean 79 Blood Pressure Source Monitor Blood Pressure Position Sitting Blood Pressure Location Right Arm Pulse Ox 96 Oxygen Delivery Method Nasal Cannula Weight Weight: 69.144 kg Body Mass Index (BMI) 24.5 Physical Exam Const alert General Appearance: cooperative HEENT normocephalic Eyes PERRL and EOMs intact bilaterally Neck supple, no JVD and no carotid bruits Resp normal respiratory effort, normal air movement and clear to auscultation bilaterally Cardio regular rate and regular rhythm GI normal to inspection, nondistended, normoactive bowel sounds, non-tender and non-distended Extremity normal capillary refill General Extremity: Negative for edema Skin no rashes or lesions noted General Skin Exam: no breakdown Psych affect normal Appearance: appropriate Results Lab / Micro Data 12/03/22 05:19 12/03/22 05:19 Assessment & Plan Assessment/Plan (1) Debility: (2) Fever: (3) Bilateral pneumonia: (4) Acute encephalopathy: (5) Acute respiratory failure with hypoxia: (6) Anemia: (7) Acute heart failure with preserved ejection fraction: (8) Hypokalemia: (9) Pancytopenia: (10) Lung cancer: (11) Hypertension: PLAN: Plan 72 year old male with past medical history significant for lung cancer, hospitalized for acute respiratory failure with hypoxia secondary to bilateral pneumonia, complicated by encephalopathy, anemia, acute heart failure with preserved ejection fraction, hypokalemia, pancytopenia, admitted to TCU with debility, here for rehabilitation, strengthening, prior to discharge home with sister. * Debility - PT/OT. * Pain - Tylenol 1000mg q6h prn pain (1-10). * Bowel - senna/colace 1 tablet bid, Magnesium citrate 300ml po daily prn. * Adult immunization - Administer pneumonia vaccine, covid19 vaccine, flu vaccine as appropriate. * DVT prophylaxis - Hold, anemia. * COPD - Budesonide 0.5m neb bid, Duoneb 3ml q6hwa, Albuterol 2.5mg q2h prn. * Hypertension - Metoprolol succinate 25mg bid, Chlorthalidone 50mg daily, Amlodipine 5mg daily. * Nutrition - Ensure Plus 120ml tidcm. * GERD - Pantoprazole 40mg daily, Famotidine 20mg qhs. * Congestion - Mucinex 1200mg bid. * Hypokalemia - K 3.4, increase KCL 20meq tidcm, monitor. * Dry nares - Sodium chloride 2 sprays nasal tid prn.
[2022-12-02 22:00] VITALS: PULSE 76; RESP 16; O2SAT 96
[2022-12-02] MEDS: Senna/Docusate Sodium 1 Tablet PO (22:20)
[2022-12-02] MEDS: Famotidine 20 MG Tablet PO (22:21)
[2022-12-02] MEDS: Sodium Chloride 0.65% 1 SPRAY SPRAY.BTL 2 SPRAY NASAL (22:21)
[2022-12-03] VITALS (8 sets, daily range): BP systolic 95–125; BP diastolic 61–67; PULSE 77–88; RESP 16–28; TEMP 35.9; O2SAT 95–98
--- NOTE | 2022-12-03 05:37 | NURSING ---
Sp02 92% RA sitting on the side of his bed. After walking to the BR and back to his bed Sp02 was 91% on RA. No SOB noted. Pt voices I feel good.
[2022-12-03] MEDS: guaiFENesin 1,200 MG Tablet 1200 MG PO ×2 (05:41→17:02)
[2022-12-03] MEDS: Senna/Docusate Sodium 1 Tablet PO ×2 (05:41→17:02)
[2022-12-03] MEDS: Pantoprazole Sodium 40 MG Tablet PO (05:41)
[2022-12-03] MEDS: Metoprolol(XL)Succ 25 MG Tablet PO (05:41)
[2022-12-03] MEDS: amLODIPine 5 MG Tablet PO (05:41)
[2022-12-03] MEDS: Chlorthalidone 50 MG Tablet PO (05:41)
[2022-12-03 05:55] LABS: Absolute Lymphocyte Count 0.37 X10^3/uL (0.83-4.51); Absolute Neutrophil Count 1.3 X10^3/uL (2.0-7.7); Basophil# 0.01 X10^3/uL; Basophil% 0.5 % (0-1); Eosinophil# 0.08 X10^3/uL; Eosinophils% 3.8 % (0-5); Hematocrit 22.8 % (40-54); Hemoglobin 7.3 g/dL (13.0-16.5); Lymphocyte # 0.37 X10^3/ul (0.83-4.51); Lymphocyte % 17.6 % (19-41); Mean Corpuscular Hgb 29.3 pg (27.0-32.0); Mean Corpuscular Volume 91.6 fL (80-94); Mean Platelet Vol. 10.9 fl (6.2-12.0); Monocyte# 0.26 X10^3/uL; Monocyte% 12.4 % (0-10); NRBC Flagged by Analyzer 0 % (0-5); Neutrophil # 1.34 X10^3/uL (2.7-7.7); Neutrophil % 63.8 % (47-70); POSITIVE DIFFERENTIAL YES; POSITIVE MORPHOLOGY YES; Platelet Count 233 K/mm3 (150-450); RBC Distribution Width CV 20.2 % (11.6-14.6); RBC Distribution Width SD 65.4 fl (35.1-43.9); Red Blood Count 2.49 M/mm3 (4.6-6.2); White Blood Count 2.1 K/mm3 (4.4-11.0)
[2022-12-03 05:57] LABS: Differential Indicated SCAN CRITERIA MET
[2022-12-03 06:20] LABS: Anion Gap 7 (5-15); BUN 18 mg/dL (7-18); BUN/Creat Ratio 27.1 RATIO (10-20); Calcium,Total 8.6 mg/dL (8.5-10.1); Chloride 103 mmol/L (98-107); Creatinine, Serum 0.66 mg/dL (0.70-1.30); EST Glomerular Filtration Rate 126 mL/min (>60); Est Glom Filt Rate - Afr Amer 152 mL/min (>60); Estimated Creatinine Clearance 62.03 ml/min; Glucose 107 mg/dL (74-106); Potassium 3.4 mmol/L (3.5-5.1); Sodium Level 136 mmol/L (136-145)
[2022-12-03 06:33] LABS: Anisocytosis 1+; Differential Comment SCANNED
[2022-12-03] MEDS: Budesonide Respules 0.5 MG/2 ML AMPUL.NEB. INHALATION ×2 (07:48→19:23)
[2022-12-03] MEDS: Ipratropium/Albuterol Sulfate 3 ML AMPUL.NEB INHALATION ×2 (07:48→19:23)
[2022-12-03] MEDS: Ensure Plus High Protein 120 ML LIQUID PO ×3 (08:08→17:02)
--- NOTE | 2022-12-03 11:06 | PHA.CONS_ITS ---
TCU RX Drug Regimen Review Subjective/Objective Subjective/Objective: Subjective: 72 YOM admitted to TCU 12/02/22 s/p hospitalization for bilateral pneumonia. Admitted to TCU for rehabilitation prior to discharge home where he resides with his sister. Objective: Allergies acetaminophen [From Tylenol] Allergy (Unknown, Verified 11/24/22 13:44) increased white count Current Medications Generic Name Dose Route Start Last Admin Trade Name Freq PRN Reason Stop Dose Admin Albuterol Sulfate 2.5 mg 12/02/22 19:11 Albuterol 2.5 Mg/3 Ml Vial.Neb. INHALATION Q2H PRN PRN Shortness of Breath/Wheezing Albuterol/Ipratropium 3 ml 12/02/22 19:15 12/03/22 07:48 Ipratropium/Albuterol Sulfate 3 Ml Ampul.Neb INHALATION 3 ml Q6HWA.RT JH Administration Amlodipine Besylate 5 mg 12/03/22 06:00 12/03/22 05:41 Amlodipine 5 Mg Tablet PO 5 mg DAILY JH Administration Budesonide 0.5 mg 12/02/22 19:15 12/03/22 07:48 Budesonide Respules 0.5 Mg/2 Ml Ampul.Neb. INHALATION 0.5 mg BID.RT JH Administration Chlorthalidone 50 mg 12/03/22 06:00 12/03/22 05:41 Chlorthalidone 50 Mg Tablet PO 50 mg DAILY JH Administration Famotidine 20 mg 12/02/22 22:00 12/02/22 22:21 Famotidine 20 Mg Tablet PO 20 mg QHS JH Administration Guaifenesin 1,200 mg 12/03/22 06:00 12/03/22 05:41 Guaifenesin 1,200 Mg Tablet PO 1,200 mg BID JH Administration Magnesium Citrate 300 ml 12/02/22 21:25 Magnesium Citrate 300 Ml PO DAILY PRN Constipation Metoprolol Succinate 25 mg 12/03/22 06:00 12/03/22 05:41 Metoprolol(Xl)Succ 25 Mg Tablet PO 25 mg BID JH Administration Nutritional Formula (Lactose Free) 120 ml 12/03/22 07:45 12/03/22 08:08 Ensure Plus High Protein 120 Ml Liquid PO 120 ml TIDCM JH Administration Pantoprazole Sodium 40 mg 12/03/22 06:00 12/03/22 05:41 Pantoprazole Sodium 40 Mg Tablet PO 40 mg DAILY JH Administration Potassium Chloride 20 meq 12/03/22 12:45 Potassium Chloride Oral Tablet 20 Meq PO TIDCM JH Senna/Docusate Sodium 1 tablet 12/02/22 21:30 12/03/22 05:41 Senna/Docusate Sodium 1 Tablet PO 1 tablet BID JH Administration Sodium Chloride 2 spray 12/02/22 19:11 12/02/22 22:21 Sodium Chloride 0.65% 1 [place].Btl NASAL 2 spray TID PRN PRN Administration NASAL DRYNESS Sodium Chloride 10 - 40 ml 12/02/22 20:24 0.9% Saline Lock 10 Ml Syringe IV UD PRN SALINE FLUSH Tuberculin PPD 0.1 ml 12/10/22 10:00 Tuberculin,Purif.Prot.Deriv. 50 Tu/Ml Vial ID 12/10/22 10:01 X1 ONE Problem List (Updated 12/02/22 @ 21:[address] Alex Nation MD) Hypertension (Chronic) Lung cancer (Acute) Pancytopenia (Acute) Hypokalemia (Acute) Acute heart failure with preserved ejection fraction (Acute) Anemia (Acute) Acute respiratory failure with hypoxia (Acute) Acute encephalopathy (Acute) Bilateral pneumonia (Acute) Fever (Acute) Debility (Acute) Vital Signs Temp Pulse Resp BP Pulse Ox O2 Del Method O2 Flow Rate 97.9 F 81 16 125/61 H 98 Nasal Cannula 2 12/02/22 18:45 12/03/22 05:41 12/02/22 22:00 12/03/22 05:41 12/03/22 09:47 12/02/22 22:00 12/03/22 09:56 Oxygen Flow Rate (L/min) 2 Oxygen Delivery Method Nasal Cannula Weight: 69.144 kg Body Mass Index (BMI) 24.5 Sodium 136 mmol/L (136-145) 12/03/22 05:19 Potassium 3.4 mmol/L (3.5-5.1) L 12/03/22 05:19 Chloride 103 mmol/L (98-107) 12/03/22 05:19 Carbon Dioxide 26.0 mmol/L (21.0-32.0) 12/03/22 05:19 Anion Gap 7 (5-15) 12/03/22 05:19 BUN 18 mg/dL (7-18) 12/03/22 05:19 Creatinine 0.66 mg/dL (0.70-1.30) L 12/03/22 05:19 Est GFR (MDRD) Af Amer 152 mL/min (>60) 12/03/22 05:19 Est GFR (MDRD) Non-Af 126 mL/min (>60) 12/03/22 05:19 BUN/Creatinine Ratio 27.1 RATIO (10-20) H 12/03/22 05:19 Glucose 107 mg/dL (74-106) H 12/03/22 05:19 Assessment/Plan: 1. Pain- No medication for pain on the resident?s chart currently; the resident does not appear to be in pain during this time. Please consider adding medication for pain if needed.? 2. Bowl- Senna/docusate 1 tablet po bid and magnesium citrate 300 mL po daily as needed for constipation. The resident has not had any prn usage of magnesium citrate; no BM has been recorded since his TCU admission. Continue to monitor for s/s of constipation.? 3. COPD-Budesonide 0.5 mg nebulized bid, Duoneb 3 mL nebulized q6hwa, and albuterol 2.5 mg nebulized q2h prn for wheezing/shortness of breath. The resident has not had any prn usage of nebulized albuterol. Continue to monitor PFTs and for s/s of wheezing/shortness of breath.? 4. Hypertension-? Metoprolol succinate 25 mg po bid, chlorthalidone 50 mg po daily, and amlodipine 5 mg po daily. Continue to monitor BP (126/62 on 12/03), HR (81 bpm on 12/03), renal function (SCr 62 mL/min on 12/03), serum sodium levels (136 on 12/03), and for lower extremity swelling.??? 5. GERD- Pantoprazole 40 mg po daily and famotidine 20 mg po qhs. Continue to monitor for s/s of delirium and mental status changes (Beer?s Criteria for famotidine), as well as bone mineral density and diarrhea (Beer?s Criteria for pantoprazole), SCr (last 0.66 on 12/03).? Please encourage non-pharmacologic therapies to help minimize GERD exacerbations as well, thank you. 6. Congestion- Mucinex 1,200 mg po bid. Continue to monitor the resident?s fluid intake to ensure maximum efficacy.? 7. Hypokalemia- Potassium chloride 20mEq tidcm.? Continue to monitor serum potassium levels (3.4 on 12/03). 8. Dry nares- Sodium chloride 2 sprays nasally tid prn for nasal dryness. This medication was administered 1 time yesterday, 12/02. Please continue to monitor for nasal dryness and prn usage of this medication.?? Assessment/Plan for indications treated with psychotropic medications: The patient is not currently on any psychotropic medications at this time. Medical chart and medication regimen reviewed. The following medication irregularities or issues were identified: 1. Pain- No medication for pain on the resident?s chart currently; the resident does not appear to be in pain during this time. Please consider adding medication for pain if needed.? 2. Patient is on both a PPI (Protonix) and H2RA (Pepcid) for GERD therapy. This could be considered a therapeutic duplication. Please evaluate patient to see if patient is appropriate for single agent therapy, thank you. Date Date of Note:: 12/03/22
[2022-12-03] MEDS: Tuberculin,Purif.prot.deriv. 50 TU/ML Vial 0.1 ML ID (12:27)
[2022-12-03] MEDS: Potassium Chloride Oral Tablet 20 MEQ PO ×2 (12:27→17:02)
[2022-12-03 14:38] LABS: Pathologist Review Reviewed
[2022-12-03] MEDS: Famotidine 20 MG Tablet PO (20:46)
[2022-12-04] VITALS (10 sets, daily range): BP systolic 100–114; BP diastolic 48–66; PULSE 70–88; RESP 14–28; TEMP 36.2–36.6; O2SAT 93–98
[2022-12-04] MEDS: Metoprolol(XL)Succ 25 MG Tablet PO ×2 (05:52→17:57)
[2022-12-04] MEDS: Chlorthalidone 50 MG Tablet PO (05:53)
[2022-12-04] MEDS: amLODIPine 5 MG Tablet PO (05:53)
[2022-12-04] MEDS: Senna/Docusate Sodium 1 Tablet PO ×2 (05:53→17:57)
[2022-12-04] MEDS: Pantoprazole Sodium 40 MG Tablet PO (05:53)
[2022-12-04] MEDS: guaiFENesin 1,200 MG Tablet 1200 MG PO ×2 (05:53→17:56)
[2022-12-04 06:00] LABS: Absolute Neutrophil Count 1.3 X10^3/uL (2.0-7.7); Basophil# 0.01 X10^3/uL; Basophil% 0.4 % (0-1); Eosinophil# 0.08 X10^3/uL; Eosinophils% 3.6 % (0-5); Hematocrit 21.1 % (40-54); Hemoglobin 6.8 g/dL (13.0-16.5); Lymphocyte % 22.3 % (19-41); Mean Corp Hgb Conc 32.2 g/dL (32-36); Mean Corpuscular Hgb 29.7 pg (27.0-32.0); Mean Corpuscular Volume 92.1 fL (80-94); Mean Platelet Vol. 10.4 fl (6.2-12.0); Monocyte# 0.36 X10^3/uL; Monocyte% 16.1 % (0-10); NRBC Flagged by Analyzer 0.9 % (0-5); Neutrophil # 1.25 X10^3/uL (2.7-7.7); Neutrophil % 55.8 % (47-70); POSITIVE DIFFERENTIAL YES; POSITIVE MORPHOLOGY YES; Platelet Count 251 K/mm3 (150-450); RBC Distribution Width CV 20.8 % (11.6-14.6); RBC Distribution Width SD 66.2 fl (35.1-43.9); Red Blood Count 2.29 M/mm3 (4.6-6.2); White Blood Count 2.2 K/mm3 (4.4-11.0)
[2022-12-04 06:04] LABS: Differential Indicated SCAN CRITERIA MET
[2022-12-04 06:23] LABS: Anion Gap 7 (5-15); BUN 25 mg/dL (7-18); BUN/Creat Ratio 34.5 RATIO (10-20); Calcium,Total 8.6 mg/dL (8.5-10.1); Chloride 103 mmol/L (98-107); Creatinine, Serum 0.72 mg/dL (0.70-1.30); EST Glomerular Filtration Rate 114 mL/min (>60); Est Glom Filt Rate - Afr Amer 137 mL/min (>60); Estimated Creatinine Clearance 62.03 ml/min; Glucose 113 mg/dL (74-106); Potassium 3.4 mmol/L (3.5-5.1); Sodium Level 136 mmol/L (136-145)
[2022-12-04 06:57] LABS: Anisocytosis 1+; Differential Comment SCANNED
[2022-12-04] MEDS: Budesonide Respules 0.5 MG/2 ML AMPUL.NEB. INHALATION ×2 (06:59→19:45)
[2022-12-04] MEDS: Ipratropium/Albuterol Sulfate 3 ML AMPUL.NEB INHALATION ×2 (06:59→19:45)
[2022-12-04] MEDS: Ensure Plus High Protein 120 ML LIQUID PO ×2 (08:20→17:57)
[2022-12-04] MEDS: Potassium Chloride Oral Tablet 20 MEQ 40 MEQ PO ×2 (08:20→17:57)
--- NOTE | 2022-12-04 08:30 | NURSING ---
Call from infusion center that they are full and will be unable to take patient today for transfusion. Updated nursing bonding supervisor Isai, he asked to be called back when type and cross results in.
--- NOTE | 2022-12-04 10:11 | NURSING ---
Chairperson Anesthesiology Note; Activity Asset: Reina Abdi is independent in his choice of daily activities. He has a tablet he will use, watches tv, reads and will work on word search puzzles. He will have visit from family and friends and welcomes visits from the continuity coordinator. At this time he prefers to stay in his room due to medical reason. Staff will continue to visit with him in his room and remind him of daily activities and respect his right to say no.
--- NOTE | 2022-12-04 10:35 | NURSING ---
pt off unit to get blood transfusion at this time
[2022-12-04 12:34] LABS: Pathologist Review Reviewed
--- NOTE | 2022-12-04 17:19 | CASEMGMT ---
Social Work SW met with pt and complete psychosocial assessment. SW discussed code status and MOLST with pt and assisted pt in completing MOLST. Form placed in physicians folder. Pt wishes DNRCCA with no intubation. SW educated pt to [employer] benefit and that NRD is 12/04 and continued stay is not guaranteed. Pt's goal is to return home alone and back to independence. requested Palliative referral. ORder entered and referral made to [facility] Palliative ia email. SW to continue to follow for DC planning. CLAIRE Francis
[2022-12-04] MEDS: Famotidine 20 MG Tablet PO (20:48)
[2022-12-05] VITALS (7 sets, daily range): BP systolic 107–115; BP diastolic 53–68; PULSE 72–86; RESP 16–18; TEMP 36.4; O2SAT 92–96
[2022-12-05] MEDS: guaiFENesin 1,200 MG Tablet 1200 MG PO ×2 (05:43→17:13)
[2022-12-05] MEDS: Chlorthalidone 50 MG Tablet PO (05:43)
[2022-12-05] MEDS: Senna/Docusate Sodium 1 Tablet PO (05:43)
[2022-12-05] MEDS: amLODIPine 5 MG Tablet PO (05:44)
[2022-12-05] MEDS: Metoprolol(XL)Succ 25 MG Tablet PO ×2 (05:44→17:13)
[2022-12-05] MEDS: Pantoprazole Sodium 40 MG Tablet PO (05:44)
[2022-12-05] MEDS: Ipratropium/Albuterol Sulfate 3 ML AMPUL.NEB INHALATION ×3 (07:21→20:08)
[2022-12-05] MEDS: Budesonide Respules 0.5 MG/2 ML AMPUL.NEB. INHALATION ×2 (07:21→20:09)
[2022-12-05] MEDS: Ensure Plus High Protein 120 ML LIQUID PO ×3 (07:47→17:17)
[2022-12-05] MEDS: Potassium Chloride Oral Tablet 20 MEQ 40 MEQ PO ×2 (07:48→17:13)
[2022-12-05 15:01] LABS: Hematocrit 25.8 % (40-54); Hemoglobin 8.3 g/dL (13.0-16.5)
[2022-12-05] MEDS: Famotidine 20 MG Tablet PO (21:47)
[2022-12-06] VITALS (10 sets, daily range): BP systolic 103–115; BP diastolic 57–67; PULSE 70–84; RESP 16–24; TEMP 36.6–37.3; O2SAT 92–95
--- NOTE | 2022-12-06 02:45 | NURSING ---
MEMORIAL DESIGNER reports pt c/o pain w/ inspiration and shortness of breath. Upon arrival to room, O2 is off. Sitting in recliner w/ BLE dependent. In no acute distress. Reports pain that hurts to rt lateral chest that radiates to the right, anterior, lower chest. Declines experiencing this type of pain in the past. Skin pink/pale, warm, and dry. O2 reapplied per this nurse and pt recovered to 92%. Vitals obtained and recorded. Upper lobes clear/diminished b/l posterior. When this nurse asked pt to take a deep breath to auscultate bases, he reported he was having difficulty. Intermittent dry cough noted. Cardiopulmonary called to administer a breathing treatment. A warm blanket was applied to the rt lateral chest. Pt reports relief when splinting his chest, prior to the recommendation of this nurse when he starts to cough. Will continue to monitor.
[2022-12-06] MEDS: Albuterol 2.5 MG/3 ML VIAL.NEB. INHALATION (03:10)
[2022-12-06 06:07] LABS: Anion Gap 8 (5-15); BUN 24 mg/dL (7-18); BUN/Creat Ratio 33.1 RATIO (10-20); Calcium,Total 8.9 mg/dL (8.5-10.1); Chloride 103 mmol/L (98-107); Creatinine, Serum 0.72 mg/dL (0.70-1.30); EST Glomerular Filtration Rate 114 mL/min (>60); Est Glom Filt Rate - Afr Amer 137 mL/min (>60); Estimated Creatinine Clearance 62.03 ml/min; Glucose 125 mg/dL (74-106); Potassium 3.8 mmol/L (3.5-5.1); Sodium Level 133 mmol/L (136-145)
[2022-12-06] MEDS: guaiFENesin 1,200 MG Tablet 1200 MG PO ×2 (06:36→16:57)
[2022-12-06] MEDS: Pantoprazole Sodium 40 MG Tablet PO (06:37)
[2022-12-06] MEDS: Metoprolol(XL)Succ 25 MG Tablet PO ×2 (06:37→16:59)
--- NOTE | 2022-12-06 06:41 | NURSING ---
Debora held at this time d/t low BP this am. Will report to oncoming nurse and continue to monitor.
[2022-12-06] MEDS: Budesonide Respules 0.5 MG/2 ML AMPUL.NEB. INHALATION ×2 (07:25→19:50)
[2022-12-06] MEDS: Ipratropium/Albuterol Sulfate 3 ML AMPUL.NEB INHALATION ×3 (07:25→19:50)
[2022-12-06] MEDS: Sodium Chloride 0.65% 1 SPRAY SPRAY.BTL 2 SPRAY NASAL (08:22)
[2022-12-06] MEDS: Ensure Plus High Protein 120 ML LIQUID PO ×3 (08:23→16:57)
[2022-12-06] MEDS: Potassium Chloride Oral Tablet 20 MEQ 40 MEQ PO ×2 (08:24→16:57)
[2022-12-06] MEDS: Famotidine 20 MG Tablet PO (20:39)
--- NOTE | 2022-12-06 21:22 | RAD_ITS ---
STUDY: X-RAY CHEST REASON FOR EXAM: Male, 72 years old. Right sided chest pain, cough TECHNIQUE: PA and lateral views of the chest. COMPARISON: 11/25/2022 FINDINGS: Decrease in the alveolar opacities in both lungs consistent with improving bilateral pneumonia. There is no demonstrated pleural abnormality. Normal size heart. Normal mediastinum and minna. Normal visualized pulmonary arteries. There is atherosclerotic tortuosity of the aortic arch and descending thoracic aorta. Normal visualized thoracic spine. Normal visualized ribs, clavicles, and shoulders. There is no demonstrated abnormality of the visualized soft tissue structures of the upper abdomen. RAD/Chest PA and Lateral IMPRESSION: Improved bilateral pneumonia. Electronically Signed: Heriberto Melgar MD at 21:46 EDT ,
[2022-12-07] VITALS (9 sets, daily range): BP systolic 89–117; BP diastolic 47–66; PULSE 57–80; RESP 18–21; TEMP 35.8; O2SAT 93–97
[2022-12-07] MEDS: Ibuprofen 200 MG Tablet PO (00:48)
[2022-12-07] MEDS: guaiFENesin 1,200 MG Tablet 1200 MG PO ×2 (06:30→16:50)
[2022-12-07] MEDS: Pantoprazole Sodium 40 MG Tablet PO (06:31)
--- NOTE | 2022-12-07 06:38 | NURSING ---
Chlorthalidone, Metoprolol, and Amlodipine held at this time d/t low bp. Will continue to monitor.
[2022-12-07] MEDS: Ipratropium/Albuterol Sulfate 3 ML AMPUL.NEB INHALATION ×2 (07:50→12:53)
[2022-12-07] MEDS: Budesonide Respules 0.5 MG/2 ML AMPUL.NEB. INHALATION (07:55)
[2022-12-07] MEDS: Ensure Plus High Protein 120 ML LIQUID PO ×3 (08:28→16:52)
[2022-12-07] MEDS: Potassium Chloride Oral Tablet 20 MEQ 40 MEQ PO ×2 (08:29→16:50)
[2022-12-07] MEDS: Metoprolol(XL)Succ 25 MG Tablet PO ×2 (08:32→16:50)
[2022-12-07] MEDS: Famotidine 20 MG Tablet PO (21:54)
[2022-12-08] VITALS (7 sets, daily range): BP systolic 105–114; BP diastolic 57–65; PULSE 69–81; RESP 16–36; TEMP 36.6–37.2; O2SAT 93–96; BMI 25.0
[2022-12-08] MEDS: Metoprolol(XL)Succ 25 MG Tablet PO ×2 (06:13→17:18)
[2022-12-08] MEDS: Pantoprazole Sodium 40 MG Tablet PO (06:14)
[2022-12-08] MEDS: guaiFENesin 1,200 MG Tablet 1200 MG PO ×2 (06:14→17:18)
[2022-12-08] MEDS: Budesonide Respules 0.5 MG/2 ML AMPUL.NEB. INHALATION ×2 (07:25→19:39)
[2022-12-08] MEDS: Ipratropium/Albuterol Sulfate 3 ML AMPUL.NEB INHALATION ×3 (07:25→19:35)
[2022-12-08] MEDS: Ensure Plus High Protein 120 ML LIQUID PO ×3 (08:01→17:18)
[2022-12-08] MEDS: Potassium Chloride Oral Tablet 20 MEQ 40 MEQ PO ×2 (08:01→17:18)
--- NOTE | 2022-12-08 17:29 | CASEMGMT ---
Social Work Pt to meet with Palliative Medicine on Saturday 12/09 at 4pm for consultation. CLAIRE Stubbs
[2022-12-08] MEDS: Famotidine 20 MG Tablet PO (22:33)
[2022-12-09] VITALS (8 sets, daily range): BP systolic 110–117; BP diastolic 59–76; PULSE 72–83; RESP 16–28; TEMP 36.2; O2SAT 93–97
[2022-12-09] MEDS: Pantoprazole Sodium 40 MG Tablet PO (05:16)
[2022-12-09] MEDS: guaiFENesin 1,200 MG Tablet 1200 MG PO ×2 (05:16→16:52)
[2022-12-09] MEDS: Metoprolol(XL)Succ 25 MG Tablet PO ×2 (05:16→16:52)
[2022-12-09] MEDS: Menthol/Lanolin/Calamine/Znox 113 GM Tube 1 APPLIC TOPICAL ×2 (05:16→16:52)
[2022-12-09] MEDS: Budesonide Respules 0.5 MG/2 ML AMPUL.NEB. INHALATION ×2 (07:40→19:36)
[2022-12-09] MEDS: Ipratropium/Albuterol Sulfate 3 ML AMPUL.NEB INHALATION ×3 (07:40→19:36)
[2022-12-09] MEDS: Potassium Chloride Oral Tablet 20 MEQ 40 MEQ PO ×2 (07:51→16:52)
[2022-12-09] MEDS: Ensure Plus High Protein 120 ML LIQUID PO ×3 (07:51→16:52)
--- NOTE | 2022-12-09 10:45 | NURSING ---
Offered covid vaccine, education about vaccine provided. Patient refuses at this time.
--- NOTE | 2022-12-09 10:56 | CASEMGMT ---
Social Work BIMS (04/02) and PHQ-9 (05/15) completed for MDS assessment. Isa Jackson MSW MATHEMATICIAN RESEARCH
--- NOTE | 2022-12-09 13:43 | CASEMGMT ---
Social Work IDT met with patient and for care plan meeting. Discussed patient's progress in PT/OT/SN. Educated to [facility] insurance with NRD 12/11, EDC 12/16, continued stay is not guaranteed with each review. Pt has new O2. SW inquired about DME needs at DC. Pt requesting nebulizer, hospital bed, and elevated toilet seat. SW to coordinate needs at DC. Isa Jackson, CUPOLA TAPPER BAND SINGER
[2022-12-09] MEDS: Famotidine 20 MG Tablet PO (21:06)
[2022-12-10 05:40] LABS: Absolute Lymphocyte Count 0.48 X10^3/uL (0.83-4.51); Basophil# 0.04 X10^3/uL; Basophil% 1.3 % (0-1); Eosinophil# 0.11 X10^3/uL; Eosinophils% 3.4 % (0-5); Hematocrit 27.5 % (40-54); Hemoglobin 8.1 g/dL (13.0-16.5); Lymphocyte # 0.48 X10^3/ul (0.83-4.51); Mean Corp Hgb Conc 29.5 g/dL (32-36); Mean Corpuscular Hgb 29.3 pg (27.0-32.0); Mean Corpuscular Volume 99.6 fL (80-94); Mean Platelet Vol. 9.7 fl (6.2-12.0); Monocyte% 15.7 % (0-10); NRBC Flagged by Analyzer 0 % (0-5); Neutrophil # 1.99 X10^3/uL (2.7-7.7); Neutrophil % 62.4 % (47-70); POSITIVE DIFFERENTIAL YES; POSITIVE MORPHOLOGY YES; Platelet Count 274 K/mm3 (150-450); RBC Distribution Width CV 22.3 % (11.6-14.6); RBC Distribution Width SD 77.4 fl (35.1-43.9); Red Blood Count 2.76 M/mm3 (4.6-6.2); White Blood Count 3.2 K/mm3 (4.4-11.0)
[2022-12-10 05:50] LABS: Differential Indicated SCAN CRITERIA MET
[2022-12-10 06:02] LABS: Anion Gap 5 (5-15); BUN 18 mg/dL (7-18); BUN/Creat Ratio 25.1 RATIO (10-20); Calcium,Total 8.6 mg/dL (8.5-10.1); Chloride 106 mmol/L (98-107); Creatinine, Serum 0.72 mg/dL (0.70-1.30); EST Glomerular Filtration Rate 115 mL/min (>60); Est Glom Filt Rate - Afr Amer 139 mL/min (>60); Estimated Creatinine Clearance 62.03 ml/min; Glucose 111 mg/dL (74-106); Potassium 4.6 mmol/L (3.5-5.1); Sodium Level 134 mmol/L (136-145)
[2022-12-10 06:09] LABS: Anisocytosis 2+; Macrocytosis 1+
[2022-12-10 06:21] VITALS: BP 106/63; PULSE 74
[2022-12-10] MEDS: guaiFENesin 1,200 MG Tablet 1200 MG PO ×2 (06:21→17:32)
[2022-12-10] MEDS: Pantoprazole Sodium 40 MG Tablet PO (06:21)
[2022-12-10] MEDS: Metoprolol(XL)Succ 25 MG Tablet PO ×2 (06:21→17:33)
[2022-12-10] MEDS: Menthol/Lanolin/Calamine/Znox 113 GM Tube 1 APPLIC TOPICAL ×2 (06:22→17:32)
[2022-12-10] MEDS: Potassium Chloride Oral Tablet 20 MEQ 40 MEQ PO ×2 (07:55→17:32)
[2022-12-10] MEDS: Ensure Plus High Protein 120 ML LIQUID PO ×2 (07:56→17:34)
[2022-12-10] MEDS: Budesonide Respules 0.5 MG/2 ML AMPUL.NEB. INHALATION (08:27)
[2022-12-10] MEDS: Ipratropium/Albuterol Sulfate 3 ML AMPUL.NEB INHALATION (08:27)
[2022-12-10 08:28] VITALS: PULSE 82; RESP 20; O2SAT 95
[2022-12-10] MEDS: Tuberculin,Purif.prot.deriv. 50 TU/ML Vial 0.1 ML ID (11:07)
[2022-12-10 14:54] LABS: Pathologist Review Reviewed
[2022-12-10 15:22] VITALS: BP 102/55; PULSE 75; RESP 18; TEMP 36.1; O2SAT 94
[2022-12-10 17:33] VITALS: BP 109/54; PULSE 74
[2022-12-10 22:00] VITALS: PULSE 73; RESP 16
--- NOTE | 2022-12-10 22:00 | NURSING ---
Patient reports bumping elbow on chair skin tear observed to right elbow, skin flap intact 0.5cm L x 0.4cm W x 0.1 D, small amount red drainage observed to site. Dressing applied per order. A&Ox3. No c/o pain. No distress observed or reported. Call light in reach.
[2022-12-10] MEDS: 0.9% Saline Lock 10 ML Syringe IV (22:25)
[2022-12-10] MEDS: Famotidine 20 MG Tablet PO (22:42)
[2022-12-11] MEDS: Menthol/Lanolin/Calamine/Znox 113 GM Tube 1 APPLIC TOPICAL ×2 (06:18→17:36)
[2022-12-11] MEDS: Sodium Chloride 0.65% 1 SPRAY SPRAY.BTL 2 SPRAY NASAL (06:19)
[2022-12-11 06:20] VITALS: BP 100/61; PULSE 68
[2022-12-11] MEDS: Metoprolol(XL)Succ 25 MG Tablet PO ×2 (06:20→18:03)
[2022-12-11] MEDS: guaiFENesin 1,200 MG Tablet 1200 MG PO ×2 (06:20→17:35)
[2022-12-11] MEDS: Pantoprazole Sodium 40 MG Tablet PO (06:20)
[2022-12-11 07:27] VITALS: PULSE 81; RESP 20; O2SAT 92
[2022-12-11] MEDS: Ipratropium/Albuterol Sulfate 3 ML AMPUL.NEB INHALATION ×3 (07:27→19:50)
[2022-12-11] MEDS: Budesonide Respules 0.5 MG/2 ML AMPUL.NEB. INHALATION ×2 (07:27→19:50)
[2022-12-11] MEDS: Potassium Chloride Oral Tablet 20 MEQ 40 MEQ PO ×2 (08:18→17:35)
--- NOTE | 2022-12-11 08:42 | NURSING ---
Component Prep Operator Note; MDS for 12/09/2022 Complete
--- NOTE | 2022-12-11 12:43 | CASEMGMT ---
Addendum entered by Isa Jackson 12/11/22 15:52: Received call from [employer] stating pt is OON and order was forwarded to [facility] [employer] [place]. BRIDGER resent order via [employer]Port to [facility] and will send physical order and O2 testing the following business day. Original Note: Social Work Insurance issued LCD 12/13, DC 12/14. BRIDGER prepared script for hospital bed, O2, nebulizer and 3-in-1 commode. However, MD is out of the office and unable to sign script until following business day. BRIDGER emailed Shelbie at [facility] [place] inquire about [place] order prior to signature, but was denied. BRIDGER collaborated with SW Atomic Fuel Assembler and recommended contacting PCP. SW phoned nurse at PCP office and nurse denied stating PCP needs to see pt in the office prior. BRIDGER requested verbal order to [facility] until signature can be obtained. Car Guy Nationar can accept a verbal order, but cannot bill the insurance until the physical order is obtained. BRIDGER expressed understanding. BRIDGER sent secure Backline message to Dr. Nation updating on DC and DME request for verbal order. agreed to place call as pt needs the DME for a safe DC home. BRIDGER added worklist intervention for nursing to complete home O2 testing and scheduled for 12/13 at 0900. BRIDGER spoke with pt to update on LCD; educated to appeal rights, and confirmed DME needs. BRIDGER educated to DME circumstances and prepared pt, he may not be able to DC 12/14, if DME cannot be delivered. Pt expressed understanding and appreciative of this worker's efforts. BRIDGER offered HHC vs OP therapy. Pt prefers HHC. Offered skilled HHC list with quality and resource data via CarePort Guide. [facility] Sister can transport. SW phoned referral to [facility] for PT/OT/SN. Plan: DC home alone 12/14, pending successful delivery with DME: hospital bed, O2, nebulizer, 3-in-1 commode; [facility] PT/OT/SN Isa Jackson, GERI ROMANW
[2022-12-11 13:30] VITALS: PULSE 86; RESP 20
[2022-12-11 16:00] VITALS: BP 131/73; PULSE 75; RESP 16; TEMP 35.8; O2SAT 95
[2022-12-11] MEDS: Ensure Plus High Protein 120 ML LIQUID PO (17:36)
[2022-12-11 18:03] VITALS: BP 130/76; PULSE 80
[2022-12-11 19:50] VITALS: PULSE 88; RESP 34
[2022-12-11] MEDS: Famotidine 20 MG Tablet PO (20:47)
[2022-12-12] VITALS (7 sets, daily range): BP systolic 116–133; BP diastolic 65–73; PULSE 72–82; RESP 14–18; TEMP 36.6; O2SAT 2–97
[2022-12-12] MEDS: Sodium Chloride 0.65% 1 SPRAY SPRAY.BTL 2 SPRAY NASAL (05:00)
[2022-12-12] MEDS: guaiFENesin 1,200 MG Tablet 1200 MG PO ×2 (05:01→17:07)
[2022-12-12] MEDS: Metoprolol(XL)Succ 25 MG Tablet PO ×2 (05:01→17:07)
[2022-12-12] MEDS: Pantoprazole Sodium 40 MG Tablet PO (05:01)
[2022-12-12] MEDS: Menthol/Lanolin/Calamine/Znox 113 GM Tube 1 APPLIC TOPICAL ×2 (05:03→17:07)
[2022-12-12] MEDS: Budesonide Respules 0.5 MG/2 ML AMPUL.NEB. INHALATION ×2 (06:30→19:20)
[2022-12-12] MEDS: Ipratropium/Albuterol Sulfate 3 ML AMPUL.NEB INHALATION ×3 (06:30→19:20)
[2022-12-12 07:07] LABS: Hematocrit 25.6 % (40-54)
--- NOTE | 2022-12-12 08:58 | DS.PCM_ITS ---
Providers Date of Admission: 12/02/22 Primary Care Physician: Dr. Gera Camp MD Reason For Visit: PNEUMONIA, HYPOXIA Diagnosis Discharge Diagnosis (1) Debility: Status: Acute Code(s): R53.81 - Other malaise (2) Fever: Status: Acute Code(s): R50.9 - Fever, unspecified (3) Bilateral pneumonia: Status: Acute Code(s): J18.9 - Pneumonia, unspecified organism (4) Acute encephalopathy: Status: Acute Code(s): G93.40 - Encephalopathy, unspecified (5) Acute respiratory failure with hypoxia: Status: Acute Code(s): J96.01 - Acute respiratory failure with hypoxia (6) Anemia: Status: Acute Code(s): D64.9 - Anemia, unspecified (7) Acute heart failure with preserved ejection fraction: Status: Acute Code(s): I50.31 - Acute diastolic (congestive) heart failure (8) Hypokalemia: Status: Acute Code(s): E87.6 - Hypokalemia (9) Pancytopenia: Status: Acute Code(s): D61.818 - Other pancytopenia (10) Lung cancer: Status: Acute Code(s): C34.90 - Malignant neoplasm of unspecified part of unspecified bronchus or lung (11) Hypertension: Status: Chronic Code(s): I10 - Essential (primary) hypertension Plan 72 year old male with past medical history significant for lung cancer, hospit alized for acute respiratory failure with hypoxia secondary to bilateral pneumonia, complicated by encephalopathy, anemia, acute heart failure with preserved ejection fraction, hypokalemia, pancytopenia, admitted to TCU with debility, here for rehabilitation, strengthening, prior to discharge home with sister. * Debility - PT/OT. * Pain - Tylenol 1000mg q6h prn pain (1-10). * Bowel - senna/colace 1 tablet bid, Magnesium citrate 300ml po daily prn. * Adult immunization - Administer pneumonia vaccine, covid19 vaccine, flu vaccine as appropriate. * DVT prophylaxis - Hold, anemia. * COPD - Budesonide 0.5m neb bid, Duoneb 3ml q6hwa, Albuterol 2.5mg q2h prn. * Hypertension - Metoprolol succinate 25mg bid, Chlorthalidone 50mg daily, Amlodipine 5mg daily. * Nutrition - Ensure Plus 120ml tidcm. * GERD - Pantoprazole 40mg daily, Famotidine 20mg qhs. * Congestion - Mucinex 1200mg bid. * Hypokalemia - K 3.4, increase KCL 20meq tidcm, monitor. * Dry nares - Sodium chloride 2 sprays nasal tid prn. Medications at Discharge Home Medications famotidine 20 mg tablet 20 mg PO QHS acid reflux 11/24/22 guaifenesin 1,200 mg tablet, extended release 12 hr (Mucus Relief ER) 1,200 mg PO BID Mucus Relief #0 tabs 12/02/22 albuterol sulfate 2.5 mg/3 mL (0.083 %) solution for nebulization 2.5 mg (3 mL) inhalation Q2H PRN PRN Shortness of Breath/Wheezing 30 days #360 mL 12/12/22 budesonide 0.5 mg/2 mL suspension for nebulization 0.5 mg (2 mL) inhalation BID.RT 30 days #120 mL 12/12/22 ipratropium 0.5 mg-albuterol 3 mg (2.5 mg base)/3 mL nebulization soln 3 ml inhalation Q6HWA.RT 30 days #360 mL 12/12/22 metoprolol succinate 25 mg tablet,extended release 24 hr 25 mg PO BID 30 days #60 tabs 12/12/22 pantoprazole 40 mg tablet,delayed release 40 mg PO DAILY 30 days #30 tabs 12/12/22 potassium chloride 20 mEq tablet,extended release(part/cryst) (Klor-Con M) 40 meq (2 x 20 mEq) PO BIDCM 30 days #120 tabs 12/12/22 sodium chloride 0.65 % nasal spray aerosol (Deep Sea Nasal) 2 spray NASAL TID PRN PRN NASAL DRYNESS #0 mL 12/12/22 Hospital Course Operations None Procedures None Summary of Care Provided Minutes Spent on Discharge: 35 Hospital Course: 72 year old male with past medical history significant for lung cancer, hospitalized for acute respiratory failure with hypoxia secondary to bilateral pneumonia, complicated by encephalopathy, anemia, acute heart failure with preserved ejection fraction, hypokalemia, pancytopenia, admitted to TCU with debility, here for rehabilitation, strengthening, prior to discharge home. Discharge home alone 12/14/2022, [facility] PT/OT/SN, Hospital Bed, Oxygen, nebulizer, 3-in-1 commode. Physical Exam Const alert General Appearance: cooperative HEENT normocephalic Eyes PERRL and EOMs intact bilaterally Neck supple, no JVD and no carotid bruits Resp normal respiratory effort, normal air movement and clear to auscultation bilaterally Cardio regular rate and regular rhythm GI normal to inspection, nondistended, normoactive bowel sounds, non-tender and non -distended Extremity normal capillary refill General Extremity: Negative for edema Skin no rashes or lesions noted General Skin Exam: no breakdown Psych affect normal Appearance: appropriate Medical Records Data Medical Nutrition Assessment Dietitian: Malnutrition Criteria Met Start: 12/04/22 17:17 Freq: Status: Active Protocol: Document 12/09/22 14:34 JASMYN (Rec: 12/09/22 14:34 JASMYN [id number]) Nutrition Malnutrition Evidence of Malnutrition Exists Yes Malnutrition (severe): Acute Illness/Injury Clinical Problem Acute Disease or Injury Related Malnutrition Etiology related to cancer and radiation tx causing res to have inadequate energy intake Signs/Symptoms as evidenced by 4.3% wt loss and <50% of est nutritional needs 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 Problem Recommendation Dietitian Recommendations/Changes Continue regular diet as ordered - provide sauces and gravies on the side to help res moisten foods Will continue 8 oz chocolate ensure plus high protein w/ breakfast per res request Continue ONS (EPHP) at medpass 3x/day Weight / BMI Weight Weight: 70.449 kg Body Mass Index (BMI) 25.0 ABG / Lab / Microbiology Data 12/12/22 06:20 12/10/22 05:16 Laboratory: Laboratory Results - last 24 hr 12/12/22 06:20: Hgb 8.0 L, Hct 25.6 L Microbiology: Microbiology 12/06/22 21:20 Mucosa - Nasopharyngeal Respiratory Panel (PCR) - Final 12/06/22 21:22 Nasal Secretion SARS-CoV-2 Antigen (Rapid) - Final D/C Instructions Discharge Diet: No restrictions Discharge Activity: Return to Normal Activity, May Shower and Use Walker Weight Bearing Status: Weight bearing as tolerated Call your doctor if you observe: Fever of 101 or Higher, Inability to urinate, Inability to have a bowel movement, Shortness of breath, Dizziness, Fainting spells, Swelling in the ankles, Chest pain and Uncontrolled pain Additional Instructions: Discharge home alone 12/14/2022, [facility] PT/OT/SN, Hospital Bed, Oxygen, nebulizer, 3-in-1 commode. Meaningful Use Info Meaningful Use Diagnoses (Choose all that apply): None applicable Discharge Plan Admission Admit Date/Time: 12/02/22 18:00 Primary Reason for Your Visit: Debility. Attending Provider: Alex Nation Chi Primary Care Provider: Gera Camp Instructions Additional Instructions / Restrictions: Discharge home alone 12/14/2022, [facility] PT/OT/SN, Hospital Bed, Oxygen, nebulizer, 3-in-1 commode. Discharge Orders/Prescriptions Prescriptions: New ipratropium-albuterol 0.5 mg-3 mg(2.5 mg base)/3 mL Solution For Nebulization 3 ml inhalation Q6HWA.RT 30 Days Qty: 360 0RF albuterol sulfate 2.5 mg /3 mL (0.083 %) Solution For Nebulization 2.5 mg inhalation Q2H PRN PRN (Reason: Shortness of Breath/Wheezing) 30 Days Qty: 360 0RF potassium chloride [Klor-Con M20] 20 mEq Tablet,Er Particles/Crystals 40 meq PO BIDCM 30 Days Qty: 120 0RF pantoprazole 40 mg Tablet,Delayed Release (Dr/Ec) 40 mg PO DAILY 30 Days Qty: 30 0RF budesonide 0.5 mg/2 mL Suspension For Nebulization 0.5 mg inhalation BID.RT 30 Days Qty: 120 0RF metoprolol succinate 25 mg Tablet Extended Release 24 Hr 25 mg PO BID 30 Days Qty: 60 0RF Deep Sea Nasal 0.65 % Aerosol,[place] 2 spray NASAL TID PRN PRN (Reason: NASAL DRYNESS) Qty: 0 0RF Continued famotidine 20 mg tablet 20 mg PO QHS Mucus Relief ER 1,200 mg Tablet Extended Release 12hr 1,200 mg PO BID Qty: 0 0RF Discontinued amlodipine 5 mg tablet 5 mg PO DAILY chlorthalidone 50 mg tablet 50 mg PO DAILY metoprolol succinate 25 mg tablet extended release 24 hr 25 mg PO BID potassium chloride 20 mEq tablet extended release 20 meq PO BID ipratropium-albuterol 0.5 mg-3 mg(2.5 mg base)/3 mL Solution For Nebulization 3 ml inhalation Q6HWA.RT Qty: 0 0RF albuterol sulfate 2.5 mg /3 mL (0.083 %) Solution For Nebulization 2.5 mg inhalation Q2H PRN PRN (Reason: Shortness of Breath/Wheezing) Qty: 0 0RF pantoprazole 40 mg Tablet,Delayed Release (Dr/Ec) 40 mg PO DAILY Qty: 0 0RF budesonide 0.5 mg/2 mL Suspension For Nebulization 0.5 mg inhalation BID.RT Qty: 0 0RF Deep Sea Nasal 0.65 % Aerosol,[place] 2 spray NASAL TID PRN PRN (Reason: NASAL DRYNESS) Qty: 0 0RF Ensure Plus High Protein 0.08 gram-1.5 kcal/mL Liquid 120 ml PO TIDCM Qty: 0 0RF Referrals / Follow Up: Gera Camp MD [Primary Care Provider] - Disposition Disposition (needs filled in before D/C Order can be placed): Home Health Service
[2022-12-12] MEDS: Potassium Chloride Oral Tablet 20 MEQ 40 MEQ PO ×2 (09:02→17:07)
[2022-12-12] MEDS: Ensure Plus High Protein 120 ML LIQUID PO ×2 (09:02→17:07)
[2022-12-12] MEDS: Famotidine 20 MG Tablet PO (20:43)
[2022-12-12] MEDS: 0.9% Saline Lock 10 ML Syringe IV (20:43)
[2022-12-13] VITALS (7 sets, daily range): BP systolic 129–131; BP diastolic 61–69; PULSE 72–80; RESP 14–20; TEMP 36.2; O2SAT 87–95
[2022-12-13] MEDS: Ipratropium/Albuterol Sulfate 3 ML AMPUL.NEB INHALATION (06:55)
[2022-12-13] MEDS: Budesonide Respules 0.5 MG/2 ML AMPUL.NEB. INHALATION (06:55)
[2022-12-13] MEDS: Pantoprazole Sodium 40 MG Tablet PO (07:10)
[2022-12-13] MEDS: guaiFENesin 1,200 MG Tablet 1200 MG PO ×2 (07:10→17:40)
[2022-12-13] MEDS: Metoprolol(XL)Succ 25 MG Tablet PO ×2 (07:13→17:40)
[2022-12-13] MEDS: Menthol/Lanolin/Calamine/Znox 113 GM Tube 1 APPLIC TOPICAL ×2 (07:13→17:40)
[2022-12-13] MEDS: Sodium Chloride 0.65% 1 SPRAY SPRAY.BTL 2 SPRAY NASAL (07:16)
[2022-12-13] MEDS: Potassium Chloride Oral Tablet 20 MEQ 40 MEQ PO ×2 (08:34→17:40)
[2022-12-13] MEDS: Ensure Plus High Protein 120 ML LIQUID PO ×3 (08:38→17:40)
[2022-12-13] MEDS: 0.9% Saline Lock 10 ML Syringe IV (10:25)
[2022-12-13] MEDS: Famotidine 20 MG Tablet PO (20:56)
[2022-12-14] MEDS: Sodium Chloride 0.65% 1 SPRAY SPRAY.BTL 2 SPRAY NASAL (06:43)
[2022-12-14 06:44] VITALS: BP 128/64; PULSE 78
[2022-12-14] MEDS: Pantoprazole Sodium 40 MG Tablet PO (06:44)
[2022-12-14] MEDS: Metoprolol(XL)Succ 25 MG Tablet PO (06:44)
[2022-12-14] MEDS: guaiFENesin 1,200 MG Tablet 1200 MG PO (06:44)
[2022-12-14] MEDS: Ipratropium/Albuterol Sulfate 3 ML AMPUL.NEB INHALATION (07:30)
[2022-12-14] MEDS: Budesonide Respules 0.5 MG/2 ML AMPUL.NEB. INHALATION (07:30)
[2022-12-14 07:47] VITALS: PULSE 75; RESP 18; O2SAT 94
[2022-12-14] MEDS: Potassium Chloride Oral Tablet 20 MEQ 40 MEQ PO ×2 (08:34→17:17)
[2022-12-14] MEDS: Ensure Plus High Protein 120 ML LIQUID PO ×3 (08:34→17:17)
[2022-12-14 08:37] VITALS: BP 118/73; PULSE 84; RESP 18; TEMP 36.1; O2SAT 98
--- NOTE | 2022-12-14 09:20 | MDS.RN ---
Information for the mds was obtained from review of the clinical record, interview of resident, staff, and direct observation of resident's care.
--- NOTE | 2022-12-14 09:52 | CASEMGMT ---
Addendum entered by Isa Jackson 12/14/22 14:29: After several phone numbers contacted, BRIDGER spoke with Shilpi at the [facility] location. Shilpi is able to deliver the order to the pt this evening. Shilpi left a VM with the sister to coordinate delivery. BRIDGER transferred Shilpi to pt's room phone to assist with coordination and review insurance coverage of 80/20. BRIDGER faxed O2 testing and script to correct location. Addendum entered by Isa Jackson 12/14/22 12:06: No correspondence recevied from [facility] via [email or web address] yet. BRIDGER phoned [facility] but they are out of the office during lunch hours 12-1p. Will retry after hours. Original Note: Social Work SW sent physical script and O2 testing to [facility] via [email or web address], requesting confirmation of acceptance and delivery of DME to timely DC pt. BRIDGER spoke with pt to extensively answer questions on DME and HHC. GERI Bullard
--- NOTE | 2022-12-14 10:19 | CASEMGMT ---
Social Work BIMS () and PHQ-9 () completed for MDS assessment. Isa Jackson MSW MACHINE OPERATOR FARMWORKER
[2022-12-14 13:06] VITALS: PULSE 79; RESP 18
[2022-12-14 18:39] VITALS: BP 111/73; PULSE 96; RESP 18; TEMP 36.1; O2SAT 93
== END 2022-12-14 19:36 | disposition home health service (06) | DRG 193 ==
PROVIDERS: Admitting Provider Family Medicine Geriatric Medicine; PCP Internal Medicine; Visit Provider Family Medicine Geriatric Medicine
DX: J18.9 Pneumonia, unspecified organism (principal); J96.01 Acute respiratory failure with hypoxia; I50.31 Acute diastolic (congestive) heart failure; C34.90 Malignant neoplasm of unspecified part of unspecified bronchus or lung; J44.0 Chronic obstructive pulmonary disease with (acute) lower respiratory infection; I11.0 Hypertensive heart disease with heart failure; E87.6 Hypokalemia; K21.9 Gastro-esophageal reflux disease without esophagitis; Z79.51 Long term (current) use of inhaled steroids; Z87.891 Personal history of nicotine dependence; Z79.899 Other long term (current) drug therapy
CPT/HCPCS: 36415; 71046; 80048; 85014; 85018; 85025; 86850; 86900; 86901; 86920; 86922; 87633; 87811; 94640; 94762; 97110; 97116; 97162; 97166; 97530; 97535; 97802; P9016; A4216

== ENCOUNTER 2022-12-04 10:40 | Outpatient (CLI) | payer MEDICARE, SELFPAY ==
[2022-12-04 11:08] VITALS: BP 127/69; PULSE 80; RESP 18; TEMP 36.5; O2SAT 95
[2022-12-04] MEDS: Acetaminophen 500 MG Tablet 1000 MG PO (11:20)
[2022-12-04] MEDS: DiphenhydrAMINE 25 MG Capsule PO (11:20)
--- NOTE | 2022-12-04 11:57 | NURSING ---
Blood product on TAR is under TCU visit number. See documentation for blood admistration under visit number #[id number]
[2022-12-04] MEDS: 0.9% Saline Lock 10 ML Syringe IV (14:12)
[2022-12-04] MEDS: Furosemide 20 MG/2 ML VIAL IV (14:12)
== END 2022-12-04 14:20 | disposition home or self-care (01) ==
LOC: ICUOUT 10:50 → ICU 10:51
PROVIDERS: PCP Internal Medicine; Referring Provider Family Medicine Geriatric Medicine; Visit Provider Family Medicine Geriatric Medicine
DX: D61.818 Other pancytopenia (principal)
CPT/HCPCS: 96374; J7040; A4216; J1940

== ENCOUNTER 2022-12-14 20:41 | Inpatient (IN) | payer MEDICARE, SELFPAY ==
[2022-12-14] VITALS (10 sets, daily range): BP systolic 103–125; BP diastolic 67–72; PULSE 91–100; RESP 26–46; TEMP 36.1–36.2; O2SAT 89–99; BMI 26.4
--- NOTE | 2022-12-14 22:10 | EX.ED.DYSGE1 ---
HPI History of Present Illness Chief Complaint: Shortness of Breath Informant: patient and spouse/S.O. Narrative Narrative: Patient presents via EMS secondary to shortness of breath. Patient was just hospitalized for 4 weeks secondary to double pneumonia and anemia. He was discharged in the TCU earlier today. Patient states he just was not able to breathe at home. EMS reported his O2 sat at 78% on his normal 4 L. Patient is on a nonrebreather at this time. His respiratory rate is increased around 40, but he appears comfortable and is conversational. His O2 sats are in the low to mid 90s on a nonrebreather. Patient states that prior to this hospitalization he did not require home oxygen. He does have a history of lung cancer and was on chemotherapy up to the point of his admission. [facility] Medical History (Updated 12/14/22 @ 22:[address] Naa Beal MD) Acute heart failure with preserved ejection fraction COPD (chronic obstructive pulmonary disease) Former smoker GERD (gastroesophageal reflux disease) Hypertension Lung cancer Home Medications famotidine 20 mg tablet 20 mg PO QHS acid reflux 11/24/22 [History Last Taken 12/01/22 22:04] guaifenesin 1,200 mg tablet, extended release 12 hr (Mucus Relief ER) 1,200 mg PO BID Mucus Relief #0 tabs 12/02/22 [Rx Last Taken 12/02/22 09:55] albuterol sulfate 2.5 mg/3 mL (0.083 %) solution for nebulization 2.5 mg (3 mL) inhalation Q2H PRN PRN Shortness of Breath/Wheezing 30 days #360 mL 12/12/22 [Rx Last Taken Unknown] budesonide 0.5 mg/2 mL suspension for nebulization 0.5 mg (2 mL) inhalation BID.RT 30 days #120 mL 12/12/22 [Rx Last Taken Unknown] ipratropium 0.5 mg-albuterol 3 mg (2.5 mg base)/3 mL nebulization soln 3 ml inhalation Q6HWA.RT 30 days #360 mL 12/12/22 [Rx Last Taken Unknown] metoprolol succinate 25 mg tablet,extended release 24 hr 25 mg PO BID 30 days #60 tabs 12/12/22 [Rx Last Taken Unknown] pantoprazole 40 mg tablet,delayed release 40 mg PO DAILY 30 days #30 tabs 12/12/22 [Rx Last Taken Unknown] potassium chloride 20 mEq tablet,extended release(part/cryst) (Klor-Con M) 40 meq (2 x 20 mEq) PO BIDCM 30 days #120 tabs 12/12/22 [Rx Last Taken Unknown] sodium chloride 0.65 % nasal spray aerosol (Deep Sea Nasal) 2 spray NASAL TID PRN PRN NASAL DRYNESS #0 mL 12/12/22 [Rx Last Taken Unknown] amlodipine 5 mg tablet 5 mg PO DAILY heart 12/14/22 [History Last Taken Unknown] Allergy/AdvReac Type Severity Reaction Status Date / Time acetaminophen [From Tylenol] Allergy Unknown increased Verified 12/14/22 20:42 white count Family History Father Cancer Mother Cancer Social History household members: other details: Sister. Smoking Status: Former smoker alcohol intake: never substance use type: does not use ROS ROS ED Constitutional Constitutional ED: Denies chills or fever(s) Eyes Eyes: Denies change in vision or discharge from eye(s) ENT ENT ED: Denies discharge from eye(s), rhinorrhea or sore throat Cardiovascular Cardiovascular: Denies chest pain or palpitations Respiratory/Chest Respiratory/Chest: Reports dyspnea; Denies cough Gastrointestinal Gastrointestinal: Denies abdominal pain, nausea or vomiting Genitourinary Genitourinary ED: Denies dysuria Musculoskeletal Musculoskeletal: Denies back pain or extremity pain Integumentary Denies Abrasions or rash Neurologic Neurologic: Reports weakness; Denies headache(s) Psychiatric Psychiatric: Denies anxiety or depression Allergic/Immunologic Allergic/Immunologic ED: Denies lip swelling or urticaria EXAM Physical Exam Const Vital Signs: 12/14/22 20:42 12/14/22 20:46 12/14/22 20:48 Temperature 97.1 F L 97 F L Temperature Source Temporal Temporal Pulse Rate 98 Respiratory Rate 26 H Respiratory Effort Short of Breath Blood Pressure 110/68 Blood Pressure Mean 82 Pulse Ox 89 Oxygen Delivery Method Non-Rebreather Non-Rebreather Oxygen Flow Rate (L/min) 15 15 12/14/22 20:50 12/14/22 20:45 12/14/22 21:22 Temperature 97 F L Temperature Source Temporal Pulse Rate 100 95 Respiratory Rate 46 H 41 H Respiratory Effort Blood Pressure 110/68 109/67 Blood Pressure Mean 82 81 Pulse Ox 95 92 94 Oxygen Delivery Method Non-Rebreather Non-Rebreather Non-Rebreather Oxygen Flow Rate (L/min) 15 Positive well nourished and well developed General Appearance ED: well developed HEENT Reports normocephalic and head/scalp atraumatic Eyes PERRL and EOMs intact bilaterally Neck supple Chest Wall inspection of chest normal and palpation of chest normal Resp Resp Narrative: Tachypnea. Slight decreased breath sounds bilateral bases. Cardio regular rate and regular rhythm GI normal to inspection, nondistended, normoactive bowel sounds Palpation: soft Extremity normal to inspection Neuro oriented x3 and no sensory deficits noted Sensorium / Orientation: alert Motor Exam: strength 5/5 throughout Psych mental status grossly normal Skin no rashes or lesions noted MDM MDM MDM Narrative Medical decision making narrative: Patient placed on property assessment monitor. EKG obtained to evaluate for cardiac arrhythmia/ischemia. Labwork obtained to evaluate for leukocytosis, anemia, and electrolyte derangement. Chest x-ray obtained to evaluate for acute lung pathology, cardiac size, or mediastinal abnormality. Discharge Plan Triage Chief Complaint: Shortness of Breath ED Provider: Naa Beal Dx/Rx/DC Orders Prescriptions: No Action famotidine 20 mg tablet 20 mg PO QHS Mucus Relief ER 1,200 mg Tablet Extended Release 12hr 1,200 mg PO BID Qty: 0 0RF ipratropium-albuterol 0.5 mg-3 mg(2.5 mg base)/3 mL Solution For Nebulization 3 ml inhalation Q6HWA.RT 30 Days Qty: 360 0RF albuterol sulfate 2.5 mg /3 mL (0.083 %) Solution For Nebulization 2.5 mg inhalation Q2H PRN PRN (Reason: Shortness of Breath/Wheezing) 30 Days Qty: 360 0RF potassium chloride [Klor-Con M20] 20 mEq Tablet,Er Particles/Crystals 40 meq PO BIDCM 30 Days Qty: 120 0RF pantoprazole 40 mg Tablet,Delayed Release (Dr/Ec) 40 mg PO DAILY 30 Days Qty: 30 0RF budesonide 0.5 mg/2 mL Suspension For Nebulization 0.5 mg inhalation BID.RT 30 Days Qty: 120 0RF metoprolol succinate 25 mg Tablet Extended Release 24 Hr 25 mg PO BID 30 Days Qty: 60 0RF Deep Sea Nasal 0.65 % Aerosol,[place] 2 spray NASAL TID PRN PRN (Reason: NASAL DRYNESS) Qty: 0 0RF amlodipine 5 mg tablet 5 mg PO DAILY Primary Care Provider: Gera Camp Referrals: Gera Camp MD [Primary Care Provider] -
--- NOTE | 2022-12-14 22:24 | EKG12_ITS ---
Test Reason : Dysrhythmia Blood Pressure : / mmHG Vent. Rate : 092 BPM Atrial Rate : 092 BPM P-R Int : 166 ms QRS Dur : 086 ms QT Int : 354 ms P-R-T Axes : 045 031 040 degrees QTc Int : 437 ms Normal sinus rhythm Normal ECG Confirmed by ALDO HOWARD, TULIO ([id number]), associate editor JENNY HAGER ([id number]) on 01/07/2023 2:24:49 PM Referred By: Confirmed By:KRUPA CARLSON MD
[2022-12-14 22:28] LABS: Absolute Lymphocyte Count 1.41 X10^3/uL (0.83-4.51); Absolute Neutrophil Count 4.9 X10^3/uL (2.0-7.7); Basophil# 0.07 X10^3/uL; Basophil% 0.9 % (0-1); Differential Indicated SCAN CRITERIA MET; Eosinophil# 0.17 X10^3/uL; Eosinophils% 2.3 % (0-5); Hematocrit 33.3 % (40-54); Lymphocyte # 1.41 X10^3/ul (0.83-4.51); Lymphocyte % 18.9 % (19-41); Mean Corpuscular Hgb 28.9 pg (27.0-32.0); Mean Corpuscular Volume 96.2 fL (80-94); Mean Platelet Vol. 10.2 fl (6.2-12.0); Monocyte# 0.74 X10^3/uL; Monocyte% 9.9 % (0-10); NRBC Flagged by Analyzer 0.3 % (0-5); Neutrophil # 4.94 X10^3/uL (2.7-7.7); Neutrophil % 66.1 % (47-70); POSITIVE MORPHOLOGY YES; Platelet Count 395 K/mm3 (150-450); RBC Distribution Width CV 23.2 % (11.6-14.6); RBC Distribution Width SD 75.6 fl (35.1-43.9); Red Blood Count 3.46 M/mm3 (4.6-6.2); White Blood Count 7.5 K/mm3 (4.4-11.0)
[2022-12-14 22:43] LABS: Anion Gap 10 (5-15); BUN 27 mg/dL (7-18); BUN/Creat Ratio 29.3 RATIO (10-20); Calcium,Total 9.7 mg/dL (8.5-10.1); Chloride 105 mmol/L (98-107); Creatinine, Serum 0.92 mg/dL (0.70-1.30); EST Glomerular Filtration Rate 86 mL/min (>60); Est Glom Filt Rate - Afr Amer 104 mL/min (>60); Estimated Creatinine Clearance 67.42 ml/min; Glucose 163 mg/dL (74-106); Sodium Level 135 mmol/L (136-145)
[2022-12-14 22:55] LABS: Differential Comment SCANNED
--- NOTE | 2022-12-14 22:55 | RAD_ITS ---
INDICATION: sob EXAMINATION/TECHNIQUE: X-RAY - XR Chest 1 View COMPARISON: 12/06/2022 and 12/01/2022 FINDINGS: LINES/DEVICES: None. LUNGS: Patchy airspace opacities in right middle lobe and right lower lobe appear improved when compared to the previous study. Ill-defined cavitary lesion left upper lobe may represent a neoplastic process or lung abscess. MEDIASTINUM AND CARDIOVASCULAR STRUCTURES: Cardiac silhouette not enlarged. Central airways and mediastinal contour are unremarkable. BONES AND SOFT TISSUES: Unremarkable. RAD/Chest 1 View (Portable) IMPRESSION: Resolving right middle lobe and right lower lobe pneumonia. Persistent Ill-defined cavitary lesion in the left upper lobe may represent a neoplastic process or lung abscess. CT scan follow-up is recommended in one to 2 months for better characterization. Electronically Signed: Yoly Davey MD at 23:32 EDT ,
[2022-12-14] MEDS: Ipratropium/Albuterol Sulfate 3 ML AMPUL.NEB INHALATION (23:01)
--- NOTE | 2022-12-14 23:20 | CT_ITS ---
We are attempting to reach an attending provider to discuss findings. An addendum with communication details will be sent when the communication is complete. STUDY: CTA CHEST REASON FOR EXAM: Male, 72 years old. hypoxia RADIATION DOSAGE (If Supplied By Facility): CTDIvol = ( 13.66 ) mGy, DLP = ( 502.85 ) mGycm TECHNIQUE: The examination was performed with the intravenous administration of IV 100mL Isovue-370. Post-processing of the angiographic images was performed, with multiplanar reformation and 3D reconstruction. Individualized dose optimization techniques were used for this CT. COMPARISON: 12/01/2022 FINDINGS: Multiple moderate size bilateral lobar and segmental pulmonary emboli with evidence of right heart strain. Normal thoracic aorta and visualized great vessels. There is no demonstrated aortic dissection. Normal mediastinum. Normal hilar regions. Normal visualized trachea and bronchi. Ill-defined airspace opacities in the right middle lobe and right lower lobe and a nodular opacity in the left upper lobe are smaller when compared to the previous study suggesting resolving bilateral pneumonia. Normal pleura. Normal chest wall structures. There are degenerative changes of thoracic spine. Normal visualized upper abdomen. CT/CTA Chest W/WO Contrast IMPRESSION: Multiple moderate size bilateral lobar and segmental pulmonary emboli with evidence of right heart strain. Ill-defined airspace opacities in the right middle lobe and right lower lobe and a nodular opacity in the left upper lobe are smaller when compared to the previous study suggesting resolving bilateral pneumonia. Electronically Signed: Yoly Davey MD at 0:40 EDT ,
[2022-12-15] VITALS (34 sets, daily range): BP systolic 98–158; BP diastolic 60–113; PULSE 80–370; RESP 16–40; TEMP 36–36.8; O2SAT 89–99; BMI 26.9
[2022-12-15 01:00] LABS: International Normalized Ratio 1.2; Prothrombin Time (Protime)PT. 14.9 SECONDS (11.7-14.9)
[2022-12-15] MEDS: HEPARIN/D5w 25,000 UNITS 25,000 UNITS/250 ML IV.SOLN. 9 UNITS CONT INF (01:08)
[2022-12-15] MEDS: Heparin Injection (Vial) 5,000 UNIT/ML VIAL 4000 UNIT IV (01:09)
[2022-12-15 01:14] LABS: Troponin-I HS 850 pg/mL (3.0-78.0)
--- NOTE | 2022-12-15 01:19 | PCM.HP.STD ---
HPI - General General Date of Admission: 12/15/22 Date of Service: 12/15/22 Chief Complaint: Shortness of breath HPI Narrative LEAH KARIMI, is a 72 M with a significant history of lung cancer status post radiation; and hypertension who was discharged from the transitional care unit at the hospital returning back to the emergency department on same day with sudden onset difficulty breathing. Of note patient was admitted to hospital from December 04 to 06 December for bilateral pneumonia. During the admission his hemoglobin was 6.8. Patient was eventually discharged to the transitional care unit. At the hospital he was started on oxygen. He was eventually discharged home on oxygen. He was on 4 L nasal cannula oxygen. Patient while on 4 L nasal cannula oxygen was found to have oxygen saturation of 78% when paramedics arrived. He was placed on rebreather mask and brought to emergency department. On presenting to emergency department is oxygen saturation on rubidomycin was between 90 to 93%. His respiratory rate was 40. Chest x-ray showed resolving pneumonia. CTA showed bilateral multiple moderate PEs. At the emergency department patient was transitioned to high flow oxygen initially at 15 L. Of note patient reported that his last chemotherapy was about a week ago. Chemotherapy was stopped because of low blood counts. [facility] Medical History Acute heart failure with preserved ejection fraction COPD (chronic obstructive pulmonary disease) Former smoker GERD (gastroesophageal reflux disease) Hypertension Lung cancer Home Medications famotidine 20 mg tablet 20 mg PO QHS acid reflux 11/24/22 [History Last Taken 12/01/22 22:04] guaifenesin 1,200 mg tablet, extended release 12 hr (Mucus Relief ER) 1,200 mg PO BID Mucus Relief #0 tabs 12/02/22 [Rx Last Taken 12/02/22 09:55] albuterol sulfate 2.5 mg/3 mL (0.083 %) solution for nebulization 2.5 mg (3 mL) inhalation Q2H PRN PRN Shortness of Breath/Wheezing 30 days #360 mL 12/12/22 [Rx Last Taken Unknown] budesonide 0.5 mg/2 mL suspension for nebulization 0.5 mg (2 mL) inhalation BID.RT 30 days #120 mL 12/12/22 [Rx Last Taken Unknown] ipratropium 0.5 mg-albuterol 3 mg (2.5 mg base)/3 mL nebulization soln 3 ml inhalation Q6HWA.RT 30 days #360 mL 12/12/22 [Rx Last Taken Unknown] metoprolol succinate 25 mg tablet,extended release 24 hr 25 mg PO BID 30 days #60 tabs 12/12/22 [Rx Last Taken Unknown] pantoprazole 40 mg tablet,delayed release 40 mg PO DAILY 30 days #30 tabs 12/12/22 [Rx Last Taken Unknown] potassium chloride 20 mEq tablet,extended release(part/cryst) (Klor-Con M) 40 meq (2 x 20 mEq) PO BIDCM 30 days #120 tabs 12/12/22 [Rx Last Taken Unknown] sodium chloride 0.65 % nasal spray aerosol (Deep Sea Nasal) 2 spray NASAL TID PRN PRN NASAL DRYNESS #0 mL 12/12/22 [Rx Last Taken Unknown] amlodipine 5 mg tablet 5 mg PO DAILY heart 12/14/22 [History Last Taken Unknown] Allergy/AdvReac Type Severity Reaction Status Date / Time acetaminophen [From Tylenol] Allergy Unknown increased Verified 12/14/22 20:42 white count Family History Father Cancer Mother Cancer Surgical History History of tonsillectomy Social History household members: other details: Sister. Smoking Status: Former smoker alcohol intake: never substance use type: does not use ROS ROS Narrative Pertinent positives and pertinent negatives as noted in HPI. All other systems were reviewed and are negative Vital Signs Vital Signs Vital Signs: 12/14/22 20:42 12/14/22 20:46 12/14/22 20:48 Temperature 97.1 F L 97 F L Temperature Source Temporal Temporal Pulse Rate 98 Respiratory Rate 26 H Respiratory Effort Short of Breath Respiratory Pattern Blood Pressure 110/68 Blood Pressure Mean 82 Pulse Ox 89 Oxygen Delivery Method Non-Rebreather Non-Rebreather Oxygen Flow Rate (L/min) 15 15 12/14/22 20:50 12/14/22 20:45 12/14/22 21:22 Temperature 97 F L Temperature Source Temporal Pulse Rate 100 95 Respiratory Rate 46 H 41 H Respiratory Effort Respiratory Pattern Blood Pressure 110/68 109/67 Blood Pressure Mean 82 81 Pulse Ox 95 92 94 Oxygen Delivery Method Non-Rebreather Non-Rebreather Non-Rebreather Oxygen Flow Rate (L/min) 15 12/14/22 22:13 12/14/22 22:13 12/14/22 22:40 Temperature 97 F L Temperature Source Temporal Pulse Rate 91 91 Respiratory Rate 35 H 35 H Respiratory Effort Respiratory Pattern Blood Pressure 103/67 103/67 Blood Pressure Mean 79 79 Pulse Ox 99 99 92 Oxygen Delivery Method Non-Rebreather Non-Rebreather High Flow Oxygen Flow Rate (L/min) 15 12/14/22 23:11 12/14/22 23:01 12/15/22 00:00 Temperature Temperature Source Pulse Rate 91 94 91 Respiratory Rate 40 H 38 H 24 H Respiratory Effort Respiratory Pattern Tachypnea Blood Pressure 125/72 H 127/79 H Blood Pressure Mean 89 95 Pulse Ox 95 93 Oxygen Delivery Method High Flow High Flow Oxygen Flow Rate (L/min) 12/15/22 01:03 12/15/22 01:03 Temperature 97.9 F Temperature Source Temporal Pulse Rate 89 89 Respiratory Rate 26 H 26 H Respiratory Effort Respiratory Pattern Blood Pressure 127/79 H 127/79 H Blood Pressure Mean 95 95 Pulse Ox 95 95 Oxygen Delivery Method High Flow High Flow Oxygen Flow Rate (L/min) 10 Weight Weight: 74.7 kg Body Mass Index (BMI) 26.4 Physical Exam Narrative Physical exam: General: Well-nourished, well-developed. Head: Normocephalic, atraumatic, no tenderness Eyes: Vision is grossly intact. EOMI ENT, no trauma, moist mucous membranes, no rhinorrhea Neck: Nontender, No thyromegaly. CVS: Regular rate and rhythm. S1-S2 present. No murmur, gallop or rub. Respiratory : Using mine boss muscles of respiration. Conversational dyspnea. Tachypnea; diminished breath sounds. Abdomen: Soft, nontender, nondistended, normal bowel sounds, no masses : Deferred Back: Nontender, no CVA tenderness, no midline spinal tenderness, deformities, step-offs Extremities: Nontender full range of motion, no trauma Skin: Normal color, no trauma, abrasions Neuro: Alert, oriented, cranial nerves II through XII grossly intact. Psychiatry: Normal mood. Normal affect. Not depressed. Not anxious. Results Lab / Micro Data 12/15/22 03:00 12/15/22 03:00 Labs: Laboratory Results - last 24 hr 12/14/22 22:20: WBC 7.5, RBC 3.46 L, Hgb 10.0 L, Hct 33.3 L, MCV 96.2 H, MCH 28.9, MCHC 30.0 L, RDW Std Deviation 75.6 H, RDW Coeff of Tone 23.2 H, Plt Count 395, MPV 10.2, Immature Gran % (Auto) 1.900 H, Neut % (Auto) 66.1, Lymph % (Auto) 18.9 L, [place] % (Auto) 9.9, Eos % (Auto) 2.3, Baso % (Auto) 0.9, Absolute Neuts (auto) 4.9, Absolute Lymphs (auto) 1.41, Nucleated RBC % 0.3, Differential Comment SCANNED, Sodium 135 L, Potassium 5.0, Chloride 105, Carbon Dioxide 20.0 L, Anion Gap 10, BUN 27 H, Creatinine 0.92, Estim Creat Clear Calc 67.42, Est GFR (MDRD) Af Amer 104, Est GFR (MDRD) Non-Af 86, BUN/Creatinine Ratio 29.3 H, Glucose 163 H, Calcium 9.7, Troponin I High Sens 850 H* Micro: Microbiology 12/14/22 22:20 Nasal Secretion SARS-CoV-2 & FLU Antigen (Rapid) - Final Radiology Impression Chest X-Ray 12/14/22 22:55 IMPRESSION: Resolving right middle lobe and right lower lobe pneumonia. Persistent Ill-defined cavitary lesion in the left upper lobe may represent a neoplastic process or lung abscess. CT scan follow-up is recommended in one to 2 months for better characterization. Electronically Signed: Yoly Davey MD at 23:32 EDT , Chest CTA 12/14/22 23:20 IMPRESSION: Multiple moderate size bilateral lobar and segmental pulmonary emboli with evidence of right heart strain. Ill-defined airspace opacities in the right middle lobe and right lower lobe and a nodular opacity in the left upper lobe are smaller when compared to the previous study suggesting resolving bilateral pneumonia. Electronically Signed: Yoly Davey MD at 0:40 EDT , ADDENDUM: 12/15/22 0052 IMPRESSION: Multiple moderate size bilateral lobar and segmental pulmonary emboli with evidence of right heart strain. Ill-defined airspace opacities in the right middle lobe and right lower lobe and a nodular opacity in the left upper lobe are smaller when compared to the previous study suggesting resolving bilateral pneumonia. N.B. : The above Results were Read Back by Yoly Davey MD to Dr. Naa Beal MD, and understanding confirmed on 12/15/2022 00:45:51 (ET). Electronically Signed: Yoly Davey MD at 0:40 EDT , Assessment & Plan Assessment/Plan (1) Elevated troponin: (2) Pulmonary emboli: QUALIFIERS: Acute cor pulmonale presence: with acute cor pulmonale Chronicity: acute Pulmonary embolism type: other Qualified Code(s): I26.09 - Other pulmonary embolism with acute cor pulmonale PLAN: Plan Acute pulmonary emboli with cor pulmonale Chest x-ray with resolving pneumonia; persistent cavitary lesion. Impression of chest CTA by radiology: Multiple moderate size bilateral lobar and segmental pulmonary emboli with evidence of right heart strain. Ill-defined airspace opacities in the right middle lobe and right lower lobe and a nodular opacity in the left upper lobe are smaller when compared to the previous study suggesting resolving bilateral pneumonia. Chest CT was independently interpreted and I agree with radiology interpretation. Patient was started on heparin drip at emergency department and continued. We will admit patient to the intensive care unit. Consult electrical journeyman. Continue high flow oxygen; titrate as necessary. Elevated troponin Likely secondary to right heart strain. Initial high sensitive troponin was 850. Trend. DVT prophylaxis: Not indicated as patient has acute VTE for which she has been started on heparin drip. Time spent in the patient's overall evaluation,decision-making process, review of diagnostic data, adjustment of management, discussion with other providers, nursing nursing and ancillary staff involved in patient's care documentation, 70 minutes. Charges/Coding Visit Charges Inpatient E&M: 72317 Init Hosp L3
[2022-12-15 03:09] LABS: Absolute Neutrophil Count 3.1 X10^3/uL (2.0-7.7); Basophil# 0.03 X10^3/uL; Basophil% 0.6 % (0-1); Eosinophil# 0.08 X10^3/uL; Eosinophils% 1.6 % (0-5); Hematocrit 28.6 % (40-54); Hemoglobin 8.7 g/dL (13.0-16.5); Lymphocyte % 20.2 % (19-41); Mean Corp Hgb Conc 30.4 g/dL (32-36); Mean Corpuscular Hgb 28.5 pg (27.0-32.0); Mean Corpuscular Volume 93.8 fL (80-94); Mean Platelet Vol. 9.9 fl (6.2-12.0); Monocyte# 0.58 X10^3/uL; Monocyte% 11.7 % (0-10); NRBC Flagged by Analyzer 0 % (0-5); Neutrophil # 3.14 X10^3/uL (2.7-7.7); Neutrophil % 63.7 % (47-70); POSITIVE MORPHOLOGY YES; Platelet Count 290 K/mm3 (150-450); RBC Distribution Width CV 22.9 % (11.6-14.6); RBC Distribution Width SD 73.4 fl (35.1-43.9); Red Blood Count 3.05 M/mm3 (4.6-6.2); White Blood Count 4.9 K/mm3 (4.4-11.0)
[2022-12-15 03:15] LABS: Differential Indicated SCAN CRITERIA MET
[2022-12-15 03:27] LABS: Anion Gap 4 (5-15); BUN 21 mg/dL (7-18); BUN/Creat Ratio 28.5 RATIO (10-20); Calcium,Total 8.9 mg/dL (8.5-10.1); Chloride 108 mmol/L (98-107); Creatinine, Serum 0.74 mg/dL (0.70-1.30); EST Glomerular Filtration Rate 111 mL/min (>60); Est Glom Filt Rate - Afr Amer 135 mL/min (>60); Estimated Creatinine Clearance 55.32 ml/min; Glucose 131 mg/dL (74-106); Potassium 4.5 mmol/L (3.5-5.1); Sodium Level 137 mmol/L (136-145)
[2022-12-15 03:35] LABS: Troponin-I HS 734 pg/mL (3.0-78.0)
[2022-12-15 03:46] LABS: Anisocytosis 2+
--- NOTE | 2022-12-15 03:58 | NURSING ---
Critical Troponin called to unit of 734, level is down from last drawing
--- NOTE | 2022-12-15 05:55 | ECHOCS_ITS ---
Reason For Study: Emboli Procedure This was a limited 2D transthoracic echocardiogram. The study was technically difficult. Contrast injection was performed. Patient unable to lay in proper positioning due to SOB, Echo done with patient sitting upright. Exam performed portable in ICU/CCU. Left Ventricle Normal LV size. The estimated ejection fraction is 65 %. Unable to assess diastolic dysfunction. No regional wall motion abnormalities noted. Right Ventricle Normal RV size. Normal systolic function. Atria Normal left atrium. Normal right atrium. No doppler evidence for ASD. Mitral Valve There is no mitral valve stenosis. No mitral valve insufficiency. Tricuspid Valve There is no tricuspid stenosis. Unable to estimate RV systolic pressure due to inadequate jet, pulmonary artery pressure probably normal. Aortic Valve Trisinus/trileaflet aortic valve. There is no aortic stenosis. No aortic valve insufficiency. Pulmonic Valve There is no pulmonic valvular stenosis. No pulmonic valve insufficiency. Great Vessels Normal aortic root. Pericardium/Pleural No pericardial effusion. Medication Diluted definity 2.5ml given slow IV push to enhance endocardial definition. Performed a rapid injection of agitated mix of 9 cc saline and 1cc air to assess for atrial septal defect. MMode/2D Measurements & Calculations LVIDd: 3.5 cm IVSd: 1.3 cm LVIDs: 2.6 cm LVPWd: 1.1 cm LVAd ap4: 28.9 cm2 RVDd: 4.0 cm FS: 26.7 % LVLd ap4: 8.0 cm EDV(MOD-sp4): 83.8 ml EDV(sp4-el): 88.4 ml LVAs ap4: 15.1 cm2 LVLs ap4: 6.5 cm ESV(MOD-sp4): 29.5 ml ESV(sp4-el): 29.6 ml EF(MOD-sp4): 64.8 % EF(sp4-el): 66.5 % SV(MOD-sp4): 54.3 ml SV(sp4-el): 58.7 ml RA A4 area: 14.9 cm2 ECHO/Echo Complete W/ Contrast Interpretation Summary The estimated ejection fraction is 65 %. Unable to assess diastolic dysfunction. Ordering Physician: Grupo Velasquez Performed By: Lloyd Ojeda RCS
[2022-12-15 06:41] LABS: Partial Thromboplast Time 60.6 Seconds (24.1-36.2)
[2022-12-15 07:06] LABS: Troponin-I HS 635 pg/mL (3.0-78.0)
--- NOTE | 2022-12-15 07:56 | EX.PCM.CONCC ---
Assessment & Plan Assessment/Plan (1) Acute respiratory failure with hypoxia: (2) COPD (chronic obstructive pulmonary disease): (3) Pulmonary emboli: QUALIFIERS: Pulmonary embolism type: other Chronicity: acute Acute cor pulmonale presence: with acute cor pulmonale Qualified Code(s): I26.09 - Other pulmonary embolism with acute cor pulmonale (4) Elevated troponin: PLAN: Plan RECOMMENDATIONS: 1. Continue heparin drip 2. Therapeutic substitution for baseline medications 3. Okay to discontinue troponin trend 4. Discussed with oncology on 10A inhibitor versus Lovenox at discharge IMPRESSIONS: 1. Acute hypoxic respiratory failure secondary to submassive PE with cor pulmonale Patient with multiple PEs noted on CTA of the chest with evidence of right heart strain radiographically and with an elevated troponin. Patient appears to be tolerating heparin drip well with oxygen requirements have remained stable. We will continue with therapeutic anticoagulation. May need to discuss with oncology on transition to Lovenox versus a 10 a inhibitor given patient's history of non-small cell lung cancer. Encourage incentive spirometer. Likely okay to transfer from the intensive care unit in 24 hours if patient continues to be stable to improved 2. Elevated troponin Clinical suspicion for supply/demand mismatch secondary to problem #1. Patient's troponins have trended down since admission. Patient did have a recent echocardiogram showing preserved ejection fraction. Clinical suspicion is this is unchanged despite elevated troponins. Patient likely does not require a repeat echocardiogram from my perspective as he already has signs of right heart strain. 3. Debility/recent pneumonia/advanced age/non-small cell lung cancer/chemotherapy related pancytopenia Complicates care, management, recovery and prognosis. PT/OT to evaluate the patient and work with ambulation. No indication for transfusion at this time. HPI Consult Data Date of Consult: 12/15/22 HPI Narrative Reason for Consultation: Hypoxia/PE HPI Narrative: LEAH KARIMI is a 72 M, with past medical history listed below, who presents to [facility] on 12/14/2022 secondary to progressive shortness of breath and hypoxia. Patient was admitted to the TCU and discharged earlier in the day on supplemental oxygen. Patient reportedly did not use oxygen prior to being admitted to the hospital with double pneumonia and anemia. Patient was discharged from the TCU on 4 L/min, but was found to be 78%. Patient does have a history of lung cancer and was on chemotherapy previously. EMS placed patient on nonrebreather and transferred to the ER for further evaluation. In the ER, patient was noted to be tachypneic at over 40 breaths/min and requiring a nonrebreather to maintain saturations. Patient was afebrile and tachycardic. Chest x-ray was relatively improvement, but a CTA of the chest was obtained showing multiple pulmonary emboli. The patient was placed on heparin and admitted to the intensive care unit for further evaluation. Since being in the intensive care unit, patient has been placed on 10 L/min to maintain saturations. Patient subjectively feels slightly improved compared to previous. Patient does have dyspnea with minimal exertion, but is not reporting any cough. Patient does have a history of COPD and lung cancer. Patient did not require supplemental oxygen prior to his hospitalization for double pneumonia. Patient was being treated for lung cancer with his last chemotherapy about a week ago. Patient's chemotherapy was reportedly stopped secondary to blood counts. Reviewed electronic medical record from previous admission at [facility]. Patient reportedly sees a respiratory technician at the [facility]. Patient has had recent echo showing preserved ejection fraction. Review of systems otherwise negative from a constitutional, HEENT, respiratory, cardiovascular, GI, genitourinary, musculoskeletal, skin, neurologic, psychiatric and hematologic system unless stated above. [facility] Medical History Acute heart failure with preserved ejection fraction COPD (chronic obstructive pulmonary disease) Former smoker GERD (gastroesophageal reflux disease) Hypertension Lung cancer Home Medications famotidine 20 mg tablet 20 mg PO QHS acid reflux 11/24/22 [History Last Taken 12/01/22 22:04] guaifenesin 1,200 mg tablet, extended release 12 hr (Mucus Relief ER) 1,200 mg PO BID Mucus Relief #0 tabs 12/02/22 [Rx Last Taken 12/02/22 09:55] albuterol sulfate 2.5 mg/3 mL (0.083 %) solution for nebulization 2.5 mg (3 mL) inhalation Q2H PRN PRN Shortness of Breath/Wheezing 30 days #360 mL 12/12/22 [Rx Last Taken Unknown] budesonide 0.5 mg/2 mL suspension for nebulization 0.5 mg (2 mL) inhalation BID.RT 30 days #120 mL 12/12/22 [Rx Last Taken Unknown] ipratropium 0.5 mg-albuterol 3 mg (2.5 mg base)/3 mL nebulization soln 3 ml inhalation Q6HWA.RT 30 days #360 mL 12/12/22 [Rx Last Taken Unknown] metoprolol succinate 25 mg tablet,extended release 24 hr 25 mg PO BID 30 days #60 tabs 12/12/22 [Rx Last Taken Unknown] pantoprazole 40 mg tablet,delayed release 40 mg PO DAILY 30 days #30 tabs 12/12/22 [Rx Last Taken Unknown] potassium chloride 20 mEq tablet,extended release(part/cryst) (Klor-Con M) 40 meq (2 x 20 mEq) PO BIDCM 30 days #120 tabs 12/12/22 [Rx Last Taken Unknown] sodium chloride 0.65 % nasal spray aerosol (Deep Sea Nasal) 2 spray NASAL TID PRN PRN NASAL DRYNESS #0 mL 12/12/22 [Rx Last Taken Unknown] amlodipine 5 mg tablet 5 mg PO DAILY heart 12/14/22 [History Last Taken Unknown] Allergy/AdvReac Type Severity Reaction Status Date / Time acetaminophen [From Tylenol] Allergy Unknown increased Verified 12/14/22 20:42 white count Family History Father Cancer Mother Cancer Surgical History History of tonsillectomy Social History household members: other details: Sister. Smoking Status: Former smoker alcohol intake: never substance use type: does not use Physical Exam Const alert, oriented x3 and no apparent distress General Appearance: cooperative HEENT normocephalic, head/scalp atraumatic and moist oral mucous membranes Eyes PERRL, EOMs intact bilaterally and conjunctivae normal Neck supple General: trachea midline Chest inspection of chest normal Resp normal respiratory effort Auscultation: Negative for rales, rhonchi or wheezes Cardio regular rhythm, S1 normal heart sound, S2 normal heart sound, no murmurs and no rub Rate: tachycardic GI normal to inspection, nondistended, normoactive bowel sounds Extremity no clubbing, cyanosis or edema Skin no rashes or lesions noted Neuro oriented x3, CN's II-XII intact bilaterally and moves all extremities Psych cooperative and affect normal Lab / Micro Data 12/15/22 03:00 12/15/22 03:00 Labs: Laboratory Results - last 24 hr 12/14/22 22:20: WBC 7.5, RBC 3.46 L, Hgb 10.0 L, Hct 33.3 L, MCV 96.2 H, MCH 28.9, MCHC 30.0 L, RDW Std Deviation 75.6 H, RDW Coeff of Tone 23.2 H, Plt Count 395, MPV 10.2, Immature Gran % (Auto) 1.900 H, Neut % (Auto) 66.1, Lymph % (Auto) 18.9 L, [place] % (Auto) 9.9, Eos % (Auto) 2.3, Baso % (Auto) 0.9, Absolute Neuts (auto) 4.9, Absolute Lymphs (auto) 1.41, Nucleated RBC % 0.3, Differential Comment SCANNED, PT 14.9, INR 1.2, APTT 35.0, Sodium 135 L, Potassium 5.0, Chloride 105, Carbon Dioxide 20.0 L, Anion Gap 10, BUN 27 H, Creatinine 0.92, Estim Creat Clear Calc 67.42, Est GFR (MDRD) Af Amer 104, Est GFR (MDRD) Non-Af 86, BUN/Creatinine Ratio 29.3 H, Glucose 163 H, Calcium 9.7, Troponin I High Sens 850 H* 12/15/22 03:00: WBC 4.9, RBC 3.05 L, Hgb 8.7 L, Hct 28.6 L, MCV 93.8, MCH 28.5, MCHC 30.4 L, RDW Std Deviation 73.4 H, RDW Coeff of Tone 22.9 H, Plt Count 290, MPV 9.9, Immature Gran % (Auto) 2.200 H, Neut % (Auto) 63.7, Lymph % (Auto) 20.2, [place] % (Auto) 11.7 H, Eos % (Auto) 1.6, Baso % (Auto) 0.6, Absolute Neuts (auto) 3.1, Absolute Lymphs (auto) 1.00, Nucleated RBC % 0, Anisocytosis 2+, Sodium 137, Potassium 4.5, Chloride 108 H, Carbon Dioxide 25.0, Anion Gap 4 L, BUN 21 H, Creatinine 0.74, Estim Creat Clear Calc 55.32, Est GFR (MDRD) Af Amer 135, Est GFR (MDRD) Non-Af 111, BUN/Creatinine Ratio 28.5 H, Glucose 131 H, Calcium 8.9, Troponin I High Sens 734 H* 12/15/22 06:17: APTT 60.6 H, Troponin I High Sens 635 H* Micro: Microbiology 12/14/22 22:20 Nasal Secretion SARS-CoV-2 & FLU Antigen (Rapid) - Final Radiology Impression Chest X-Ray 12/14/22 22:55 IMPRESSION: Resolving right middle lobe and right lower lobe pneumonia. Persistent Ill-defined cavitary lesion in the left upper lobe may represent a neoplastic process or lung abscess. CT scan follow-up is recommended in one to 2 months for better characterization. Electronically Signed: Yoly Davey MD at 23:32 EDT , Chest CTA 12/14/22 23:20 IMPRESSION: Multiple moderate size bilateral lobar and segmental pulmonary emboli with evidence of right heart strain. Ill-defined airspace opacities in the right middle lobe and right lower lobe and a nodular opacity in the left upper lobe are smaller when compared to the previous study suggesting resolving bilateral pneumonia. Electronically Signed: Yoly Davey MD at 0:40 EDT , ADDENDUM: 12/15/22 0052 IMPRESSION: Multiple moderate size bilateral lobar and segmental pulmonary emboli with evidence of right heart strain. Ill-defined airspace opacities in the right middle lobe and right lower lobe and a nodular opacity in the left upper lobe are smaller when compared to the previous study suggesting resolving bilateral pneumonia. N.B. : The above Results were Read Back by Yoly Davey MD to Dr. Naa Beal MD, and understanding confirmed on 12/15/2022 00:45:51 (ET). Electronically Signed: Yoly Davey MD at 0:40 EDT , Charges/Coding Visit Charges Inpatient E&M: 59764 Init Hosp L3
[2022-12-15] MEDS: Metoprolol(XL)Succ 25 MG Tablet PO ×2 (09:45→21:48)
[2022-12-15] MEDS: guaiFENesin 1,200 MG Tablet 1200 MG PO ×2 (09:46→21:48)
[2022-12-15] MEDS: amLODIPine 5 MG Tablet PO (09:46)
[2022-12-15 12:31] LABS: Partial Thromboplast Time 39.5 Seconds (24.1-36.2)
[2022-12-15] MEDS: Heparin Injection (Vial) 5,000 UNIT/ML VIAL IV (12:57)
--- NOTE | 2022-12-15 18:08 | PN.HOSP_ITS ---
Reason for Visit Reason for Visit: Diagnoses Other pulmonary embolism with acute cor pulmonale (12/15/22) Chronic obstructive pulmonary disease, unspecified (12/15/22) Acute respiratory failure with hypoxia (12/15/22) Other specified abnormalities of plasma proteins (12/15/22) Subjective Subjective Patient was seen and examined today, he is currently on 8 L via nasal cannula, patient's echocardiogram today showed no evidence of thrombus. Objective Data Objective Data Vital Signs: Vital Signs Temp Pulse Resp BP Pulse Ox O2 Del Method O2 Flow Rate 96.8 F L 82 28 H 98/60 92 High Flow 8 12/15/22 16:00 12/15/22 17:00 12/15/22 17:00 12/15/22 17:00 12/15/22 17:00 12/15/22 17:00 12/15/22 17:00 Oxygen Flow Rate (L/min) 8 Oxygen Delivery Method High Flow Weight: 68.8 kg Body Mass Index (BMI) 26.9 Intake & Output: Intake and Output for Last 24 Hours 12/13/22 12/14/22 12/15/22 23:59 23:59 23:59 Intake Total 106.50 / 106.50 Output Total 1075 / 1075 Balance -968.50 / -968.50 Medical Nutrition Assessment Dietitian: Malnutrition Criteria Met Start: 12/15/22 14:20 Freq: Status: Active Protocol: Document 12/15/22 14:20 RMA (Rec: 12/15/22 14:20 RMA [id number]) Nutrition Malnutrition Evidence of Malnutrition Exists Yes Malnutrition (severe): Acute Illness/Injury Evidenced By Suboptimal Energy Intake ( Severe),Weight Loss (Severe) Clinical Problem Acute Disease or Injury Related Malnutrition Etiology 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 Will add 120mL ensure plus high protein 4 times per day w / medpass. Will add magic cup BID w/ lunch and dinner meals. Lab / Micro Data 12/15/22 03:00 12/15/22 03:00 Labs: Laboratory Results - last 24 hr 12/14/22 22:20: WBC 7.5, RBC 3.46 L, Hgb 10.0 L, Hct 33.3 L, MCV 96.2 H, MCH 28.9, MCHC 30.0 L, RDW Std Deviation 75.6 H, RDW Coeff of Tone 23.2 H, Plt Count 395, MPV 10.2, Immature Gran % (Auto) 1.900 H, Neut % (Auto) 66.1, Lymph % (Auto) 18.9 L, [place] % (Auto) 9.9, Eos % (Auto) 2.3, Baso % (Auto) 0.9, Absolute Neuts (auto) 4.9, Absolute Lymphs (auto) 1.41, Nucleated RBC % 0.3, Differential Comment SCANNED, PT 14.9, INR 1.2, APTT 35.0, Sodium 135 L, Potassium 5.0, Chloride 105, Carbon Dioxide 20.0 L, Anion Gap 10, BUN 27 H, Creatinine 0.92, Estim Creat Clear Calc 67.42, Est GFR (MDRD) Af Amer 104, Est GFR (MDRD) Non-Af 86, BUN/Creatinine Ratio 29.3 H, Glucose 163 H, Calcium 9.7, Troponin I High Sens 850 H* 12/15/22 03:00: WBC 4.9, RBC 3.05 L, Hgb 8.7 L, Hct 28.6 L, MCV 93.8, MCH 28.5, MCHC 30.4 L, RDW Std Deviation 73.4 H, RDW Coeff of Tone 22.9 H, Plt Count 290, MPV 9.9, Immature Gran % (Auto) 2.200 H, Neut % (Auto) 63.7, Lymph % (Auto) 20.2, [place] % (Auto) 11.7 H, Eos % (Auto) 1.6, Baso % (Auto) 0.6, Absolute Neuts (auto) 3.1, Absolute Lymphs (auto) 1.00, Nucleated RBC % 0, Anisocytosis 2+, Sodium 137, Potassium 4.5, Chloride 108 H, Carbon Dioxide 25.0, Anion Gap 4 L, BUN 21 H, Creatinine 0.74, Estim Creat Clear Calc 55.32, Est GFR (MDRD) Af Amer 135, Est GFR (MDRD) Non-Af 111, BUN/Creatinine Ratio 28.5 H, Glucose 131 H, Calcium 8.9, Troponin I High Sens 734 H* 12/15/22 06:17: APTT 60.6 H, Troponin I High Sens 635 H* 12/15/22 12:05: APTT 39.5 H Micro: Microbiology 12/14/22 22:20 Nasal Secretion SARS-CoV-2 & FLU Antigen (Rapid) - Final Radiography Diagnostic Testing: Radiology Impression Chest X-Ray 12/14/22 22:55 IMPRESSION: Resolving right middle lobe and right lower lobe pneumonia. Persistent Ill-defined cavitary lesion in the left upper lobe may represent a neoplastic process or lung abscess. CT scan follow-up is recommended in one to 2 months for better characterization. Electronically Signed: Yoly Davey MD at 23:32 EDT , Chest CTA 12/14/22 23:20 IMPRESSION: Multiple moderate size bilateral lobar and segmental pulmonary emboli with evidence of right heart strain. Ill-defined airspace opacities in the right middle lobe and right lower lobe and a nodular opacity in the left upper lobe are smaller when compared to the previous study suggesting resolving bilateral pneumonia. Electronically Signed: Yoly Davey MD at 0:40 EDT , ADDENDUM: 12/15/22 0052 IMPRESSION: Multiple moderate size bilateral lobar and segmental pulmonary emboli with evidence of right heart strain. Ill-defined airspace opacities in the right middle lobe and right lower lobe and a nodular opacity in the left upper lobe are smaller when compared to the previous study suggesting resolving bilateral pneumonia. N.B. : The above Results were Read Back by Yoly Davey MD to Dr. Naa Beal MD, and understanding confirmed on 12/15/2022 00:45:51 (ET). Electronically Signed: Yoly Davey MD at 0:40 EDT , Echocardiogram 12/15/22 05:55 Interpretation Summary The estimated ejection fraction is 65 %. Unable to assess diastolic dysfunction. Ordering Physician: Grupo Velasquez Performed By: Lloyd Ojeda RCS Physical Exam Const alert, oriented x3, no apparent distress and average body habitus General Appearance: cooperative, well kempt and well developed Orientation / Consciousness: awake, oriented to person, oriented to place and oriented to time HEENT normocephalic, head/scalp atraumatic and moist oral mucous membranes Eyes PERRL, EOMs intact bilaterally and conjunctivae normal Neck supple, no JVD, thyroid normal and no carotid bruits General: trachea midline Resp normal respiratory effort, no retractions, no use of accessory muscles and clear to auscultation bilaterally Auscultation: Negative for rales, rhonchi or wheezes Cardio regular rate, regular rhythm, S1 normal heart sound, S2 normal heart sound, no murmurs, no rub and no gallops GI normal to inspection, nondistended, normoactive bowel sounds, soft to palpation, non-tender and non-distended Extremity no clubbing, cyanosis or edema Skin no rashes or lesions noted General Skin Exam: no breakdown Neuro oriented x3, CN's II-XII intact bilaterally, moves all extremities, no focal motor deficits and no sensory deficits noted Sensorium / Orientation: awake, alert, oriented to person, oriented to place and oriented to time Speech: speech normal Psych affect normal Assessment & Plan Assessment/Plan (1) Pulmonary emboli: QUALIFIERS: Pulmonary embolism type: other Chronicity: acute Acute cor pulmonale presence: with acute cor pulmonale Qualified Code(s): I26.09 - Other pulmonary embolism with acute cor pulmonale PLAN: Plan 1. Bilateral pulmonary emboli secondary to lung cancer-patient will remain on heparin for now, I discussed his care with pulmonary medicine today, he will be transitioned tomorrow over to [facility]. #2 elevated troponin-secondary to extensive pulmonary emboli, I do not feel the patient has had a non-STEMI #3 chronic obstructive pulmonary disease-patient is receiving albuterol aerosols as needed, monitor, evaluate, assess, and treat #4 adenocarcinoma of the lung-complicates care, medical course, recovery, and prognosis #5 acute on chronic hypoxic respiratory failure secondary to #1-patient's oxygen will be monitored, oxygen will be weaned if possible, monitor, evaluate, assess, and treat Total clinical time spent by myself addressing the patient's medical issues, reviewing all of his data, and collaborating with patient's care team: 35 [email or web address] omar
[2022-12-15 19:06] LABS: Partial Thromboplast Time 50.3 Seconds (24.1-36.2)
[2022-12-15] MEDS: Famotidine 20 MG Tablet PO (21:48)
[2022-12-16] VITALS (21 sets, daily range): BP systolic 94–126; BP diastolic 55–105; PULSE 77–93; RESP 18–39; TEMP 36.3–36.8; O2SAT 90–100; BMI 26.6
[2022-12-16] MEDS: HEPARIN/D5w 25,000 UNITS 25,000 UNITS/250 ML IV.SOLN. 12 UNITS CONT INF (00:38)
[2022-12-16 01:26] LABS: Partial Thromboplast Time 82.3 Seconds (24.1-36.2)
[2022-12-16 04:02] LABS: Absolute Lymphocyte Count 0.88 X10^3/uL (0.83-4.51); Absolute Neutrophil Count 3.8 X10^3/uL (2.0-7.7); Basophil# 0.03 X10^3/uL; Basophil% 0.5 % (0-1); Eosinophil# 0.11 X10^3/uL; Hematocrit 28.1 % (40-54); Hemoglobin 8.4 g/dL (13.0-16.5); Lymphocyte # 0.88 X10^3/ul (0.83-4.51); Mean Corp Hgb Conc 29.9 g/dL (32-36); Mean Corpuscular Hgb 28.1 pg (27.0-32.0); Mean Platelet Vol. 9.6 fl (6.2-12.0); Monocyte# 0.65 X10^3/uL; Monocyte% 11.8 % (0-10); NRBC Flagged by Analyzer 0 % (0-5); Neutrophil # 3.77 X10^3/uL (2.7-7.7); Neutrophil % 68.4 % (47-70); POSITIVE MORPHOLOGY YES; Platelet Count 267 K/mm3 (150-450); RBC Distribution Width CV 22.8 % (11.6-14.6); RBC Distribution Width SD 74.5 fl (35.1-43.9); Red Blood Count 2.99 M/mm3 (4.6-6.2); White Blood Count 5.5 K/mm3 (4.4-11.0)
[2022-12-16 04:15] LABS: Differential Indicated SCAN CRITERIA MET
[2022-12-16 04:33] LABS: ALB/GLOB Ratio 0.6 RATIO (0.9-2.4); AST(SGOT) 21 U/L (15-37); Alanine Aminotransfer ALT/SGPT 21 U/L (16-61); Albumin, Serum 2.7 g/dL (3.2-5.0); Alkaline Phosphatase 89 U/L (45-117); Anion Gap 7 (5-15); BUN 21 mg/dL (7-18); Calcium,Total 8.7 mg/dL (8.5-10.1); Chloride 109 mmol/L (98-107); Creatinine, Serum 0.78 mg/dL (0.70-1.30); EST Glomerular Filtration Rate 105 mL/min (>60); Est Glom Filt Rate - Afr Amer 127 mL/min (>60); Estimated Creatinine Clearance 55.32 ml/min; Globulin 4.2 g/dL (2.2-4.2); Glucose 112 mg/dL (74-106); Protein, Total 6.9 g/dL (6.4-8.2); Sodium Level 139 mmol/L (136-145)
[2022-12-16 05:06] LABS: Anisocytosis 1+; Differential Comment SCANNED; Hypochromasia RARE; Macrocytosis 1+; Polychromasia RARE
--- NOTE | 2022-12-16 07:14 | PCM.PN.INT ---
Assessment & Plan Assessment/Plan (1) Acute respiratory failure with hypoxia: (2) COPD (chronic obstructive pulmonary disease): (3) Pulmonary emboli: QUALIFIERS: Acute cor pulmonale presence: with acute cor pulmonale Chronicity: acute Pulmonary embolism type: other Qualified Code(s): I26.09 - Other pulmonary embolism with acute cor pulmonale (4) Elevated troponin: PLAN: Plan RECOMMENDATIONS: 1. Okay to transition from heparin to Eliquis from my perspective. 2. Wean supplemental oxygen to maintain saturations at or above 90%. 3. As needed bronchodilators. 4. Encourage incentive spirometer use and mobilize patient as tolerated. 5. Follow-up with primary vacuum pan operator at [facility] after discharge. 6. We will sign off from a critical care perspective. IMPRESSIONS: 1. Acute hypoxic respiratory failure secondary to bilateral pulmonary emboli The patient presented to the hospital with multiple bilateral pulmonary emboli and radiographic evidence of right heart strain. The patient was placed on a heparin infusion. Subsequent echocardiogram demonstrated normal RV size and function. The patient has remained hemodynamically stable. Plan to continue to wean supplemental oxygen to maintain saturations at or above 90%. The patient does have a history of active non-small cell carcinoma. It would be reasonable to attempt to transition him to Eliquis, if feasible. If the Eliquis is too expensive, Lovenox can be considered. This was discussed with oncology. The patient should follow-up with his primary pulmonary provider at [facility] after discharge. 2. Elevated troponin Clinical suspicion for supply/demand mismatch secondary to problem #1. The patient's troponins have trended down since admission. Echocardiogram revealed preserved ejection fraction. 3. Debility/recent pneumonia/advanced age/non-small cell lung cancer/chemotherapy related pancytopenia Complicates care, management, recovery and prognosis. PT/OT to evaluate the patient and work with ambulation. No indication for transfusion at this time. This note was generated with [employer] dictation software. It may contain incorrect words, spelling, and punctuation that were not noted in checking the note before signing. Subjective Subjective The patient was seen and examined at the bedside this morning. Events from the last 24 hours have been reviewed. The patient is currently afebrile, hemodynamically stable and maintaining appropriate oxygen saturations on 6 L/min via nasal cannula. The patient remains on a continuous heparin infusion. Morning lab values are stable. The patient voiced concerns over the potential cost related to prescriptions for Eliquis. Objective Data Objective Data The patient's most recent lab work, culture data and imaging studies have all been personally reviewed. Surface echocardiogram demonstrated normal LV size and function with an ejection fraction of 65%. The RV was noted to be normal in size with normal RV systolic function. Vital Signs: Vital Signs Temp Pulse Resp BP Pulse Ox O2 Del Method O2 Flow Rate 98.3 F 82 23 H 126/105 H 96 High Flow 8 12/16/22 00:00 12/16/22 07:00 12/16/22 07:00 12/16/22 07:00 12/16/22 07:00 12/16/22 07:00 12/16/22 07:00 Oxygen Flow Rate (L/min) 8 Oxygen Delivery Method High Flow Weight: 150 lb 2.157 oz Body Mass Index (BMI) 26.6 Intake & Output: Intake and Output for Last 24 Hours 12/14/22 12/15/22 12/16/22 23:59 23:59 23:59 Intake Total 615.80 / 615.80 156.8 / 156.8 Output Total 1275 / 1275 200 / 200 Balance -659.20 / -659.20 -43.2 / -43.2 Medical Nutrition Assessment Dietitian: Malnutrition Criteria Met Start: 12/15/22 14:20 Freq: Status: Active Protocol: Document 12/15/22 14:20 RMA (Rec: 12/15/22 14:20 RMA [id number]) Nutrition Malnutrition Evidence of Malnutrition Exists Yes Malnutrition (severe): Acute Illness/Injury Evidenced By Suboptimal Energy Intake ( Severe),Weight Loss (Severe) Clinical Problem Acute Disease or Injury Related Malnutrition Etiology 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 Will add 120mL ensure plus high protein 4 times per day w / medpass. Will add magic cup BID w/ lunch and dinner meals. Lab / Micro Data Attestation: I reviewed the patient's lab results. 12/16/22 03:56 12/16/22 03:56 Labs: Laboratory Results - last 24 hr 12/15/22 12:05: APTT 39.5 H 12/15/22 18:50: APTT 50.3 H 12/16/22 01:10: APTT 82.3 H 12/16/22 03:56: WBC 5.5, RBC 2.99 L, Hgb 8.4 L, Hct 28.1 L, MCV 94.0, MCH 28.1, MCHC 29.9 L, RDW Std Deviation 74.5 H, RDW Coeff of Tone 22.8 H, Plt Count 267, MPV 9.6, Immature Gran % (Auto) 1.300 H, Neut % (Auto) 68.4, Lymph % (Auto) 16.0 L, [place] % (Auto) 11.8 H, Eos % (Auto) 2.0, Baso % (Auto) 0.5, Absolute Neuts (auto) 3.8, Absolute Lymphs (auto) 0.88, Nucleated RBC % 0, Differential Comment SCANNED, Polychromasia RARE, Hypochromasia RARE, Anisocytosis 1+, Macrocytosis 1+, Sodium 139, Potassium 4.0, Chloride 109 H, Carbon Dioxide 23.0, Anion Gap 7, BUN 21 H, Creatinine 0.78, Estim Creat Clear Calc 55.32, Est GFR (MDRD) Af Amer 127, Est GFR (MDRD) Non-Af 105, BUN/Creatinine Ratio 27.0 H, Glucose 112 H, Calcium 8.7, Total Bilirubin 1.10 H, AST 21, ALT 21, Alkaline Phosphatase 89, Total Protein 6.9, Albumin 2.7 L, Globulin 4.2, Albumin/Globulin Ratio 0.6 L Micro: Microbiology 12/14/22 22:20 Nasal Secretion SARS-CoV-2 & FLU Antigen (Rapid) - Final Radiography Diagnostic Testing: Radiology Impression Echocardiogram 12/15/22 05:55 Interpretation Summary The estimated ejection fraction is 65 %. Unable to assess diastolic dysfunction. Ordering Physician: Grupo Velasquez Performed By: Lloyd Ojeda RCS Physical Exam Const alert and no apparent distress Constitutional Narrative: Sitting in bedside recliner. General Appearance: cooperative HEENT normocephalic and head/scalp atraumatic Eyes PERRL, EOMs intact bilaterally and conjunctivae normal Neck supple General: trachea midline Chest inspection of chest normal Resp normal respiratory effort Auscultation: Negative for rales, rhonchi or wheezes Cardio regular rate and regular rhythm GI normal to inspection, nondistended, normoactive bowel sounds Extremity no clubbing, cyanosis or edema Skin no rashes or lesions noted Neuro oriented x3, CN's II-XII intact bilaterally and moves all extremities Psych cooperative and affect normal Charges/Coding Visit Charges Inpatient E&M: 62466 Subs Hosp L2
[2022-12-16 08:36] LABS: Partial Thromboplast Time 91.4 Seconds (24.1-36.2)
[2022-12-16] MEDS: amLODIPine 5 MG Tablet PO (09:17)
[2022-12-16] MEDS: guaiFENesin 1,200 MG Tablet 1200 MG PO ×2 (09:17→21:05)
[2022-12-16] MEDS: Metoprolol(XL)Succ 25 MG Tablet PO ×2 (09:17→21:05)
[2022-12-16] MEDS: HYDROcodone Bitartrate/Apap 5/325 Tablet PO ×2 (11:02→22:16)
--- NOTE | 2022-12-16 11:13 | CASEMGMT ---
Patient was setup with [facility] when discharged from TCU. RN CM called [facility] with new referral for C, awaiting acceptance. CM will continue to follow this patient and plan for a safe discharge.
[2022-12-16 15:58] LABS: Partial Thromboplast Time 43.5 Seconds (24.1-36.2)
--- NOTE | 2022-12-16 17:37 | PCM.PN.HOSP ---
Reason for Visit Reason for Visit: Diagnoses Other pulmonary embolism with acute cor pulmonale (12/15/22) Chronic obstructive pulmonary disease, unspecified (12/15/22) Acute respiratory failure with hypoxia (12/15/22) Other specified abnormalities of plasma proteins (12/15/22) Subjective Subjective Patient was seen and examined, he is currently on 6 L of oxygen. Patient has no complaints of shortness of breath at rest. I talked briefly with pulmonary medicine about his care. Objective Data Objective Data Vital Signs: Vital Signs Temp Pulse Resp BP Pulse Ox O2 Del Method O2 Flow Rate 97.8 F 77 18 107/66 96 High Flow 6 12/16/22 15:00 12/16/22 15:00 12/16/22 15:00 12/16/22 15:00 12/16/22 15:00 12/16/22 15:00 12/16/22 15:00 Oxygen Flow Rate (L/min) 6 Oxygen Delivery Method High Flow Weight: 68.1 kg Body Mass Index (BMI) 26.6 Intake & Output: Intake and Output for Last 24 Hours 12/14/22 12/15/22 12/16/22 23:59 23:59 23:59 Intake Total 615.80 / 615.80 296.8 / 296.8 Output Total 1275 / 1275 200 / 200 Balance -659.20 / -659.20 96.8 / 96.8 Medical Nutrition Assessment Dietitian: Malnutrition Criteria Met Start: 12/15/22 14:20 Freq: Status: Active Protocol: Document 12/15/22 14:20 RMA (Rec: 12/15/22 14:20 RMA [id number]) Nutrition Malnutrition Evidence of Malnutrition Exists Yes Malnutrition (severe): Acute Illness/Injury Evidenced By Suboptimal Energy Intake ( Severe),Weight Loss (Severe) Clinical Problem Acute Disease or Injury Related Malnutrition Etiology 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 Will add 120mL ensure plus high protein 4 times per day w / medpass. Will add magic cup BID w/ lunch and dinner meals. Lab / Micro Data 12/16/22 03:56 12/16/22 03:56 Labs: Laboratory Results - last 24 hr 12/15/22 18:50: APTT 50.3 H 12/16/22 01:10: APTT 82.3 H 12/16/22 03:56: WBC 5.5, RBC 2.99 L, Hgb 8.4 L, Hct 28.1 L, MCV 94.0, MCH 28.1, MCHC 29.9 L, RDW Std Deviation 74.5 H, RDW Coeff of Tone 22.8 H, Plt Count 267, MPV 9.6, Immature Gran % (Auto) 1.300 H, Neut % (Auto) 68.4, Lymph % (Auto) 16.0 L, [place] % (Auto) 11.8 H, Eos % (Auto) 2.0, Baso % (Auto) 0.5, Absolute Neuts (auto) 3.8, Absolute Lymphs (auto) 0.88, Nucleated RBC % 0, Differential Comment SCANNED, Polychromasia RARE, Hypochromasia RARE, Anisocytosis 1+, Macrocytosis 1+, Sodium 139, Potassium 4.0, Chloride 109 H, Carbon Dioxide 23.0, Anion Gap 7, BUN 21 H, Creatinine 0.78, Estim Creat Clear Calc 55.32, Est GFR (MDRD) Af Amer 127, Est GFR (MDRD) Non-Af 105, BUN/Creatinine Ratio 27.0 H, Glucose 112 H, Calcium 8.7, Total Bilirubin 1.10 H, AST 21, ALT 21, Alkaline Phosphatase 89, Total Protein 6.9, Albumin 2.7 L, Globulin 4.2, Albumin/Globulin Ratio 0.6 L 12/16/22 08:05: APTT 91.4 H* 12/16/22 15:15: APTT 43.5 H Micro: Microbiology 12/14/22 22:20 Nasal Secretion SARS-CoV-2 & FLU Antigen (Rapid) - Final Physical Exam Narrative alert, oriented x3, no apparent distress and average body habitus General Appearance: cooperative, well kempt and well developed Orientation / Consciousness: awake, oriented to person, oriented to place and oriented to time HEENT normocephalic, head/scalp atraumatic and moist oral mucous membranes Eyes PERRL, EOMs intact bilaterally and conjunctivae normal Neck supple, no JVD, thyroid normal and no carotid bruits General: trachea midline Resp normal respiratory effort, no retractions, no use of accessory muscles and clear to auscultation bilaterally Auscultation: Negative for rales, rhonchi or wheezes Cardio regular rate, regular rhythm, S1 normal heart sound, S2 normal heart sound, no murmurs, no rub and no gallops GI normal to inspection, nondistended, normoactive bowel sounds, soft to palpation, non-tender and non-distended Extremity no clubbing, cyanosis or edema Skin no rashes or lesions noted General Skin Exam: no breakdown Neuro oriented x3, CN's II-XII intact bilaterally, moves all extremities, no focal motor deficits and no sensory deficits noted Sensorium / Orientation: awake, alert, oriented to person, oriented to place and oriented to time Speech: speech normal Psych affect normal Assessment & Plan Assessment/Plan (1) Pulmonary emboli: QUALIFIERS: Pulmonary embolism type: other Chronicity: acute Acute cor pulmonale presence: with acute cor pulmonale Qualified Code(s): I26.09 - Other pulmonary embolism with acute cor pulmonale PLAN: Plan 1. Bilateral pulmonary emboli secondary to lung cancer-patient will remain on heparin for now, I discussed his care with pulmonary medicine today, he will be transitioned tomorrow over to Eliquis tomorrow. I checked with his outside pharmacy and he will pay $47 for the initial prescription for Eliquis. I feel the patient is stable for discharge to PCU at this time. #2 elevated troponin-secondary to extensive pulmonary emboli, I do not feel the patient has had a non-STEMI #3 chronic obstructive pulmonary disease-patient is receiving albuterol aerosols as needed, monitor, evaluate, assess, and treat #4 adenocarcinoma of the lung-complicates care, medical course, recovery, and prognosis #5 acute on chronic hypoxic respiratory failure secondary to #1-patient's oxygen will be monitored, oxygen will be weaned if possible, monitor, evaluate, assess, and treat Total clinical time spent by myself addressing the patient's medical issues, reviewing all of his data, and collaborating with patient's care team: 35 minutes Charges/Coding Visit Charges Inpatient E&M: 27912 Subs Hosp L2
[2022-12-16] MEDS: Famotidine 20 MG Tablet PO (21:05)
[2022-12-16] MEDS: 0.9% Saline Lock 10 ML Syringe IV (21:31)
[2022-12-16 22:35] LABS: Partial Thromboplast Time 47.5 Seconds (24.1-36.2)
[2022-12-17] VITALS (21 sets, daily range): BP systolic 95–139; BP diastolic 57–77; PULSE 74–101; RESP 12–40; TEMP 36.2–36.8; O2SAT 88–98; BMI 26.9
[2022-12-17] MEDS: HEPARIN/D5w 25,000 UNITS 25,000 UNITS/250 ML IV.SOLN. 12 UNITS CONT INF (01:40)
[2022-12-17 04:51] LABS: Partial Thromboplast Time 67.7 Seconds (24.1-36.2)
[2022-12-17] MEDS: HYDROcodone Bitartrate/Apap 5/325 Tablet PO ×2 (08:08→19:52)
--- NOTE | 2022-12-17 09:57 | CASEMGMT ---
LYNDON BOLAND NOTE: Per Rehana @ [facility], they are able to accept pt. SOC slated for tomorrow 12/18. If pt does not discharge today, SOC will be changed to another day. William WILLSON RN CM
[2022-12-17] MEDS: guaiFENesin 1,200 MG Tablet 1200 MG PO ×2 (10:52→19:49)
[2022-12-17] MEDS: APIXABAN 5 MG TABLET 10 MG PO ×2 (10:52→19:48)
--- NOTE | 2022-12-17 14:35 | CASEMGMT ---
Per physician patient is agreeable to [facility] TCU. Patient declined list for any other facilities. SW called [facility] in TCU and made a referral. Plan: d/c to [facility] TCU pending TCU acceptance and insurance approval. Geena BUCHANAN
--- NOTE | 2022-12-17 18:27 | PN.HOSP_ITS ---
Reason for Visit Reason for Visit: Diagnoses Other pulmonary embolism with acute cor pulmonale (12/15/22) Chronic obstructive pulmonary disease, unspecified (12/15/22) Acute respiratory failure with hypoxia (12/15/22) Other specified abnormalities of plasma proteins (12/15/22) Subjective Subjective Patient was seen and examined today, I decided to discontinue his heparin and place him on Eliquis. Patient still requiring high flow oxygen 6 L at rest via nasal cannula to maintain his pulse ox. I talked with him briefly about going to an extended care facility due to debility, he is not against this and we will try to get him into an extended care facility for rehab services. Objective Data Objective Data Vital Signs: Vital Signs Temp Pulse Resp BP Pulse Ox O2 Del Method O2 Flow Rate 97.8 F 96 24 H 127/65 H 94 Nasal Cannula 6 12/17/22 16:00 12/17/22 16:00 12/17/22 16:00 12/17/22 16:00 12/17/22 16:00 12/17/22 16:00 12/17/22 16:30 Oxygen Flow Rate (L/min) 6 Oxygen Delivery Method Nasal Cannula Weight: 69.1 kg Body Mass Index (BMI) 26.9 Intake & Output: Intake and Output for Last 24 Hours 12/15/22 12/16/22 12/17/22 23:59 23:59 23:59 Intake Total 615.80 / 615.80 587.2 / 587.2 237.8 / 237.8 Output Total 1275 / 1275 450 / 450 Balance -659.20 / -659.20 137.2 / 137.2 237.8 / 237.8 Medical Nutrition Assessment Dietitian: Malnutrition Criteria Met Start: 12/15/22 14:20 Freq: Status: Active Protocol: Document 12/15/22 14:20 RMA (Rec: 12/15/22 14:20 RMA [id number]) Nutrition Malnutrition Evidence of Malnutrition Exists Yes Malnutrition (severe): Acute Illness/Injury Evidenced By Suboptimal Energy Intake ( Severe),Weight Loss (Severe) Clinical Problem Acute Disease or Injury Related Malnutrition Etiology 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 Will add 120mL ensure plus high protein 4 times per day w / medpass. Will add magic cup BID w/ lunch and dinner meals. Lab / Micro Data 12/16/22 03:56 12/16/22 03:56 Labs: Laboratory Results - last 24 hr 12/16/22 22:05: APTT 47.5 H 12/17/22 04:33: APTT 67.7 H Micro: Microbiology 12/15/22 00:15 Blood Culture (Wb) - Anticubital Left Blood Culture - Preliminary No growth in 48 hours. 12/14/22 22:20 Blood Culture (Wb) - Anticubital Left Blood Culture - Preliminary No growth in 48 hours. 12/14/22 22:20 Nasal Secretion SARS-CoV-2 & FLU Antigen (Rapid) - Final Physical Exam Narrative alert, oriented x3, no apparent distress and average body habitus General Appearance: cooperative, well kempt and well developed Orientation / Consciousness: awake, oriented to person, oriented to place and oriented to time HEENT normocephalic, head/scalp atraumatic and moist oral mucous membranes Eyes PERRL, EOMs intact bilaterally and conjunctivae normal Neck supple, no JVD, thyroid normal and no carotid bruits General: trachea midline Resp normal respiratory effort, no retractions, no use of accessory muscles and clear to auscultation bilaterally Auscultation: Negative for rales, rhonchi or wheezes Cardio regular rate, regular rhythm, S1 normal heart sound, S2 normal heart sound, no murmurs, no rub and no gallops GI normal to inspection, nondistended, normoactive bowel sounds, soft to palpation, non-tender and non-distended Extremity no clubbing, cyanosis or edema Skin no rashes or lesions noted General Skin Exam: no breakdown Neuro oriented x3, CN's II-XII intact bilaterally, moves all extremities, no focal motor deficits and no sensory deficits noted Sensorium / Orientation: awake, alert, oriented to person, oriented to place and oriented to time Speech: speech normal Psych affect normal Assessment & Plan Assessment/Plan (1) Pulmonary emboli: QUALIFIERS: Pulmonary embolism type: other Chronicity: acute Acute cor pulmonale presence: with acute cor pulmonale Qualified Code(s): I26.09 - Other pulmonary embolism with acute cor pulmonale PLAN: Plan 1. Bilateral pulmonary emboli secondary to lung cancer-patient is now on Eliquis #2 elevated troponin-secondary to extensive pulmonary emboli, I do not feel the patient has had a non-STEMI #3 chronic obstructive pulmonary disease-patient is receiving albuterol aerosols as needed, monitor, evaluate, assess, and treat #4 adenocarcinoma of the lung-complicates care, medical course, recovery, and prognosis #5 acute on chronic hypoxic respiratory failure secondary to #1-patient's oxygen will be monitored, oxygen will be weaned if possible, monitor, evaluate, assess, and treat #6 severe acute protein and caloric malnutrition-as evidenced by 9% weight loss x3 weeks and p.o. intake meeting less than 50% of estimated nutritional needs- 120 mL of Ensure Plus high-protein 4 times a day has been added to the patient's diet, Magic cup twice daily with lunch and dinner meals, nutritional services is participating in the patient's care. Total clinical time spent by myself addressing the patient's medical issues, rev iewing all of his data, and collaborating with patient's care team: 35 minutes Charges/Coding Visit Charges Inpatient E&M: 21456 Subs Hosp L2
--- NOTE | 2022-12-17 18:48 | RAD_ITS ---
STUDY: X-RAY CHEST REASON FOR EXAM: Male, 72 years old. hypoxia TECHNIQUE: Single AP portable view of the chest. COMPARISON: 12/14/2022 FINDINGS: No change in the alveolar opacities in the lower right lung and upper left lung consistent with pneumonia. There is no demonstrated pleural abnormality. Normal size heart. Normal mediastinum and minna. Normal visualized pulmonary arteries. There is atherosclerotic tortuosity of the aortic arch and descending thoracic aorta. Normal visualized thoracic spine. Normal visualized ribs, clavicles, and shoulders. There is no demonstrated abnormality of the visualized soft tissue structures of the upper abdomen. RAD/Chest 1 View (Portable) IMPRESSION: No change in bilateral pneumonia. Electronically Signed: Heriberto Melgar MD at 19:05 EDT ,
--- NOTE | 2022-12-17 18:57 | NURSING ---
Reviewed charting with Leela Reed RN
[2022-12-17] MEDS: Famotidine 20 MG Tablet PO (19:49)
[2022-12-17] MEDS: Metoprolol(XL)Succ 25 MG Tablet PO (19:49)
[2022-12-18] VITALS (19 sets, daily range): BP systolic 105–123; BP diastolic 58–88; PULSE 83–91; RESP 14–35; TEMP 36.2–37.3; O2SAT 10–99; BMI 26.9
[2022-12-18 08:46] LABS: Absolute Lymphocyte Count 0.75 X10^3/uL (0.83-4.51); Absolute Neutrophil Count 7.3 X10^3/uL (2.0-7.7); Basophil# 0.05 X10^3/uL; Basophil% 0.6 % (0-1); Eosinophil# 0.01 X10^3/uL; Eosinophils% 0.1 % (0-5); Hematocrit 27.8 % (40-54); Hemoglobin 8.6 g/dL (13.0-16.5); Lymphocyte # 0.75 X10^3/ul (0.83-4.51); Lymphocyte % 8.3 % (19-41); Mean Corp Hgb Conc 30.9 g/dL (32-36); Mean Corpuscular Hgb 29.1 pg (27.0-32.0); Mean Corpuscular Volume 93.9 fL (80-94); Monocyte# 0.84 X10^3/uL; Monocyte% 9.3 % (0-10); NRBC Flagged by Analyzer 0 % (0-5); Neutrophil # 7.31 X10^3/uL (2.7-7.7); POSITIVE MORPHOLOGY YES; Platelet Count 270 K/mm3 (150-450); RBC Distribution Width CV 22.6 % (11.6-14.6); RBC Distribution Width SD 75.6 fl (35.1-43.9); Red Blood Count 2.96 M/mm3 (4.6-6.2)
[2022-12-18 08:49] LABS: Differential Indicated SCAN CRITERIA MET
--- NOTE | 2022-12-18 09:15 | CASEMGMT ---
Social Work Pt is on 12LPM of O2, it is anticipated pt will be here through the weekend. SW to follow up next week, and precert will be started for pt to go to TCU when ready. CIARA Escobar
[2022-12-18 09:30] LABS: Anisocytosis 2+
--- NOTE | 2022-12-18 09:33 | CASEMGMT ---
Social Work Power of coat tailor for healthcare scanned into [employer], pt's niece Geena Khan is pt's healthcare POA. Living will provision initialed in POA for healthcare document. CIARA Escobar
[2022-12-18] MEDS: APIXABAN 5 MG TABLET 10 MG PO ×2 (10:03→21:34)
[2022-12-18] MEDS: amLODIPine 5 MG Tablet PO (10:04)
[2022-12-18] MEDS: Metoprolol(XL)Succ 25 MG Tablet PO (10:04)
[2022-12-18] MEDS: guaiFENesin 1,200 MG Tablet 1200 MG PO ×2 (10:04→21:34)
[2022-12-18] MEDS: Furosemide 20 MG/2 ML VIAL IV ×2 (10:04→14:03)
[2022-12-18] MEDS: 0.9% Saline Lock 10 ML Syringe IV ×2 (10:05→14:03)
[2022-12-18] MEDS: Ensure Plus High Protein 120 ML LIQUID PO (10:11)
[2022-12-18] MEDS: Ipratropium/Albuterol Sulfate 3 ML AMPUL.NEB INHALATION ×2 (14:02→19:36)
--- NOTE | 2022-12-18 17:04 | PN.HOSP_ITS ---
Reason for Visit Reason for Visit: Diagnoses Other pulmonary embolism with acute cor pulmonale (12/15/22) Chronic obstructive pulmonary disease, unspecified (12/15/22) Acute respiratory failure with hypoxia (12/15/22) Other specified abnormalities of plasma proteins (12/15/22) Subjective Subjective Patient was seen and examined today, he is still requiring high flow oxygen at this time, I have elected to give him Lasix today to attempt to improve his oxygenation if he could be fluid overloaded. I talked briefly with pulmonary medicine about his care. Objective Data Objective Data Vital Signs: Vital Signs Temp Pulse Resp BP Pulse Ox O2 Del Method O2 Flow Rate 98.1 F 86 24 H 123/69 H 99 High Flow 10 12/18/22 14:00 12/18/22 14:02 12/18/22 14:02 12/18/22 14:00 12/18/22 14:00 12/18/22 14:10 12/18/22 14:10 FiO2 30 12/17/22 19:30 Oxygen Flow Rate (L/min) 10 Oxygen Delivery Method High Flow Weight: 69 kg Body Mass Index (BMI) 26.9 Intake & Output: Intake and Output for Last 24 Hours 12/16/22 12/17/22 12/18/22 23:59 23:59 23:59 Intake Total 587.2 / 587.2 237.8 / 237.8 120 / 120 Output Total 450 / 450 200 / 200 400 / 400 Balance 137.2 / 137.2 37.8 / 37.8 -280 / -280 Medical Nutrition Assessment Dietitian: Malnutrition Criteria Met Start: 12/15/22 14:20 Freq: Status: Active Protocol: Document 12/15/22 14:20 RMA (Rec: 12/15/22 14:20 RMA [id number]) Nutrition Malnutrition Evidence of Malnutrition Exists Yes Malnutrition (severe): Acute Illness/Injury Evidenced By Suboptimal Energy Intake ( Severe),Weight Loss (Severe) Clinical Problem Acute Disease or Injury Related Malnutrition Etiology 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 Will add 120mL ensure plus high protein 4 times per day w / medpass. Will add magic cup BID w/ lunch and dinner meals. Lab / Micro Data 12/18/22 08:25 12/16/22 03:56 Labs: Laboratory Results - last 24 hr 12/18/22 08:25: WBC 9.0, RBC 2.96 L, Hgb 8.6 L, Hct 27.8 L, MCV 93.9, MCH 29.1, MCHC 30.9 L, RDW Std Deviation 75.6 H, RDW Coeff of Tone 22.6 H, Plt Count 270, MPV 10.0, Immature Gran % (Auto) 0.700, Neut % (Auto) 81.0 H, Lymph % (Auto) 8.3 L, [place] % (Auto) 9.3, Eos % (Auto) 0.1, Baso % (Auto) 0.6, Absolute Neuts (auto) 7.3, Absolute Lymphs (auto) 0.75 L, Nucleated RBC % 0, Anisocytosis 2+ Micro: Microbiology 12/15/22 00:15 Blood Culture (Wb) - Anticubital Left Blood Culture - Preliminary No growth in 48 hours. 12/14/22 22:20 Blood Culture (Wb) - Anticubital Left Blood Culture - Preliminary No growth in 48 hours. 12/14/22 22:20 Nasal Secretion SARS-CoV-2 & FLU Antigen (Rapid) - Final Radiography Diagnostic Testing: Radiology Impression Chest X-Ray 12/17/22 18:48 IMPRESSION: No change in bilateral pneumonia. Electronically Signed: Heriberto Melgar MD at 19:05 EDT , Physical Exam Narrative alert, oriented x3, no apparent distress and average body habitus General Appearance: cooperative, well kempt and well developed Orientation / Consciousness: awake, oriented to person, oriented to place and oriented to time HEENT normocephalic, head/scalp atraumatic and moist oral mucous membranes Eyes PERRL, EOMs intact bilaterally and conjunctivae normal Neck supple, no JVD, thyroid normal and no carotid bruits General: trachea midline Resp normal respiratory effort, no retractions, no use of accessory muscles and clear to auscultation bilaterally Auscultation: Negative for rales, rhonchi or wheezes Cardio regular rate, regular rhythm, S1 normal heart sound, S2 normal heart sound, no murmurs, no rub and no gallops GI normal to inspection, nondistended, normoactive bowel sounds, soft to palpation, non-tender and non-distended Extremity no clubbing, cyanosis or edema Skin no rashes or lesions noted General Skin Exam: no breakdown Neuro oriented x3, CN's II-XII intact bilaterally, moves all extremities, no focal motor deficits and no sensory deficits noted Sensorium / Orientation: awake, alert, oriented to person, oriented to place and oriented to time Speech: speech normal Psych affect normal Assessment & Plan Assessment/Plan (1) Pulmonary emboli: QUALIFIERS: Pulmonary embolism type: other Chronicity: acute Acute cor pulmonale presence: with acute cor pulmonale Qualified Code(s): I26.09 - Other pulmonary embolism with acute cor pulmonale PLAN: Plan 1. Bilateral pulmonary emboli secondary to lung cancer-patient is now on Eliquis #2 elevated troponin-secondary to extensive pulmonary emboli, I do not feel the patient has had a non-STEMI #3 chronic obstructive pulmonary disease-patient is receiving albuterol aerosols as needed, monitor, evaluate, assess, and treat #4 adenocarcinoma of the lung-complicates care, medical course, recovery, and prognosis #5 acute on chronic hypoxic respiratory failure secondary to #1-patient's oxygen will be monitored, oxygen will be weaned if possible, monitor, evaluate, assess, and treat. I have elected to give the patient Lasix today in an attempt to improve his oxygenation in case he is fluid overloaded. #6 severe acute protein and caloric malnutrition-as evidenced by 9% weight loss x3 weeks and p.o. intake meeting less than 50% of estimated nutritional needs- 120 mL of Ensure Plus high-protein 4 times a day has been added to the patient's diet, Magic cup twice daily with lunch and dinner meals, nutritional services is participating in the patient's care. Total clinical time spent by myself addressing the patient's medical issues, reviewing all of his data, and collaborating with patient's care team: 35 [email or web address] omar Charges/Coding Visit Charges Inpatient E&M: 18947 Subs Hosp L2
[2022-12-18] MEDS: Famotidine 20 MG Tablet PO (21:33)
--- NOTE | 2022-12-18 23:54 | CPS ---
pt did not want bipap at this time
[2022-12-19] VITALS (21 sets, daily range): BP systolic 83–117; BP diastolic 54–74; PULSE 77–93; RESP 20–36; TEMP 36.6–37.1; O2SAT 89–100; BMI 25.8
[2022-12-19] MEDS: Ipratropium/Albuterol Sulfate 3 ML AMPUL.NEB INHALATION ×4 (01:23→19:34)
[2022-12-19] MEDS: HYDROcodone Bitartrate/Apap 5/325 Tablet PO (01:28)
[2022-12-19] MEDS: APIXABAN 5 MG TABLET 10 MG PO ×2 (10:57→21:09)
[2022-12-19] MEDS: guaiFENesin 1,200 MG Tablet 1200 MG PO ×2 (10:57→21:08)
[2022-12-19] MEDS: Ensure Plus High Protein 120 ML LIQUID PO (18:36)
--- NOTE | 2022-12-19 19:24 | PN.HOSP_ITS ---
Reason for Visit Reason for Visit: Diagnoses Other pulmonary embolism with acute cor pulmonale (12/15/22) Chronic obstructive pulmonary disease, unspecified (12/15/22) Acute respiratory failure with hypoxia (12/15/22) Other specified abnormalities of plasma proteins (12/15/22) Subjective Subjective Patient was seen and examined today, he does complain of nonproductive cough, at the present time he is on 5 L of oxygen via nasal cannula. Objective Data Objective Data Vital Signs: Vital Signs Temp Pulse Resp BP Pulse Ox O2 Del Method O2 Flow Rate 98.8 F 82 21 H 114/74 95 High Flow 8 12/19/22 15:00 12/19/22 15:00 12/19/22 15:00 12/19/22 15:00 12/19/22 15:13 12/19/22 15:07 12/19/22 15:13 FiO2 30 12/17/22 19:30 Oxygen Flow Rate (L/min) 8 Oxygen Delivery Method High Flow Weight: 66.1 kg Body Mass Index (BMI) 25.8 Intake & Output: Intake and Output for Last 24 Hours 12/17/22 12/18/22 12/19/22 23:59 23:59 23:59 Intake Total 237.8 / 237.8 360 / 360 480 / 480 Output Total 200 / 200 1350 / 1350 550 / 550 Balance 37.8 / 37.8 -990 / -990 -70 / -70 Medical Nutrition Assessment Dietitian: Malnutrition Criteria Met Start: 12/15/22 14:20 Freq: Status: Active Protocol: Document 12/15/22 14:20 RMA (Rec: 12/15/22 14:20 RMA [id number]) Nutrition Malnutrition Evidence of Malnutrition Exists Yes Malnutrition (severe): Acute Illness/Injury Evidenced By Suboptimal Energy Intake ( Severe),Weight Loss (Severe) Clinical Problem Acute Disease or Injury Related Malnutrition Etiology 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 Will add 120mL ensure plus high protein 4 times per day w / medpass. Will add magic cup BID w/ lunch and dinner meals. Lab / Micro Data 12/18/22 08:25 12/16/22 03:56 Micro: Microbiology 12/15/22 00:15 Blood Culture (Wb) - Anticubital Left Blood Culture - Preliminary No growth in 48 hours. 12/14/22 22:20 Blood Culture (Wb) - Anticubital Left Blood Culture - Preliminary No growth in 48 hours. 12/14/22 22:20 Nasal Secretion SARS-CoV-2 & FLU Antigen (Rapid) - Final Physical Exam Narrative alert, oriented x3, no apparent distress and average body habitus General Appearance: cooperative, well kempt and well developed Orientation / Consciousness: awake, oriented to person, oriented to place and oriented to time HEENT normocephalic, head/scalp atraumatic and moist oral mucous membranes Eyes PERRL, EOMs intact bilaterally and conjunctivae normal Neck supple, no JVD, thyroid normal and no carotid bruits General: trachea midline Resp normal respiratory effort, no retractions, no use of accessory muscles and clear to auscultation bilaterally Auscultation: Negative for rales, rhonchi or wheezes Cardio regular rate, regular rhythm, S1 normal heart sound, S2 normal heart sound, no murmurs, no rub and no gallops GI normal to inspection, nondistended, normoactive bowel sounds, soft to palpation, non-tender and non-distended Extremity no clubbing, cyanosis or edema Skin no rashes or lesions noted General Skin Exam: no breakdown Neuro oriented x3, CN's II-XII intact bilaterally, moves all extremities, no focal motor deficits and no sensory deficits noted Sensorium / Orientation: awake, alert, oriented to person, oriented to place and oriented to time Speech: speech normal Psych affect normal Assessment & Plan Assessment/Plan (1) Pulmonary emboli: QUALIFIERS: Pulmonary embolism type: other Chronicity: acute Acute cor pulmonale presence: with acute cor pulmonale Qualified Code(s): I26.09 - Other pulmonary embolism with acute cor pulmonale PLAN: Plan 1. Bilateral pulmonary emboli secondary to lung cancer-patient is now on Eliqu is #2 elevated troponin-secondary to extensive pulmonary emboli, I do not feel the patient has had a non-STEMI #3 chronic obstructive pulmonary disease-patient is receiving albuterol aerosols as needed, monitor, evaluate, assess, and treat #4 adenocarcinoma of the lung-complicates care, medical course, recovery, and prognosis #5 acute on chronic hypoxic respiratory failure secondary to #1-patient's oxygen will be monitored, oxygen will be weaned if possible, monitor, evaluate, assess, and treat. I have elected to give the patient Lasix today in an attempt to improve his oxygenation in case he is fluid overloaded. #6 severe acute protein and caloric malnutrition-as evidenced by 9% weight loss x3 weeks and p.o. intake meeting less than 50% of estimated nutritional needs- 120 mL of Ensure Plus high-protein 4 times a day has been added to the patient's diet, Magic cup twice daily with lunch and dinner meals, nutritional services is participating in the patient's care. #7 acute debility-patient is being seen by PT and OT, we will need temporary placement in a assisted facility, approval will not be obtained until early next week. Total clinical time spent by myself addressing the patient's medical issues, reviewing all of his data, and collaborating with patient's care team: 25 minutes Charges/Coding Visit Charges Inpatient E&M: [id number] [facility] Hosp L1
[2022-12-19] MEDS: Famotidine 20 MG Tablet PO (21:08)
[2022-12-20] VITALS (14 sets, daily range): BP systolic 103–119; BP diastolic 61–78; PULSE 76–84; RESP 19–32; TEMP 36.4–36.9; O2SAT 93–100
[2022-12-20] MEDS: Ipratropium/Albuterol Sulfate 3 ML AMPUL.NEB INHALATION ×3 (07:20→19:31)
[2022-12-20] MEDS: APIXABAN 5 MG TABLET 10 MG PO ×2 (10:31→22:18)
[2022-12-20] MEDS: Ensure Plus High Protein 120 ML LIQUID PO (10:31)
[2022-12-20] MEDS: guaiFENesin 1,200 MG Tablet 1200 MG PO ×2 (10:31→22:17)
--- NOTE | 2022-12-20 16:04 | PCM.PN.HOSP ---
Reason for Visit Reason for Visit: Diagnoses Other pulmonary embolism with acute cor pulmonale (12/15/22) Chronic obstructive pulmonary disease, unspecified (12/15/22) Acute respiratory failure with hypoxia (12/15/22) Other specified abnormalities of plasma proteins (12/15/22) Subjective Subjective Patient was seen and examined today, he remains on high flow oxygen at 7 L/min. He does not complain of any shortness of breath or chest discomfort. Objective Data Objective Data Vital Signs: Vital Signs Temp Pulse Resp BP Pulse Ox O2 Del Method O2 Flow Rate 98.3 F 84 27 H 103/61 99 High Flow 7 12/20/22 15:15 12/20/22 15:15 12/20/22 15:15 12/20/22 15:15 12/20/22 15:15 12/20/22 15:15 12/20/22 15:15 FiO2 30 12/17/22 19:30 Oxygen Flow Rate (L/min) 7 Oxygen Delivery Method High Flow Weight: 66.1 kg Body Mass Index (BMI) 25.8 Intake & Output: Intake and Output for Last 24 Hours 12/18/22 12/19/22 12/20/22 23:59 23:59 23:59 Intake Total 360 / 360 540 / 540 360 / 360 Output Total 1350 / 1350 650 / 650 300 / 300 Balance -990 / -990 -110 / -110 60 / 60 Medical Nutrition Assessment Dietitian: Malnutrition Criteria Met Start: 12/15/22 14:20 Freq: Status: Active Protocol: Document 12/15/22 14:20 RMA (Rec: 12/15/22 14:20 RMA [id number]) Nutrition Malnutrition Evidence of Malnutrition Exists Yes Malnutrition (severe): Acute Illness/Injury Evidenced By Suboptimal Energy Intake ( Severe),Weight Loss (Severe) Clinical Problem Acute Disease or Injury Related Malnutrition Etiology 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 Will add 120mL ensure plus high protein 4 times per day w / medpass. Will add magic cup BID w/ lunch and dinner meals. Lab / Micro Data 12/18/22 08:25 12/16/22 03:56 Micro: Microbiology 12/15/22 00:15 Blood Culture (Wb) - Anticubital Left Blood Culture - Final No growth in 5 days. 12/14/22 22:20 Blood Culture (Wb) - Anticubital Left Blood Culture - Final No growth in 5 days. 12/14/22 22:20 Nasal Secretion SARS-CoV-2 & FLU Antigen (Rapid) - Final Physical Exam Narrative alert, oriented x3, no apparent distress and average body habitus General Appearance: cooperative, well kempt and well developed Orientation / Consciousness: awake, oriented to person, oriented to place and oriented to time HEENT normocephalic, head/scalp atraumatic and moist oral mucous membranes Eyes PERRL, EOMs intact bilaterally and conjunctivae normal Neck supple, no JVD, thyroid normal and no carotid bruits General: trachea midline Resp normal respiratory effort, no retractions, no use of accessory muscles and clear to auscultation bilaterally Auscultation: Negative for rales, rhonchi or wheezes Cardio regular rate, regular rhythm, S1 normal heart sound, S2 normal heart sound, no murmurs, no rub and no gallops GI normal to inspection, nondistended, normoactive bowel sounds, soft to palpation, non-tender and non-distended Extremity no clubbing, cyanosis or edema Skin no rashes or lesions noted General Skin Exam: no breakdown Neuro oriented x3, CN's II-XII intact bilaterally, moves all extremities, no focal motor deficits and no sensory deficits noted Sensorium / Orientation: awake, alert, oriented to person, oriented to place and oriented to time Speech: speech normal Psych affect normal Assessment & Plan Assessment/Plan (1) Pulmonary emboli: QUALIFIERS: Pulmonary embolism type: other Chronicity: acute Acute cor pulmonale presence: with acute cor pulmonale Qualified Code(s): I26.09 - Other pulmonary embolism with acute cor pulmonale PLAN: Plan 1. Bilateral pulmonary emboli secondary to lung cancer-patient is now on Eliquis #2 elevated troponin-secondary to extensive pulmonary emboli, I do not feel the patient has had a non-STEMI #3 chronic obstructive pulmonary disease-patient is receiving albuterol aerosols as needed, monitor, evaluate, assess, and treat #4 adenocarcinoma of the lung-complicates care, medical course, recovery, and prognosis #5 acute on chronic hypoxic respiratory failure secondary to #1-patient's oxygen will be monitored, oxygen will be weaned if possible, monitor, evaluate, assess, and treat. Patient is on aerosol treatments at this time, I will add budesonide aerosols. Starting tomorrow morning, I will place the patient on Lasix 40 mg daily to see if this will improve his oxygenation. #6 severe acute protein and caloric malnutrition-as evidenced by 9% weight loss x3 weeks and p.o. intake meeting less than 50% of estimated nutritional needs-120 mL of Ensure Plus high-protein 4 times a day has been added to the patient's diet, Magic cup twice daily with lunch and dinner meals, nutritional services is participating in the patient's care. #7 acute debility-patient is being seen by PT and OT, we will need temporary placement in a long term facility, approval will not be obtained until early this next week. Total clinical time spent by myself addressing the patient's medical issues, reviewing all of his data, and collaborating with patient's care team: 35 minutes Charges/Coding Visit Charges Inpatient E&M: 42865 Subs Hosp L2
[2022-12-20] MEDS: guaiFENesin Dm 10 ML UDC PO (17:51)
[2022-12-20] MEDS: Budesonide Respules 0.5 MG/2 ML AMPUL.NEB. INHALATION (19:31)
[2022-12-20] MEDS: Metoprolol(XL)Succ 25 MG Tablet PO (22:17)
[2022-12-20] MEDS: Famotidine 20 MG Tablet PO (22:18)
[2022-12-21] VITALS (14 sets, daily range): BP systolic 109–131; BP diastolic 68–95; PULSE 67–82; RESP 19–33; TEMP 36.4–36.6; O2SAT 86–100; BMI 25.9
[2022-12-21] MEDS: guaiFENesin Dm 10 ML UDC PO (00:28)
[2022-12-21] MEDS: Ipratropium/Albuterol Sulfate 3 ML AMPUL.NEB INHALATION ×3 (07:42→19:02)
[2022-12-21] MEDS: Budesonide Respules 0.5 MG/2 ML AMPUL.NEB. INHALATION ×2 (07:42→19:02)
[2022-12-21] MEDS: APIXABAN 5 MG TABLET 10 MG PO ×2 (09:36→22:05)
[2022-12-21] MEDS: Menthol/Lanolin/Calamine/Znox 113 GM Tube 1 APPLIC TOPICAL ×2 (09:36→22:04)
[2022-12-21] MEDS: 0.9% Saline Lock 10 ML Syringe IV (09:37)
[2022-12-21] MEDS: guaiFENesin 1,200 MG Tablet 1200 MG PO ×2 (09:37→22:05)
[2022-12-21] MEDS: Metoprolol(XL)Succ 25 MG Tablet PO ×2 (09:37→22:06)
[2022-12-21] MEDS: amLODIPine 5 MG Tablet PO (09:37)
[2022-12-21] MEDS: Furosemide 40 MG Tablet PO (09:37)
[2022-12-21] MEDS: Potassium Chloride Oral Tablet 20 MEQ PO (10:47)
[2022-12-21] MEDS: Ensure Plus High Protein 120 ML LIQUID PO (12:19)
--- NOTE | 2022-12-21 18:22 | PN.HOSP_ITS ---
Reason for Visit Reason for Visit: Diagnoses Other pulmonary embolism with acute cor pulmonale (12/15/22) Chronic obstructive pulmonary disease, unspecified (12/15/22) Acute respiratory failure with hypoxia (12/15/22) Other specified abnormalities of plasma proteins (12/15/22) Subjective Subjective Patient was seen and examined today, he is currently on 6 L of oxygen via nasal cannula at this time. Patient seems mildly confused at times during my visit today and did not have his oxygen in his nose. Objective Data Objective Data Vital Signs: Vital Signs Temp Pulse Resp BP Pulse Ox O2 Del Method O2 Flow Rate 97.5 F L 77 21 H 113/77 98 Nasal Cannula 6 12/21/22 15:48 12/21/22 15:48 12/21/22 15:48 12/21/22 15:48 12/21/22 15:48 12/21/22 15:48 12/21/22 15:48 FiO2 30 12/17/22 19:30 Oxygen Flow Rate (L/min) 6 Oxygen Delivery Method Nasal Cannula Weight: 66.451 kg Body Mass Index (BMI) 25.9 Intake & Output: Intake and Output for Last 24 Hours 12/19/22 12/20/22 12/21/22 23:59 23:59 23:59 Intake Total 540 / 540 600 / 600 730 / 730 Output Total 650 / 650 950 / 950 350 / 350 Balance -110 / -110 -350 / -350 380 / 380 Medical Nutrition Assessment Dietitian: Malnutrition Criteria Met Start: 12/15/22 14:20 Freq: Status: Active Protocol: Document 12/15/22 14:20 RMA (Rec: 12/15/22 14:20 RMA [id number]) Nutrition Malnutrition Evidence of Malnutrition Exists Yes Malnutrition (severe): Acute Illness/Injury Evidenced By Suboptimal Energy Intake ( Severe),Weight Loss (Severe) Clinical Problem Acute Disease or Injury Related Malnutrition Etiology 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 Will add 120mL ensure plus high protein 4 times per day w / medpass. Will add magic cup BID w/ lunch and dinner meals. Lab / Micro Data 12/18/22 08:25 12/16/22 03:56 Micro: Microbiology 12/15/22 00:15 Blood Culture (Wb) - Anticubital Left Blood Culture - Final No growth in 5 days. 12/14/22 22:20 Blood Culture (Wb) - Anticubital Left Blood Culture - Final No growth in 5 days. 12/14/22 22:20 Nasal Secretion SARS-CoV-2 & FLU Antigen (Rapid) - Final Physical Exam Narrative alert, oriented x3, no apparent distress and average body habitus, patient appears frail General Appearance: cooperative, well kempt and well developed Orientation / Consciousness: awake, oriented to person, oriented to place and oriented to time HEENT normocephalic, head/scalp atraumatic and moist oral mucous membranes Eyes PERRL, EOMs intact bilaterally and conjunctivae normal Neck supple, no JVD, thyroid normal and no carotid bruits General: trachea midline Resp normal respiratory effort, no retractions, no use of accessory muscles and clear to auscultation bilaterally Auscultation: Negative for rales, rhonchi or wheezes Cardio regular rate, regular rhythm, S1 normal heart sound, S2 normal heart sound, no murmurs, no rub and no gallops GI normal to inspection, nondistended, normoactive bowel sounds, soft to palpation, non-tender and non-distended Extremity no clubbing, cyanosis or edema Skin no rashes or lesions noted General Skin Exam: no breakdown Neuro oriented x3, CN's II-XII intact bilaterally, moves all extremities, no focal motor deficits and no sensory deficits noted Sensorium / Orientation: awake, alert, oriented to person, oriented to place and oriented to time Speech: speech normal Psych affect normal Assessment & Plan Assessment/Plan (1) Pulmonary emboli: QUALIFIERS: Pulmonary embolism type: other Chronicity: acute Acute cor pulmonale presence: with acute cor pulmonale Qualified Code(s): I26.09 - Other pulmonary embolism with acute cor pulmonale PLAN: Plan 1. Bilateral pulmonary emboli secondary to lung cancer-patient is now on Eliquis #2 elevated troponin-secondary to extensive pulmonary emboli, I do not feel the patient has had a non-STEMI #3 chronic obstructive pulmonary disease-patient is receiving albuterol aerosols as needed, monitor, evaluate, assess, and treat #4 adenocarcinoma of the lung-complicates care, medical course, recovery, and prognosis #5 acute on chronic hypoxic respiratory failure secondary to #1-patient's oxygen will be monitored, oxygen will be weaned if possible, monitor, evaluate, assess, and treat. Patient is on aerosol treatments with DuoNeb, budesonide aerosols, and p.o. Lasix in an attempt to improve his oxygenation. #6 severe acute protein and caloric malnutrition-as evidenced by 9% weight loss x3 weeks and p.o. intake meeting less than 50% of estimated nutritional needs- 120 mL of Ensure Plus high-protein 4 times a day has been added to the patient's diet, Magic cup twice daily with lunch and dinner meals, nutritional services is participating in the patient's care. #7 acute debility-patient is being seen by PT and OT, we will need temporary placement in a senior living facility, approval will not be obtained until early this next week. Total clinical time spent by myself addressing the patient's medical issues, reviewing all of his data, and collaborating with patient's care team: 35 minutes Charges/Coding Visit Charges Inpatient E&M: 45897 Subs Hosp L2
--- NOTE | 2022-12-21 20:12 | CPS ---
Pt refused PAP therapy
[2022-12-21] MEDS: Famotidine 20 MG Tablet PO (22:13)
[2022-12-22] VITALS (10 sets, daily range): BP systolic 93–110; BP diastolic 58–70; PULSE 70–80; RESP 16–28; TEMP 36.1–37; O2SAT 94–99; BMI 26.4
[2022-12-22] MEDS: Ipratropium/Albuterol Sulfate 3 ML AMPUL.NEB INHALATION ×3 (00:01→13:05)
[2022-12-22 07:02] LABS: Absolute Neutrophil Count 2.7 X10^3/uL (2.0-7.7); Basophil# 0.05 X10^3/uL; Basophil% 1.3 % (0-1); Eosinophil# 0.17 X10^3/uL; Eosinophils% 4.3 % (0-5); Hematocrit 24.9 % (40-54); Hemoglobin 7.5 g/dL (13.0-16.5); Lymphocyte % 12.5 % (19-41); Mean Corp Hgb Conc 30.1 g/dL (32-36); Mean Corpuscular Hgb 27.4 pg (27.0-32.0); Mean Corpuscular Volume 90.9 fL (80-94); Mean Platelet Vol. 10.2 fl (6.2-12.0); Monocyte# 0.54 X10^3/uL; Monocyte% 13.5 % (0-10); NRBC Flagged by Analyzer 0 % (0-5); Neutrophil % 67.4 % (47-70); POSITIVE DIFFERENTIAL YES; POSITIVE MORPHOLOGY YES; Platelet Count 238 K/mm3 (150-450); RBC Distribution Width CV 20.3 % (11.6-14.6); RBC Distribution Width SD 66.2 fl (35.1-43.9); Red Blood Count 2.74 M/mm3 (4.6-6.2)
[2022-12-22 07:04] LABS: Differential Indicated SCAN CRITERIA MET
[2022-12-22] MEDS: Budesonide Respules 0.5 MG/2 ML AMPUL.NEB. INHALATION (07:19)
[2022-12-22 07:49] LABS: Anion Gap 8 (5-15); BUN 24 mg/dL (7-18); BUN/Creat Ratio 35.9 RATIO (10-20); Chloride 104 mmol/L (98-107); Creatinine, Serum 0.67 mg/dL (0.70-1.30); EST Glomerular Filtration Rate 125 mL/min (>60); Est Glom Filt Rate - Afr Amer 151 mL/min (>60); Estimated Creatinine Clearance 55.32 ml/min; Glucose 117 mg/dL (74-106); Potassium 3.4 mmol/L (3.5-5.1); Sodium Level 132 mmol/L (136-145)
[2022-12-22 07:52] LABS: Anisocytosis 1+
[2022-12-22] MEDS: APIXABAN 5 MG TABLET 10 MG PO (08:38)
[2022-12-22] MEDS: Furosemide 40 MG Tablet PO (08:38)
[2022-12-22] MEDS: Menthol/Lanolin/Calamine/Znox 113 GM Tube 1 APPLIC TOPICAL (08:38)
[2022-12-22] MEDS: guaiFENesin 1,200 MG Tablet 1200 MG PO (08:38)
[2022-12-22] MEDS: Potassium Chloride Oral Tablet 20 MEQ PO (08:38)
--- NOTE | 2022-12-22 11:27 | CASEMGMT ---
Social Work Discharge Planning Update Spoke with Merlene in [facility]. Precert is being started with insurance. PLAN: [facility] pending precertification. -ELEANOR Medellin
--- NOTE | 2022-12-22 14:48 | PCM.TXEXTCAR ---
Diet Diet Order/Speech Therapy: 12/15/22 14:21 Diet: Regular - No Added Salt Food consistency:: Regular Liquid Consistency:: Regular/Thin Type of Dietary Supplement:: Ensure Pudding w/ L and D Diet Comments: [id number] meat; gravy is ok; no turkey; likes eggs Routine Orders/Code Status Routine Lab Work: CBC (on 12/24/22) and BMP (on 12/24/22) Code Status: Full Code Wound(s) L elbow: Wound Type: Skin Tear R buttock cheek: Wound Type: Pressure Injury R elbow: Wound Type: Skin Tear Therapies Weight Bearing: Full weight bearing Physical Therapy: Eval and Treat Occupational Therapy: Eval and Treat Problem/Diagnosis (1) Pulmonary emboli: Status: Acute Code(s): I26.99 - Other pulmonary embolism without acute cor pulmonale (2) Lung cancer: Status: Acute Code(s): C34.90 - Malignant neoplasm of unspecified part of unspecified bronchus or lung Plan 1. Bilateral pulmonary emboli secondary to lung cancer-patient is now on Eliquis #2 elevated troponin-secondary to extensive pulmonary emboli, I do not feel the patient has had a non-STEMI #3 chronic obstructive pulmonary disease-patient is receiving albuterol aerosols as needed, monitor, evaluate, assess, and treat #4 adenocarcinoma of the lung-complicates care, medical course, recovery, and prognosis #5 acute on chronic hypoxic respiratory failure secondary to #1-patient's oxygen will be monitored, oxygen will be weaned if possible, monitor, evaluate, assess, and treat. Patient is on aerosol treatments with DuoNeb, budesonide aerosols, and p.o. Lasix in an attempt to improve his oxygenation. #6 severe acute protein and caloric malnutrition-as evidenced by 9% weight loss x3 weeks and p.o. intake meeting less than 50% of estimated nutritional needs-120 mL of Ensure Plus high-protein 4 times a day has been added to the patient's diet, Magic cup twice daily with lunch and dinner meals, nutritional services is participating in the patient's care. #7 acute debility-patient is being seen by PT and OT, we will need [facility], approval will not be obtained until early this next week. #8 Anemia-chronic in nature, Hb 7.5 today, recheck CBC in 48 hrs Total clinical time spent by myself addressing the patient's medical issues, reviewing all of his data, and collaborating with patient's care team: 35 minutes Allergies/Procedures Done in Hospital Allergies acetaminophen [From Tylenol] Allergy (Unknown, Verified 12/14/22 20:42) increased white count Procedures: 2-D Echocardiogram Type of Care/Length of Stay Estimated LOS: Convalescent Care Less Than 30 days Type of Care Needed: Skilled Rehab Potential: Good Prognosis: Good Additional Orders/Day of Discharge H&P will serve as current which was dated: 12/14/22 Day of Discharge: 12/22/22 Dietary and Speech Recommendations Dietitian Recommendations/Changes: Continue liberalize regular/no added salt diet and encourage PO at meals. Will change magic cup BID w/ lunch and dinner meals to ensure pudding per pt request. Pt refusing 120mL ensure plus 4 times per day w/ medpass--will d/c per pt request. Pt requesting [id number] meats and gravy is ok if needed. Discharge Plan Admission Admit Date/Time: 12/15/22 01:03 Primary Reason for Your Visit: PE, respiratory failure Attending Provider: Cam Mcadams Primary Care Provider: Gera Camp Consulting Providers: [employer] Velasquez; Ck Mcbride Discharge Orders/Prescriptions Prescriptions: New furosemide 40 mg Tablet 40 mg PO DAILY Qty: 0 0RF hydrocodone-acetaminophen 5-325 mg Tablet 1 tab PO Q6H PRN PRN (Reason: Pain Score 1-10) 2 Days Qty: 6 0RF Eliquis 5 mg Tablet 10 mg PO BID Qty: 1 0RF Rx Instructions: two twice a day for a total of 6 pills, then one twice a day starting 12/24/22 sennosides-docusate sodium [Stool Softener-Stimulant Laxat] 8.6-50 mg Tablet 2 tab PO BID PRN PRN (Reason: Constipation) Qty: 0 0RF melatonin 3 mg Tablet 3 mg PO QHS PRN PRN (Reason: Insomnia) Qty: 0 0RF potassium chloride [Klor-Con M20] 20 mEq Tablet,Er Particles/Crystals 20 meq PO BID Qty: 0 0RF Deep Sea Nasal 0.65 % Aerosol,[place] 1 spray NASAL Q4H PRN PRN (Reason: NASAL DRYNESS) Qty: 0 0RF Continued Mucus Relief ER 1,200 mg Tablet Extended Release 12hr 1,200 mg PO BID Qty: 0 0RF ipratropium-albuterol 0.5 mg-3 mg(2.5 mg base)/3 mL Solution For Nebulization 3 ml inhalation Q6HWA.RT 30 Days Qty: 360 0RF albuterol sulfate 2.5 mg /3 mL (0.083 %) Solution For Nebulization 2.5 mg inhalation Q2H PRN PRN (Reason: Shortness of Breath/Wheezing) 30 Days Qty: 360 0RF pantoprazole 40 mg Tablet,Delayed Release (Dr/Ec) 40 mg PO DAILY 30 Days Qty: 30 0RF budesonide 0.5 mg/2 mL Suspension For Nebulization 0.5 mg inhalation BID.RT 30 Days Qty: 120 0RF metoprolol succinate 25 mg Tablet Extended Release 24 Hr 25 mg PO BID 30 Days Qty: 60 0RF Deep Sea Nasal 0.65 % Aerosol,[place] 2 spray NASAL TID PRN PRN (Reason: NASAL DRYNESS) Qty: 0 0RF amlodipine 5 mg tablet 5 mg PO DAILY Discontinued famotidine 20 mg tablet 20 mg PO QHS potassium chloride [Klor-Con M20] 20 mEq Tablet,Er Particles/Crystals 40 meq PO BIDCM 30 Days Qty: 120 0RF Referrals / Follow Up: Gera Camp MD [Primary Care Provider] - Disposition Disposition (needs filled in before D/C Order can be placed): Care Home Facility (1) Pulmonary emboli Qualifiers: Pulmonary embolism type: other Chronicity: acute Acute cor pulmonale presence: with acute cor pulmonale Qualified Code(s): I26.09 - Other pulmonary embolism with acute cor pulmonale
--- NOTE | 2022-12-22 15:00 | CASEMGMT ---
Social Work Spoke with Merlene who reports to have received precert back for TCU. Met with patient to update. Supportive listening offered. Patient expressed worry about whether patient will be able to get help with [facility]. Educated patient there are assistance cards patient may be eligible for and will handoff to SW on the TCU to follow up with patient. Patient expresses agreement for this creative services writer to call patient's sister to update to plan for TCU today. Called patient's sister to update. Patient's sister expressed much appreciation for help. Worked with discharge planning coordinator who faxed transfer orders to TCU for cntinuity of care. PLAN: Discharge to [facility] TCU, skilled level of care. -ELEANOR [place]
--- NOTE | 2022-12-22 15:01 | PCM.DC.SUM ---
Providers Date of Admission: 12/15/22 Date of Discharge: 12/22/22 Primary Care Physician: Dr. Gera Camp MD Consultations 12/15/22 02:00 Consult: Rn Homecare / Pulmonary Medicine Routine Consulting Provider: Ck Mcbride Reason for Consult: Multiple bilateral moderate PE EMERGENT Consult: No MD Notified: Yes Date Notified: 12/15/22 Time Notified: 01:18 Method of Notification: Text Reason For Visit: PULMONARY EMBOLI, RESP FAILURE Diagnosis Discharge Diagnosis (1) Pulmonary emboli: Status: Acute Code(s): I26.99 - Other pulmonary embolism without acute cor pulmonale Qualifiers: Acute cor pulmonale presence: with acute cor pulmonale Chronicity: acute Pulmonary embolism type: other Qualified Code(s): I26.09 - Other pulmonary embolism with acute cor pulmonale (2) Lung cancer: Status: Acute Code(s): C34.90 - Malignant neoplasm of unspecified part of unspecified bronchus or lung Plan 1. Bilateral pulmonary emboli secondary to lung cancer-patient is now on Eliquis #2 elevated troponin-secondary to extensive pulmonary emboli, I do not feel the patient has had a non-STEMI #3 chronic obstructive pulmonary disease-patient is receiving albuterol aerosols as needed, monitor, evaluate, assess, and treat #4 adenocarcinoma of the lung-complicates care, medical course, recovery, and prognosis #5 acute on chronic hypoxic respiratory failure secondary to #1-patient's oxygen will be monitored, oxygen will be weaned if possible, monitor, evaluate, assess, and treat. Patient is on aerosol treatments with DuoNeb, budesonide aerosols, and p.o. Lasix in an attempt to improve his oxygenation. #6 severe acute protein and caloric malnutrition-as evidenced by 9% weight loss x3 weeks and p.o. intake meeting less than 50% of estimated nutritional needs-120 mL of Ensure Plus high-protein 4 times a day has been added to the patient's diet, Magic cup twice daily with lunch and dinner meals, nutritional services is participating in the patient's care. #7 acute debility-patient is being seen by PT and OT, we will need temporary placement in a prison facility, approval will not be obtained until early this next week. #8 Anemia-chronic in nature, Hb 7.5 today, recheck CBC in 48 hrs Total clinical time spent by myself addressing the patient's medical issues, reviewing all of his data, and collaborating with patient's care team: 35 minutes Medications at Discharge Home Medications guaifenesin 1,200 mg tablet, extended release 12 hr (Mucus Relief ER) 1,200 mg PO BID Mucus Relief #0 tabs 12/02/22 albuterol sulfate 2.5 mg/3 mL (0.083 %) solution for nebulization 2.5 mg (3 mL) inhalation Q2H PRN PRN Shortness of Breath/Wheezing 30 days #360 mL 12/12/22 budesonide 0.5 mg/2 mL suspension for nebulization 0.5 mg (2 mL) inhalation BID.RT COPD 30 days #120 mL 12/12/22 ipratropium 0.5 mg-albuterol 3 mg (2.5 mg base)/3 mL nebulization soln 3 ml inhalation Q6HWA.RT lungs 30 days #360 mL 12/12/22 metoprolol succinate 25 mg tablet,extended release 24 hr 25 mg PO BID BP 30 days #60 tabs 12/12/22 pantoprazole 40 mg tablet,delayed release 40 mg PO DAILY acid reflux 30 days #30 tabs 12/12/22 sodium chloride 0.65 % nasal spray aerosol (Deep Sea Nasal) 2 spray NASAL TID PRN PRN NASAL DRYNESS #0 mL 12/12/22 amlodipine 5 mg tablet 5 mg PO DAILY heart 12/14/22 apixaban 5 mg tablet (Eliquis) 10 mg (2 x 5 mg) PO BID lung clots #1 TAB 12/22/22 furosemide 40 mg tablet 40 mg PO DAILY swell #0 tabs 12/22/22 hydrocodone-acetaminophen 5-325mg 5mg-325mg 1 tab PO Q6H PRN PRN Pain Score 1-10 2 days #6 tabs 12/22/22 melatonin 3 mg tablet 3 mg PO QHS PRN PRN Insomnia #0 tabs 12/22/22 potassium chloride 20 mEq tablet,extended release(part/cryst) (Klor-Con M) 20 meq PO BID supplement #0 tabs 12/22/22 sennosides 8.6 mg-docusate sodium 50 mg tablet (Stool Softener-Stimulant Laxative) 2 tab PO BID PRN PRN Constipation #0 tabs 12/22/22 sodium chloride 0.65 % nasal spray aerosol (Deep Sea Nasal) 1 spray NASAL Q4H PRN PRN NASAL DRYNESS #0 mL 12/22/22 Hospital Course Operations None Procedures 2-D Echocardiogram Summary of Care Provided Minutes Spent on Discharge: 33 Hospital Course: This 72-year-old white male was seen in the emergency room at [facility] with chief complaint of shortness of breath, he had recently been released from the transitional care unit after undergoing skilled care and was at home on home O2. Work-up in the emergency room included a CT of the chest which showed evidence of pulmonary emboli, patient required 15 L via nonrebreather to maintain his pulse ox above 90%. Patient was admitted to the ICU, he was placed on a heparin drip, and he was seen in consultation by critical care. Patient's oxygenation somewhat improved during his first day in ICU and he was subsequently transferred the next day to PCU for further care. Patient was transitioned to [facility]. Patient's oxygenation varied on PCU and sometimes he required as many as 10 L of oxygen via nasal cannula, he underwent periodic diuresis and he was placed on aerosol treatments. Patient was seen by PT and OT and it was recommended that he go to an inpatient facility for inpatient skilled services for short time. And the patient consented. Arrangements were made for the patient to go to TCU. On 12/22/2022, patient was seen and examined: On examination he appeared frail. Vital signs as documented. Skin warm and dry and without overt rashes. Neck without JVD, neck was supple, trachea midline, thyroid was normal. Lungs clear bilaterally, normal air movement was noted. Heart exam notable for regular rhythm, normal sounds and absence of murmurs, rubs or gallops. Abdomen unremarkable and without evidence of organomegaly, masses, or abdominal aortic enlargement. Bowel sounds are present, abdomen is not distended. Extremities nonedematous, no cyanosis was noted, no clubbing was noted. Neuro: Cranial nerves II through XII are grossly intact, no focal motor deficits were noted, sensation to light touch and pinprick intact, motor exam 5/5 throughout. Psych: Patient is alert and oriented x3, he does not appear anxious or depressed, he does not appear agitated. Patient appears stable for discharge to TCU on 12/22/2022 in stable condition. Medical Records Data Medical Nutrition Assessment Dietitian: Malnutrition Criteria Met Start: 12/15/22 14:20 Freq: Status: Active Protocol: Document 12/22/22 13:46 RMA (Rec: 12/22/22 13:46 RMA [id number]) Nutrition Malnutrition Evidence of Malnutrition Exists Yes Malnutrition (severe): Acute Illness/Injury Evidenced By Suboptimal Energy Intake ( Severe),Weight Loss (Severe) Clinical Problem Acute Disease or Injury Related Malnutrition Etiology Severe pro-mini malnutrition in the context of acute on chronic disease related to inadequate oral intake and increased energy expenditure/ malignancy Signs/Symptoms as evidenced by 9% weight loss x 3 weeks and PO meeting less than 50% estimated nutrition needs Status Active Problem Recommendation Dietitian Recommendations/Changes Continue liberalize regular/no added salt diet and encourage PO at meals. Will change magic cup BID w/ lunch and dinner meals to ensure pudding per pt request. Pt refusing 120mL ensure plus 4 times per day w/ medpass-- will d/c per pt request. Pt requesting [id number] meats and gravy is ok if needed. Weight / BMI Weight Weight: 67.7 kg Body Mass Index (BMI) 26.4 ABG / Lab / Microbiology Data 12/22/22 06:35 12/22/22 06:35 Laboratory: Laboratory Results - last 24 hr 12/22/22 06:35: WBC 4.0 L, RBC 2.74 L, Hgb 7.5 L, Hct 24.9 L, MCV 90.9, MCH 27.4, MCHC 30.1 L, RDW Std Deviation 66.2 H, RDW Coeff of Tone 20.3 H, Plt Count 238, MPV 10.2, Immature Gran % (Auto) 1.000 H, Neut % (Auto) 67.4, Lymph % (Auto) 12.5 L, [place] % (Auto) 13.5 H, Eos % (Auto) 4.3, Baso % (Auto) 1.3 H, Absolute Neuts (auto) 2.7, Absolute Lymphs (auto) 0.50 L, Nucleated RBC % 0, Differential Comment COMMENT, Diff Path Review May foll, Anisocytosis 1+, Sodium 132 L, Potassium 3.4 L, Chloride 104, Carbon Dioxide 20.0 L, Anion Gap 8, BUN 24 H, Creatinine 0.67 L, Estim Creat Clear Calc 55.32, Est GFR (MDRD) Af Amer 151, Est GFR (MDRD) Non-Af 125, BUN/Creatinine Ratio 35.9 H, Glucose 117 H, Calcium 9.0 Microbiology: Microbiology 12/15/22 00:15 Blood Culture (Wb) - Anticubital Left Blood Culture - Final No growth in 5 days. 12/14/22 22:20 Blood Culture (Wb) - Anticubital Left Blood Culture - Final No growth in 5 days. 12/14/22 22:20 Nasal Secretion SARS-CoV-2 & FLU Antigen (Rapid) - Final Meaningful Use Info Meaningful Use Diagnoses (Choose all that apply): VTE VTE Anticoag overlap given w/in hospital stay or rx'd at dc?: Yes Pt receive overlap for 5 days?: No Reason overlap not ordered, prescribed, or given for 5 days: Treatment Not Indicated Discharge Plan Admission Admit Date/Time: 12/15/22 01:03 Primary Reason for Your Visit: PE, respiratory failure Attending Provider: Cam Mcadams Primary Care Provider: Gera Camp Consulting Providers: [employer] Velasquez; Ck Mcbride Discharge Orders/Prescriptions Prescriptions: New furosemide 40 mg Tablet 40 mg PO DAILY Qty: 0 0RF hydrocodone-acetaminophen 5-325 mg Tablet 1 tab PO Q6H PRN PRN (Reason: Pain Score 1-10) 2 Days Qty: 6 0RF Eliquis 5 mg Tablet 10 mg PO BID Qty: 1 0RF Rx Instructions: two twice a day for a total of 6 pills, then one twice a day starting 12/24/22 sennosides-docusate sodium [Stool Softener-Stimulant Laxat] 8.6-50 mg Tablet 2 tab PO BID PRN PRN (Reason: Constipation) Qty: 0 0RF melatonin 3 mg Tablet 3 mg PO QHS PRN PRN (Reason: Insomnia) Qty: 0 0RF potassium chloride [Klor-Con M20] 20 mEq Tablet,Er Particles/Crystals 20 meq PO BID Qty: 0 0RF Deep Sea Nasal 0.65 % Aerosol,[place] 1 spray NASAL Q4H PRN PRN (Reason: NASAL DRYNESS) Qty: 0 0RF Continued Mucus Relief ER 1,200 mg Tablet Extended Release 12hr 1,200 mg PO BID Qty: 0 0RF ipratropium-albuterol 0.5 mg-3 mg(2.5 mg base)/3 mL Solution For Nebulization 3 ml inhalation Q6HWA.RT 30 Days Qty: 360 0RF albuterol sulfate 2.5 mg /3 mL (0.083 %) Solution For Nebulization 2.5 mg inhalation Q2H PRN PRN (Reason: Shortness of Breath/Wheezing) 30 Days Qty: 360 0RF pantoprazole 40 mg Tablet,Delayed Release (Dr/Ec) 40 mg PO DAILY 30 Days Qty: 30 0RF budesonide 0.5 mg/2 mL Suspension For Nebulization 0.5 mg inhalation BID.RT 30 Days Qty: 120 0RF metoprolol succinate 25 mg Tablet Extended Release 24 Hr 25 mg PO BID 30 Days Qty: 60 0RF [place] Nasal 0.65 % Aerosol,[place] 2 spray NASAL TID PRN PRN (Reason: NASAL DRYNESS) Qty: 0 0RF amlodipine 5 mg tablet 5 mg PO DAILY Discontinued famotidine 20 mg tablet 20 mg PO QHS potassium chloride [Klor-Con M20] 20 mEq Tablet,Er Particles/Crystals 40 meq PO BIDCM 30 Days Qty: 120 0RF Referrals / Follow Up: Gera Camp MD [Primary Care Provider] - Disposition Disposition (needs filled in before D/C Order can be placed): [facility]irement Facility Charges/Coding Visit Charges Inpatient E&M: 03558 Disch Hosp >30min
[2022-12-24 09:49] LABS: Pathologist Review Reviewed
== END 2022-12-22 15:36 | disposition skilled nursing facility (03) | DRG 175 ==
LOC: ED 23:24 → ICU 12-15 01:17 → PCU 12-16 19:27
PROVIDERS: Internal Medicine Critical Care Medicine; Admitting Provider Hospitalist; Emergency Provider Emergency Medicine; PCP Internal Medicine; Visit Provider Internal Medicine
DX: I26.09 Other pulmonary embolism with acute cor pulmonale (principal); J96.21 Acute and chronic respiratory failure with hypoxia; E43 Unspecified severe protein-calorie malnutrition; D61.810 Antineoplastic chemotherapy induced pancytopenia; C34.90 Malignant neoplasm of unspecified part of unspecified bronchus or lung; J44.9 Chronic obstructive pulmonary disease, unspecified; D64.9 Anemia, unspecified; I10 Essential (primary) hypertension; Z99.81 Dependence on supplemental oxygen; R53.81 Other malaise; Z87.891 Personal history of nicotine dependence; R91.8 Other nonspecific abnormal finding of lung field; R77.8 Other specified abnormalities of plasma proteins; T45.1X5A Adverse effect of antineoplastic and immunosuppressive drugs, initial encounter; Z79.01 Long term (current) use of anticoagulants; Z87.01 Personal history of pneumonia (recurrent); Z68.25 Body mass index [BMI] 25.0-25.9, adult
CPT/HCPCS: 36415; 71045; 71275; 80048; 80053; 84484; 85025; 85610; 85730; 87040; 87428; 93005; 93306; 94002; 94640; 94762; 97110; 97162; 97166; 97530; 97535; 99285; Q9957; Q9967; A4216; C8929; J1940

== ENCOUNTER 2022-12-22 15:56 | Inpatient (IN) | payer MEDICARE, SELFPAY ==
[2022-12-22 16:01] VITALS: BP 111/57; PULSE 87; RESP 22; TEMP 36.1; O2SAT 90; BMI 24.0
[2022-12-22] MEDS: Potassium Chloride Oral Tablet 20 MEQ PO (17:59)
[2022-12-22 20:35] VITALS: PULSE 82; RESP 34; O2SAT 97
[2022-12-22] MEDS: Budesonide Respules 0.5 MG/2 ML AMPUL.NEB. INHALATION (20:35)
[2022-12-22] MEDS: Ipratropium/Albuterol Sulfate 3 ML AMPUL.NEB INHALATION (20:35)
[2022-12-22 21:08] VITALS: PULSE 82
[2022-12-22] MEDS: guaiFENesin 1,200 MG Tablet 1200 MG PO (21:08)
[2022-12-22] MEDS: Metoprolol(XL)Succ 25 MG Tablet PO (21:08)
[2022-12-22] MEDS: APIXABAN 5 MG TABLET 10 MG PO (21:08)
--- NOTE | 2022-12-22 21:37 | HP.PCM_ITS ---
HPI - General General Date of Admission: 12/22/22 Date of Service: 12/22/22 Chief Complaint: Here for rehabilitation. HPI Narrative 12/14/2022 LEAH KARIMI, is a 72 Male who presents to [facility] [place] Emergency Department with shortness of breath. Discharged from TCU today after rehabilitation for bilateral pneumonia, anemia. Unable to breathe at home, EMS called. Pulsox 78% on 4 liters, now on NRB, respiratory rate 40, Pulsox 90% on NRB. CTA chest showed multiple moderate size bilateral lobar and segmental pulmonary embolism, right hear strain, resolving pneumonia. 12/15/2022 Admit to Hospital. Elevated troponin secondary to right hear strain. Heparin drip for acute pulmonary embolism with cor pulmonale. 12/14/2022 Echo EF 65%, negative for thrombus. 12/15/2022 Oxygen 8 liters per nasal cannula, no thrombus on echo. Transition from heparin to Eliquis tomorrow. 12/16/2022 Oxygen 6 liters per nasal cannula, no shortness of breath at rest. Start Eliquis for pulmonary embolism. Elevated troponin from pulmonary embolism, not STEMI. 12/17/2022 Oxygen 6 liters per nasal cannula. Patient okay with SNF. Eliquis for pulmonary embolism. 12/18/2022 High flow oxygen, Lasix challenge. 12/19/2022 Dry cough, oxygen 5 liters per nasal cannula. 12/20/2022 Oxygen 7 liters per nasal cannula. 12/21/2022 Oxygen 6 liters per nasal cannula, mild confusion. 12/22/2022 Admit to TCU with debility, here for rehabilitation, strengthening, prior to discharge home with sister. [facility] Medical History (Updated 12/22/22 @ 21:[address] Alex Nation MD) Acute heart failure with preserved ejection fraction COPD (chronic obstructive pulmonary disease) Former smoker GERD (gastroesophageal reflux disease) Hypertension Lung cancer Home Medications guaifenesin 1,200 mg tablet, extended release 12 hr (Mucus Relief ER) 1,200 mg PO BID Mucus Relief #0 tabs 12/02/22 [Rx Last Taken 12/02/22 09:55] albuterol sulfate 2.5 mg/3 mL (0.083 %) solution for nebulization 2.5 mg (3 mL) inhalation Q2H PRN PRN Shortness of Breath/Wheezing 30 days #360 mL 12/12/22 [Rx Last Taken Unknown] budesonide 0.5 mg/2 mL suspension for nebulization 0.5 mg (2 mL) inhalation BID.RT COPD 30 days #120 mL 12/12/22 [Rx Last Taken Unknown] ipratropium 0.5 mg-albuterol 3 mg (2.5 mg base)/3 mL nebulization soln 3 ml inhalation Q6HWA.RT lungs 30 days #360 mL 12/12/22 [Rx Last Taken Unknown] metoprolol succinate 25 mg tablet,extended release 24 hr 25 mg PO BID BP 30 days #60 tabs 12/12/22 [Rx Last Taken Unknown] pantoprazole 40 mg tablet,delayed release 40 mg PO DAILY acid reflux 30 days #30 tabs 12/12/22 [Rx Last Taken 12/22/22] sodium chloride 0.65 % nasal spray aerosol (Deep Sea Nasal) 2 spray NASAL TID PRN PRN NASAL DRYNESS #0 mL 12/12/22 [Rx Last Taken Unknown] amlodipine 5 mg tablet 5 mg PO DAILY heart 12/14/22 [History Last Taken Unknown] apixaban 5 mg tablet (Eliquis) 10 mg (2 x 5 mg) PO BID lung clots #1 TAB 12/22/22 [Rx Last Taken Unknown] furosemide 40 mg tablet 40 mg PO DAILY swell #0 tabs 12/22/22 [Rx Last Taken Unknown] hydrocodone-acetaminophen 5-325mg 5mg-325mg 1 tab PO Q6H PRN PRN Pain Score 1-10 2 days #6 tabs 12/22/22 [Rx Last Taken Unknown] melatonin 3 mg tablet 3 mg PO QHS PRN PRN Insomnia #0 tabs 12/22/22 [Rx Last Taken Unknown] potassium chloride 20 mEq tablet,extended release(part/cryst) (Klor-Con M) 20 meq PO BID supplement #0 tabs 12/22/22 [Rx Last Taken Unknown] sennosides 8.6 mg-docusate sodium 50 mg tablet (Stool Softener-Stimulant Laxative) 2 tab PO BID PRN PRN Constipation #0 tabs 12/22/22 [Rx Last Taken Unknown] sodium chloride 0.65 % nasal spray aerosol (Deep Sea Nasal) 1 spray NASAL Q4H PRN PRN NASAL DRYNESS #0 mL 12/22/22 [Rx Last Taken Unknown] Allergy/AdvReac Type Severity Reaction Status Date / Time acetaminophen [From Tylenol] Allergy Unknown increased Verified 12/14/22 20:42 white count Family History Father Cancer Mother Cancer Surgical History History of tonsillectomy Social History household members: other details: Sister. Smoking Status: Former smoker alcohol intake: never substance use type: does not use ROS Constitutional Constitutional: Denies chills, fever(s) or weight gain ENT HEENT: Denies headache(s), nasal congestion or nasal discharge Cardiovascular Cardiovascular: Denies chest pain or palpitations Respiratory/Chest Respiratory/Chest: Denies cough, excessive phlegm production or shortness of breath with exertion Gastrointestinal Gastrointestinal: Denies abdominal pain, nausea or vomiting Genitourinary Genitourinary: Denies dysuria Musculoskeletal Musculoskeletal: Denies joint pain or joint swelling Integumentary Integumentary: Denies rash or wounds Neurologic Neurologic: Denies focal weakness, numbness or tingling Psychiatric Psychiatric: Denies anxiety, auditory hallucinations, depression, homicidal ideation or suicidal ideation Vital Signs Vital Signs Vital Signs: 12/22/22 16:01 12/22/22 16:01 12/22/22 20:35 Temperature 96.9 F L Temperature Source Temporal Pulse Rate 87 87 82 Pulse Rhythm Regular Pulse Strength Normal (2+) Respiratory Rate 22 H 34 H Respiratory Effort Normal Respiratory Depth Normal Respiratory Pattern Normal Tachypnea Blood Pressure 111/57 L Blood Pressure Mean 75 Blood Pressure Source Monitor Blood Pressure Position Sitting Blood Pressure Location Right Arm Pulse Ox 90 97 Oxygen Delivery Method Nasal Cannula Nasal Cannula Nasal Cannula Oxygen Flow Rate (L/min) 4 4 12/22/22 21:08 Temperature Temperature Source Pulse Rate 82 Pulse Rhythm Pulse Strength Respiratory Rate Respiratory Effort Respiratory Depth Respiratory Pattern Blood Pressure Blood Pressure Mean Blood Pressure Source Blood Pressure Position Blood Pressure Location Pulse Ox Oxygen Delivery Method Oxygen Flow Rate (L/min) Weight Weight: 67.631 kg Body Mass Index (BMI) 24.0 Physical Exam Const alert General Appearance: cooperative HEENT normocephalic Eyes PERRL and EOMs intact bilaterally Neck supple, no JVD and no carotid bruits Resp normal respiratory effort, normal air movement and clear to auscultation bilater ally Cardio regular rate and regular rhythm GI normal to inspection, nondistended, normoactive bowel sounds, non-tender and non-distended Extremity normal capillary refill General Extremity: Negative for edema Skin no rashes or lesions noted General Skin Exam: no breakdown Psych affect normal Appearance: appropriate Assessment & Plan Assessment/Plan (1) Debility: (2) Hypoxia: (3) Pulmonary emboli: QUALIFIERS: Acute cor pulmonale presence: with acute cor pulmonale Chronicity: acute Pulmonary embolism type: other Qualified Code(s): I26.09 - Other pulmonary embolism with acute cor pulmonale (4) Lung cancer: (5) Elevated troponin: (6) COPD (chronic obstructive pulmonary disease): (7) Hypertension: (8) GERD (gastroesophageal reflux disease): (9) Hypokalemia: PLAN: Plan 72 year old male with below past medical history hospitalized for acute respiratory failure with hypoxia secondary to bilateral pulmonary emboli, complicated by elevated troponin from cor pulmonale, mild encephalopathy, admitted to TCU with debility, here for rehabilitation, strengthening, prior to discharge home with sister. * Debility - PT/OT. * Pain - [place] 5/325mg 1 tablet q6h prn. * Bowel - senna/colace 2 tablets bid prn. * Adult immunization - Administer pneumonia vaccine, covid19 vaccine, flu vaccine as appropriate. * DVT prophylaxis - on Eliquis. * COPD - Budesonide 0.5mg bid, Duoneb 3ml q6hwa, Albuterol 2.5mg q2h prn. * Hypertension - Metoprolol succinate 25mg bid, Amlodipine 5mg daily. * Pulmonary embolism - Eliquis 10mg bid thru 12/24/2022, then 5mg bid. * Fluid overload - Furosemide 40mg daily. * Congestion - Mucinex 1200mg bid. * Insomnia - Melatonin 3mg qhs prn. * GERD - Pantoprazole 40mg daily. * Hypokalemia - KCL 20meq bidcm. * Dry nares - [place] 1 spray q4h prn.
[2022-12-23] VITALS (8 sets, daily range): BP systolic 109–115; BP diastolic 60–62; PULSE 73–82; RESP 18–22; TEMP 36.2; O2SAT 91–95
[2022-12-23 05:56] LABS: Absolute Lymphocyte Count 0.64 X10^3/uL (0.83-4.51); Basophil# 0.06 X10^3/uL; Basophil% 1.3 % (0-1); Eosinophil# 0.19 X10^3/uL; Eosinophils% 4.2 % (0-5); Hematocrit 25.3 % (40-54); Lymphocyte # 0.64 X10^3/ul (0.83-4.51); Lymphocyte % 14.2 % (19-41); Mean Corp Hgb Conc 31.6 g/dL (32-36); Mean Corpuscular Hgb 28.4 pg (27.0-32.0); Mean Corpuscular Volume 89.7 fL (80-94); Monocyte# 0.59 X10^3/uL; Monocyte% 13.1 % (0-10); NRBC Flagged by Analyzer 0 % (0-5); Neutrophil # 2.96 X10^3/uL (2.7-7.7); Neutrophil % 65.9 % (47-70); POSITIVE MORPHOLOGY YES; Platelet Count 236 K/mm3 (150-450); RBC Distribution Width CV 20.4 % (11.6-14.6); RBC Distribution Width SD 66.6 fl (35.1-43.9); Red Blood Count 2.82 M/mm3 (4.6-6.2); White Blood Count 4.5 K/mm3 (4.4-11.0)
[2022-12-23 06:16] LABS: Differential Indicated SCAN CRITERIA MET
[2022-12-23 06:27] LABS: Anion Gap 7 (5-15); BUN 24 mg/dL (7-18); BUN/Creat Ratio 32.9 RATIO (10-20); Calcium,Total 8.8 mg/dL (8.5-10.1); Chloride 107 mmol/L (98-107); Creatinine, Serum 0.73 mg/dL (0.70-1.30); EST Glomerular Filtration Rate 113 mL/min (>60); Est Glom Filt Rate - Afr Amer 136 mL/min (>60); Estimated Creatinine Clearance 62.03 ml/min; Glucose 124 mg/dL (74-106); Potassium 3.7 mmol/L (3.5-5.1); Sodium Level 136 mmol/L (136-145)
[2022-12-23 06:49] LABS: Anisocytosis 2+
--- NOTE | 2022-12-23 08:13 | NURSING ---
Manager Ob Note; Activity Asset Complete Jin is independent in his choice of daily activities. He has a tablet he will use, watches tv, reads and will work on word search puzzles. He will have visit from family and friends and welcomes visits from the paraeducator. At this time he prefers to stay in his room due to medical reason. Staff will continue to visit with him in his room and remind him of daily activities and respect his right to say no.
[2022-12-23] MEDS: Potassium Chloride Oral Tablet 20 MEQ PO ×2 (08:39→17:34)
[2022-12-23] MEDS: Metoprolol(XL)Succ 25 MG Tablet PO ×2 (08:40→20:45)
[2022-12-23] MEDS: amLODIPine 5 MG Tablet PO (08:41)
[2022-12-23] MEDS: Pantoprazole Sodium 40 MG Tablet PO (08:41)
[2022-12-23] MEDS: guaiFENesin 1,200 MG Tablet 1200 MG PO ×2 (08:42→20:45)
[2022-12-23] MEDS: Furosemide 40 MG Tablet PO (08:42)
[2022-12-23] MEDS: APIXABAN 5 MG TABLET 10 MG PO ×2 (08:42→20:45)
[2022-12-23] MEDS: Tuberculin,Purif.prot.deriv. 50 TU/ML Vial 0.1 ML ID (11:20)
--- NOTE | 2022-12-23 12:58 | NURSING ---
Offered covid booster, education about vaccine provided. Patient refuses at this time.
[2022-12-23] MEDS: Budesonide Respules 0.5 MG/2 ML AMPUL.NEB. INHALATION ×2 (13:23→20:11)
[2022-12-23] MEDS: Ipratropium/Albuterol Sulfate 3 ML AMPUL.NEB INHALATION ×2 (13:23→20:11)
--- NOTE | 2022-12-23 13:32 | CASEMGMT ---
Social Work SW met with pt for initial assessment. Pt know to this SW from previous visit. Pt contacts updated in system. Physician requesting referral to Palliative Medicine. SW addressed this with pt and his sister and they are both agreeable to referral. Referral made. Pt plans to return home alone when therapy is complete. Pt's sister lives close to pt and is able to assist as needed. SW reviewed [employer] insurance with pt and that continued stay is not guaranteed. SW will continue to follow for d/c planning. CLAIRE Stubbs
--- NOTE | 2022-12-23 14:46 | NURSING ---
PER THERAPY. PT AT REST ON 3L IS 97%,BUT WHEN PT IS UP AND WALKING PT OXYGEN DROPS IN THE 80S. OXYGEN WAS BUMPED UP TO 4L AND PT STILL WOULD BE IN THE HIGH 80S. BUT WHEN PT WOULD SIT AND REST HE WOULD RECOVER QUICKLY AND BE 93%.
--- NOTE | 2022-12-23 16:18 | CASEMGMT ---
Social Work Pt's niece presented to this worker's office. [facility] [place] [facility] [place] [facility], noted $0 copays, and continued stay is not guaranteed. Confirmed pt kept all ordered DME from last stay - hospital bed, O2, nebulizer, etc. Educated to 's rounding hours, care plan meeting, and confirmed plan for DC. Educated to palliative referral and appt scheduled for 12/25 at 1430. Answered questions. BRIDGER will continue to follow for DC planning. GERI BullardW
[2022-12-23] MEDS: Menthol/Lanolin/Calamine/Znox 113 GM Tube 1 APPLIC TOPICAL (20:46)
[2022-12-24] MEDS: Ipratropium/Albuterol Sulfate 3 ML AMPUL.NEB INHALATION (07:04)
[2022-12-24 07:07] VITALS: PULSE 74; RESP 18; O2SAT 95
[2022-12-24] MEDS: Potassium Chloride Oral Tablet 20 MEQ PO ×2 (08:11→17:02)
[2022-12-24] MEDS: Ensure Clear 120 ML Liquid PO (08:11)
[2022-12-24] MEDS: Pantoprazole Sodium 40 MG Tablet PO (10:26)
[2022-12-24] MEDS: guaiFENesin 1,200 MG Tablet 1200 MG PO ×2 (10:26→21:18)
[2022-12-24] MEDS: amLODIPine 5 MG Tablet PO (10:26)
[2022-12-24] MEDS: APIXABAN 5 MG TABLET 10 MG PO ×2 (10:26→21:18)
[2022-12-24] MEDS: Furosemide 40 MG Tablet PO (10:26)
[2022-12-24 10:27] VITALS: PULSE 72
[2022-12-24] MEDS: Metoprolol(XL)Succ 25 MG Tablet PO ×2 (10:27→21:18)
[2022-12-24] MEDS: Menthol/Lanolin/Calamine/Znox 113 GM Tube 1 APPLIC TOPICAL (10:28)
--- NOTE | 2022-12-24 11:50 | PCM.PN.DRR ---
Documented by User: Salvatore Abrams 12/24/22 12:11 TCU RX Drug Regimen Review Subjective/Objective Subjective/Objective: Subjective: 72 year old male with below past medical history hospitalized for acute respiratory failure with hypoxia secondary to bilateral pulmonary emboli, complicated by elevated troponin from cor pulmonale, mild encephalopathy, admitted to TCU with debility, here for rehabilitation, strengthening, prior to discharge home with sister. Objective: Allergies acetaminophen [From Tylenol] Allergy (Unknown, Verified 12/14/22 20:42) increased white count Current Medications Generic Name Dose Route Start Last Admin Trade Name Freq PRN Reason Stop Dose Admin Hydrocodone Bitart/Acetaminophen 1 tablet 12/22/22 16:09 Hydrocodone Bitartrate/Apap 5/325 Tablet PO Q6H PRN PRN Pain Score 1-10 Albuterol Sulfate 2.5 mg 12/22/22 16:03 Albuterol 2.5 Mg/3 Ml Vial.Neb. INHALATION Q2H PRN PRN Shortness of Breath/Wheezing Albuterol/Ipratropium 3 ml 12/22/22 16:15 12/24/22 07:04 Ipratropium/Albuterol Sulfate 3 Ml Ampul.Neb INHALATION 3 ml Q6HWA.RT JH Administration Amlodipine Besylate 5 mg 12/23/22 10:00 12/24/22 10:26 Amlodipine 5 Mg Tablet PO 5 mg DAILY JH Administration Apixaban 10 mg 12/22/22 22:00 12/24/22 10:26 Apixaban 5 Mg Tablet PO 12/24/22 22:01 10 mg BID JH Administration Apixaban 5 mg 12/25/22 10:00 Apixaban 5 Mg Tablet PO BID JH Budesonide 0.5 mg 12/22/22 16:15 12/23/22 20:11 Budesonide Respules 0.5 Mg/2 Ml Ampul.Neb. INHALATION 0.5 mg BID.RT JH Administration Calamine/Phenol 1 applic 12/23/22 10:00 12/24/22 10:28 Menthol/Lanolin/Calamine/Znox 113 Gm Tube TOPICAL 1 applic BID JH Administration Protocol Furosemide 40 mg 12/23/22 10:00 12/24/22 10:26 Furosemide 40 Mg Tablet PO 40 mg DAILY JH Administration Guaifenesin 1,200 mg 12/22/22 22:00 12/24/22 10:26 Guaifenesin 1,200 Mg Tablet PO 1,200 mg BID JH Administration Melatonin 3 mg 12/22/22 16:09 Melatonin 3 Mg Tablet PO QHS PRN PRN Insomnia Metoprolol Succinate 25 mg 12/22/22 22:00 12/24/22 10:27 Metoprolol(Xl)Succ 25 Mg Tablet PO 25 mg BID JH Administration Nutritional Formula (Lactose Free) 120 ml 12/23/22 17:45 12/24/22 08:11 Ensure Clear 120 Ml Liquid PO 120 ml TIDCM JH Administration Pantoprazole Sodium 40 mg 12/23/22 10:00 12/24/22 10:26 Pantoprazole Sodium 40 Mg Tablet PO 40 mg DAILY JH Administration Potassium Chloride 20 meq 12/22/22 17:00 12/24/22 08:11 Potassium Chloride Oral Tablet 20 Meq PO 20 meq BIDCM JH Administration Senna/Docusate Sodium 2 tablet 12/22/22 16:09 Senna/Docusate Sodium 1 Tablet PO BID PRN PRN Constipation Sodium Chloride 1 spray 12/22/22 16:09 Sodium Chloride 0.65% 1 [place].Btl NASAL Q4H PRN PRN NASAL DRYNESS Problem List (Updated 12/22/22 @ 21:[address] Alex Nation MD) GERD (gastroesophageal reflux disease) (Acute) Hypertension (Chronic) Lung cancer (Acute) Elevated troponin (Acute) Pulmonary emboli (Acute) COPD (chronic obstructive pulmonary disease) (Chronic) Hypokalemia (Acute) Debility (Acute) Hypoxia (Acute) Vital Signs Temp Pulse Resp BP Pulse Ox O2 Del Method O2 Flow Rate 97.2 F L 72 18 113/62 95 Nasal Cannula 3 12/23/22 13:12 12/24/22 10:27 12/24/22 07:07 12/23/22 20:45 12/24/22 07:07 12/24/22 07:07 12/24/22 09:23 Oxygen Flow Rate (L/min) 3 Oxygen Delivery Method Nasal Cannula Weight: 67.631 kg Body Mass Index (BMI) 24.0 Sodium 136 mmol/L (136-145) 12/23/22 05:28 Potassium 3.7 mmol/L (3.5-5.1) 12/23/22 05:28 Chloride 107 mmol/L (98-107) 12/23/22 05:28 Carbon Dioxide 22.0 mmol/L (21.0-32.0) 12/23/22 05:28 Anion Gap 7 (5-15) 12/23/22 05:28 BUN 24 mg/dL (7-18) H 12/23/22 05:28 Creatinine 0.73 mg/dL (0.70-1.30) 12/23/22 05:28 Est GFR (MDRD) Af Amer 136 mL/min (>60) 12/23/22 05:28 Est GFR (MDRD) Non-Af 113 mL/min (>60) 12/23/22 05:28 BUN/Creatinine Ratio 32.9 RATIO (10-20) H 12/23/22 05:28 Glucose 124 mg/dL (74-106) H 12/23/22 05:28 Assessment/Plan: 1. Pain: hydrocodone/acetaminophen 5/325 mg PO Q6H PRN Pain 1-10. Patient has not used any doses of this medication to this point. Please continue to monitor for ataxia/syncope (Beer's criteria), PRN usage, LFTs (last 12/16/22 AST/ALT = 21/21) and constipation. 2. Bowel: senna/docusate 2 tablets PO BID PRN constipation. Patient does not have a documented bowel movement since 12/12/22. The patient has not received any doses of the senna/docusate to this point. Please continue to monitor for constipation/diarrhea. Please consider changing the senna/docusate to 2 tablets PO BID scheduled if clinically indicated to facilitate precipitation of bowel movement. 3. Pulmonary embolism: apixaban 10 mg PO BID until 12/24, starting 12/25/22 apixaban 5 mg PO BID. Please continue to monitor for s/s of PE resolution such as shortness of breath/chest pain, as well as for s/s of bleeding (last Hgb 8.0). 4. COPD: budesonide 0.5 mg inhalation BID, ipratropium/albuterol (DuoNeb) 3 mL inhalation Q6HWA, albuterol 2.5 mg inhalation Q2H PRN shortness of breath. Please continue to monitor for shortness of breath, respiratory rate (range 16-34), s/s of oral thrush, and HR (72-87). 5. Hypertension: metoprolol succinate 25 mg PO BID, amlodipine 5 mg PO daily. Please continue to monitor HR (see #4 for HR range), blood pressure (range 93-131/87-75), and for s/s of edema. 6. Fluid overload: furosemide 40 mg PO daily. Please continue to monitor potassium (3.7), sodium (136), Scr (0.73) and for s/s of intravascular fluid depletion/dehydration. 7. Congestion/nasal irritation: guaifenesin 1200 mg PO BID, sodium chloride nasal spray 1 spray in each nostril Q4H PRN nasal irritation/dryness. Please continue to monitor congestion, and for PRN usage of nasal spray (no uses to date). 8. Insomnia: melatonin 3 mg PO QHS PRN insomnia. Patient has not used any doses of melatonin to date. Please continue to monitor for PRN uses of melatonin and for insomnia. 9. GERD: pantoprazole 40 mg PO daily. Please continue to monitor for s/s of GERD as well as for s/s of clostridium difficile diarrhea (Beer's criteria) as well as for s/s of bone loss/fractures (Beer's criteria). 10. Hypokalemia: potassium chloride 20 mEq PO BID with meals. Please continue to monitor for s/s of GI distress as well as potassium level (3.7). 11. Skin protection: calmoseptine 1 application topically BID to bilateral buttocks. Please continue to monitor for skin breakdown. Assessment/Plan for indications treated with psychotropic medications: N/A Medical chart and medication regimen reviewed. The following medication irregularities or issues were identified: 1. Bowel: senna/docusate 2 tablets PO BID PRN constipation. Patient does not have a documented bowel movement since 12/12/22. The patient has not received any doses of the senna/docusate to this point. Please continue to monitor for constipation/diarrhea. Please consider changing the senna/docusate to 2 tablets PO BID scheduled if clinically indicated to facilitate precipitation of bowel movement. Date Date of Note:: 12/24/22 Documented by User: Dr. Alex Nation MD 12/24/22 12:24 TCU RX Drug Regimen Review Provider Comments Provider responsibility Provider Comments to Recommendations by Pharmacy: Agree
--- NOTE | 2022-12-24 15:15 | WOUNDNOTE ---
wound photo: buttocks
[2022-12-24 15:41] VITALS: BP 99/70; PULSE 77; RESP 40; TEMP 36.3; O2SAT 97
[2022-12-24 21:18] VITALS: BP 116/53; PULSE 73
[2022-12-24 22:14] VITALS: O2SAT 91
[2022-12-25] VITALS (9 sets, daily range): BP systolic 98–123; BP diastolic 54–68; PULSE 68–79; RESP 18; TEMP 35.9; O2SAT 91–99
[2022-12-25 05:30] LABS: Hematocrit 25.4 % (40-54); Hemoglobin 7.6 g/dL (13.0-16.5)
[2022-12-25] MEDS: Potassium Chloride Oral Tablet 20 MEQ PO ×2 (08:53→17:25)
[2022-12-25] MEDS: Pantoprazole Sodium 40 MG Tablet PO (08:53)
[2022-12-25] MEDS: amLODIPine 5 MG Tablet PO (08:53)
[2022-12-25] MEDS: guaiFENesin 1,200 MG Tablet 1200 MG PO ×2 (08:53→20:59)
[2022-12-25] MEDS: Metoprolol(XL)Succ 25 MG Tablet PO ×2 (08:54→20:59)
[2022-12-25] MEDS: APIXABAN 5 MG TABLET PO ×2 (08:54→20:59)
[2022-12-25] MEDS: Furosemide 40 MG Tablet PO (08:54)
--- NOTE | 2022-12-25 11:28 | NURSING ---
PT HGB 7.6. TYPE AND SCREEN DONE. PER RN PT TO RECEIVE BLOOD SOME TIME THIS WEEKEND.
[2022-12-25] MEDS: Ipratropium/Albuterol Sulfate 3 ML AMPUL.NEB INHALATION ×2 (13:16→20:15)
--- NOTE | 2022-12-25 16:39 | NURSING ---
PALLIATIVE CARE IN TO SEE PT TODAY.
--- NOTE | 2022-12-25 17:27 | NURSING ---
PER THERAPY, PT CAN WALK WITH HIS CANE.
[2022-12-25] MEDS: Budesonide Respules 0.5 MG/2 ML AMPUL.NEB. INHALATION (20:15)
[2022-12-26 08:01] LABS: Hematocrit 28.6 % (40-54); Hemoglobin 8.3 g/dL (13.0-16.5)
[2022-12-26] MEDS: Ipratropium/Albuterol Sulfate 3 ML AMPUL.NEB INHALATION ×2 (08:05→19:17)
[2022-12-26] MEDS: Budesonide Respules 0.5 MG/2 ML AMPUL.NEB. INHALATION ×2 (08:10→19:17)
[2022-12-26 08:28] VITALS: PULSE 77; RESP 21; O2SAT 96
[2022-12-26 09:55] VITALS: BP 100/72; PULSE 72; RESP 16; TEMP 36.2; O2SAT 99
[2022-12-26 10:01] VITALS: PULSE 72
[2022-12-26] MEDS: amLODIPine 5 MG Tablet PO (10:01)
[2022-12-26] MEDS: Metoprolol(XL)Succ 25 MG Tablet PO (10:01)
[2022-12-26] MEDS: APIXABAN 5 MG TABLET PO ×2 (10:01→21:18)
[2022-12-26] MEDS: guaiFENesin 1,200 MG Tablet 1200 MG PO ×2 (10:01→21:18)
[2022-12-26] MEDS: Furosemide 40 MG Tablet PO (10:01)
[2022-12-26] MEDS: Potassium Chloride Oral Tablet 20 MEQ PO ×2 (10:01→17:11)
[2022-12-26] MEDS: Pantoprazole Sodium 40 MG Tablet PO (10:02)
--- NOTE | 2022-12-26 12:13 | NURSING ---
hgb 8.3. blood transfusion canceled at this time. will repeat h&h tomorrow morning.
[2022-12-26 19:17] VITALS: PULSE 76; RESP 24
[2022-12-26 21:17] VITALS: BP 92/68; PULSE 78
[2022-12-26 21:23] VITALS: O2SAT 94
[2022-12-27] VITALS (7 sets, daily range): BP systolic 111–134; BP diastolic 57–70; PULSE 72–87; RESP 18–28; TEMP 36.2; O2SAT 96–97
[2022-12-27] MEDS: Ensure Clear 120 ML Liquid PO (06:26)
[2022-12-27] MEDS: Ipratropium/Albuterol Sulfate 3 ML AMPUL.NEB INHALATION ×3 (07:14→20:00)
[2022-12-27] MEDS: Budesonide Respules 0.5 MG/2 ML AMPUL.NEB. INHALATION ×2 (07:14→20:00)
[2022-12-27 08:22] LABS: Hematocrit 26.5 % (40-54); Hemoglobin 8.1 g/dL (13.0-16.5)
[2022-12-27] MEDS: Pantoprazole Sodium 40 MG Tablet PO (08:42)
[2022-12-27] MEDS: guaiFENesin 1,200 MG Tablet 1200 MG PO ×2 (08:42→20:58)
[2022-12-27] MEDS: Furosemide 40 MG Tablet PO (08:43)
[2022-12-27] MEDS: amLODIPine 5 MG Tablet PO (08:43)
[2022-12-27] MEDS: APIXABAN 5 MG TABLET PO ×2 (08:43→20:58)
[2022-12-27] MEDS: Metoprolol(XL)Succ 25 MG Tablet PO ×2 (08:43→21:08)
[2022-12-27] MEDS: Potassium Chloride Oral Tablet 20 MEQ PO ×2 (08:43→17:48)
[2022-12-28] MEDS: Ipratropium/Albuterol Sulfate 3 ML AMPUL.NEB INHALATION ×3 (07:34→20:13)
[2022-12-28] MEDS: Budesonide Respules 0.5 MG/2 ML AMPUL.NEB. INHALATION ×2 (07:34→20:13)
[2022-12-28 08:57] VITALS: PULSE 72; RESP 18; O2SAT 99
[2022-12-28] MEDS: Potassium Chloride Oral Tablet 20 MEQ PO ×2 (09:16→18:39)
[2022-12-28 09:17] VITALS: BP 113/57; PULSE 76
[2022-12-28] MEDS: Metoprolol(XL)Succ 25 MG Tablet PO ×2 (09:17→22:15)
[2022-12-28] MEDS: Pantoprazole Sodium 40 MG Tablet PO (09:17)
[2022-12-28] MEDS: amLODIPine 5 MG Tablet PO (09:17)
[2022-12-28] MEDS: APIXABAN 5 MG TABLET PO ×2 (09:17→22:15)
[2022-12-28] MEDS: Furosemide 40 MG Tablet PO (09:17)
[2022-12-28] MEDS: guaiFENesin 1,200 MG Tablet 1200 MG PO ×2 (09:17→22:15)
[2022-12-28 12:58] VITALS: BP 163/66; PULSE 76; RESP 16; TEMP 36.2; O2SAT 99
[2022-12-28 14:35] VITALS: PULSE 76; RESP 18
[2022-12-28 20:13] VITALS: PULSE 77; RESP 28
[2022-12-28 22:15] VITALS: PULSE 76
[2022-12-29 07:13] VITALS: PULSE 107; RESP 16; O2SAT 91
[2022-12-29] MEDS: Ipratropium/Albuterol Sulfate 3 ML AMPUL.NEB INHALATION ×2 (07:13→19:00)
[2022-12-29] MEDS: Budesonide Respules 0.5 MG/2 ML AMPUL.NEB. INHALATION ×2 (07:14→19:00)
[2022-12-29] MEDS: Potassium Chloride Oral Tablet 20 MEQ PO ×2 (10:16→18:12)
[2022-12-29 10:17] VITALS: BP 128/67; PULSE 86
[2022-12-29] MEDS: APIXABAN 5 MG TABLET PO (10:17)
[2022-12-29] MEDS: amLODIPine 5 MG Tablet PO (10:17)
[2022-12-29] MEDS: Metoprolol(XL)Succ 25 MG Tablet PO (10:17)
[2022-12-29] MEDS: Pantoprazole Sodium 40 MG Tablet PO (10:17)
[2022-12-29] MEDS: Furosemide 40 MG Tablet PO (10:17)
[2022-12-29] MEDS: guaiFENesin 1,200 MG Tablet 1200 MG PO (10:17)
[2022-12-29 11:40] VITALS: BMI 24.1
--- NOTE | 2022-12-29 13:22 | CASEMGMT ---
Social Work BIMS () and PHQ-9 (05/15) completed for MDS assessment. Isa Jackson MSW PT ESC[facility]
--- NOTE | 2022-12-29 13:49 | WOUNDNOTE ---
wound photo: left buttock
[2022-12-29 15:01] VITALS: BP 103/54; PULSE 76; RESP 36; TEMP 37.1; O2SAT 97
--- NOTE | 2022-12-29 17:48 | RAD_ITS ---
STUDY: X-RAY CHEST REASON FOR EXAM: Male, 72 years old. shortness of breath TECHNIQUE: PA and lateral views of the chest. COMPARISON: 12/14/2022 CT chest FINDINGS: Persistent airspace disease overlies the right upper lobe anterior basilar segment. Underlying COPD related changes are also noted with hyperinflation. There is no demonstrated pleural abnormality. Normal size heart. Normal mediastinum and minna. Normal visualized pulmonary arteries. There is atherosclerotic tortuosity of the aortic arch and descending thoracic aorta. Normal visualized thoracic spine. Normal visualized ribs, clavicles, and shoulders. There is no demonstrated abnormality of the visualized soft tissue structures of the upper abdomen. RAD/Chest PA and Lateral IMPRESSION: Persistent airspace disease predominantly within the basilar segment of the right upper lobe with differential including residual infiltrate/pneumonia compared to previous exam. Recommend follow-up CT imaging to document interval continuing resolution and exclude underlying atypical neoplastic process. Electronically Signed: Nathan El DO at 18:06 EDT ,
[2022-12-29 18:48] LABS: Bacteria 0 SEEN /hpf (None Seen); Mucous, Urine 0 SEEN /hpf (<or=2+); White Blood Cells 0 SEEN /hpf (0-5)
--- NOTE | 2022-12-29 18:49 | NURSING ---
PT HAS HAD SNEEZING,CHILLS,SOME CONFUSION AND REALLY TIRED AND WEAK TODAY. AWARE. NEW ORDERS
[2022-12-29 18:50] LABS: Color, Urine Yellow (Yellow); Glucose, Dipstick Normal (Normal); Ketone-Dipstick Negative (Negative); Leukocyte Esterase-Dipstick Negative /ul (Negative); Nitrite-Dipstick Negative (Negative); Occult Blood-Urine 10 /ul (Negative); Protein-Dipstick Negative (Negative); Urine Bilirubin Dipstick Negative (Negative); Urine Clarity Sl. Cloudy (Clear); Urine Urobilinogen Normal (Normal)
[2022-12-29 18:58] LABS: Red Blood Cells-Urine 0-5 SEEN /hpf (0-5); Squamous Epithelial Cells - UA 0-5 SEEN /hpf (0-5)
[2022-12-29 18:59] LABS: Absolute Lymphocyte Count 1.24 X10^3/uL (0.83-4.51); Basophil# 0.05 X10^3/uL; Basophil% 0.7 % (0-1); Eosinophil# 0.06 X10^3/uL; Eosinophils% 0.8 % (0-5); Hematocrit 28.8 % (40-54); Hemoglobin 8.9 g/dL (13.0-16.5); Lymphocyte # 1.24 X10^3/ul (0.83-4.51); Lymphocyte % 17.5 % (19-41); Mean Corp Hgb Conc 30.9 g/dL (32-36); Mean Corpuscular Hgb 28.3 pg (27.0-32.0); Mean Corpuscular Volume 91.7 fL (80-94); Mean Platelet Vol. 9.2 fl (6.2-12.0); Monocyte# 0.74 X10^3/uL; Monocyte% 10.4 % (0-10); NRBC Flagged by Analyzer 0 % (0-5); Neutrophil # 4.97 X10^3/uL (2.7-7.7); Neutrophil % 70.2 % (47-70); POSITIVE MORPHOLOGY YES; Platelet Count 184 K/mm3 (150-450); RBC Distribution Width CV 21.7 % (11.6-14.6); Red Blood Count 3.14 M/mm3 (4.6-6.2); White Blood Count 7.1 K/mm3 (4.4-11.0)
[2022-12-29 19:00] VITALS: PULSE 82; RESP 38; O2SAT 96
[2022-12-29 19:01] LABS: Differential Indicated SCAN CRITERIA MET
[2022-12-29 19:18] LABS: ALB/GLOB Ratio 0.6 RATIO (0.9-2.4); AST(SGOT) 18 U/L (15-37); Alanine Aminotransfer ALT/SGPT 22 U/L (16-61); Alkaline Phosphatase 108 U/L (45-117); Anion Gap 8 (5-15); BUN 19 mg/dL (7-18); BUN/Creat Ratio 21.2 RATIO (10-20); Calcium,Total 8.9 mg/dL (8.5-10.1); Chloride 101 mmol/L (98-107); EST Glomerular Filtration Rate 89 mL/min (>60); Est Glom Filt Rate - Afr Amer 107 mL/min (>60); Estimated Creatinine Clearance 68.92 ml/min; Glucose 102 mg/dL (74-106); Potassium 4.1 mmol/L (3.5-5.1); Sodium Level 133 mmol/L (136-145)
[2022-12-29 19:54] LABS: Anisocytosis 2+; Differential Comment SCANNED; Macrocytosis 1+; Microcytosis 1+; Polychromasia RARE
--- NOTE | 2022-12-29 20:45 | NURSING ---
contacted via telephone, notified of patient testing positive for covid and discussed chest xray results. Patient symptomatic expresses weakness, chills, cough, sob, respirations elevated, RT states airvo may be needed if oxygen needs higher than 6L, due to elevated respirations and oxygen needs. Patient currently at 6L O2 97%. Confusion observed at times. Per Dr. Nation send patient to ED. Order repeated back.
--- NOTE | 2022-12-29 21:19 | NURSING ---
Addendum entered by Ruddy Junior 12/29/22 23:49: MATERIALS MANAGEMENT MANAGER reports recieved call from ED and patient to be admitted to acute side of hospital for treatment Addendum entered by Ruddy Junior 12/29/22 21:23: Patient u.s. representative (Geena) contacted, updated on patient testing positive for covid, symptoms, and order from Dr. Nation to send to ED for possible admit to acute side. Patient rep expresses thanks for update and was encouraged to call ED for any further information at this time. Original Note: report called to Paulo HANEY in ED, patient transported to ED
--- NOTE | 2022-12-29 22:41 | DS.PCM_ITS ---
Providers Date of Admission: 12/22/22 Primary Care Physician: Dr. Gera Camp MD Consultations 12/22/22 16:15 Consult: Onc/Wound/twisting press operator Routine Comment: 12/23/22 13:36 Consult: Hospice / Palliative Care Routine Consulting Provider: [facility] Reason for Consult: Palliative Care Consultation EMERGENT Consult: No MD Notified: Yes Date Notified: 12/24/22 Time Notified: 10:00 Method of Notification: Verbal Reason For Visit: MULTIPLE PE'S Diagnosis Discharge Diagnosis (1) Debility: Status: Acute Code(s): R53.81 - Other malaise (2) Hypoxia: Status: Acute Code(s): R09.02 - Hypoxemia (3) Pulmonary emboli: Status: Inactive Code(s): I26.99 - Other pulmonary embolism without acute cor pulmonale Qualifiers: Acute cor pulmonale presence: with acute cor pulmonale Chronicity: acute Pulmonary embolism type: other Qualified Code(s): I26.09 - Other pulmonary embolism with acute cor pulmonale (4) Lung cancer: Status: Acute Code(s): C34.90 - Malignant neoplasm of unspecified part of unspecified bronchus or lung (5) Elevated troponin: Status: Resolved Code(s): R77.8 - Other specified abnormalities of plasma proteins (6) COPD (chronic obstructive pulmonary disease): Status: Chronic Code(s): J44.9 - Chronic obstructive pulmonary disease, unspecified (7) Hypertension: Status: Chronic Code(s): I10 - Essential (primary) hypertension (8) GERD (gastroesophageal reflux disease): Status: Acute Code(s): K21.9 - Gastro-esophageal reflux disease without esophagitis (9) Hypokalemia: Status: Acute Code(s): E87.6 - Hypokalemia Plan 72 year old male with below past medical history hospitalized for acute respiratory failure with hypoxia secondary to bilateral pulmonary emboli, complicated by elevated troponin from cor pulmonale, mild encephalopathy, admitted to TCU with debility, here for rehabilitation, strengthening, prior to discharge home with sister. * Debility - PT/OT. * Pain - [place] 5/325mg 1 tablet q6h prn. * Bowel - senna/colace 2 tablets bid prn. * Adult immunization - Administer pneumonia vaccine, covid19 vaccine, flu vaccine as appropriate. * DVT prophylaxis - on Eliquis. * COPD - Budesonide 0.5mg bid, Duoneb 3ml q6hwa, Albuterol 2.5mg q2h prn. * Hypertension - Metoprolol succinate 25mg bid, Amlodipine 5mg daily. * Pulmonary embolism - Eliquis 10mg bid thru 12/24/2022, then 5mg bid. * Fluid overload - Furosemide 40mg daily. * Congestion - Mucinex 1200mg bid. * Insomnia - Melatonin 3mg qhs prn. * GERD - Pantoprazole 40mg daily. * Hypokalemia - KCL 20meq bidcm. * Dry nares - [place] 1 spray q4h prn. Medications at Discharge Home Medications guaifenesin 1,200 mg tablet, extended release 12 hr (Mucus Relief ER) 1,200 mg PO BID Mucus Relief #0 tabs 12/02/22 albuterol sulfate 2.5 mg/3 mL (0.083 %) solution for nebulization 2.5 mg (3 mL) inhalation Q2H PRN PRN Shortness of Breath/Wheezing 30 days #360 mL 12/12/22 budesonide 0.5 mg/2 mL suspension for nebulization 0.5 mg (2 mL) inhalation BID.RT COPD 30 days #120 mL 12/12/22 ipratropium 0.5 mg-albuterol 3 mg (2.5 mg base)/3 mL nebulization soln 3 ml inhalation Q6HWA.RT lungs 30 days #360 mL 12/12/22 metoprolol succinate 25 mg tablet,extended release 24 hr 25 mg PO BID BP 30 days #60 tabs 12/12/22 pantoprazole 40 mg tablet,delayed release 40 mg PO DAILY acid reflux 30 days #30 tabs 12/12/22 sodium chloride 0.65 % nasal spray aerosol (Deep Sea Nasal) 2 spray NASAL TID PRN PRN NASAL DRYNESS #0 mL 12/12/22 amlodipine 5 mg tablet 5 mg PO DAILY heart 12/14/22 furosemide 40 mg tablet 40 mg PO DAILY swell #0 tabs 12/22/22 hydrocodone-acetaminophen 5-325mg 5mg-325mg 1 tab PO Q6H PRN PRN Pain Score 1-10 2 days #6 tabs 12/22/22 melatonin 3 mg tablet 3 mg PO QHS PRN PRN Insomnia #0 tabs 12/22/22 potassium chloride 20 mEq tablet,extended release(part/cryst) (Klor-Con M) 20 meq PO BID supplement #0 tabs 12/22/22 sennosides 8.6 mg-docusate sodium 50 mg tablet (Stool Softener-Stimulant Laxative) 2 tab PO BID PRN PRN Constipation #0 tabs 12/22/22 sodium chloride 0.65 % nasal spray aerosol (Deep Sea Nasal) 1 spray NASAL Q4H PRN PRN NASAL DRYNESS #0 mL 12/22/22 apixaban 5 mg tablet (Eliquis) 5 mg PO BID lung clots 12/29/22 Hospital Course Operations None Procedures None Summary of Care Provided Minutes Spent on Discharge: 15 Hospital Course: 72 year old male with below past medical history hospitalized for acute respiratory failure with hypoxia secondary to bilateral pulmonary emboli, complicated by elevated troponin from cor pulmonale, mild encephalopathy, admitted to TCU with debility, here for rehabilitation, strengthening, prior to discharge home with sister. 12/29/2022 Resident ill today, cbcd okay, bmp okay, Urinalysis okay, covid19 positive. Resident had family visit yesterday, possible source of covid19. Respiratory status worse. Discharge to [facility] ED 12/29/2022 for evaluation, possible admission to [facility]. Weight / BMI Weight Weight: 68.084 kg Body Mass Index (BMI) 24.1 ABG / Lab / Microbiology Data 12/29/22 18:40 12/29/22 18:40 Laboratory: Laboratory Results - last 24 hr 12/29/22 18:20: Urine Color Yellow, Urine Clarity Sl. Cloudy, Urine pH 5.0, Ur Specific [place] 1.020, Urine Protein Negative, Urine Glucose (UA) Normal, Urine Ketones Negative, Urine Occult Blood 10 H, Urine Nitrite Negative, Urine Bilirubin Negative, Urine Urobilinogen Normal, Ur Leukocyte Esterase Negative, Urine RBC 0-5 SEEN, Urine WBC 0 SEEN, Ur Squamous Epith Cells 0-5 SEEN, Urine Bacteria 0 SEEN, Urine Mucus 0 SEEN 12/29/22 18:40: WBC 7.1, RBC 3.14 L, Hgb 8.9 L, Hct 28.8 L, MCV 91.7, MCH 28.3, MCHC 30.9 L, RDW Std Deviation 72.0 H, RDW Coeff of Tone 21.7 H, Plt Count 184, MPV 9.2, Immature Gran % (Auto) 0.400, Neut % (Auto) 70.2 H, Lymph % (Auto) 17.5 L, [place] % (Auto) 10.4 H, Eos % (Auto) 0.8, Baso % (Auto) 0.7, Absolute Neuts (auto) 5.0, Absolute Lymphs (auto) 1.24, Nucleated RBC % 0, Differential Comment SCANNED, Polychromasia RARE, Anisocytosis 2+, Microcytosis 1+, Macrocytosis 1+, Sodium 133 L, Potassium 4.1, Chloride 101, Carbon Dioxide 24.0, Anion Gap 8, BUN 19 H, Creatinine 0.90, Estim Creat Clear Calc 68.92, Est GFR (MDRD) Af Amer 107, Est GFR (MDRD) Non-Af 89, BUN/Creatinine Ratio 21.2 H, Glucose 102, Calcium 8.9, Total Bilirubin 0.90, AST 18, ALT 22, Alkaline Phosphatase 108, Total Protein 8.0, Albumin 3.0 L, Globulin 5.0 H, Albumin/Globulin Ratio 0.6 L Microbiology: Microbiology 12/29/22 18:05 Nasal Secretion SARS-CoV-2 Antigen (Rapid) - Final SARS-CoV-2 (COVID 19) Radiography Diagnostic Testing: Radiology Impression Chest X-Ray 12/29/22 17:48 IMPRESSION: Persistent airspace disease predominantly within the basilar segment of the right upper lobe with differential including residual infiltrate/pneumonia compared to previous exam. Recommend follow-up CT imaging to document interval continuing resolution and exclude underlying atypical neoplastic process. Electronically Signed: Nathan El DO at 18:06 EDT , D/C Instructions Discharge Diet: No restrictions Discharge Activity: Return to Normal Activity, May Shower and Use Walker Weight Bearing Status: Weight bearing as tolerated Call your doctor if you observe: Fever of 101 or Higher, Inability to urinate, Inability to have a bowel movement, Shortness of breath, Dizziness, Fainting spells, Swelling in the ankles, Chest pain and Uncontrolled pain Additional Instructions: Discharge to [facility] 12/29/2022 for evaluation, possible admission to [facility]. Meaningful Use Info Meaningful Use Diagnoses (Choose all that apply): None applicable Discharge Plan Admission Admit Date/Time: 12/22/22 15:56 Primary Reason for Your Visit: Debility. Attending Provider: Alex Nation Chi Primary Care Provider: Gera Camp Consulting Providers: Fredy Merrill; Carolann Mcginnis; Megan Carter; Huyen Morley COMBINING MACHINE OPERATOR Instructions Additional Instructions / Restrictions: Discharge to [facility] 12/29/2022 for evaluation, possible admission to [facility]. Discharge Orders/Prescriptions Prescriptions: No Action Mucus Relief ER 1,200 mg Tablet Extended Release 12hr 1,200 mg PO BID Qty: 0 0RF ipratropium-albuterol 0.5 mg-3 mg(2.5 mg base)/3 mL Solution For Nebulization 3 ml inhalation Q6HWA.RT 30 Days Qty: 360 0RF albuterol sulfate 2.5 mg /3 mL (0.083 %) Solution For Nebulization 2.5 mg inhalation Q2H PRN PRN (Reason: Shortness of Breath/Wheezing) 30 Days Qty: 360 0RF pantoprazole 40 mg Tablet,Delayed Release (Dr/Ec) 40 mg PO DAILY 30 Days Qty: 30 0RF budesonide 0.5 mg/2 mL Suspension For Nebulization 0.5 mg inhalation BID.RT 30 Days Qty: 120 0RF metoprolol succinate 25 mg Tablet Extended Release 24 Hr 25 mg PO BID 30 Days Qty: 60 0RF Deep Sea Nasal 0.65 % Aerosol,[place] 2 spray NASAL TID PRN PRN (Reason: NASAL DRYNESS) Qty: 0 0RF amlodipine 5 mg tablet 5 mg PO DAILY furosemide 40 mg Tablet 40 mg PO DAILY Qty: 0 0RF hydrocodone-acetaminophen 5-325 mg Tablet 1 tab PO Q6H PRN PRN (Reason: Pain Score 1-10) 2 Days Qty: 6 0RF sennosides-docusate sodium [Stool Softener-Stimulant Laxat] 8.6-50 mg Tablet 2 tab PO BID PRN PRN (Reason: Constipation) Qty: 0 0RF melatonin 3 mg Tablet 3 mg PO QHS PRN PRN (Reason: Insomnia) Qty: 0 0RF potassium chloride [Klor-Con M20] 20 mEq Tablet,Er Particles/Crystals 20 meq PO BID Qty: 0 0RF Deep Sea Nasal 0.65 % Aerosol,[place] 1 spray NASAL Q4H PRN PRN (Reason: NASAL DRYNESS) Qty: 0 0RF Eliquis 5 mg Tablet 5 mg PO BID Rx Instructions: two twice a day for a total of 6 pills, then one twice a day starting 12/24/22 Referrals / Follow Up: Gera Camp MD [Primary Care Provider] - Disposition Disposition (needs filled in before D/C Order can be placed): Acute Care Hospital
--- NOTE | 2023-01-04 10:31 | MDS.RN ---
Information for the mds was obtained from review of the clinical record, interview of resident, staff, and direct observation of resident's care .
== END 2022-12-29 23:51 | disposition short-term general hospital (02) | DRG 175 ==
PROVIDERS: Admitting Provider Family Medicine Geriatric Medicine; PCP Internal Medicine; Visit Provider Family Medicine Geriatric Medicine
DX: I26.09 Other pulmonary embolism with acute cor pulmonale (principal); U07.1 COVID-19; C34.90 Malignant neoplasm of unspecified part of unspecified bronchus or lung; J44.9 Chronic obstructive pulmonary disease, unspecified; I10 Essential (primary) hypertension; E87.6 Hypokalemia; K21.9 Gastro-esophageal reflux disease without esophagitis; Z87.891 Personal history of nicotine dependence; Z79.899 Other long term (current) drug therapy; Z79.01 Long term (current) use of anticoagulants
CPT/HCPCS: 36415; 71046; 80048; 80053; 81001; 85014; 85018; 85025; 86850; 86900; 86901; 86920; 86922; 87086; 87088; 87186; 87633; 87811; 94640; 97110; 97116; 97162; 97166; 97530; 97535; 97802; J7030; J7050; A4216

== ENCOUNTER 2022-12-29 21:12 | Observation (INO) | payer MEDICARE, SELFPAY ==
[2022-12-29 21:13] VITALS: BP 127/58; PULSE 77; RESP 17; TEMP 37.1; O2SAT 97; BMI 25.7
[2022-12-29 21:18] VITALS: BP 127/58; PULSE 78; RESP 17; TEMP 37.1; O2SAT 97
--- NOTE | 2022-12-29 21:41 | ED.VIS.DYS ---
HPI History of Present Illness Chief Complaint: Shortness of Breath Informant: patient Narrative Narrative: Sent down from TCU for evaluation. Positive COVID test today. Patient diagnosed right-sided lung cancer 6 months ago. He was discharged to TCU a week ago after hospitalization for bilateral pulmonary embolism. He is on Eliquis. He is on chronic 3 L of oxygen. History of COPD. Chronic cough for 3 months. No hemoptysis. No fevers. No headaches. No vomiting or diarrhea. Denies myalgias. He was tested today and confirmed COVID. He is nonvaccinated, has not had COVID in the past. He denies any changes in symptoms. PE Risk Factors: Positive for Cancer and Prior DVT or PE Prior similar symptoms: No PFSH PFSH Medical History Acute heart failure with preserved ejection fraction COPD (chronic obstructive pulmonary disease) Former smoker GERD (gastroesophageal reflux disease) Hypertension Lung cancer Home Medications guaifenesin 1,200 mg tablet, extended release 12 hr (Mucus Relief ER) 1,200 mg PO BID Mucus Relief #0 tabs 12/02/22 [Rx Last Taken 12/02/22 09:55] albuterol sulfate 2.5 mg/3 mL (0.083 %) solution for nebulization 2.5 mg (3 mL) inhalation Q2H PRN PRN Shortness of Breath/Wheezing 30 days #360 mL 12/12/22 [Rx Last Taken Unknown] budesonide 0.5 mg/2 mL suspension for nebulization 0.5 mg (2 mL) inhalation BID.RT COPD 30 days #120 mL 12/12/22 [Rx Last Taken Unknown] ipratropium 0.5 mg-albuterol 3 mg (2.5 mg base)/3 mL nebulization soln 3 ml inhalation Q6HWA.RT lungs 30 days #360 mL 12/12/22 [Rx Last Taken Unknown] metoprolol succinate 25 mg tablet,extended release 24 hr 25 mg PO BID BP 30 days #60 tabs 12/12/22 [Rx Last Taken Unknown] pantoprazole 40 mg tablet,delayed release 40 mg PO DAILY acid reflux 30 days #30 tabs 12/12/22 [Rx Last Taken 12/22/22] sodium chloride 0.65 % nasal spray aerosol (Deep Sea Nasal) 2 spray NASAL TID PRN PRN NASAL DRYNESS #0 mL 12/12/22 [Rx Last Taken Unknown] amlodipine 5 mg tablet 5 mg PO DAILY heart 12/14/22 [History Last Taken Unknown] apixaban 5 mg tablet (Eliquis) 10 mg (2 x 5 mg) PO BID lung clots #1 TAB 12/22/22 [Rx Last Taken Unknown] furosemide 40 mg tablet 40 mg PO DAILY swell #0 tabs 12/22/22 [Rx Last Taken Unknown] hydrocodone-acetaminophen 5-325mg 5mg-325mg 1 tab PO Q6H PRN PRN Pain Score 1-10 2 days #6 tabs 12/22/22 [Rx Last Taken Unknown] melatonin 3 mg tablet 3 mg PO QHS PRN PRN Insomnia #0 tabs 12/22/22 [Rx Last Taken Unknown] potassium chloride 20 mEq tablet,extended release(part/cryst) (Klor-Con M) 20 meq PO BID supplement #0 tabs 12/22/22 [Rx Last Taken Unknown] sennosides 8.6 mg-docusate sodium 50 mg tablet (Stool Softener-Stimulant Laxative) 2 tab PO BID PRN PRN Constipation #0 tabs 12/22/22 [Rx Last Taken Unknown] sodium chloride 0.65 % nasal spray aerosol (Deep Sea Nasal) 1 spray NASAL Q4H PRN PRN NASAL DRYNESS #0 mL 12/22/22 [Rx Last Taken Unknown] Allergy/AdvReac Type Severity Reaction Status Date / Time acetaminophen [From Tylenol] Allergy Unknown increased Verified 12/29/22 21:13 white count Family History Father Cancer Mother Cancer Surgical History History of tonsillectomy Social History household members: other details: Sister. Smoking Status: Former smoker alcohol intake: never substance use type: does not use ROS ROS ED Constitutional Constitutional ED: Denies chills, fever(s) or sweats Eyes Eyes: Denies change in vision ENT ENT ED: Denies dysphagia or sore throat Cardiovascular Cardiovascular: Denies chest pain, leg edema, palpitations or racing heartbeat Respiratory/Chest Respiratory/Chest: Reports cough; Denies dyspnea or dyspnea on exertion Gastrointestinal Gastrointestinal: Denies abdominal pain, diarrhea, nausea or vomiting Genitourinary Genitourinary ED: Denies dysuria, hematuria or urinary frequency Musculoskeletal Musculoskeletal: Denies back pain, extremity pain or neck pain Integumentary Denies rash or wounds Neurologic Neurologic: Denies headache(s), paresthesias or weakness EXAM Physical Exam Const Vital Signs: 12/29/22 21:13 12/29/22 21:18 12/29/22 22:15 Temperature 98.8 F 98.8 F Temperature Source Oral Oral Pulse Rate 77 78 Respiratory Rate 17 17 Respiratory Effort Short of Breath Respiratory Depth Normal Respiratory Pattern Normal Blood Pressure 127/58 H 127/58 H Blood Pressure Mean 81 81 Pulse Ox 97 97 Oxygen Delivery Method Nasal Cannula Oxygen Flow Rate (L/min) 3 Positive well nourished and well developed Constitutional Narrative: Brought down in the room on 6 L nasal cannula, however turned down to 3 L by myself. No respiratory distress no hypoxia. General Appearance ED: well developed and NAD HEENT Reports moist mucous membranes normocephalic and atraumatic Eyes PERRL, EOMs intact bilaterally and conjunctivae normal General Eye ED: Yes normal appearance of both eyes Neck no lymphadenopathy and supple General: Negative for tenderness Chest Wall Chest: Negative for tenderness Resp normal respiratory effort and normal air movement Effort and Inspection: symmetric chest movement; Negative for respiratory distress Cardio regular rate, regular rhythm and no murmurs Peripheral Pulses: pulses 2+ throughout GI normal to inspection, nondistended, normoactive bowel sounds and non-tender Palpation: Negative for guarding or rebound tenderness present Back/Spine no CVA tenderness and no thoracic nor lumbar tenderness Extremity normal to inspection General Extremety ED: Negative for edema or tenderness General Extremity: Negative for edema Neuro oriented x3 and no sensory deficits noted Sensorium / Orientation: awake and alert Skin no rashes or lesions noted and no wounds MDM MDM MDM Narrative Medical decision making narrative: Interventions / MDM: Differential diagnosis: COVID, lung cancer, current treatment for pulmonary embolism Diagnosis considered but do not suspect: N/A My EKG interpretation: N/A Imaging independently reviewed and interpreted by myself: N/A External documents reviewed: N/A Test considered but not ordered:N/A ED course: Patient no respiratory distress, placed back down on 3 L by myself. He is not hypoxic. Initial order for lab work and chest x-ray however noted he had lab work few hours ago slight hyponatremia 133. Normal creatinine and creatinine clearance. Chest x-ray possible pneumonia. Patient with a negative COVID test December 14 on admission. Chest x-ray 2 views was reviewed questionable pneumonia. 2214: Patient in no respiratory distress, maintained on 3 L, pulse ox did note 90 to 91%. I spoke with the physician at [facility] Nation, he states likely exposure from family member yesterday that was the likely source, he appeared more ill today for which testing was performed. He is concerned of reported information from respiratory therapy that he may need Airvo, also with limiting staff at the facility for monitoring treatment of the patient. He would like the patient observed with treatment and if stable to be discharged back. He does meet criteria for steroids with hypoxia less than 94%. This will be ordered. Discussed with hospitalist, Dr. Velasquez who will evaluate the patient in the ED. Patient evaluate by hospitalist, will admit for observations for treatment. Re-evaluation: stable Disposition discussed with patient/family/significant other: Patient Case discussed with consulting clinician: Dr. Nation; hospitalist, Dr. Velasquez This note was generated with [employer] dictation software. It may contain incorrect words, spelling, and punctuation that were not noted in checking the note before signing. Discharge Plan Triage Chief Complaint: Shortness of Breath ED Provider: Dread Richards Dx/Rx/DC Orders Clinical Impression: Pneumonia due to 2019-nCoV, Lung cancer, COPD (chronic obstructive pulmonary disease), Pulmonary emboli Prescriptions: No Action Mucus Relief ER 1,200 mg Tablet Extended Release 12hr 1,200 mg PO BID Qty: 0 0RF ipratropium-albuterol 0.5 mg-3 mg(2.5 mg base)/3 mL Solution For Nebulization 3 ml inhalation Q6HWA.RT 30 Days Qty: 360 0RF albuterol sulfate 2.5 mg /3 mL (0.083 %) Solution For Nebulization 2.5 mg inhalation Q2H PRN PRN (Reason: Shortness of Breath/Wheezing) 30 Days Qty: 360 0RF pantoprazole 40 mg Tablet,Delayed Release (Dr/Ec) 40 mg PO DAILY 30 Days Qty: 30 0RF budesonide 0.5 mg/2 mL Suspension For Nebulization 0.5 mg inhalation BID.RT 30 Days Qty: 120 0RF metoprolol succinate 25 mg Tablet Extended Release 24 Hr 25 mg PO BID 30 Days Qty: 60 0RF Deep Sea Nasal 0.65 % Aerosol,[place] 2 spray NASAL TID PRN PRN (Reason: NASAL DRYNESS) Qty: 0 0RF amlodipine 5 mg tablet 5 mg PO DAILY furosemide 40 mg Tablet 40 mg PO DAILY Qty: 0 0RF hydrocodone-acetaminophen 5-325 mg Tablet 1 tab PO Q6H PRN PRN (Reason: Pain Score 1-10) 2 Days Qty: 6 0RF Eliquis 5 mg Tablet 10 mg PO BID Qty: 1 0RF Rx Instructions: two twice a day for a total of 6 pills, then one twice a day starting 12/24/22 sennosides-docusate sodium [Stool Softener-Stimulant Laxat] 8.6-50 mg Tablet 2 tab PO BID PRN PRN (Reason: Constipation) Qty: 0 0RF melatonin 3 mg Tablet 3 mg PO QHS PRN PRN (Reason: Insomnia) Qty: 0 0RF potassium chloride [Klor-Con M20] 20 mEq Tablet,Er Particles/Crystals 20 meq PO BID Qty: 0 0RF Deep Sea Nasal 0.65 % Aerosol,[place] 1 spray NASAL Q4H PRN PRN (Reason: NASAL DRYNESS) Qty: 0 0RF Primary Care Provider: Gera Camp Referrals: Gera Camp MD [Primary Care Provider] - Disposition Disposition: Acute Care Hospital [facility]
[2022-12-29 22:15] VITALS: O2SAT 96
[2022-12-29] MEDS: dexAMETHasone 4 MG Tablet 6 MG PO (22:41)
--- NOTE | 2022-12-29 22:47 | HP.PCM.HOS_ITS ---
HPI - General General Date of Admission: 12/29/22 Date of Service: 12/29/22 Chief Complaint: Malaise HPI Narrative LEAH KARIMI, is a 72 M with a significant history of no chronic nasal cannula oxygen use of 3 L; lung cancer status postchemotherapy and PE who was at the transitional care unit of [facility] presented to the ED with malaise. Attending physician at the transitional care unit saw patient and found that patient looked sicker. COVID test on 14 December was negative while COVID tested on the day of presentation returned positive. ED doctor discussed case with attending physician at the transitional care unit who wanted patient to be admitted and be given remdesivir since patient meets criteria. Patient has clear productive cough for about 3 months. [facility] Medical History Acute heart failure with preserved ejection fraction COPD (chronic obstructive pulmonary disease) Former smoker GERD (gastroesophageal reflux disease) Hypertension Lung cancer Pulmonary emboli Home Medications guaifenesin 1,200 mg tablet, extended release 12 hr (Mucus Relief ER) 1,200 mg PO BID Mucus Relief #0 tabs 12/02/22 [Rx Last Taken 12/02/22 09:55] albuterol sulfate 2.5 mg/3 mL (0.083 %) solution for nebulization 2.5 mg (3 mL) inhalation Q2H PRN PRN Shortness of Breath/Wheezing 30 days #360 mL 12/12/22 [Rx Last Taken Unknown] budesonide 0.5 mg/2 mL suspension for nebulization 0.5 mg (2 mL) inhalation BID.RT COPD 30 days #120 mL 12/12/22 [Rx Last Taken Unknown] ipratropium 0.5 mg-albuterol 3 mg (2.5 mg base)/3 mL nebulization soln 3 ml inhalation Q6HWA.RT lungs 30 days #360 mL 12/12/22 [Rx Last Taken Unknown] metoprolol succinate 25 mg tablet,extended release 24 hr 25 mg PO BID BP 30 days #60 tabs 12/12/22 [Rx Last Taken Unknown] pantoprazole 40 mg tablet,delayed release 40 mg PO DAILY acid reflux 30 days #30 tabs 12/12/22 [Rx Last Taken 12/22/22] sodium chloride 0.65 % nasal spray aerosol (Deep Sea Nasal) 2 spray NASAL TID PRN PRN NASAL DRYNESS #0 mL 12/12/22 [Rx Last Taken Unknown] amlodipine 5 mg tablet 5 mg PO DAILY heart 12/14/22 [History Last Taken Unknown] furosemide 40 mg tablet 40 mg PO DAILY swell #0 tabs 12/22/22 [Rx Last Taken Unknown] hydrocodone-acetaminophen 5-325mg 5mg-325mg 1 tab PO Q6H PRN PRN Pain Score 1-10 2 days #6 tabs 12/22/22 [Rx Last Taken Unknown] melatonin 3 mg tablet 3 mg PO QHS PRN PRN Insomnia #0 tabs 12/22/22 [Rx Last Taken Unknown] potassium chloride 20 mEq tablet,extended release(part/cryst) (Klor-Con M) 20 meq PO BID supplement #0 tabs 12/22/22 [Rx Last Taken Unknown] sennosides 8.6 mg-docusate sodium 50 mg tablet (Stool Softener-Stimulant Laxative) 2 tab PO BID PRN PRN Constipation #0 tabs 12/22/22 [Rx Last Taken Unknown] sodium chloride 0.65 % nasal spray aerosol (Deep Sea Nasal) 1 spray NASAL Q4H PRN PRN NASAL DRYNESS #0 mL 12/22/22 [Rx Last Taken Unknown] apixaban 5 mg tablet (Eliquis) 5 mg PO BID lung clots 12/29/22 [History Last Taken Unknown] Allergy/AdvReac Type Severity Reaction Status Date / Time acetaminophen [From Tylenol] Allergy Unknown increased Verified 12/29/22 21:13 white count Family History Father Cancer Mother Cancer Surgical History History of tonsillectomy Social History household members: other details: Sister. Smoking Status: Former smoker alcohol intake: never substance use type: does not use ROS ROS Narrative Pertinent positives and pertinent negatives as noted in HPI. All other systems were reviewed and are negative Vital Signs Vital Signs Vital Signs: 12/29/22 21:13 12/29/22 21:18 12/29/22 22:15 Temperature 98.8 F 98.8 F Temperature Source Oral Oral Pulse Rate 77 78 Respiratory Rate 17 17 Respiratory Effort Short of Breath Respiratory Depth Normal Respiratory Pattern Normal Blood Pressure 127/58 H 127/58 H Blood Pressure Mean 81 81 Pulse Ox 97 97 Oxygen Delivery Method Nasal Cannula Oxygen Flow Rate (L/min) 3 Weight Weight: 68 kg Body Mass Index (BMI) 25.7 Physical Exam Narrative Physical exam: General: Well-nourished, well-developed. Head: Normocephalic, atraumatic, no tenderness Eyes: Vision is grossly intact. EOMI ENT, no trauma, moist mucous membranes, no rhinorrhea Neck: Nontender, No thyromegaly. CVS: Regular rate and rhythm. S1-S2 present. No murmur, gallop or rub. Respiratory : rales, chest wall nontender Abdomen: Soft, nontender, nondistended, normal bowel sounds, no masses : Deferred Back: Nontender, no CVA tenderness, no midline spinal tenderness, deformities, step-offs Extremities: Nontender full range of motion, no trauma Skin: Normal color, no trauma, abrasions Neuro: Alert, oriented, cranial nerves II through XII grossly intact. Psychiatry: Normal mood. Normal affect. Not depressed. Not anxious. Assessment & Plan Assessment/Plan (1) Pneumonia due to 2019-nCoV: (2) Lung cancer: (3) COPD (chronic obstructive pulmonary disease): QUALIFIERS: COPD type: chronic bronchitis Chronic bronchitis type: unspecified Qualified Code(s): J42 - Unspecified chronic bronchitis PLAN: Plan COVID-19 pneumonia with hypoxia Required increased oxygen more than baseline. Chest x-ray showed persistent airspace disease per radiologist interpretation and per hospitalist independent interpretation. Positive coronavirus test. Decadron ordered. Per patient's attending DrFernando Request and because patient's meets criteria for remdesivir; remdesivir ordered. Trend CMP. Chronic heart failure with preserved ejection fraction Appears stable with no fluid overload Lasix continued History of PE Eliquis continued. Lung Cancer Unclear on status. Chemotherapy currently on hold reportedly secondary to adverse effects. Time spent in the patient's overall evaluation,decision-making process, review of diagnostic data, adjustment of management, discussion with other providers, nursing nursing and ancillary staff involved in patient's care documentation, 65 minutes. 12621: Greater than 30-minute
[2022-12-29 23:27] VITALS: BP 114/56; PULSE 77; RESP 16; TEMP 36.8; O2SAT 94
[2022-12-30] VITALS (13 sets, daily range): BP systolic 108–131; BP diastolic 57–77; PULSE 65–81; RESP 18–22; TEMP 36.4–37.4; O2SAT 88–100; BMI 25.0
[2022-12-30] MEDS: 0.9% Normal Saline (250mL Bag) 250 ML 15 ML IV (01:11)
[2022-12-30] MEDS: Remdesivir 200 MG in 0.9% Normal Saline (250mL Bag) 210 ML 250 MG IV (01:11)
[2022-12-30] MEDS: 0.9% Saline Lock 10 ML Syringe IV (01:11)
--- NOTE | 2022-12-30 07:18 | PCM.PN.HOSP ---
Reason for Visit Reason for Visit: Diagnoses Malignant neoplasm of unspecified part of unspecified bronchus or lung (12/29/22) Pneumonia due to coronavirus disease 2019 (12/29/22) Unspecified chronic bronchitis (12/29/22) COVID-19 (12/29/22) Subjective Subjective Denies having been short of breath. He states that typically after he receives his medication he is tired. Yesterday, according to him, was not out of the ordinary. Objective Data Objective Data Vital Signs: Vital Signs Temp Pulse Resp BP Pulse Ox O2 Del Method O2 Flow Rate 36.5 C L 66 22 H 119/69 98 Nasal Cannula 3 12/30/22 05:37 12/30/22 05:37 12/30/22 05:37 12/30/22 05:37 12/30/22 06:04 12/30/22 06:04 12/30/22 06:04 Oxygen Flow Rate (L/min) 3 Oxygen Delivery Method Nasal Cannula Weight: 66.4 kg Body Mass Index (BMI) 25.0 Intake & Output: Intake and Output for Last 24 Hours 12/28/22 12/29/22 12/30/22 23:59 23:59 23:59 Intake Total 250 / 250 Balance 250 / 250 Lab / Micro Data 12/30/22 06:50 12/30/22 06:50 Physical Exam Const alert and no apparent distress HEENT head/scalp atraumatic and moist oral mucous membranes Resp normal respiratory effort and no retractions Cardio regular rate, regular rhythm, S1 normal heart sound and S2 normal heart sound GI normal to inspection, nondistended, normoactive bowel sounds, soft to palpation and non-tender Assessment & Plan Assessment/Plan (1) Pneumonia due to 2019-nCoV: PLAN: Acute + Test on the (day 0), will need to quarantine through the Started on dexamethasone (treat through 01/08) and Remdesivir (treat though 01/02) PEP therapy (2) Chronic respiratory failure: QUALIFIERS: Respiratory failure complication: hypoxia Qualified Code(s): J96.11 - Chronic respiratory failure with hypoxia PLAN: Normally on 3l/m of oxygen Developed pronounced tachypnea with respiratory rate 36-38 in the TCU and had to be increased to 6 l/m temporarily. Subsequently, his oxygenation has stable and he is back on his 3l/m. Noted in ED that pt was not in respiratory distress. Patient also denies that he was short of breath. 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 CXR shows RML infiltrated, however, this is an improvement from Xrays and CT imaging Follow up with [facility] as outpt Repeat CXR in 4-6 weeks to ensure ongoing resolution of RML infiltrate PLAN: Plan Chronic conditions: Chronic HFpEF: appears stable with no fluid overload. Continue furosemide, metoprolol succinate History of PE: apixaban continued NSCLC: Unclear on status. Follow up with oncology HTN: stable continue amlopdine VTE prophylaxis: not indicated as he is already on apixaban. Plan is to observe overnight. If he remains stable, then he would be stable for discharge on the . Pt may need to return to the TCU, and that may require precertification. Charges/Coding Visit Charges Inpatient E&M: 28605 Subs Hosp L2
[2022-12-30] MEDS: Budesonide Respules 0.5 MG/2 ML AMPUL.NEB. INHALATION ×2 (07:28→19:10)
[2022-12-30 07:38] LABS: Absolute Lymphocyte Count 0.53 X10^3/uL (0.83-4.51); Absolute Neutrophil Count 3.4 X10^3/uL (2.0-7.7); Basophil# 0.01 X10^3/uL; Basophil% 0.2 % (0-1); Hematocrit 27.7 % (40-54); Hemoglobin 8.5 g/dL (13.0-16.5); Lymphocyte # 0.53 X10^3/ul (0.83-4.51); Lymphocyte % 13.1 % (19-41); Mean Corp Hgb Conc 30.7 g/dL (32-36); Mean Corpuscular Hgb 28.2 pg (27.0-32.0); Mean Platelet Vol. 9.4 fl (6.2-12.0); Monocyte# 0.12 X10^3/uL; NRBC Flagged by Analyzer 0 % (0-5); Neutrophil # 3.35 X10^3/uL (2.7-7.7); POSITIVE DIFFERENTIAL YES; POSITIVE MORPHOLOGY YES; Platelet Count 185 K/mm3 (150-450); RBC Distribution Width CV 21.3 % (11.6-14.6); Red Blood Count 3.01 M/mm3 (4.6-6.2)
[2022-12-30 07:58] LABS: Differential Indicated SCAN CRITERIA MET
[2022-12-30 08:12] LABS: ALB/GLOB Ratio 0.6 RATIO (0.9-2.4); AST(SGOT) 18 U/L (15-37); Alanine Aminotransfer ALT/SGPT 19 U/L (16-61); Albumin, Serum 2.8 g/dL (3.2-5.0); Alkaline Phosphatase 100 U/L (45-117); Anion Gap 6 (5-15); BUN 17 mg/dL (7-18); BUN/Creat Ratio 22.2 RATIO (10-20); Calcium,Total 8.9 mg/dL (8.5-10.1); Chloride 103 mmol/L (98-107); Creatinine, Serum 0.77 mg/dL (0.70-1.30); EST Glomerular Filtration Rate 106 mL/min (>60); Est Glom Filt Rate - Afr Amer 129 mL/min (>60); Estimated Creatinine Clearance 57.56 ml/min; Globulin 4.8 g/dL (2.2-4.2); Glucose 142 mg/dL (74-106); Potassium 3.8 mmol/L (3.5-5.1); Protein, Total 7.6 g/dL (6.4-8.2); Sodium Level 132 mmol/L (136-145)
[2022-12-30 09:13] LABS: Anisocytosis 1+
[2022-12-30] MEDS: dexAMETHasone 4 MG Tablet 6 MG PO (09:55)
[2022-12-30] MEDS: amLODIPine 5 MG Tablet PO (09:56)
[2022-12-30] MEDS: guaiFENesin 1,200 MG Tablet 1200 MG PO ×2 (09:56→22:35)
[2022-12-30] MEDS: Pantoprazole Sodium 40 MG Tablet PO (09:56)
[2022-12-30] MEDS: Furosemide 40 MG Tablet PO (09:56)
[2022-12-30] MEDS: Metoprolol(XL)Succ 25 MG Tablet PO ×2 (09:56→22:35)
[2022-12-30] MEDS: APIXABAN 5 MG TABLET PO ×2 (09:56→22:35)
[2022-12-30] MEDS: Potassium Chloride Oral Tablet 20 MEQ PO ×2 (09:57→22:35)
--- NOTE | 2022-12-30 11:48 | CASEMGMT ---
?Met with patient to complete GILLIS form. GILLIS form explained to patient who voiced understanding and signed form. Original form placed in patients chart and copy provided to patient. Cara Virk, Discharge Planning Asst.
--- NOTE | 2022-12-30 12:06 | CASEMGMT ---
Social Work Pt is admitted from TCU. SW met with pt to discuss discharge plan. SW spoke with pt regarding returning home alone vs returning to TCU at time of discharge. Pt is know to this worker from previous visits. Unlike previous visits, during this conversation pt does not appear to be completing understanding questions SW is asking. Pt responds to questions with unrelated information. BRIDGER conferred with TCU SW who states team did not feel pt was ready for dc home alone from TCU at time of transfer to acute hospital. BRIDGER spoke with pt HCPOA and updated on conversation. Will continue to follow for discharge planning. Plan: Return to TCU, precert will be needed but not started at this time. CLAIRE Stubbs
[2022-12-30] MEDS: Remdesivir 100 MG in 0.9% Normal Saline (250mL Bag) 230 ML 250 MG IV (22:35)
[2022-12-31 04:57] VITALS: BP 107/56; PULSE 59; RESP 20; TEMP 36.8; O2SAT 98
[2022-12-31 07:00] LABS: ALB/GLOB Ratio 0.6 RATIO (0.9-2.4); AST(SGOT) 13 U/L (15-37); Alanine Aminotransfer ALT/SGPT 18 U/L (16-61); Albumin, Serum 2.5 g/dL (3.2-5.0); Alkaline Phosphatase 79 U/L (45-117); Anion Gap 6 (5-15); BUN 26 mg/dL (7-18); BUN/Creat Ratio 39.9 RATIO (10-20); Calcium,Total 8.6 mg/dL (8.5-10.1); Chloride 110 mmol/L (98-107); Creatinine, Serum 0.65 mg/dL (0.70-1.30); EST Glomerular Filtration Rate 128 mL/min (>60); Est Glom Filt Rate - Afr Amer 155 mL/min (>60); Estimated Creatinine Clearance 57.56 ml/min; Globulin 4.2 g/dL (2.2-4.2); Glucose 107 mg/dL (74-106); Potassium 3.7 mmol/L (3.5-5.1); Protein, Total 6.7 g/dL (6.4-8.2); Sodium Level 138 mmol/L (136-145)
--- NOTE | 2022-12-31 07:34 | PCM.PN.HOSP ---
Reason for Visit Reason for Visit: Diagnoses Malignant neoplasm of unspecified part of unspecified bronchus or lung (12/29/22) Pneumonia due to coronavirus disease 2019 (12/29/22) Unspecified chronic bronchitis (12/29/22) Chronic respiratory failure with hypoxia (12/29/22) COVID-19 (12/29/22) Subjective Subjective Feels like he has a lot of energy. Objective Data Objective Data Vital Signs: Vital Signs Temp Pulse Resp BP Pulse Ox O2 Del Method O2 Flow Rate 36.8 C 59 L 20 H 107/56 L 98 Nasal Cannula 2 12/31/22 04:57 12/31/22 04:57 12/31/22 04:57 12/31/22 04:57 12/31/22 04:57 12/31/22 04:57 12/31/22 04:57 Oxygen Flow Rate (L/min) 2 Oxygen Delivery Method Nasal Cannula Weight: 66.4 kg Body Mass Index (BMI) 25.0 Intake & Output: Intake and Output for Last 24 Hours 12/29/22 12/30/22 12/31/22 23:59 23:59 23:59 Intake Total 1050 / 1050 100 / 100 Output Total 0 / 0 Balance 1050 / 1050 100 / 100 Lab / Micro Data 12/30/22 06:50 12/31/22 05:45 Labs: Laboratory Results - last 24 hr 12/30/22 06:50: WBC 4.0 L, RBC 3.01 L, Hgb 8.5 L, Hct 27.7 L, MCV 92.0, MCH 28.2, MCHC 30.7 L, RDW Std Deviation 71.0 H, RDW Coeff of Tone 21.3 H, Plt Count 185, MPV 9.4, Immature Gran % (Auto) 0.700, Neut % (Auto) 83.0 H, Lymph % (Auto) 13.1 L, [place] % (Auto) 3.0, Eos % (Auto) 0.0, Baso % (Auto) 0.2, Absolute Neuts (auto) 3.4, Absolute Lymphs (auto) 0.53 L, Nucleated RBC % 0, Differential Comment COMMENT, Diff Path Review May foll, Anisocytosis 1+, Sodium 132 L, Potassium 3.8, Chloride 103, Carbon Dioxide 23.0, Anion Gap 6, BUN 17, Creatinine 0.77, Estim Creat Clear Calc 57.56, Est GFR (MDRD) Af Amer 129, Est GFR (MDRD) Non-Af 106, BUN/Creatinine Ratio 22.2 H, Glucose 142 H, Calcium 8.9, Total Bilirubin 0.60, AST 18, ALT 19, Alkaline Phosphatase 100, Total Protein 7.6, Albumin 2.8 L, Globulin 4.8 H, Albumin/Globulin Ratio 0.6 L 12/31/22 05:45: Sodium 138, Potassium 3.7, Chloride 110 H, Carbon Dioxide 22.0, Anion Gap 6, BUN 26 H, Creatinine 0.65 L, Estim Creat Clear Calc 57.56, Est GFR (MDRD) Af Amer 155, Est GFR (MDRD) Non-Af 128, BUN/Creatinine Ratio 39.9 H, Glucose 107 H, Calcium 8.6, Total Bilirubin 0.50, AST 13 L, ALT 18, Alkaline Phosphatase 79, Total Protein 6.7, Albumin 2.5 L, Globulin 4.2, Albumin/Globulin Ratio 0.6 L Physical Exam Const alert and no apparent distress HEENT head/scalp atraumatic and moist oral mucous membranes Resp normal respiratory effort, no retractions, no use of accessory muscles and clear to auscultation bilaterally Cardio regular rate, regular rhythm, S1 normal heart sound and S2 normal heart sound Assessment & Plan Assessment/Plan (1) Pneumonia due to 2019-nCoV: PLAN: Acute + Test on the (day 0), will need to quarantine through the Started on dexamethasone (treat through 01/08) and Remdesivir (treat though 01/02) PEP therapy Overall doing well. We will no longer continue remdesivir. Patient states that he has had issues with steroids in the past as a child. He is expressing that he is having a lot of energy right now which I think is more attributable to steroids. We will feel that he is having any adverse reactions from the steroids but he does not want to continue those. Since the onset was the , Lucht is seen about the patient getting Paxlovid at the TCU. (2) Chronic respiratory failure: QUALIFIERS: Respiratory failure complication: hypoxia Qualified Code(s): J96.11 - Chronic respiratory failure with hypoxia PLAN: Normally on 3l/m of oxygen Developed pronounced tachypnea with respiratory rate 36-38 in the TCU and had to be increased to 6 l/m temporarily. Subsequently, his oxygenation has stable and he is back on his 3l/m. Noted in ED that pt was not in respiratory distress. Patient also denies that he was short of breath. 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 CXR shows RML infiltrated, however, this is an improvement from Xrays and CT imaging Follow up with [facility] as outpt Repeat CXR in 4-6 weeks to ensure ongoing resolution of RML infiltrate PLAN: Plan Chronic conditions: Chronic HFpEF: appears stable with no fluid overload. Continue furosemide, metoprolol succinate History of PE: apixaban continued NSCLC: Unclear on status. Follow up with oncology HTN: stable continue amlopdine VTE prophylaxis: not indicated as he is already on apixaban. Discharged back to the transitional care unit.
--- NOTE | 2022-12-31 08:55 | CASEMGMT ---
Social Work Per physician, pt is improving and can return to TCU. SW updated Merlene in TCU and requested prcert be started at this time. Plan: TCU, pending precert CLAIRE Stubbs
[2022-12-31 09:15] VITALS: BP 115/56; PULSE 62; RESP 18; TEMP 36.6; O2SAT 98
[2022-12-31 09:22] VITALS: BP 115/56; PULSE 62
[2022-12-31] MEDS: Metoprolol(XL)Succ 25 MG Tablet PO (09:22)
[2022-12-31] MEDS: APIXABAN 5 MG TABLET PO (09:23)
[2022-12-31] MEDS: dexAMETHasone 4 MG Tablet 6 MG PO (09:23)
[2022-12-31] MEDS: Pantoprazole Sodium 40 MG Tablet PO (09:23)
[2022-12-31] MEDS: Potassium Chloride Oral Tablet 20 MEQ PO (09:23)
[2022-12-31] MEDS: amLODIPine 5 MG Tablet PO (09:23)
[2022-12-31] MEDS: guaiFENesin 1,200 MG Tablet 1200 MG PO (09:23)
[2022-12-31] MEDS: Furosemide 40 MG Tablet PO (09:23)
[2022-12-31 10:33] LABS: Pathologist Review Reviewed
--- NOTE | 2022-12-31 11:58 | PCM.TXEXTCAR ---
Diet Diet Order/Speech Therapy: 12/30/22 12:26 Diet: Regular - No Added Salt Food consistency:: Regular Liquid Consistency:: Regular/Thin Type of Dietary Supplement:: Follansbee Breakfast Is pt able to select menu?: Yes Diet Comments: CIB BID w/ breakfast and dinner, fortified oatmeal, pudding, mas. potatoes Therapies Weight Bearing: Full weight bearing Physical Therapy: Eval and Treat Occupational Therapy: Eval and Treat Problem/Diagnosis (1) Pneumonia due to 2019-nCoV: Status: Acute Code(s): U07.1 - COVID-19; J12.82 - Pneumonia due to coronavirus disease 2019 Plan: Acute + Test on the (day 0), will need to quarantine through the Started on dexamethasone (treat through 01/08) and Remdesivir (treat though 01/02) PEP therapy Overall doing well. We will no longer continue remdesivir. Patient states that he has had issues with steroids in the past as a child. He is expressing that he is having a lot of energy right now which I think is more attributable to steroids. We will feel that he is having any adverse reactions from the steroids but he does not want to continue those. Since the onset was the , Lucht is seen about the patient getting Paxlovid at the TCU. (2) Chronic respiratory failure: Status: Chronic Code(s): J96.10 - Chronic respiratory failure, unspecified whether with hypoxia or hypercapnia Plan: Normally on 3l/m of oxygen Developed pronounced tachypnea with respiratory rate 36-38 in the TCU and had to be increased to 6 l/m temporarily. Subsequently, his oxygenation has stable and he is back on his 3l/m. Noted in ED that pt was not in respiratory distress. Patient also denies that he was short of breath. 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 CXR shows RML infiltrated, however, this is an improvement from Xrays and CT imaging Follow up with [facility] Director as outpt Repeat CXR in 4-6 weeks to ensure ongoing resolution of RML infiltrate Plan Chronic conditions: Chronic HFpEF: appears stable with no fluid overload. Continue furosemide, metoprolol succinate History of PE: apixaban continued NSCLC: Unclear on status. Follow up with oncology HTN: stable continue amlopdine VTE prophylaxis: not indicated as he is already on apixaban. Discharged back to the transitional care unit. Allergies/Procedures Done in Hospital Allergies acetaminophen [From Tylenol] Allergy (Unknown, Verified 12/29/22 21:13) increased white count Type of Care/Length of Stay Estimated LOS: Convalescent Care Less Than 30 days Type of Care Needed: Skilled Rehab Potential: Good Prognosis: Good Additional Orders/Day of Discharge Day of Discharge: 12/31/22 Dietary and Speech Recommendations Dietitian Recommendations/Changes: RD will liberalized diet to SHRUTI to help optimize oral intakes. RD will d/c EPHP supplement per pt request. RD will order fortified foods. RD will order CIB BID with meals. Discharge Plan Admission Admit Date/Time: 12/29/22 22:38 Primary Reason for Your Visit: COVID 19 Attending Provider: Campos Bragg Primary Care Provider: Gera Camp Consulting Providers: [employer] Instructions Additional Instructions / Restrictions: Quarantine for COVID 19 through the . Discharge Orders/Prescriptions Prescriptions: New Paxlovid 300 mg (150 mg x 2)-100 mg tablets,dose pack See Rx Instructions .ROUTE .COMPLEX Qty: 30 0RF Rx Instructions: take TWO 150 mg tablets of nirmatrelvir with ONE 100 mg tablet of ritonavir twice daily for 5 days Continued Mucus Relief ER 1,200 mg Tablet Extended Release 12hr 1,200 mg PO BID Qty: 0 0RF ipratropium-albuterol 0.5 mg-3 mg(2.5 mg base)/3 mL Solution For Nebulization 3 ml inhalation Q6HWA.RT 30 Days Qty: 360 0RF albuterol sulfate 2.5 mg /3 mL (0.083 %) Solution For Nebulization 2.5 mg inhalation Q2H PRN PRN (Reason: Shortness of Breath/Wheezing) 30 Days Qty: 360 0RF pantoprazole 40 mg Tablet,Delayed Release (Dr/Ec) 40 mg PO DAILY 30 Days Qty: 30 0RF budesonide 0.5 mg/2 mL Suspension For Nebulization 0.5 mg inhalation BID.RT 30 Days Qty: 120 0RF metoprolol succinate 25 mg Tablet Extended Release 24 Hr 25 mg PO BID 30 Days Qty: 60 0RF Deep Sea Nasal 0.65 % Aerosol,Brielle 2 spray NASAL TID PRN PRN (Reason: NASAL DRYNESS) Qty: 0 0RF amlodipine 5 mg tablet 5 mg PO DAILY furosemide 40 mg Tablet 40 mg PO DAILY Qty: 0 0RF hydrocodone-acetaminophen 5-325 mg Tablet 1 tab PO Q6H PRN PRN (Reason: Pain Score 1-10) 2 Days Qty: 6 0RF sennosides-docusate sodium [Stool Softener-Stimulant Laxat] 8.6-50 mg Tablet 2 tab PO BID PRN PRN (Reason: Constipation) Qty: 0 0RF melatonin 3 mg Tablet 3 mg PO QHS PRN PRN (Reason: Insomnia) Qty: 0 0RF potassium chloride [Klor-Con M20] 20 mEq Tablet,Er Particles/Crystals 20 meq PO BID Qty: 0 0RF Deep Sea Nasal 0.65 % Aerosol,Brielle 1 spray NASAL Q4H PRN PRN (Reason: NASAL DRYNESS) Qty: 0 0RF Eliquis 5 mg Tablet 5 mg PO BID Rx Instructions: two twice a day for a total of 6 pills, then one twice a day starting 12/24/22 Referrals / Follow Up: Gera Camp MD [Primary Care Provider] - Within 2 Weeks Disposition Disposition (needs filled in before D/C Order can be placed): [facility] Facility (2) Chronic respiratory failure Qualifiers: Respiratory failure complication: hypoxia Qualified Code(s): J96.11 - Chronic respiratory failure with hypoxia
--- NOTE | 2022-12-31 12:04 | DS.PCM_ITS ---
Providers Date of Admission: 12/29/22 Primary Care Physician: Dr. Gera Camp MD Reason For Visit: COVID 19 PNEUMONIA Diagnosis Discharge Diagnosis (1) Pneumonia due to 2019-nCoV: Status: Acute Code(s): U07.1 - COVID-19; J12.82 - Pneumonia due to coronavirus disease 2019 Plan: Acute + Test on the (day 0), will need to quarantine through the Started on dexamethasone (treat through 01/08) and Remdesivir (treat though 01/02) PEP therapy Overall doing well. We will no longer continue remdesivir. Patient states that he has had issues with steroids in the past as a child. He is expressing that he is having a lot of energy right now which I think is more attributable to steroids. We will feel that he is having any adverse reactions from the steroids but he does not want to continue those. Since the onset was the , to receive Paxlovid at the TCU. (2) Chronic respiratory failure: Status: Chronic Code(s): J96.10 - Chronic respiratory failure, unspecified whether with hypoxia or hyper capnia Qualifiers: Respiratory failure complication: hypoxia Qualified Code(s): J96.11 - Chronic respiratory failure with hypoxia Plan: Normally on 3l/m of oxygen Developed pronounced tachypnea with respiratory rate 36-38 in the TCU and had to be increased to 6 l/m temporarily. Subsequently, his oxygenation has stable and he is back on his 3l/m. Noted in ED that pt was not in respiratory distress. Patient also denies that he was short of breath. 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 CXR shows RML infiltrated, however, this is an improvement from Xrays and CT imaging Follow up with [facility] as outpt Repeat CXR in 4-6 weeks to ensure ongoing resolution of RML infiltrate Plan Chronic conditions: * Chronic HFpEF: appears stable with no fluid overload. Continue furosemide, metoprolol succinate * History of PE: apixaban continued * NSCLC: Unclear on status. Follow up with oncology * HTN: stable continue amlopdine VTE prophylaxis: not indicated as he is already on apixaban. Discharged back to the transitional care unit. Medications at Discharge Home Medications guaifenesin 1,200 mg tablet, extended release 12 hr (Mucus Relief ER) 1,200 mg PO BID Mucus Relief #0 tabs 12/02/22 albuterol sulfate 2.5 mg/3 mL (0.083 %) solution for nebulization 2.5 mg (3 mL) inhalation Q2H PRN PRN Shortness of Breath/Wheezing 30 days #360 mL 12/12/22 budesonide 0.5 mg/2 mL suspension for nebulization 0.5 mg (2 mL) inhalation BID.RT COPD 30 days #120 mL 12/12/22 ipratropium 0.5 mg-albuterol 3 mg (2.5 mg base)/3 mL nebulization soln 3 ml inhalation Q6HWA.RT lungs 30 days #360 mL 12/12/22 metoprolol succinate 25 mg tablet,extended release 24 hr 25 mg PO BID BP 30 days #60 tabs 12/12/22 pantoprazole 40 mg tablet,delayed release 40 mg PO DAILY acid reflux 30 days #30 tabs 12/12/22 sodium chloride 0.65 % nasal spray aerosol (Deep Sea Nasal) 2 spray NASAL TID PRN PRN NASAL DRYNESS #0 mL 12/12/22 amlodipine 5 mg tablet 5 mg PO DAILY heart 12/14/22 furosemide 40 mg tablet 40 mg PO DAILY swell #0 tabs 12/22/22 hydrocodone-acetaminophen 5-325mg 5mg-325mg 1 tab PO Q6H PRN PRN Pain Score 1-10 2 days #6 tabs 12/22/22 melatonin 3 mg tablet 3 mg PO QHS PRN PRN Insomnia #0 tabs 12/22/22 potassium chloride 20 mEq tablet,extended release(part/cryst) (Klor-Con M) 20 meq PO BID supplement #0 tabs 12/22/22 sennosides 8.6 mg-docusate sodium 50 mg tablet (Stool Softener-Stimulant Laxative) 2 tab PO BID PRN PRN Constipation #0 tabs 12/22/22 sodium chloride 0.65 % nasal spray aerosol (Deep Sea Nasal) 1 spray NASAL Q4H PRN PRN NASAL DRYNESS #0 mL 12/22/22 apixaban 5 mg tablet (Eliquis) 5 mg PO BID lung clots 12/29/22 nirmatrelvir 300 mg (150 mg x2)-ritonavir 100 mg tablet,dose pack (Paxlovid) See Rx Instructions PO .COMPLEX #30 tabs 12/31/22 Hospital Course Operations None Procedures None Summary of Care Provided Minutes Spent on Discharge: 32 Hospital Course: Patient sent from the transitional care unit for COVID-19. Patient denied any issues but was positive for COVID-19 and was advised the patient be brought into the hospital to receive treatment. Patient did start remdesivir as well as dexamethasone. Patient does have chronic respiratory failure and is on 3 L of oxygen but has never had any increase to his oxygen. He states that he has felt fine. Patient has been observed and is stable. Patient can return to the transitional care unit in stable condition. Patient does not want any steroids given that he has had issues with getting angry with being on steroids in the past when he was a child. I think that is reasonable. We will see if he can g et Paxlovid at the transitional care unit. Weight / BMI Weight Weight: 66.4 kg Body Mass Index (BMI) 25.0 ABG / Lab / Microbiology Data 12/30/22 06:50 12/31/22 05:45 Laboratory: Laboratory Results - last 24 hr 12/30/22 06:50: Diff Path Review Reviewed 12/31/22 05:45: Sodium 138, Potassium 3.7, Chloride 110 H, Carbon Dioxide 22.0, Anion Gap 6, BUN 26 H, Creatinine 0.65 L, Estim Creat Clear Calc 57.56, Est GFR (MDRD) Af Amer 155, Est GFR (MDRD) Non-Af 128, BUN/Creatinine Ratio 39.9 H, Glucose 107 H, Calcium 8.6, Total Bilirubin 0.50, AST 13 L, ALT 18, Alkaline Phosphatase 79, Total Protein 6.7, Albumin 2.5 L, Globulin 4.2, Albumin/Globulin Ratio 0.6 L Meaningful Use Info Meaningful Use Diagnoses (Choose all that apply): None applicable Discharge Plan Admission Admit Date/Time: 12/29/22 22:38 Primary Reason for Your Visit: COVID 19 Attending Provider: Campos Bragg Primary Care Provider: Gera Camp Consulting Providers: [employer] Instructions Additional Instructions / Restrictions: Quarantine for COVID 19 through the . Discharge Orders/Prescriptions Prescriptions: New Paxlovid 300 mg (150 mg x 2)-100 mg tablets,dose pack See Rx Instructions .ROUTE .COMPLEX Qty: 30 0RF Rx Instructions: take TWO 150 mg tablets of nirmatrelvir with ONE 100 mg tablet of ritonavir twice daily for 5 days Continued Mucus Relief ER 1,200 mg Tablet Extended Release 12hr 1,200 mg PO BID Qty: 0 0RF ipratropium-albuterol 0.5 mg-3 mg(2.5 mg base)/3 mL Solution For Nebulization 3 ml inhalation Q6HWA.RT 30 Days Qty: 360 0RF albuterol sulfate 2.5 mg /3 mL (0.083 %) Solution For Nebulization 2.5 mg inhalation Q2H PRN PRN (Reason: Shortness of Breath/Wheezing) 30 Days Qty: 360 0RF pantoprazole 40 mg Tablet,Delayed Release (Dr/Ec) 40 mg PO DAILY 30 Days Qty: 30 0RF budesonide 0.5 mg/2 mL Suspension For Nebulization 0.5 mg inhalation BID.RT 30 Days Qty: 120 0RF metoprolol succinate 25 mg Tablet Extended Release 24 Hr 25 mg PO BID 30 Days Qty: 60 0RF Deep Sea Nasal 0.65 % Aerosol,[place] 2 spray NASAL TID PRN PRN (Reason: NASAL DRYNESS) Qty: 0 0RF amlodipine 5 mg tablet 5 mg PO DAILY furosemide 40 mg Tablet 40 mg PO DAILY Qty: 0 0RF hydrocodone-acetaminophen 5-325 mg Tablet 1 tab PO Q6H PRN PRN (Reason: Pain Score 1-10) 2 Days Qty: 6 0RF sennosides-docusate sodium [Stool Softener-Stimulant Laxat] 8.6-50 mg Tablet 2 tab PO BID PRN PRN (Reason: Constipation) Qty: 0 0RF melatonin 3 mg Tablet 3 mg PO QHS PRN PRN (Reason: Insomnia) Qty: 0 0RF potassium chloride [Klor-Con M20] 20 mEq Tablet,Er Particles/Crystals 20 meq PO BID Qty: 0 0RF Deep Sea Nasal 0.65 % Aerosol,[place] 1 spray NASAL Q4H PRN PRN (Reason: NASAL DRYNESS) Qty: 0 0RF Eliquis 5 mg Tablet 5 mg PO BID Rx Instructions: two twice a day for a total of 6 pills, then one twice a day starting 12/24/22 Referrals / Follow Up: Gera Camp MD [Primary Care Provider] - Within 2 Weeks Disposition Disposition (needs filled in before D/C Order can be placed): [facility] Facility Charges/Coding Visit Charges Inpatient E&M: 77001 Disch Hosp >30min
--- NOTE | 2022-12-31 12:22 | CASEMGMT ---
Social Work Precert has been obtained. Physician notified and pt is ready for d/c today. Discharge orders faxed to TCU and Merlene notified of discharge today. SW met with pt and informed of discharge and pt is agreeable. Pt HCPOA Geena updated and agreeable. Disposition: TCU, skilled level of care CLAIRE Stubbs
[2022-12-31 14:46] VITALS: O2SAT 98
[2022-12-31 15:15] VITALS: BP 135/70; PULSE 66; RESP 20; TEMP 36.6; O2SAT 98
== END 2022-12-31 15:20 | disposition skilled nursing facility (03) ==
LOC: ED 23:03 → MS3 23:53
PROVIDERS: Admitting Provider Hospitalist; Emergency Provider Emergency Medicine; PCP Internal Medicine
DX: U07.1 COVID-19 (principal); C34.91 Malignant neoplasm of unspecified part of right bronchus or lung; I26.99 Other pulmonary embolism without acute cor pulmonale; J44.9 Chronic obstructive pulmonary disease, unspecified; I11.0 Hypertensive heart disease with heart failure; I50.32 Chronic diastolic (congestive) heart failure; J96.11 Chronic respiratory failure with hypoxia; R53.81 Other malaise; J12.82 Pneumonia due to coronavirus disease 2019; Z87.891 Personal history of nicotine dependence; Z79.01 Long term (current) use of anticoagulants; Z99.81 Dependence on supplemental oxygen; K21.9 Gastro-esophageal reflux disease without esophagitis; Z79.899 Other long term (current) drug therapy
CPT/HCPCS: 36415; 80053; 85025; 94640; 97162; 97166; 97802; 99221; 99284; J7050; A4216; G0378; J0248

== ENCOUNTER 2022-12-31 15:30 | Inpatient (IN) | payer MEDICARE, SELFPAY ==
[2022-12-31 16:24] VITALS: BP 118/59; PULSE 64; RESP 14; TEMP 37.2; O2SAT 99; BMI 25.2
[2022-12-31] MEDS: Potassium Chloride Oral Tablet 20 MEQ PO (19:04)
[2022-12-31 19:56] VITALS: O2SAT 98
--- NOTE | 2022-12-31 19:56 | CPS ---
pt stated dr chandan keys'd all aero tx's at this time
--- NOTE | 2022-12-31 20:35 | HP.PCM_ITS ---
HPI - General General Date of Admission: 12/31/22 Date of Service: 12/31/22 Chief Complaint: Here for rehabilitation. HPI Narrative 12/29/2022 LEAH KARIMI, is a 72 Male who presents to [facility] Emergency Department with worsening shortness of breath. Positive covid19, Chest X-ray shows questionable pneumonia. Pulsox 90% on 3 liters oxygen per nasal cannula. 12/29/2022 Admit to Hospital. Decadron, Remdesivir for covid19. Eliquis for pulmonary embolism. 12/30/2022 Tired, not short of breath. Decadron thru 01/08/2023. Chest X-ray showed right middle lobe infiltrate, but improved from previous Chest X-ray, CT chest. 12/31/2022 Lot of energy, patient requested to continue Decadron. Start Paxlovid for covid19. 12/31/2022 Admit to TCU with debility, here for rehabilitation, strengthening, prior to discharge home alone. PENDING SALE TO [facility] Medical History (Updated 12/31/22 @ 20:[address] Alex Nation MD) Acute heart failure with preserved ejection fraction COPD (chronic obstructive pulmonary disease) Former smoker GERD (gastroesophageal reflux disease) Hypertension Lung cancer Pulmonary emboli Home Medications guaifenesin 1,200 mg tablet, extended release 12 hr (Mucus Relief ER) 1,200 mg PO BID Mucus Relief #0 tabs 12/02/22 [Rx Last Taken 12/02/22 09:55] albuterol sulfate 2.5 mg/3 mL (0.083 %) solution for nebulization 2.5 mg (3 mL) inhalation Q2H PRN PRN Shortness of Breath/Wheezing 30 days #360 mL 12/12/22 [Rx Last Taken 12/31/22] budesonide 0.5 mg/2 mL suspension for nebulization 0.5 mg (2 mL) inhalation BID.RT COPD 30 days #120 mL 12/12/22 [Rx Last Taken Unknown] ipratropium 0.5 mg-albuterol 3 mg (2.5 mg base)/3 mL nebulization soln 3 ml inhalation Q6HWA.RT lungs 30 days #360 mL 12/12/22 [Rx Last Taken Unknown] metoprolol succinate 25 mg tablet,extended release 24 hr 25 mg PO BID BP 30 days #60 tabs 12/12/22 [Rx Last Taken Unknown] pantoprazole 40 mg tablet,delayed release 40 mg PO DAILY acid reflux 30 days #30 tabs 12/12/22 [Rx Last Taken 12/22/22] sodium chloride 0.65 % nasal spray aerosol (Deep Sea Nasal) 2 spray NASAL TID PRN PRN NASAL DRYNESS #0 mL 12/12/22 [Rx Last Taken Unknown] amlodipine 5 mg tablet 5 mg PO DAILY heart 12/14/22 [History Last Taken Unknown] furosemide 40 mg tablet 40 mg PO DAILY swell #0 tabs 12/22/22 [Rx Last Taken 12/31/22] hydrocodone-acetaminophen 5-325mg 5mg-325mg 1 tab PO Q6H PRN PRN Pain Score 1-10 2 days #6 tabs 12/22/22 [Rx Last Taken Unknown] melatonin 3 mg tablet 3 mg PO QHS PRN PRN Insomnia #0 tabs 12/22/22 [Rx Last Taken 12/31/22] potassium chloride 20 mEq tablet,extended release(part/cryst) (Klor-Con M) 20 meq PO BID supplement #0 tabs 12/22/22 [Rx Last Taken Unknown] sennosides 8.6 mg-docusate sodium 50 mg tablet (Stool Softener-Stimulant Laxative) 2 tab PO BID PRN PRN Constipation #0 tabs 12/22/22 [Rx Last Taken Unknown] sodium chloride 0.65 % nasal spray aerosol (Deep Sea Nasal) 1 spray NASAL Q4H PRN PRN NASAL DRYNESS #0 mL 12/22/22 [Rx Last Taken Unknown] apixaban 5 mg tablet (Eliquis) 5 mg PO BID lung clots 12/29/22 [History Last Taken Unknown] nirmatrelvir 300 mg (150 mg x2)-ritonavir 100 mg tablet,dose pack (Paxlovid) See Rx Instructions PO .COMPLEX Covid 19 #30 tabs 12/31/22 [Rx Last Taken Unknown] Allergy/AdvReac Type Severity Reaction Status Date / Time acetaminophen [From Tylenol] Allergy Unknown increased Verified 12/29/22 21:13 white count Family History Father Cancer Mother Cancer Surgical History History of tonsillectomy Social History household members: other details: Sister. Smoking Status: Former smoker alcohol intake: never substance use type: does not use ROS Constitutional Constitutional: Denies chills, fever(s) or weight gain ENT HEENT: Denies headache(s), nasal congestion or nasal discharge Cardiovascular Cardiovascular: Denies chest pain or palpitations Respiratory/Chest Respiratory/Chest: Denies cough, excessive phlegm production or shortness of breath with exertion Gastrointestinal Gastrointestinal: Denies abdominal pain, nausea or vomiting Genitourinary Genitourinary: Denies dysuria Musculoskeletal Musculoskeletal: Denies joint pain or joint swelling Integumentary Integumentary: Denies rash or wounds Neurologic Neurologic: Denies focal weakness, numbness or tingling Psychiatric Psychiatric: Denies anxiety, auditory hallucinations, depression, homicidal ideation or suicidal ideation Vital Signs Vital Signs Vital Signs: 12/31/22 16:24 12/31/22 16:24 12/31/22 19:56 Temperature 99 F Temperature Source Temporal Pulse Rate 64 64 Pulse Rhythm Irregular Pulse Strength Normal (2+) Respiratory Rate 14 14 Respiratory Effort Normal Non-Labored Respiratory Depth Normal Respiratory Pattern Normal Blood Pressure 118/59 L Blood Pressure Mean 78 Blood Pressure Source Monitor Blood Pressure Position Sitting Blood Pressure Location Left Arm Pulse Ox 99 99 98 Oxygen Delivery Method Nasal Cannula Nasal Cannula Nasal Cannula Oxygen Flow Rate (L/min) 2 2 2 Weight Weight: 67.132 kg Body Mass Index (BMI) 25.2 Physical Exam Const alert General Appearance: cooperative HEENT normocephalic Eyes PERRL and EOMs intact bilaterally Neck supple, no JVD and no carotid bruits Resp normal respiratory effort Auscultation: wheezes and diminished lung sounds Cardio regular rate and regular rhythm GI normal to inspection, nondistended, normoactive bowel sounds, non-tender and non-distended Extremity normal capillary refill General Extremity: Negative for edema Skin no rashes or lesions noted General Skin Exam: no breakdown Psych affect normal Appearance: appropriate Assessment & Plan Assessment/Plan (1) Debility: (2) Acute on chronic respiratory failure: (3) Pneumonia due to 2019-nCoV: (4) Pulmonary emboli: QUALIFIERS: Acute cor pulmonale presence: with acute cor pulmonale Chronicity: acute Pulmonary embolism type: other Qualified Code(s): I26.09 - Other pulmonary embolism with acute cor pulmonale (5) COPD (chronic obstructive pulmonary disease): QUALIFIERS: COPD type: chronic bronchitis Chronic bronchitis type: unspecified Qualified Code(s): J42 - Unspecified chronic bronchitis (6) Hypertension: (7) Insomnia: (8) GERD (gastroesophageal reflux disease): (9) Hypokalemia: (10) Heart failure with preserved ejection fraction: PLAN: Plan 72 year old male with below past medical history hospitalized for acute on chronic respiratory failure secondary to covid19 pneumonia, admitted to TCU with debility, here for rehabilitation, strengthening, prior to discharge home. * Debility - PT/OT. * Pain - Lynn 0.5/1 tablet q6h prn. * Bowel - senna/colace 2 tablets bid prn. * Adult immunization - Administer pneumonia vaccine, covid19 vaccine, flu vaccine as appropriate. * DVT prophylaxis - on Eliquis. * Lung cancer - Oncology follow up as outpatient. * Hypertension - Metoprolol succinate 25mg bid, Amlodipine 5mg daily. * Pulmonary embolism - Eliquis 2.5mg/5mg bid. * COPD - Budesonide 0.5mg inhaled bid, resident declined Albuterol, Duoneb, stating it makes his throat cold. * Heart failure preserved ejection fraction - Metoprolol succinate 25mg bid, Furosemide 40mg daily. * Congestion - Guaifenesin 1200mg bid. * Insomnia - Melatonin 3mg qhs. * Covid19 - Paxlovid for 5 days, appreciate pharmacy help with drug interactions. * GERD - Pantoprazole 40mg daily. * Hypokalemia - KCL 20meq bidcm. * Dry nares - Sodium Chloride 1 spray q4h prn.
[2022-12-31] MEDS: NIRMATRELVIR/RITONAVIR 1 EACH TABLET PO (23:04)
[2022-12-31] MEDS: APIXABAN 2.5 MG TABLET (WCH) PO (23:04)
[2022-12-31] MEDS: guaiFENesin 1,200 MG Tablet 1200 MG PO (23:04)
[2022-12-31 23:07] VITALS: BP 117/64; PULSE 87
[2022-12-31] MEDS: Metoprolol(XL)Succ 25 MG Tablet PO (23:07)
[2023-01-01] VITALS (7 sets, daily range): PULSE 62–64; O2SAT 95–97
[2023-01-01 05:46] LABS: Absolute Lymphocyte Count 0.83 X10^3/uL (0.83-4.51); Absolute Neutrophil Count 4.5 X10^3/uL (2.0-7.7); Basophil# 0.01 X10^3/uL; Basophil% 0.2 % (0-1); Hematocrit 26.9 % (40-54); Hemoglobin 8.2 g/dL (13.0-16.5); Lymphocyte # 0.83 X10^3/ul (0.83-4.51); Lymphocyte % 14.6 % (19-41); Mean Corp Hgb Conc 30.5 g/dL (32-36); Mean Corpuscular Hgb 27.8 pg (27.0-32.0); Mean Corpuscular Volume 91.2 fL (80-94); Mean Platelet Vol. 9.4 fl (6.2-12.0); Monocyte# 0.37 X10^3/uL; Monocyte% 6.5 % (0-10); NRBC Flagged by Analyzer 0 % (0-5); Neutrophil # 4.46 X10^3/uL (2.7-7.7); Neutrophil % 78.3 % (47-70); POSITIVE MORPHOLOGY YES; Platelet Count 168 K/mm3 (150-450); RBC Distribution Width CV 20.3 % (11.6-14.6); RBC Distribution Width SD 67.3 fl (35.1-43.9); Red Blood Count 2.95 M/mm3 (4.6-6.2); White Blood Count 5.7 K/mm3 (4.4-11.0)
[2023-01-01 05:48] LABS: Differential Indicated SCAN CRITERIA MET
[2023-01-01 06:20] LABS: Anisocytosis 1+; Differential Comment SCANNED; Microcytosis 1+
[2023-01-01 06:47] LABS: Anion Gap 5 (5-15); BUN 31 mg/dL (7-18); BUN/Creat Ratio 45.1 RATIO (10-20); Calcium,Total 8.6 mg/dL (8.5-10.1); Chloride 109 mmol/L (98-107); Creatinine, Serum 0.69 mg/dL (0.70-1.30); EST Glomerular Filtration Rate 121 mL/min (>60); Est Glom Filt Rate - Afr Amer 146 mL/min (>60); Estimated Creatinine Clearance 57.56 ml/min; Glucose 102 mg/dL (74-106); Potassium 3.7 mmol/L (3.5-5.1); Sodium Level 137 mmol/L (136-145)
--- NOTE | 2023-01-01 09:39 | NURSING ---
Drawer Liner Note; Activity Asset: Reina Abdi has returned to TCU after a brief discharge to PCU. He remains independent in his choice of daily activities. He will be on ISO precautions due to covid positive results. He reads, watches tv, uses his smartphone and will work on [employer] at this time. Staff will continue to see if there is anything he may need in his room during his ISO period. Family is visiting with ISO precautions in place.
--- NOTE | 2023-01-01 09:46 | CASEMGMT ---
Social Work readmit [id number] - no changes to assessment, insurance, or code status. Will follow for DC planning. Isa Jackson MSW FORESTRY ADVISER
[2023-01-01] MEDS: amLODIPine 5 MG Tablet PO (09:51)
[2023-01-01] MEDS: NIRMATRELVIR/RITONAVIR 1 EACH TABLET PO ×2 (09:51→22:24)
[2023-01-01] MEDS: APIXABAN 2.5 MG TABLET (WCH) PO ×2 (09:51→22:30)
[2023-01-01] MEDS: Potassium Chloride Oral Tablet 20 MEQ PO ×2 (09:51→17:53)
[2023-01-01] MEDS: Pantoprazole Sodium 40 MG Tablet PO (09:51)
[2023-01-01] MEDS: Furosemide 40 MG Tablet PO (09:51)
[2023-01-01] MEDS: guaiFENesin 1,200 MG Tablet 1200 MG PO ×2 (09:51→22:30)
[2023-01-01] MEDS: Metoprolol(XL)Succ 25 MG Tablet PO ×2 (10:03→22:30)
--- NOTE | 2023-01-01 10:44 | NURSING ---
R' REMAINS IN DROPLET ISOLATION WITH N95 MASK THROUGHOUT SHIFT. ALL CARE PROVIDED IN ROOM.
[2023-01-02 08:25] VITALS: PULSE 65
[2023-01-02] MEDS: Potassium Chloride Oral Tablet 20 MEQ PO ×2 (08:25→16:31)
[2023-01-02] MEDS: APIXABAN 2.5 MG TABLET (WCH) PO ×2 (08:25→22:01)
[2023-01-02] MEDS: Metoprolol(XL)Succ 25 MG Tablet PO ×2 (08:25→22:06)
[2023-01-02] MEDS: Menthol/Lanolin/Calamine/Znox 113 GM Tube 1 APPLIC TOPICAL ×2 (08:25→22:12)
[2023-01-02] MEDS: guaiFENesin 1,200 MG Tablet 1200 MG PO ×2 (08:26→22:01)
[2023-01-02] MEDS: amLODIPine 5 MG Tablet PO (08:26)
[2023-01-02] MEDS: Pantoprazole Sodium 40 MG Tablet PO (08:26)
[2023-01-02] MEDS: NIRMATRELVIR/RITONAVIR 1 EACH TABLET PO ×2 (08:26→22:01)
[2023-01-02] MEDS: Furosemide 40 MG Tablet PO (08:26)
[2023-01-02 08:30] VITALS: BP 118/63; PULSE 63; RESP 16; TEMP 36.9; O2SAT 96
[2023-01-02 08:48] VITALS: O2SAT 97
--- NOTE | 2023-01-02 14:15 | NS ---
MST score = 4 d/t wt loss hearing aid technician
[2023-01-02] MEDS: Sodium Chloride 0.65% 1 SPRAY SPRAY.BTL NASAL (16:35)
[2023-01-02] MEDS: HYDROcodone Bitartrate/Apap 5/325 Tablet PO (16:41)
[2023-01-02 19:03] VITALS: O2SAT 96
[2023-01-02 22:06] VITALS: PULSE 75
--- NOTE | 2023-01-03 03:57 | NURSING ---
At 0330 patient was found sitting up right on floor in front of bed in room. Patient states that he was bored and just got up too fast, patient was not using call light or assistive device. Patient was wearing his oxygen at this time. Patient denies hitting head or any pain. Patient was last rounded on at 0200 and was in his recliner watching TV. Patient was helped off the floor with assistance of 3 staff nurses. Patient was walked back to recliner and sat down. Bed and chair alarms are in place and working. Call light is within reach. Neuro checks have been initiated as per policy.
[2023-01-03 05:46] LABS: Hematocrit 30.1 % (40-54)
[2023-01-03 10:36] VITALS: PULSE 65
[2023-01-03] MEDS: Metoprolol(XL)Succ 25 MG Tablet PO ×2 (10:36→21:34)
[2023-01-03] MEDS: APIXABAN 2.5 MG TABLET (WCH) PO ×2 (10:36→21:32)
[2023-01-03] MEDS: Furosemide 40 MG Tablet PO (10:37)
[2023-01-03] MEDS: Menthol/Lanolin/Calamine/Znox 113 GM Tube 1 APPLIC TOPICAL ×2 (10:37→21:30)
[2023-01-03] MEDS: Potassium Chloride Oral Tablet 20 MEQ PO ×2 (10:37→18:23)
[2023-01-03] MEDS: guaiFENesin 1,200 MG Tablet 1200 MG PO ×2 (10:38→21:32)
[2023-01-03] MEDS: amLODIPine 5 MG Tablet PO (10:38)
[2023-01-03] MEDS: Pantoprazole Sodium 40 MG Tablet PO (10:45)
[2023-01-03] MEDS: NIRMATRELVIR/RITONAVIR 1 EACH TABLET PO ×2 (11:35→21:33)
[2023-01-03 16:00] VITALS: BP 136/67; PULSE 67; RESP 18; TEMP 37.3; O2SAT 96
[2023-01-03 17:36] LABS: Absolute Neutrophil Count 14.4 X10^3/uL (2.0-7.7); Basophil# 0.03 X10^3/uL; Basophil% 0.2 % (0-1); Hematocrit 30.2 % (40-54); Hemoglobin 9.3 g/dL (13.0-16.5); Lymphocyte % 6.7 % (19-41); Mean Corp Hgb Conc 30.8 g/dL (32-36); Mean Corpuscular Hgb 27.4 pg (27.0-32.0); Mean Corpuscular Volume 88.8 fL (80-94); Mean Platelet Vol. 9.2 fl (6.2-12.0); Monocyte# 0.93 X10^3/uL; Monocyte% 5.6 % (0-10); NRBC Flagged by Analyzer 0 % (0-5); Neutrophil # 14.36 X10^3/uL (2.7-7.7); POSITIVE MORPHOLOGY YES; Platelet Count 159 K/mm3 (150-450); RBC Distribution Width CV 20.4 % (11.6-14.6); RBC Distribution Width SD 65.2 fl (35.1-43.9); White Blood Count 16.5 K/mm3 (4.4-11.0)
[2023-01-03 17:38] LABS: Differential Indicated SCAN CRITERIA MET
[2023-01-03 17:57] LABS: Anisocytosis 1+; Differential Comment SCANNED
[2023-01-03 18:12] LABS: ALB/GLOB Ratio 0.6 RATIO (0.9-2.4); AST(SGOT) 61 U/L (15-37); Alanine Aminotransfer ALT/SGPT 46 U/L (16-61); Albumin, Serum 2.8 g/dL (3.2-5.0); Alkaline Phosphatase 94 U/L (45-117); Anion Gap 8 (5-15); BUN 24 mg/dL (7-18); BUN/Creat Ratio 26.1 RATIO (10-20); Calcium,Total 8.9 mg/dL (8.5-10.1); Chloride 102 mmol/L (98-107); Creatinine, Serum 0.92 mg/dL (0.70-1.30); EST Glomerular Filtration Rate 86 mL/min (>60); Est Glom Filt Rate - Afr Amer 104 mL/min (>60); Estimated Creatinine Clearance 62.56 ml/min; Globulin 4.7 g/dL (2.2-4.2); Glucose 145 mg/dL (74-106); Potassium 3.7 mmol/L (3.5-5.1); Protein, Total 7.5 g/dL (6.4-8.2); Sodium Level 134 mmol/L (136-145)
--- NOTE | 2023-01-03 18:42 | RAD_ITS ---
STUDY: XR Chest 2 Views 01/03/2023 6:43 PM REASON FOR EXAM: Male, 72 years old. hypoxic COMPARISON: 12/29/2022 TECHNIQUE: XR Chest 2 Views FINDINGS: There is no demonstrated pleural abnormality. Right middle lobe infiltrate. Normal heart size. Normal mediastinum. Normal minna. Prominent appearing increased interstitial lung markings. Normal visualized pulmonary arteries. There is atherosclerotic calcification of the aortic arch with tortuosity. There are diffuse degenerative changes of the visualized thoracic spine. There is degenerative osteoarthritis of the bilateral shoulders. There are no acute findings of the upper abdomen. RAD/Chest PA and Lateral IMPRESSION: Right sided pneumonia. Electronically Signed: Russ Bradshaw MD at 19:13 EDT ,
--- NOTE | 2023-01-03 19:48 | NURSING ---
dr hawley updated on condition, new orders for chest xray, labs, MRI of brain when preauth obtained, ua c&s. chest xray showed RT middle lobe pnemonia, new order for levquin iv x7 days
[2023-01-03] MEDS: 0.9% Saline Lock 10 ML Syringe IV (21:22)
[2023-01-03] MEDS: levoFLOXacin IV 750 MG/150 ML BAG 100 MG IV (21:22)
[2023-01-03 21:34] VITALS: BP 131/79; PULSE 78
[2023-01-03 21:48] VITALS: PULSE 70; RESP 16; O2SAT 94
[2023-01-03] MEDS: 0.9% Normal Saline (250mL Bag) 250 ML 15 ML IV (21:48)
--- NOTE | 2023-01-03 22:18 | NURSING ---
Patient ordered UA C&S that was collected by LYNDON Higgins (primary daysnmft nurse) as stated in report. Lab contacted due to no results at this time, per lab they have urine samples initialed by nanda this date nurse but needs collected on worklist lab can receive order to run. Order collected on worklist as confirmed collected by nanda RN confirmed by lab.
[2023-01-03 22:22] LABS: Mucous, Urine 0 SEEN /hpf (<or=2+); Red Blood Cells-Urine 0 SEEN /hpf (0-5); Squamous Epithelial Cells - UA 0 SEEN /hpf (0-5)
[2023-01-03 22:29] LABS: Color, Urine Yellow (Yellow); Glucose, Dipstick Normal (Normal); Ketone-Dipstick Negative (Negative); Leukocyte Esterase-Dipstick 100 /ul (Negative); Nitrite-Dipstick Negative (Negative); Occult Blood-Urine 250 /ul (Negative); Protein-Dipstick 15 mg/dl (Negative); Specific Gravity, Urine 1.015 (1.002-1.030); Urine Bilirubin Dipstick Negative (Negative); Urine Clarity Clear (Clear); Urine Urobilinogen Normal (Normal)
[2023-01-03 22:47] LABS: Bacteria 2+ /hpf (None Seen); White Blood Cells 10-25 SEEN /hpf (0-5)
[2023-01-04] MEDS: 0.9% Saline Lock 10 ML Syringe IV (09:04)
[2023-01-04] MEDS: 0.9% Normal Saline (1000mL) 1,000 ML 75 ML IV (09:04)
[2023-01-04] MEDS: amLODIPine 5 MG Tablet PO (09:07)
[2023-01-04] MEDS: Pantoprazole Sodium 40 MG Tablet PO (09:07)
[2023-01-04] MEDS: guaiFENesin 1,200 MG Tablet 1200 MG PO ×2 (09:08→22:04)
[2023-01-04] MEDS: APIXABAN 2.5 MG TABLET (WCH) PO ×2 (09:08→22:04)
[2023-01-04] MEDS: Furosemide 40 MG Tablet PO (09:08)
[2023-01-04] MEDS: Menthol/Lanolin/Calamine/Znox 113 GM Tube 1 APPLIC TOPICAL ×2 (09:09→22:15)
[2023-01-04] MEDS: Potassium Chloride Oral Tablet 20 MEQ PO ×2 (09:09→17:32)
[2023-01-04] MEDS: NIRMATRELVIR/RITONAVIR 1 EACH TABLET PO (09:12)
[2023-01-04 09:54] VITALS: O2SAT 99
[2023-01-04 10:36] VITALS: PULSE 80
[2023-01-04] MEDS: Metoprolol(XL)Succ 25 MG Tablet PO ×2 (10:36→22:49)
--- NOTE | 2023-01-04 14:00 | CASEMGMT ---
Social Work NRD of 01/11 given with EDC 01/14. SW updated pt's HCPOA Geena. CLAIRE Stubbs
[2023-01-04 15:00] VITALS: BP 99/66; PULSE 89; RESP 21; TEMP 36.2; O2SAT 91
--- NOTE | 2023-01-04 15:14 | PCM.PN.DRR ---
TCU RX Drug Regimen Review Subjective/Objective Subjective/Objective: Subjective: 72 year old male with below past medical history hospitalized for acute on chronic respiratory failure secondary to covid19 pneumonia, admitted to TCU with debility, here for rehabilitation, strengthening, prior to discharge home. Objective: Allergies acetaminophen [From Tylenol] Allergy (Unknown, Verified 12/29/22 21:13) increased white count Current Medications Generic Name Dose Route Start Last Admin Trade Name Freq PRN Reason Stop Dose Admin Hydrocodone Bitart/Acetaminophen 0.5 tablet 12/31/22 16:54 01/02/23 16:41 Hydrocodone Bitartrate/Apap 5/325 Tablet PO 01/09/23 10:04 0.5 tablet Q6H PRN PRN Administration Pain Score 1-10 Hydrocodone Bitart/Acetaminophen 1 tablet 01/09/23 10:05 Hydrocodone Bitartrate/Apap 5/325 Tablet PO Q6H PRN PRN Pain Score 1-10 Amlodipine Besylate 5 mg 01/01/23 10:00 01/04/23 09:07 Amlodipine 5 Mg Tablet PO 5 mg DAILY JH Administration Apixaban 2.5 mg 12/31/22 22:00 01/04/23 09:08 Apixaban 2.5 Mg Tablet ([facility]) PO 01/09/23 10:01 2.5 mg BID JH Administration Apixaban 5 mg 01/09/23 22:00 Apixaban 5 Mg Tablet PO BID JH Budesonide 0.5 mg 12/31/22 16:15 Budesonide Respules 0.5 Mg/2 Ml Ampul.Neb. INHALATION BID.RT JH Calamine/Phenol 1 applic 01/01/23 22:00 01/04/23 09:09 Menthol/Lanolin/Calamine/Znox 113 Gm Tube TOPICAL 1 applic BID JH Administration Protocol Furosemide 40 mg 01/01/23 10:00 01/04/23 09:08 Furosemide 40 Mg Tablet PO 40 mg DAILY JH Administration Guaifenesin 1,200 mg 12/31/22 22:00 01/04/23 09:08 Guaifenesin 1,200 Mg Tablet PO 1,200 mg BID JH Administration Levofloxacin 750 mg in 150 mls @ 100 mls/hr 01/03/23 19:50 01/03/23 23:00 Levaquin Iv IV 01/09/23 23:29 Infused 2200 JH Infusion Sodium Chloride 250 mls @ 15 mls/hr 01/03/23 21:16 01/03/23 21:48 IV 15 mls/hr .[id number] PRN Administration Additional IVPB Infusion Sodium Chloride 250 mls @ 15 mls/hr 01/03/23 21:16 IV .[id number] PRN Saline Flush Sodium Chloride 1,000 mls @ 75 mls/hr 01/04/23 07:45 01/04/23 09:04 IV 75 mls/hr .[id number] JH Administration Melatonin 3 mg 12/31/22 16:11 Melatonin 3 Mg Tablet PO QHS PRN PRN Insomnia Metoprolol Succinate 25 mg 12/31/22 22:00 01/04/23 10:36 Metoprolol(Xl)Succ 25 Mg Tablet PO 25 mg BID JH Administration Nirmatrelvir/Ritonavir 1 each 01/04/23 22:00 Nirmatrelvir/Ritonavir 1 Each Tablet PO 01/05/23 10:01 BID JH Pantoprazole Sodium 40 mg 01/01/23 10:00 01/04/23 09:07 Pantoprazole Sodium 40 Mg Tablet PO 40 mg DAILY JH Administration Potassium Chloride 20 meq 12/31/22 17:00 01/04/23 09:09 Potassium Chloride Oral Tablet 20 Meq PO 20 meq BIDCM JH Administration Senna/Docusate Sodium 2 tablet 12/31/22 16:11 Senna/Docusate Sodium 1 Tablet PO BID PRN PRN Constipation Sodium Chloride 1 spray 12/31/22 16:11 01/02/23 16:35 Sodium Chloride 0.65% 1 [place] [facility].Btl NASAL 1 spray Q4H PRN PRN Administration NASAL DRYNESS Sodium Chloride 10 - 40 ml 01/03/23 20:33 01/04/23 09:04 0.9% Saline Lock 10 Ml Syringe IV 10 ml UD PRN Administration SALINE FLUSH Problem List (Updated 12/31/22 @ 20:[address] Alex Nation MD) Heart failure with preserved ejection fraction (Acute) Insomnia (Acute) Pulmonary emboli (Acute) Acute on chronic respiratory failure (Chronic) Pneumonia due to 2019-nCoV (Acute) GERD (gastroesophageal reflux disease) (Acute) Hypertension (Chronic) COPD (chronic obstructive pulmonary disease) (Chronic) Hypokalemia (Acute) Debility (Acute) Vital Signs Temp Pulse Resp BP Pulse Ox O2 Del Method O2 Flow Rate 97.1 F L 89 21 H 99/66 91 Nasal Cannula 4 01/04/23 15:00 01/04/23 15:00 01/04/23 15:00 01/04/23 15:00 01/04/23 15:00 01/04/23 15:00 01/04/23 15:00 Oxygen Flow Rate (L/min) 4 Oxygen Delivery Method Nasal Cannula Weight: 67.132 kg Body Mass Index (BMI) 25.2 Sodium 134 mmol/L (136-145) L 01/03/23 17:27 Potassium 3.7 mmol/L (3.5-5.1) 01/03/23 17: Chloride 102 mmol/L (98-107) 01/03/23 17: Carbon Dioxide 24.0 mmol/L (21.0-32.0) 01/03/23 17:27 Anion Gap 8 (5-15) 01/03/23 17:27 BUN 24 mg/dL (7-18) H 01/03/23 17:27 Creatinine 0.92 mg/dL (0.70-1.30) 01/03/23 17:27 Est GFR (MDRD) Af Amer 104 mL/min (>60) 01/03/23 17:27 Est GFR (MDRD) Non-Af 86 mL/min (>60) 01/03/23 17:27 BUN/Creatinine Ratio 26.1 RATIO (10-20) H 01/03/23 17:27 Glucose 145 mg/dL (74-106) H 01/03/23 17:27 Assessment/Plan: 1. Pain: hydrocodone/acetaminophen 5-325 mg 1/2 tablet PO Q6H PRN pain until 01/09/23, then increase to hydrocodone/acetaminophen 5/325 mg 1 tablet PO Q6H PRN pain (drug interaction with Paxlovid). The patient has used 1 PRN dose of this medication to date. Please continue to monitor LFTs (AST/ALT = 61/46 on 01/03/23), for respiratory depression, drowsiness and constipation, as well as for syncope/ataxia (hydrocodone Beer's criteria). 2. Bowel: senna/docusate 2 tablets PO BID PRN constipation. The patient has not used any PRN doses to date, the patients last documented bowel movement was on 12/28/22. Please continue to monitor for constipation/diarrhea. As the patient does not have a documented bowel movement in 1 week, consider changing senna/docusate to 2 tablets PO BID scheduled until patient has regular bowel movements. 3. COVID -19: Paxlovid 3 tablets PO BID x 5 days (ending 01/05/23). Please continue to monitor for s/s of COVID-19, drug interactions (hydrocodone/acetaminophen and apixaban both adjusted for Paxlovid interaction), as well as for altered taste. 4. Hypertension/heart failure with preserved ejection fraction: amlodipine 5 mg PO daily, metoprolol succinate 25 mg PO BID, furosemide 40 mg PO daily. Please continue to monitor blood pressure (recent range 99-136/56-79), heart rate (recent range 59-89) as well as for lower extremity edema, and bronchospasm, potassium (K=3.7 mmol/L on 01/03/23), sodium (Na = 134 mmol/L on 01/03/23), and renal function (serum creatinine 0.92 mg/dL with creatinine clearance ~ 63 on 01/03/23). 5. History of pulmonary embolism: apixaban 2.5 mg PO BID until 01/09/23, then increase to apixaban 5 mg PO BID (Paxlovid drug interaction). Please continue to monitor for s/s PE, s/s of of bleeding, Hgb (Hgb = 9.3 g/dL on 01/03/23), platelet count (Plt =159 K/mm3 on 01/03/23) and for bruising. 6. COPD: budesonide 0.5 mg aerosol nebulized BID. Please continue to monitor for shortness of breath, pneumonia, and for oral thrush. 7. Urinary tract infection/pneumonia: levofloxacin 750 mg IV daily through 01/09/23. The patient's chest xray shows right-sided pneumonia, the patients urinary culture grew >100,000 E coli with sensitivities pending. Please continue to monitor for diarrhea,for neuropsychiatric disturbances, potassium levels (K=3.7 mmol/L on 01/03/23), blood glucose levels (BG = 145 mg/dL on ), WBC count (WBC = 16.5 K/mm3 on 01/03/23), temperature (recently 97.1 F) and for tendon rupture. Once sensitivities return for the E coli in the urine, consider de-escalation if possible. 8. Congestion: guaifenesin 1200 mg PO BID. Please continue to monitor for resolution of congestion, dizziness, drowsiness and headache. 9. GERD: pantoprazole 40 mg PO daily. Please continue to monitor for s/s of GERD, for diarrhea that would indication clostridium difficile infection (BEER's criteria), and for bone issues including fracture that would indicate bone loss/resorption (Beer's criteria). 10. Hypokalemia: potassium chloride 20 mEq PO BID with meals. Please continue to monitor potassium level (K=3.7 mmol/L on 01/03/23) as well as for GI distress. 11. Dry nares: sodium chloride 1 spray in each nostril Q4H PRN dry nares. Patient has not used any dose of nasal spray to this point. Please continue to monitor PRN usage. Assessment/Plan for indications treated with psychotropic medications: 1. Insomnia: melatonin 3 mg PO QHS. Patient has not received any doses of melatonin to date. Please continue to monitor for PRN usage, and daytime somnolence. Medical chart and medication regimen reviewed. The following medication irregularities or issues were identified: 1. Bowel: senna/docusate 2 tablets PO BID PRN constipation. The patient has not used any PRN doses to date, the patients last documented bowel movement was on 12/28/22. Please continue to monitor for constipation/diarrhea. As the patient does not have a documented bowel movement in 1 week, consider changing senna/docusate to 2 tablets PO BID scheduled until patient has regular bowel movements. 2. Urinary tract infection/pneumonia: levofloxacin 750 mg IV daily through 01/09/23. The patient's chest xray shows right-sided pneumonia, the patients urinary culture grew >100,000 E coli with sensitivities pending. Please continue to monitor for diarrhea,for neuropsychiatric disturbances, potassium levels (K=3.7 mmol/L on 01/03/23), blood glucose levels (BG = 145 mg/dL on ), WBC count (WBC = 16.5 K/mm3 on 01/03/23), temperature (recently 97.1 F) and for tendon rupture. Once sensitivities return for the E coli in the urine, consider de-escalation if possible. Date Date of Note:: 01/04/23
--- NOTE | 2023-01-04 16:29 | NURSING ---
Family given update additional staff members have covid.
[2023-01-04 17:26] VITALS: O2SAT 91
[2023-01-04 22:15] VITALS: O2SAT 97
[2023-01-04 22:49] VITALS: BP 112/64; PULSE 88
[2023-01-05] MEDS: NIRMATRELVIR/RITONAVIR 1 EACH TABLET PO ×2 (00:26→09:14)
[2023-01-05] MEDS: 0.9% Normal Saline (1000mL) 1,000 ML 75 ML IV (00:27)
--- NOTE | 2023-01-05 03:11 | NURSING ---
Pt pulled IV out. This nurse attempted to restart IV x 4 without success. Pt tolerated fair. Questioned pt if he would like to have IV fluids/medications continue at this time and he states no. A&O x2- person and time. Will continue to monitor.
--- NOTE | 2023-01-05 03:12 | NURSING ---
Upon entering room at 2200, pt noted to have removed IV catheter from left forearm. Area cleansed, catheter noted to be intact. This RAW HIDE TRIMMER attempted to start a new IV site, without success. supervisor pleating notified and able to start IV site in right forearm. IV Levaquin started. Upon reassessing patient around 0015, pt noted to have removed IV site in right forearm; pt unable to say why he did this. This catheter was noted to be intact; IV site cleansed and incontinence care provided. 1:1 time provided by this nurse; followed by 1:1 time with the RN as she attempted to place another IV site. Pt notes that he has been sick for a long time but his niece is wanting him to seek aggressive treatment with his illnesses. IV fluids and Levaquin held at this time. Written communication left for Dr. Nation.
[2023-01-05 08:30] VITALS: O2SAT 97
[2023-01-05] MEDS: Pantoprazole Sodium 40 MG Tablet PO (09:12)
[2023-01-05] MEDS: Nitrofurantoin Macrocrystals 100 MG Capsule PO (09:12)
[2023-01-05] MEDS: guaiFENesin 1,200 MG Tablet 1200 MG PO (09:12)
[2023-01-05] MEDS: APIXABAN 2.5 MG TABLET (WCH) PO ×2 (09:12→22:24)
[2023-01-05 09:13] VITALS: BP 95/60; PULSE 72
[2023-01-05] MEDS: Potassium Chloride Oral Tablet 20 MEQ PO (09:13)
[2023-01-05] MEDS: Menthol/Lanolin/Calamine/Znox 113 GM Tube 1 APPLIC TOPICAL ×2 (09:15→22:24)
[2023-01-05 10:36] VITALS: O2SAT 96
[2023-01-05 10:55] VITALS: O2SAT 92
--- NOTE | 2023-01-05 15:54 | NURSING ---
Approval received for MRI of the brain without contrast per Solis López Number is [id number]. Order is valid x 30 days starting today, 01/05-02/04.
[2023-01-05] MEDS: Atorvastatin Calcium 40 MG Tablet PO (22:24)
[2023-01-05] MEDS: LORazepam 0.5 MG Tablet PO (22:27)
[2023-01-05] MEDS: MELATONIN 3 MG TABLET PO (22:27)
[2023-01-05 22:28] VITALS: BP 120/63; PULSE 72
[2023-01-05] MEDS: Metoprolol(XL)Succ 25 MG Tablet PO (22:28)
[2023-01-05 23:01] VITALS: RESP 16
[2023-01-06] MEDS: LORazepam 0.5 MG Tablet PO ×2 (03:29→09:01)
[2023-01-06] MEDS: HYDROcodone Bitartrate/Apap 5/325 Tablet PO (03:30)
--- NOTE | 2023-01-06 08:21 | CASEMGMT ---
Social Work Received call from Dr. Nation requesting referral for pt to [facility]. spoke with family and family agreeable. BRIDGER met with niece to update as she is POA. Niece agreeable and able to meet with [facility] nurse to sign admission paperwork. BRIDGER phoned Kellie at [facility] for referral. A nurse is immediately available to come assess pt and get paperwork signed. Faxed referral. IDT updated. Plan: DC 01/06 to [facility] GERI Bullard
[2023-01-06 10:00] VITALS: RESP 20
[2023-01-06] MEDS: Menthol/Lanolin/Calamine/Znox 113 GM Tube 1 APPLIC TOPICAL (10:25)
[2023-01-06 10:32] VITALS: BP 130/74; PULSE 94; RESP 20; TEMP 36.7; O2SAT 93
--- NOTE | 2023-01-06 11:11 | NURSING ---
pt being transported at this time to hospice, report called to hospice,
--- NOTE | 2023-01-06 15:09 | DS.PCM_ITS ---
Providers Date of Admission: 12/31/22 Primary Care Physician: Dr. Gera Camp MD Consultations 01/06/23 08:03 Consult: Hospice / Palliative Care Routine Consulting Provider: [facility] Reason for Consult: Terminally restless EMERGENT Consult: Yes Notified: Yes Date Notified: 01/06/23 Time Notified: 08:03 Method of Notification: Verbal 01/06/23 08:18 Consult: Hospice / Palliative Care Routine Consulting Provider: [facility] Reason for Consult: [facility] - terminal restless, anxious, discomfort. EMERGENT Consult: Yes MD Notified: Yes Date Notified: 01/06/23 Time Notified: 08:18 Method of Notification: Verbal Reason For Visit: COVID 19, PNEUMONIA Diagnosis Discharge Diagnosis (1) Debility: Status: Acute Code(s): R53.81 - Other malaise (2) Acute on chronic respiratory failure: Status: Chronic Code(s): J96.20 - Acute and chronic respiratory failure, unspecified whether with hypoxia or hypercapnia (3) Pneumonia due to 2019-nCoV: Status: Acute Code(s): U07.1 - COVID-19; J12.82 - Pneumonia due to coronavirus disease 2019 (4) Pulmonary emboli: Status: Resolved Code(s): I26.99 - Other pulmonary embolism without acute cor pulmonale Qualifiers: Pulmonary embolism type: other Chronicity: acute Acute cor pulmonale presence: with acute cor pulmonale Qualified Code(s): I26.09 - Other pulmonary embolism with acute cor pulmonale (5) COPD (chronic obstructive pulmonary disease): Status: Inactive Code(s): J44.9 - Chronic obstructive pulmonary disease, unspecified Qualifiers: COPD type: chronic bronchitis Chronic bronchitis type: unspecified Qualified Code(s): J42 - Unspecified chronic bronchitis (6) Hypertension: Status: Chronic Code(s): I10 - Essential (primary) hypertension (7) Insomnia: Status: Acute Code(s): G47.00 - Insomnia, unspecified (8) GERD (gastroesophageal reflux disease): Status: Acute Code(s): K21.9 - Gastro-esophageal reflux disease without esophagitis (9) Hypokalemia: Status: Acute Code(s): E87.6 - Hypokalemia (10) Heart failure with preserved ejection fraction: Status: Acute Code(s): I50.30 - Unspecified diastolic (congestive) heart failure Plan 72 year old male with below past medical history hospitalized for acute on chronic respiratory failure secondary to covid19 pneumonia, admitted to TCU with debility, here for rehabilitation, strengthening, prior to discharge home. * Debility - PT/OT. * Pain - [place] 0.5/1 tablet q6h prn. * Bowel - senna/colace 2 tablets bid prn. * Adult immunization - Administer pneumonia vaccine, covid19 vaccine, flu vacc ine as appropriate. * DVT prophylaxis - on Eliquis. * Lung cancer - Oncology follow up as outpatient. * Hypertension - Metoprolol succinate 25mg bid, Amlodipine 5mg daily. * Pulmonary embolism - Eliquis 2.5mg/5mg bid. * COPD - Budesonide 0.5mg inhaled bid, resident declined Albuterol, Duoneb, stating it makes his throat cold. * Heart failure preserved ejection fraction - Metoprolol succinate 25mg bid, Furosemide 40mg daily. * Congestion - Guaifenesin 1200mg bid. * Insomnia - Melatonin 3mg qhs. * Covid19 - Paxlovid for 5 days, appreciate pharmacy help with drug interactions. * GERD - Pantoprazole 40mg daily. * Hypokalemia - KCL 20meq bidcm. * Dry nares - Sodium Chloride 1 spray q4h prn. Medications at Discharge Home Medications guaifenesin 1,200 mg tablet, extended release 12 hr (Mucus Relief ER) 1,200 mg PO BID Mucus Relief #0 tabs 12/02/22 albuterol sulfate 2.5 mg/3 mL (0.083 %) solution for nebulization 2.5 mg (3 mL) inhalation Q2H PRN PRN Shortness of Breath/Wheezing 30 days #360 mL 12/12/22 budesonide 0.5 mg/2 mL suspension for nebulization 0.5 mg (2 mL) inhalation BID.RT COPD 30 days #120 mL 12/12/22 ipratropium 0.5 mg-albuterol 3 mg (2.5 mg base)/3 mL nebulization soln 3 ml inhalation Q6HWA.RT lungs 30 days #360 mL 12/12/22 metoprolol succinate 25 mg tablet,extended release 24 hr 25 mg PO BID BP 30 days #60 tabs 12/12/22 pantoprazole 40 mg tablet,delayed release 40 mg PO DAILY acid reflux 30 days #30 tabs 12/12/22 sodium chloride 0.65 % nasal spray aerosol (Deep Sea Nasal) 2 spray NASAL TID PRN PRN NASAL DRYNESS #0 mL 12/12/22 amlodipine 5 mg tablet 5 mg PO DAILY heart 12/14/22 furosemide 40 mg tablet 40 mg PO DAILY swell #0 tabs 12/22/22 hydrocodone-acetaminophen 5-325mg 5mg-325mg 1 tab PO Q6H PRN PRN Pain Score 1-10 2 days #6 tabs 12/22/22 melatonin 3 mg tablet 3 mg PO QHS PRN PRN Insomnia #0 tabs 12/22/22 potassium chloride 20 mEq tablet,extended release(part/cryst) (Klor-Con M) 20 meq PO BID supplement #0 tabs 12/22/22 sennosides 8.6 mg-docusate sodium 50 mg tablet (Stool Softener-Stimulant Laxative) 2 tab PO BID PRN PRN Constipation #0 tabs 12/22/22 sodium chloride 0.65 % nasal spray aerosol (Deep Sea Nasal) 1 spray NASAL Q4H PRN PRN NASAL DRYNESS #0 mL 12/22/22 apixaban 5 mg tablet (Eliquis) 5 mg PO BID lung clots 12/29/22 nirmatrelvir 300 mg (150 mg x2)-ritonavir 100 mg tablet,dose pack (Paxlovid) See Rx Instructions PO .COMPLEX Covid 19 #30 tabs 12/31/22 Hospital Course Operations None Procedures None Summary of Care Provided Minutes Spent on Discharge: 35 Hospital Course: 72 year old male with below past medical history hospitalized for acute on chronic respiratory failure secondary to covid19 pneumonia, admitted to TCU with debility, here for rehabilitation, strengthening, prior to discharge home. Resident has lung cancer, pulmonary embolism as well. 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 01/06/2023 Resident dying, restless, anxious, uncomfortable. Discharge to Inpatient Hospice for terminal care. Physical Exam Const alert General Appearance: cooperative HEENT normocephalic Eyes PERRL and EOMs intact bilaterally Neck supple, no JVD and no carotid bruits Resp normal respiratory effort, normal air movement and clear to auscultation bilaterally Cardio regular rate and regular rhythm GI normal to inspection, nondistended, normoactive bowel sounds, non-tender and non-distended Extremity normal capillary refill General Extremity: Negative for edema Skin no rashes or lesions noted General Skin Exam: no breakdown Psych affect normal Appearance: appropriate Weight / BMI Weight Weight: 67.132 kg Body Mass Index (BMI) 25.2 ABG / Lab / Microbiology Data 01/03/23 17:27 01/03/23 17:27 Microbiology: Microbiology 01/03/23 19:08 Urine Catheter - Medel Urine Culture - Final Presumptive E. coli 01/03/23 17:28 Mucosa - Nasopharyngeal Respiratory Panel (PCR) - Final D/C Instructions Discharge Diet: No restrictions Discharge Activity: Return to Normal Activity Weight Bearing Status: Weight bearing as tolerated Additional Instructions: Discharge to Inpatient Hospice for terminal care. Meaningful Use Info Meaningful Use Diagnoses (Choose all that apply): None applicable Discharge Plan Admission Admit Date/Time: 12/31/22 15:30 Primary Reason for Your Visit: Debility. Attending Provider: Alex Nation Chi Primary Care Provider: Gera Camp Consulting Providers: Carolann Mcginnis; Fredy Merrill; Megan Carter; Huyen Pedraza STOCK PITCHER Instructions Additional Instructions / Restrictions: Discharge to Inpatient Hospice for terminal care. Discharge Orders/Prescriptions Prescriptions: No Action Mucus Relief ER 1,200 mg Tablet Extended Release 12hr 1,200 mg PO BID Qty: 0 0RF ipratropium-albuterol 0.5 mg-3 mg(2.5 mg base)/3 mL Solution For Nebulization 3 ml inhalation Q6HWA.RT 30 Days Qty: 360 0RF albuterol sulfate 2.5 mg /3 mL (0.083 %) Solution For Nebulization 2.5 mg inhalation Q2H PRN PRN (Reason: Shortness of Breath/Wheezing) 30 Days Qty: 360 0RF pantoprazole 40 mg Tablet,Delayed Release (Dr/Ec) 40 mg PO DAILY 30 Days Qty: 30 0RF budesonide 0.5 mg/2 mL Suspension For Nebulization 0.5 mg inhalation BID.RT 30 Days Qty: 120 0RF metoprolol succinate 25 mg Tablet Extended Release 24 Hr 25 mg PO BID 30 Days Qty: 60 0RF Deep Sea Nasal 0.65 % Aerosol,[place] 2 spray NASAL TID PRN PRN (Reason: NASAL DRYNESS) Qty: 0 0RF Hold Instructions: Duplicate Order amlodipine 5 mg tablet 5 mg PO DAILY furosemide 40 mg Tablet 40 mg PO DAILY Qty: 0 0RF hydrocodone-acetaminophen 5-325 mg Tablet 1 tab PO Q6H PRN PRN (Reason: Pain Score 1-10) 2 Days Qty: 6 0RF sennosides-docusate sodium [Stool Softener-Stimulant Laxat] 8.6-50 mg Tablet 2 tab PO BID PRN PRN (Reason: Constipation) Qty: 0 0RF melatonin 3 mg Tablet 3 mg PO QHS PRN PRN (Reason: Insomnia) Qty: 0 0RF potassium chloride [Klor-Con M20] 20 mEq Tablet,Er Particles/Crystals 20 meq PO BID Qty: 0 0RF Deep Sea Nasal 0.65 % Aerosol,[place] 1 spray NASAL Q4H PRN PRN (Reason: NASAL DRYNESS) Qty: 0 0RF Eliquis 5 mg Tablet 5 mg PO BID Rx Instructions: two twice a day for a total of 6 pills, then one twice a day starting 12/24/22 Paxlovid 300 mg (150 mg x 2)-100 mg tablets,dose pack See Rx Instructions .ROUTE .COMPLEX Qty: 30 0RF Rx Instructions: take TWO 150 mg tablets of nirmatrelvir with ONE 100 mg tablet of ritonavir twice daily for 5 days Referrals / Follow Up: Gera Camp MD [Primary Care Provider] - Disposition Disposition (needs filled in before D/C Order can be placed): Hospice in Medical Facility
--- NOTE | 2023-01-12 12:22 | MDS.RN ---
Information for the mds was obtained from review of the clinical record, interview of resident, staff, and direct observation of resident's care.
== END 2023-01-06 11:05 | disposition hospice, inpatient (51) | DRG 177 ==
PROVIDERS: Admitting Provider Family Medicine Geriatric Medicine; PCP Internal Medicine; Visit Provider Family Medicine Geriatric Medicine
DX: U07.1 COVID-19 (principal); I26.09 Other pulmonary embolism with acute cor pulmonale; J96.20 Acute and chronic respiratory failure, unspecified whether with hypoxia or hypercapnia; J12.82 Pneumonia due to coronavirus disease 2019; I50.31 Acute diastolic (congestive) heart failure; C34.90 Malignant neoplasm of unspecified part of unspecified bronchus or lung; J44.0 Chronic obstructive pulmonary disease with (acute) lower respiratory infection; I11.0 Hypertensive heart disease with heart failure; E87.6 Hypokalemia; K21.9 Gastro-esophageal reflux disease without esophagitis; Z87.891 Personal history of nicotine dependence; Z79.01 Long term (current) use of anticoagulants; Z79.51 Long term (current) use of inhaled steroids; G47.00 Insomnia, unspecified; Z79.899 Other long term (current) drug therapy
CPT/HCPCS: 36415; 71046; 80048; 80053; 81001; 85014; 85018; 85025; 87086; 87088; 87186; 87633; 97110; 97116; 97162; 97166; 97530; 97535; 97802; J7030; J7050; A4216

== ENCOUNTER → 2023-01-05 | Outpatient (CLI) | payer MEDICARE, SELFPAY ==
--- NOTE | 2023-01-05 17:23 | MRI_ITS ---
We are attempting to reach an attending provider to discuss findings. An addendum with communication details will be sent when the communication is complete. STUDY: MRI BRAIN WITHOUT CONTRAST REASON FOR EXAM: Male, 72 years old. MENTAL STATUS CHANGES COVID + TECHNIQUE: Standardized multiplanar fat and water weighted pulse sequences were obtained. COMPARISON: None. FINDINGS: Moderate atrophy and periventricular white matter changes. . There are multiple foci of restricted diffusion within the cerebral hemispheres bilaterally consistent with acute ischemic changes. There are also acute ischemic changes seen within the cerebellar hemispheres bilaterally suggesting embolic origin. Normal bilateral basal ganglia. Normal thalami. There is no extra-axial fluid accumulation. Normal flow voids within the major intracranial circulation suggesting patency by spin echo criteria. Normal sella turcica, pituitary gland, infundibular stalk, optic chiasm and hypothalamus. Normal tectal plate and pineal gland. Normal midbrain, estevan and medulla. . Normal basal cisterns. Normal bilateral temporal bones. Normal bilateral internal auditory canals. No demonstrated orbital abnormality, within the constraints of a routine brain study. Normal visualized paranasal sinuses. Normal calvarium and skull base. Normal visualized soft tissue structures. Normal visualized upper cervical spine. MRI/Brain without Contrast IMPRESSION: Multiple bilateral acute white matter ischemic changes in the cerebral hemispheres bilaterally as well as the cerebellar hemispheres suggesting embolic origin. Clinical correlation recommended. Electronically Signed: Sim Demarco MD at 18:24 EDT ,
== END | disposition home or self-care (01) ==
LOC: MRI 17:18
PROVIDERS: PCP Internal Medicine; Referring Provider Family Medicine Geriatric Medicine; Visit Provider Family Medicine Geriatric Medicine
DX: U07.1 COVID-19 (principal)
CPT/HCPCS: 70551